=== PATIENT | male | born 1940 | race Caucasian/White ===

== ENCOUNTER 2017-07-15 22:35 | Emergency (ER) | payer MEDICARE, OTHER ==
--- NOTE | 2017-07-15 22:46 | EDM.PDOC ---
ED HPI GENERAL MEDICAL PROBLEM - General Chief Complaint: Genitourinary Problem Stated Complaint: hematuria Time Seen by Provider: 07/15/17 22:36 Source of Information: Reports: Patient, Family () History Limitations: Reports: No Limitations - History of Present Illness INITIAL COMMENTS - FREE TEXT/NARRATIVE: Patient presents with complaint of hematuria. He says he was getting ready for bed this evening and when he urinated it was very bloody in appearance. No clots were seen. He denies any abdominal pain or dysuria. He has never had blood in urine before. Seven years ago he had prostate cancer that was treated with Lupron which was discontinued after sufficient time period of normal follow up with urologist. He has stage 3 renal disease and A Fib per his . He has had AAA surgery and cardiac stents. - Related Data Allergies Allergy/AdvReac Type Severity Reaction Status Date / Time celecoxib [From Celebrex] Allergy Hives Verified 01/07/15 21:31 ezetimibe [From Zetia] Allergy Other Verified 07/15/17 23:03 nitroglycerin Allergy Bradycardia Verified 01/07/15 21:31 Home Meds: Home Meds Acetaminophen [Tylenol Arthritis Pain] 650 mg PO Q4HR 01/08/15 [History] Allopurinol [Zyloprim] 100 mg PO DAILY 01/08/15 [History] Calcium Carbonate/Vitamin D3 [Calcium 600 + Vit D Tablet] 1 each PO DAILY [History] Cyanocobalamin (Vitamin B-12) [Vitamin B-12] 1,000 mcg PO DAILY 01/08/15 [ History] Folic Acid 1 mg PO DAILY 01/08/15 [History] Furosemide 20 mg PO DAILY 01/08/15 [History] Losartan [Cozaar] 25 mg PO DAILY 01/08/15 [History] Ranolazine [Ranexa] 1,000 mg PO BID 01/08/15 [History] Simvastatin [Zocor] 20 mg PO BEDTIME 01/08/15 [History] Warfarin Sodium [Warfarin Sodium] 5 mg PO ASDIRECTED 01/08/15 [History] Warfarin Sodium [Warfarin Sodium] 7.5 mg PO ASDIRECTED 01/08/15 [History] metFORMIN [Glucophage XR] 500 mg PO DAILY 01/08/15 [History] Carvedilol [Carvedilol] 3.125 mg PO BID 07/15/17 [History] Cholecalciferol (Vitamin D3) [Vitamin D3] 2,000 mg PO DAILY 07/15/17 [History] Past Medical History - Past Surgical History Other Cardiovascular Surgeries/Procedures: ablation in 2012, triple bypass in ", AAA repair in 2009 Other GI Surgeries/Procedures: 2012 Social & Family History - Tobacco Use Smoking Status *Q: Former Smoker Years of Tobacco use: 30 Second Hand Smoke Exposure: No - Recreational Drug Use Recreational Drug Use: No ED ROS GENERAL - Review of Systems Review Of Systems: See Below Constitutional: Denies: Fever, Chills, Malaise, Weakness HEENT: Reports: No Symptoms Respiratory: Denies: Shortness of Breath, Cough Cardiovascular: Denies: Chest Pain, Lightheadedness, Syncope Endocrine: Reports: No Symptoms GI/Abdominal: Denies: Abdominal Pain, Anorexia, Black Stool, Bloody Stool, Constipation, Diarrhea, Decreased Appetite, Hematemesis, Hematochezia, Nausea, Vomiting : Reports: Hematuria. Denies: Discharge, Dysuria, Flank Pain, Frequency, Incontinence, Urgency, Urinary Retention Musculoskeletal: Reports: No Symptoms Skin: Denies: Cyanosis, Jaundice, Mottled, Pallor, Diaphoresis Neurological: Denies: Confusion, Dizziness, Headache, Seizure, Syncope, Trouble Speaking, Difficulty Walking Psychiatric: Denies: Agitation, Anxiety, Confusion Hematologic/Lymphatic: Reports: Easy Bleeding (on warfarin for A Fib with INR yesterday of 2.6). Denies: Anemia ED EXAM, RENAL/ - Physical Exam Exam: See Below Exam Limited By: No Limitations General Appearance: Alert, WD/WN, No Apparent Distress Eye Exam: Bilateral Eye: EOMI, Normal Inspection, PERRL Ears: Normal External Exam, Hearing Grossly Normal Nose: Normal Inspection, No Blood Throat/Mouth: Normal Inspection, Normal Lips, Normal Voice, No Airway Compromise Head: Atraumatic, Normocephalic Neck: Full Range of Motion Respiratory/Chest: No Respiratory Distress, Lungs Clear, Normal Breath Sounds, No Accessory Muscle Use Cardiovascular: Regular Rate, Rhythm, No Murmur GI/Abdominal: Normal Bowel Sounds, Soft, Non-Tender, No Organomegaly, No Distention, No Abnormal Bruit, No Mass, Pelvis Stable Back Exam: No: CVA Tenderness (L), CVA Tenderness (R) Extremities: Normal Range of Motion Neurological: Alert, Oriented, Normal Cognition, No Motor/Sensory Deficits Psychiatric: Normal Affect, Normal Mood Skin Exam: Warm, Dry, Intact, Normal Color, No Rash Course - Vital Signs Last Recorded V/S: Last Vital Signs Temp 97.0 F 07/15/17 22:37 Pulse 59 L 07/15/17 22:37 Resp 18 07/15/17 22:37 BP 198/92 H 07/15/17 22:37 Pulse Ox 98 07/15/17 22:37 - Orders/Labs/Meds Orders: Active Orders 24 hr Category Date Time Status PSA-EIA [REF] Stat Lab 07/15/17 22:45 Ordered Labs: Laboratory Tests 07/15/17 07/15/17 07/15/17 Range/Units 22:54 23:00 23:00 WBC 6.8 (5.0-10.0) 10^3/uL RBC 3.38 L (4.50-6.00) 10^6/uL Hgb 10.8 L (13.0-17.0) g/dL Hct 33.2 L (40.0-52.0) % MCV 98.1 H (82.0-92.0) fL MCH 31.8 H (27.0-31.0) pg MCHC 32.4 (32.0-36.0) g/dL RDW 16.4 H (11.5-14.5) % Plt Count 168 (150-300) 10^3/uL MPV 9.2 (7.4-10.4) fL Add Manual Diff Yes Neutrophils % (Manual) 56 (50-70) % Lymphocytes % (Manual) 36 (20-40) % Monocytes % (Manual) 2 (2-8) % Eosinophils % (Manual) 6 H (1-3) % PT 22.9 H (8.9-11.4) SEC INR 2.3 H (0.9-1.1) Sodium (136-145) mmol/L Potassium (3.3-5.3) mmol/L Chloride (98-115) mmol/L Carbon Dioxide (21.0-32.0) mmol/L BUN (6-25) mg/dL Creatinine (0.51-1.17) mg/dL Est Cr Clr Drug Dosing mL/min Estimated GFR (MDRD) mL/min Glucose (70-110) mg/dL Calcium (8.7-10.3) mg/dL Specimen Type Urincc Urine Color Heavenly H (YELLOW) Urine Appearance Turbid H (CLEAR) Urine pH 5.5 (5.0-9.0) Ur Specific [place] 1.020 (1.005-1.030) Urine Protein 100 H (NEGATIVE) mg/dL Urine Glucose (UA) Negative (NEGATIVE) mg/dL Urine Ketones Negative (NEGATIVE) mg/dL Urine Occult Blood Large H (NEGATIVE) Urine Nitrite Negative (NEGATIVE) Urine Bilirubin Small H (NEGATIVE) Urine Urobilinogen 0.2 (0.2-1.0) E.U./dL Ur Leukocyte Esterase Negative (NEGATIVE) Urine RBC Packed /HPF Urine WBC 0-5 /HPF Ur Epithelial Cells Few /LPF Urine Bacteria Few (NONE TO FEW) /HPF 07/15/17 Range/Units 23:00 WBC (5.0-10.0) 10^3/uL RBC (4.50-6.00) 10^6/uL Hgb (13.0-17.0) g/dL Hct (40.0-52.0) % MCV (82.0-92.0) fL MCH (27.0-31.0) pg MCHC (32.0-36.0) g/dL RDW (11.5-14.5) % Plt Count (150-300) 10^3/uL MPV (7.4-10.4) fL Add Manual Diff Neutrophils % (Manual) (50-70) % Lymphocytes % (Manual) (20-40) % Monocytes % (Manual) (2-8) % Eosinophils % (Manual) (1-3) % PT (8.9-11.4) SEC INR (0.9-1.1) Sodium 141 (136-145) mmol/L Potassium 4.9 (3.3-5.3) mmol/L Chloride 102 (98-115) mmol/L Carbon Dioxide 27.5 (21.0-32.0) mmol/L BUN 33 H (6-25) mg/dL Creatinine 1.61 H (0.51-1.17) mg/dL Est Cr Clr Drug Dosing 39.62 mL/min Estimated GFR (MDRD) 42 mL/min Glucose 123 H (70-110) mg/dL Calcium 9.2 (8.7-10.3) mg/dL Specimen Type Urine Color (YELLOW) Urine Appearance (CLEAR) Urine pH (5.0-9.0) Ur Specific [place] (1.005-1.030) Urine Protein (NEGATIVE) mg/dL Urine Glucose (UA) (NEGATIVE) mg/dL Urine Ketones (NEGATIVE) mg/dL Urine Occult Blood (NEGATIVE) Urine Nitrite (NEGATIVE) Urine Bilirubin (NEGATIVE) Urine Urobilinogen (0.2-1.0) E.U./dL Ur Leukocyte Esterase (NEGATIVE) Urine RBC /HPF Urine WBC /HPF Ur Epithelial Cells /LPF Urine Bacteria (NONE TO FEW) /HPF - Re-Assessments/Exams Free Text/Narrative Re-Assessment/Exam: 07/16/17 00:01 Hg 10.8 compared with 10.1 1-2 weeks ago from clinic record that pt's accessed. INR is 2.3 and UA shows large amount of RBCs. However the color of the urine is much more dilute than earlier this evening per patient and his . Discussed findings and recommendations with patient including the need to get this rechecked to ascertain the source of bleeding if it continues. Patient discharged in stable condition. Departure - Departure Time of Disposition: 23:57 Disposition: Home, Self-Care 01 Condition: Good Clinical Impression: Gross hematuria - Discharge Information Forms: ED Department Discharge Additional Instructions: 1. Monitor the urine to see if it continues to clear up. 2. Follow up with your PCP on Tuesday for recheck of urine. 3. Go to ER if you have continuing major bleeding in urine or if you become weak or pale as that may require a blood transfusion. - My Orders Last 24 Hours: My Active Orders 07/15/17 22:45 PSA-EIA [REF] Stat - Assessment/Plan Last 24 Hours: My Active Orders 07/15/17 22:45 PSA-EIA [REF] Stat
[2017-07-16 03:17] VITALS: BP 150/69
== END 2017-07-16 00:10 | disposition home or self-care (01) ==
LOC: KA.ED 22:35
DX: R31.0 Gross hematuria (principal); Z88.8 Allergy status to other drugs, medicaments and biological substances; Z79.899 Other long term (current) drug therapy; Z79.01 Long term (current) use of anticoagulants; Z79.84 Long term (current) use of oral hypoglycemic drugs; Z87.891 Personal history of nicotine dependence
CPT/HCPCS: 36415; 80048; 81001; 84153; 85025; 85610; 99283

== ENCOUNTER 2017-12-19 07:43 | Inpatient (IN) | payer MEDICARE, OTHER ==
[2017-12-19] MEDS ORDERED: Calamine/Zinc Oxide Lotion 118 ML Bottle TOP PRN (16:40)
[2017-12-19] MEDS ORDERED: Albuterol/Ipratropium 3.0-0.5 MG/3 ML Neb Soln INH PRN (16:45)
[2017-12-19] MEDS: Carvedilol 6.25 MG Tab PO SCH (17:15)
[2017-12-19] MEDS: Acetaminophen 650 MG Tab.ER PO SCH ×2 (17:15→22:52)
[2017-12-19] MEDS ORDERED: Ondansetron 4 MG Tab.DIS PO ONE (18:22)
[2017-12-19] MEDS: Melatonin 3 MG Tab PO SCH (20:47)
[2017-12-19] MEDS: Simvastatin 20 MG Tab PO SCH (20:47)
[2017-12-19] MEDS ORDERED: RANOLAZINE 1000 MG PO ONE (20:48)
[2017-12-19] MEDS: RANOLAZINE 1000 MG PO SCH (20:48)
[2017-12-19] MEDS ORDERED: Enoxaparin 30 MG/0.3 ML Syringe SUBCUT SCH (21:00)
[2017-12-19] MEDS ORDERED: Triamcinolone Acetonide 0.1% Crm 15 GM Tube TOP PRN (21:00)
[2017-12-20] MEDS: Acetaminophen 650 MG Tab.ER PO SCH ×4 (06:01→22:47)
[2017-12-20] MEDS ORDERED: Ondansetron 4 MG Tab.DIS PO PRN (08:06)
[2017-12-20] MEDS: Cholecalciferol (Vitamin D3) 1,000 Unit Tab PO SCH (08:17)
[2017-12-20] MEDS: Calcium Citrate/Vitamin D3 315 MG-250 Unit Tab PO SCH (08:18)
[2017-12-20] MEDS: Cyanocobalamin (Vitamin B12) 500 MCG Tab PO SCH (08:18)
[2017-12-20] MEDS: metFORMIN 500 MG Tab PO SCH (08:18)
[2017-12-20] MEDS: Furosemide 20 MG Tab PO SCH (08:19)
[2017-12-20] MEDS: Allopurinol 100 MG Tab PO SCH (08:19)
[2017-12-20] MEDS: Polyethylene Glycol 3350 Powder 17 GM Packet PO SCH (08:20)
[2017-12-20] MEDS: traMADol 50 MG Tab PO PRN (08:21)
[2017-12-20] MEDS: Carvedilol 6.25 MG Tab PO SCH ×2 (08:22→17:37)
[2017-12-20] MEDS: RANOLAZINE 1000 MG PO SCH ×2 (08:24→20:07)
--- NOTE | 2017-12-20 09:29 | PCM.HP ---
H&P History of Present Illness - General Date of Service: 12/20/17 Admit Problem/Dx: Admission Diagnosis/Problem Admission Diagnosis/Problem Arthroplasty of knee Source of Information: Patient - History of Present Illness Initial Comments - Free Text/Narative: This 77-year-old gentleman was admitted into SNF for rehabilitation underwent successful left total knee replacement DOS 12/15/[address] Paz orthopedic surgeon. Left Knee Pain Score (Numeric/FACES): 5 - Related Data Allergies/Adverse Reactions: Allergies Allergy/AdvReac Type Severity Reaction Status Date / Time celecoxib [From Celebrex] Allergy Hives Verified 12/19/17 14:24 degarelix Allergy Rash Verified 12/19/17 14:24 ezetimibe [From Zetia] Allergy Other Verified 12/19/17 14:24 nitroglycerin Allergy Bradycardia Verified 12/19/17 14:24 Home Medications: Home Meds Acetaminophen [Tylenol Arthritis Pain] 650 mg PO Q6HR 01/08/15 [History] Allopurinol [Zyloprim] 100 mg PO DAILY 01/08/15 [History] Calcium Carbonate/Vitamin D3 [Calcium 600 + Vit D Tablet] 1 each PO DAILY [History] Cyanocobalamin (Vitamin B-12) [Vitamin B-12] 1,000 mcg PO DAILY 01/08/15 [ History] Furosemide 20 mg PO Q48H 01/08/15 [History] Ranolazine [Ranexa] 1,000 mg PO BID 01/08/15 [History] Simvastatin [Zocor] 20 mg PO BEDTIME 01/08/15 [History] Warfarin Sodium 5 mg PO SUTUWETHFRSA@1800 01/08/15 [History] Warfarin Sodium 7.5 mg PO MO@1800 01/08/15 [History] Carvedilol 3.125 mg PO BIDMEALS 07/15/17 [History] Cholecalciferol (Vitamin D3) [Vitamin D3] 2,000 mg PO DAILY 07/15/17 [History] Albuterol/Ipratropium [DuoNeb 3.0-0.5 MG/3 ML] 3 ml INH Q6H PRN 08/19/17 [ History] Triamcinolone Acetonide [Triamcinolone Acetonide 0.1% Crm] 1 applic TOP TID 08/07 [History] Goserelin [Zoladex] 10.8 mg SQ Q84D 10/27/17 [History] Calamine/Zinc Oxide [Calamine Lotion] 1 applic TOP TID PRN 12/19/17 [History] Enoxaparin [Lovenox] 30 mg SQ BID 12/19/17 [History] Folic Acid 0.8 mg PO DAILY 12/19/17 [History] Polyethylene Glycol 3350 [Miralax] 17 gm PO DAILY 12/19/17 [History] Sennosides/Docusate Sodium [Senna-Docusate Sodium] 8.6 - 50 mg PO BID 12/19/17 [ History] metFORMIN HCl [Metformin HCl] 500 mg PO WITHBREAKFAST 12/19/17 [History] traMADol [Ultram] 50 mg PO Q6H PRN 12/19/17 [History] Past Medical History HEENT History: Reports: Hard of Hearing, Impaired Vision, Other (See Below) Other HEENT History: pat. is supposed to have cataract surgery in the right eye Cardiovascular History: Reports: Afib, CAD, High Cholesterol, Hypertension, [place], Stents Respiratory History: Reports: COPD, Sleep Apnea Gastrointestinal History: Reports: Chronic Constipation Genitourinary History: Reports: BPH, Diabetic Nephropathy, Prostate Disorder, Renal Calculus Musculoskeletal History: Reports: Arthritis, Fracture, Other (See Below) Other Musculoskeletal History: 50 years ago pat. had fx. in the right foot Neurological History: Reports: Neuropathy, Diabetic Endocrine/Metabolic History: Reports: Diabetes, Type II Hematologic History: Reports: Anemia, Blood Transfusion(s) Oncologic (Cancer) History: Reports: Prostate - Infectious Disease History Infectious Disease History: Reports: None - Past Surgical History HEENT Surgical History: Reports: Tonsillectomy Cardiovascular Surgical History: Reports: AAA Repair, Cardiac Ablation, Coronary Artery Bypass Respiratory Surgical History: Reports: None GI Surgical History: Reports: Colonoscopy Other GI Surgeries/Procedures: 2013 Male Surgical History: Reports: Prostatectomy, Renal Calculus Endocrine Surgical History: Reports: None Neurological Surgical History: Reports: None Musculoskeletal Surgical History: Reports: Knee Replacement Social & Family History - Family History Cardiac: Reports: [place], Other (See Below) Other Cardiac Family History: brother had heart problems Respiratory: Reports: Other (See Below) Other Respiratory Family Hisory: pulmonary fibrosis - sister GI: Reports: None : Reports: None OBGYN: Reports: None Musculoskeletal: Reports: None Neurological: Reports: None Psychiatric: Reports: None Endocrine/Metabolic: Reports: None Hematologic: Reports: None Immunologic: Reports: None Oncologic: Reports: Lung, Prostate, Other (See Below) Other Oncologic Family History: sister - lung cancer. father - prostate cancer - Tobacco Use Smoking Status *Q: Former Smoker Years of Tobacco use: 25 Packs/Tins Daily: 1 Used Tobacco, but Quit: Yes Month/Year Tobacco Last Used: 1995 Second Hand Smoke Exposure: No - Caffeine Use Caffeine Use: Reports: Coffee, Tea - Recreational Drug Use Recreational Drug Use: No H&P Review of Systems - Review of Systems: Review Of Systems: See Below General: Reports: No Symptoms HEENT: Reports: No Symptoms Pulmonary: Reports: No Symptoms Cardiovascular: Reports: No Symptoms Gastrointestinal: Reports: No Symptoms Genitourinary: Reports: No Symptoms Musculoskeletal: Reports: Joint Pain, Joint Swelling, Other (mild left knee pain ) Skin: Reports: Bruising Psychiatric: Reports: No Symptoms Neurological: Reports: No Symptoms Hematologic/Lymphatic: Reports: No Symptoms Immunologic: Reports: No Symptoms Exam - Exam Exam: See Below - Vital Signs Vital Signs: Last Vital Signs Temp 97.5 F 12/20/17 07:00 Pulse 61 12/20/17 08:22 Resp 16 12/20/17 07:00 BP 159/69 H 12/20/17 08:22 Pulse Ox 95 12/20/17 07:00 Weight: 269 lb 3.2 oz - Exam Quality Assessment: No: Supplemental Oxygen General: Alert, Oriented, Cooperative. No: Mild Distress HEENT: PERRLA, Hearing Intact, Mucosa Moist & [place], Nares Patent, Normal Nasal Septum, Posterior Pharynx Clear, Conjunctiva Clear, EOMI, EACs Clear, TMs Clear Neck: Supple, Trachea Midline, 2 Lungs: Clear to Auscultation, Normal Respiratory Effort Cardiovascular: Regular Rate, Regular Rhythm GI/Abdominal Exam: Normal Bowel Sounds, Soft, Non-Tender, No Organomegaly, No Distention, No Abnormal Bruit, No Mass, Pelvis Stable (Male) Exam: Deferred Rectal (Males) Exam: Deferred Back Exam: No: CVA Tenderness (L), CVA Tenderness (R) Extremities: No Pedal Edema Peripheral Pulses: 2+: Radial (L), Radial (R) Skin: Warm, Dry, Intact, Incision Neurological: Cranial Nerves Intact Neuro Extensive - Mental Status: Alert, Oriented x3, Normal Mood/Affect, Normal Cognition Neuro Extensive - Motor, Sensory, Reflexes: CN II-XII Intact Psychiatric: Alert, Normal Affect, Normal Mood - Patient Data Lab Results Last 24 hrs: Laboratory Results - last 24 hr 12/20/17 12/20/17 Range/Units 06:00 07:25 PT TNP INR 2.0 H (0.9-1.1) POC Glucose 206 H (74-106) mg/dl Problem List Initiated/Reviewed/Updated: Yes Orders Last 24hrs: Active Orders 24 hr Category Date Time Status Patient Status [ADT] Routine ADT 12/19/17 14:23 Ordered Blood Glucose Check, Bedside [RC] 0700 Care 12/19/17 15:38 Active Cooling Warming Measures [RC] ASDIRECTED Care 12/19/17 15:59 Active Intake and Output [RC] 1400,2200,0600 Care 12/19/17 14:23 Active Up With Assistance [RC] ASDIRECTED Care 12/19/17 14:23 Active Vital Signs [RC] 0700,1500 Care 12/19/17 14:23 Active Consult to Pharmacy [CONS] Routine Cons 12/19/17 17:37 Active Consult to [employer] Supervisor [CONS] Routine Cons 12/19/17 14:23 Active PT Evaluation and Treatment [CONS] Routine Cons 12/19/17 14:23 Active [place] [employer] Diet [DIET] Diet 12/19/17 Dinner Active CBC WITH AUTO DIFF [HEME] Routine Lab 12/26/17 06:00 Ordered CULTURE WOUND [RM] Routine Lab 12/19/17 21:10 Ordered Acetaminophen [Tylenol Arthritis Pain] Med 12/19/17 17:00 Active 650 mg PO Q6HR Albuterol/Ipratropium [DuoNeb 3.0-0.5 MG/3 ML] Med 12/19/17 16:45 Active 3 ml INH Q6H PRN Allopurinol [Zyloprim] Med 12/20/17 09:00 Active 100 mg PO DAILY Calamine/Zinc Oxide [Calamine Lotion] Med 12/19/17 16:40 Active 0 ml TOP TID PRN Calcium Citrate/Vitamin D3 [Calcium Citrate + D] Med 12/20/17 09:00 Active 2 tab PO DAILY Carvedilol [Coreg] Med 12/19/17 18:00 Active 3.125 mg PO BIDMEALS Cholecalciferol (Vitamin D3) [Vitamin D3] Med 12/20/17 09:00 Active 2,000 units PO DAILY Cyanocobalamin (Vitamin B12) [Vitamin B12] Med 12/20/17 09:00 Active 500 mcg PO DAILY Furosemide [Lasix] Med 12/20/17 08:00 Active 20 mg PO Q48H Melatonin Med 12/19/17 21:00 Active 3 mg PO BEDTIME Ondansetron [Zofran ODT] Med 12/20/17 08:06 Active 4 mg PO Q4H PRN Polyethylene Glycol 3350 [MiraLAX] Med 12/20/17 09:00 Active 17 gm PO DAILY Ranolazine [Ranexa] Med 12/19/17 21:00 Active 1,000 mg PO BID Simvastatin [Zocor] Med 12/19/17 21:00 Active 20 mg PO BEDTIME Triamcinolone Acetonide [Triamcinolone Acetonide 0.1% Med 12/19/17 21:00 Active Crm] 0 gm TOP TID PRN Warfarin [Coumadin] Med 12/20/17 11:00 Active 5 mg PO DAILY@1100 metFORMIN [Glucophage] Med 12/20/17 08:00 Active 500 mg PO WITHBREAKFAST traMADol [Ultram] Med 12/19/17 16:40 Active 50 mg PO Q6H PRN Ice Therapy [OM.PC] Routine Oth 12/19/17 15:59 Ordered Resuscitation Status Routine Resus Stat 12/19/17 14:23 Ordered Medication Orders Acetaminophen (Tylenol Arthritis Pain) 650 mg PO Q6HR [facility] Last Admin: 12/20/17 06:01 Dose: 650 mg Admin: 12/19/17 22:52 Dose: Not Given Admin: 12/19/17 17:15 Dose: 650 mg Albuterol/Ipratropium (Duoneb 3.0-0.5 Mg/3 Ml) 3 ml INH Q6H PRN PRN Reason: shortness of breath Allopurinol (Zyloprim) 100 mg PO DAILY [facility] Last Admin: 12/20/17 08:19 Dose: 100 mg Calamine/Zinc Oxide (Calamine Lotion) 0 ml TOP TID PRN PRN Reason: Itching Calcium Citrate (Calcium Citrate + D) 2 tab PO DAILY [facility] Last Admin: 12/20/17 08:18 Dose: 2 tab Carvedilol (Coreg) 3.125 mg PO BIDMEALS [facility] Last Admin: 12/20/17 08:22 Dose: 3.125 mg Admin: 12/19/17 17:15 Dose: 3.125 mg Cholecalciferol (Vitamin D3) 2,000 units PO DAILY [facility] Last Admin: 12/20/17 08:17 Dose: 2,000 units Cyanocobalamin (Vitamin B12) 500 mcg PO DAILY [facility] Last Admin: 12/20/17 08:18 Dose: 500 mcg Furosemide (Lasix) 20 mg PO Q48H [facility] Last Admin: 12/20/17 08:19 Dose: 20 mg Melatonin (Melatonin) 3 mg PO BEDTIME [facility] Last Admin: 12/19/17 20:47 Dose: 3 mg Metformin HCl (Glucophage) 500 mg PO WITHBREAKFAST [facility] Last Admin: 12/20/17 08:18 Dose: 500 mg Ranolazine [Ranexa] (1,000 Mg Tab) 1,000 mg PO BID [facility] Last Admin: 12/20/17 08:24 Dose: 1,000 mg Admin: 12/19/17 20:48 Dose: 1,000 mg Ondansetron HCl (Zofran Odt) 4 mg PO Q4H PRN PRN Reason: Nausea/Vomiting Last Admin: 12/20/17 08:33 Dose: 4 mg Polyethylene Glycol (Miralax) 17 gm PO DAILY [facility] Last Admin: 12/20/17 08:20 Dose: Not Given Simvastatin (Zocor) 20 mg PO BEDTIME [facility] Last Admin: 12/19/17 20:47 Dose: 20 mg Tramadol HCl (Ultram) 50 mg PO Q6H PRN PRN Reason: Pain Last Admin: 12/20/17 08:21 Dose: 50 mg Triamcinolone Acetonide (Triamcinolone Acetonide 0.1% Crm) 0 gm TOP TID PRN PRN Reason: rash Warfarin Sodium (Coumadin) 5 mg PO DAILY@1100 [facility] Assessment/Plan Comment:: HISTORY OF PRESENT ILLNESS This 77-year-old gentleman was admitted into SNF for rehabilitation underwent successful left total knee replacement DOS 12/15/[address] Paz orthopedic surgeon. Primary assessment Total knee replacement, left, DOS 12/15/17, PT/OT Secondary problems Atrial fibrillation, chronic, INR 2.0 [id number] score 5: Coumadin restarted postoperatively, no longer needing LMWH T2D, A1c 6.7, recent creatinine 1.3, for now will continue metformin, pharmacy will make note of monitoring creatinine HTN, stable, Continue coreg BID. Hypertension, stable. CKD stage 3, stable. History of [place] I CAD, stable. Stent Ischemic cardiomyopathy LAURA, Obesity, morbid, HFpEF, Chronic, combined CHF, stable. Continue lasix, Delirium prophylaxis, ear plugs when necessary, [place].
[2017-12-20] MEDS ORDERED: Warfarin 5 MG Tab PO SCH (11:00)
[2017-12-20] MEDS: Melatonin 3 MG Tab PO SCH (20:07)
[2017-12-20] MEDS: Simvastatin 20 MG Tab PO SCH (20:07)
[2017-12-21] MEDS: Acetaminophen 650 MG Tab.ER PO SCH ×4 (04:23→22:51)
[2017-12-21] MEDS: traMADol 50 MG Tab PO PRN ×2 (04:48→15:32)
[2017-12-21] MEDS: Cholecalciferol (Vitamin D3) 1,000 Unit Tab PO SCH (08:25)
[2017-12-21] MEDS: Polyethylene Glycol 3350 Powder 17 GM Packet PO SCH (08:26)
[2017-12-21] MEDS: Calcium Citrate/Vitamin D3 315 MG-250 Unit Tab PO SCH (08:26)
[2017-12-21] MEDS: RANOLAZINE 1000 MG PO SCH ×2 (08:26→21:09)
[2017-12-21] MEDS: metFORMIN 500 MG Tab PO SCH (08:26)
[2017-12-21] MEDS: Allopurinol 100 MG Tab PO SCH (08:27)
[2017-12-21] MEDS: Cyanocobalamin (Vitamin B12) 500 MCG Tab PO SCH (08:27)
[2017-12-21] MEDS: Carvedilol 6.25 MG Tab PO SCH ×2 (08:29→18:12)
[2017-12-21] MEDS: traMADol 50 MG Tab PO SCH ×2 (11:20→22:51)
--- NOTE | 2017-12-21 11:50 | PN ---
12/21/2017 PATIENT NAME: ESTEFANY WILSON SHORT NOTE This is a 77-year-old male patient who is currently in the swing bed unit for rehabilitation due to a left total knee arthroplasty. This was completed on 12/15/[address] Paz. Nursing staff report today that the patient's pain medications include tramadol 50 mg on a q.i.d. PRN basis. It is reported that the patient is not making his pain needs known, therefore they are questioning if his pain is controlled. As a result, we will change his tramadol 50 mg to a scheduled dosing b.i.d. and also a p.r.n. dosing b.i.d. They will notify the provider with any other concerns in relation to Pain Management. The patient also will be placed on a bed alarm per nursing staff for safety. /[id number]/MODL MTDD
[2017-12-21] MEDS: Warfarin 5 MG Tab PO SCH (18:12)
[2017-12-21] MEDS: Simvastatin 20 MG Tab PO SCH (21:09)
[2017-12-21] MEDS: Melatonin 3 MG Tab PO SCH (21:09)
[2017-12-22] MEDS: Acetaminophen 650 MG Tab.ER PO SCH ×4 (05:38→22:28)
[2017-12-22] MEDS: traMADol 50 MG Tab PO PRN ×2 (06:02→14:05)
[2017-12-22] MEDS: RANOLAZINE 1000 MG PO SCH ×2 (08:11→21:04)
[2017-12-22] MEDS: Calcium Citrate/Vitamin D3 315 MG-250 Unit Tab PO SCH (08:12)
[2017-12-22] MEDS: Polyethylene Glycol 3350 Powder 17 GM Packet PO SCH (08:13)
[2017-12-22] MEDS: Cyanocobalamin (Vitamin B12) 500 MCG Tab PO SCH (08:13)
[2017-12-22] MEDS: Furosemide 20 MG Tab PO SCH (08:14)
[2017-12-22] MEDS: Allopurinol 100 MG Tab PO SCH (08:14)
[2017-12-22] MEDS: metFORMIN 500 MG Tab PO SCH (08:14)
[2017-12-22] MEDS: Cholecalciferol (Vitamin D3) 1,000 Unit Tab PO SCH (08:15)
[2017-12-22] MEDS: Carvedilol 6.25 MG Tab PO SCH ×2 (08:15→19:36)
[2017-12-22] MEDS ORDERED: Polyethylene Glycol 3350 Powder 17 GM Packet PO PRN (10:45)
[2017-12-22] MEDS: traMADol 50 MG Tab PO SCH ×2 (11:03→22:31)
[2017-12-22] MEDS: Warfarin 5 MG Tab PO SCH (19:38)
[2017-12-22] MEDS: Melatonin 3 MG Tab PO SCH (21:05)
[2017-12-22] MEDS: Simvastatin 20 MG Tab PO SCH (21:05)
[2017-12-23] MEDS: Acetaminophen 650 MG Tab.ER PO SCH ×2 (04:09→12:35)
[2017-12-23 08:53] VITALS: BP 175/78
[2017-12-23] MEDS: metFORMIN 500 MG Tab PO SCH (08:54)
[2017-12-23] MEDS: Carvedilol 6.25 MG Tab PO SCH (08:54)
[2017-12-23] MEDS: Calcium Citrate/Vitamin D3 315 MG-250 Unit Tab PO SCH (08:55)
[2017-12-23] MEDS: RANOLAZINE 1000 MG PO SCH (08:56)
[2017-12-23] MEDS: Cholecalciferol (Vitamin D3) 1,000 Unit Tab PO SCH (08:56)
[2017-12-23] MEDS: Cyanocobalamin (Vitamin B12) 500 MCG Tab PO SCH (08:56)
[2017-12-23] MEDS: Allopurinol 100 MG Tab PO SCH (08:57)
[2017-12-23] MEDS: traMADol 50 MG Tab PO SCH (10:40)
--- NOTE | 2017-12-23 10:58 | PCM.DCSUM1 ---
Discharge Summary - Hospital Course Brief History: 77-year-old gentleman was admitted into a swing bed for rehabilitation after the patient had successful left total knee replacement DOS 12/15/[address] Paz orthopedic surgeon--[facility] Diagnosis: Stroke: No - Discharge Data Discharge Date: 12/23/17 Discharge Disposition: Home, Self-Care 01 Condition: Good - Patient Summary/Data Complications: No complications during hospital stay other do some slight breakthrough in pain--improved control after scheduled tramadol Consults: Consultations 12/19/17 14:23 Consult to Trimming Caser [CONS] Routine PT Evaluation and Treatment [CONS] Routine 12/19/17 17:37 Consult to Pharmacy [CONS] Routine - Patient Instructions Diet: Usual Diet as Tolerated Activity: Apply Ice, As Tolerated, Cough & Deep Breathe Driving: Do Not Drive Showering/Bathing: May Shower - Discharge Plan Prescriptions/Med Rec: traMADol [Ultram] 50 mg PO Q6H PRN #30 tablet PRN Reason: Pain Home Medications: Home Meds Acetaminophen [Tylenol Arthritis Pain] 650 mg PO Q6HR 01/08/15 [History] Allopurinol [Zyloprim] 100 mg PO DAILY 01/08/15 [History] Calcium Carbonate/Vitamin D3 [Calcium 600 + Vit D Tablet] 1 each PO DAILY [History] Cyanocobalamin (Vitamin B-12) [Vitamin B-12] 1,000 mcg PO DAILY 01/08/15 [ History] Furosemide 20 mg PO Q48H 01/08/15 [History] Ranolazine [Ranexa] 1,000 mg PO BID 01/08/15 [History] Simvastatin [Zocor] 20 mg PO BEDTIME 01/08/15 [History] Warfarin Sodium 5 mg PO SUTUWETHFRSA@1800 01/08/15 [History] Warfarin Sodium 7.5 mg PO MO@1800 01/08/15 [History] Carvedilol 3.125 mg PO BIDMEALS 07/15/17 [History] Cholecalciferol (Vitamin D3) [Vitamin D3] 2,000 mg PO DAILY 07/15/17 [History] Albuterol/Ipratropium [DuoNeb 3.0-0.5 MG/3 ML] 3 ml INH Q6H PRN 08/19/17 [ History] Triamcinolone Acetonide [Triamcinolone Acetonide 0.1% Crm] 1 applic TOP TID 08/07 [History] Goserelin [Zoladex] 10.8 mg SQ Q84D 10/27/17 [History] Calamine/Zinc Oxide [Calamine Lotion] 1 applic TOP TID PRN 12/19/17 [History] Folic Acid 0.8 mg PO DAILY 12/19/17 [History] Polyethylene Glycol 3350 [Miralax] 17 gm PO DAILY 12/19/17 [History] Sennosides/Docusate Sodium [Senna-Docusate Sodium] 8.6 - 50 mg PO BID 12/19/17 [ History] metFORMIN HCl [Metformin HCl] 500 mg PO WITHBREAKFAST 12/19/17 [History] traMADol [Ultram] 50 mg PO Q6H PRN 12/19/17 [History] traMADol [Ultram] 50 mg PO Q6H PRN #30 tablet 12/23/17 [Rx] Referrals: Carlitos Casiano APPRENTICE STYLIST [Nurse Practitioner] - (Anytime next week) - Discharge Summary/Plan Comment DC Time >30 min.: No Discharge Summary/Plan Comment: Final diagnosis Total knee replacement, left. Secondary diagnosis Atrial fibrillation, chronic, T2D, HTN, Hypertension, CKD stage 3, CAD, stable. Ischemic cardiomyopathy LAURA, Obesity, morbid, HFpEF, Chronic, combined CHF, Disposition, patient will be discharged from hospital and will receive outpatient physical therapy at [facility], he has an appointment with myself next week - General Info Functional Status: Reports: Pain Controlled - Review of Systems General: Reports: No Symptoms HEENT: Reports: No Symptoms Pulmonary: Reports: No Symptoms Cardiovascular: Reports: No Symptoms Gastrointestinal: Reports: No Symptoms Genitourinary: Reports: No Symptoms Musculoskeletal: Reports: Joint Swelling. Denies: Joint Pain Skin: Reports: Other (Some bruising left knee) Neurological: Reports: No Symptoms - Patient Data Vitals - Most Recent: Last Vital Signs Temp 96.9 F 12/23/17 07:00 Pulse 62 12/23/17 08:54 Resp 20 12/23/17 07:00 BP 175/78 H 12/23/17 08:54 Pulse Ox 94 L 12/23/17 07:00 Weight - Most Recent: 269 lb 3.2 oz I&O - Last 24 hours: Intake & Output 07/05/18 07/06/18 07/06/18 22:59 06:59 14:59 Intake Total 520 100 Balance 520 100 Lab Results - Last 24 hrs: Laboratory Results - last 24 hr 12/22/17 12/23/17 12/23/17 Range/Units 07:12 06:34 09:00 PT TNP INR 2.1 H (0.9-1.1) POC Glucose 184 H 168 H (74-106) mg/dl Med Orders - Current: Current Medications Acetaminophen (Tylenol Arthritis Pain) 650 mg PO Q6HR [facility] Last Admin: 12/23/17 04:09 Dose: 650 mg Albuterol/Ipratropium (Duoneb 3.0-0.5 Mg/3 Ml) 3 ml INH Q6H PRN PRN Reason: shortness of breath Last Admin: 12/21/17 04:35 Dose: 3 ml Allopurinol (Zyloprim) 100 mg PO DAILY [facility] Last Admin: 12/23/17 08:57 Dose: 100 mg Calamine/Zinc Oxide (Calamine Lotion) 0 ml TOP TID PRN PRN Reason: Itching Calcium Citrate (Calcium Citrate + D) 2 tab PO DAILY [facility] Last Admin: 12/23/17 08:55 Dose: 2 tab Carvedilol (Coreg) 3.125 mg PO BIDMEALS [facility] Last Admin: 12/23/17 08:54 Dose: 3.125 mg Cholecalciferol (Vitamin D3) 2,000 units PO DAILY [facility] Last Admin: 12/23/17 08:56 Dose: 2,000 units Cyanocobalamin (Vitamin B12) 500 mcg PO DAILY [facility] Last Admin: 12/23/17 08:56 Dose: 500 mcg Furosemide (Lasix) 20 mg PO Q48H [facility] Last Admin: 12/22/17 08:14 Dose: 20 mg Melatonin (Melatonin) 3 mg PO BEDTIME [facility] Last Admin: 12/22/17 21:05 Dose: 3 mg Metformin HCl (Glucophage) 500 mg PO WITHBREAKFAST [facility] Last Admin: 12/23/17 08:54 Dose: 500 mg Ondansetron HCl (Zofran Odt) 4 mg PO Q4H PRN PRN Reason: Nausea/Vomiting Last Admin: 12/20/17 08:33 Dose: 4 mg Polyethylene Glycol (Miralax) 17 gm PO DAILY PRN PRN Reason: constipation Ranolazine (Ranexa) 1,000 mg PO BID [facility] Last Admin: 12/23/17 08:56 Dose: 1,000 mg Simvastatin (Zocor) 20 mg PO BEDTIME [facility] Last Admin: 12/22/17 21:05 Dose: 20 mg Tramadol HCl (Ultram) 50 mg PO Q6H PRN PRN Reason: Pain Last Admin: 12/22/17 14:05 Dose: 50 mg Tramadol HCl (Ultram) 50 mg PO Q12H [facility] Last Admin: 12/23/17 10:40 Dose: 50 mg Triamcinolone Acetonide (Triamcinolone Acetonide 0.1% Crm) 0 gm TOP TID PRN PRN Reason: rash Warfarin Sodium (Coumadin) 5 mg PO SuTuWeThFrSa@1800 [facility] Last Admin: 12/22/17 19:38 Dose: 5 mg Warfarin Sodium (Coumadin) 7.5 mg PO Mo@1800 [facility] Discontinued Medications Enoxaparin Sodium (Lovenox) 30 mg SUBCUT BID [facility] Last Admin: 12/19/17 20:47 Dose: 30 mg Ranolazine [Ranexa] (1,000 Mg Tab) 1,000 mg PO BID [facility] Last Admin: 12/20/17 08:24 Dose: 1,000 mg Ondansetron HCl (Zofran Odt) 4 mg PO ONETIME ONE Stop: 12/19/17 18:23 Last Admin: 12/19/17 19:00 Dose: 4 mg Polyethylene Glycol (Miralax) 17 gm PO DAILY [facility] Last Admin: 12/22/17 08:13 Dose: Not Given Ranolazine (Ranexa) 1,000 mg PO .STK-MED ONE Stop: 12/19/17 20:49 Warfarin Sodium (Coumadin) 5 mg PO DAILY@1100 [facility] Last Admin: 12/20/17 11:36 Dose: 5 mg - Exam Quality Assessment: Denies: Supplemental Oxygen General: Reports: Alert, Oriented Neck: Reports: Supple Lungs: Reports: Clear to Auscultation, Normal Respiratory Effort Cardiovascular: Reports: Irregular Rhythm Extremities: No Pedal Edema, Other (Left knee incision clean dry and intact, generalized edema, range of motion flexion left knee approximately 100)
[2017-12-26] MEDS ORDERED: Warfarin 5 MG Tab PO SCH (18:00)
== END 2017-12-23 13:15 | disposition home or self-care (01) | DRG 560 ==
LOC: KA.MS 13:23
PROVIDERS: ADMIT Orthopaedic Surgery; ATTEND Family Medicine
DX: Z47.1 Aftercare following joint replacement surgery (principal); I13.0 Hypertensive heart and chronic kidney disease with heart failure and stage 1 through stage 4 chronic kidney disease, or unspecified chronic kidney disease; I50.42 Chronic combined systolic (congestive) and diastolic (congestive) heart failure; E11.40 Type 2 diabetes mellitus with diabetic neuropathy, unspecified; E11.21 Type 2 diabetes mellitus with diabetic nephropathy; E11.22 Type 2 diabetes mellitus with diabetic chronic kidney disease; N18.3 Chronic kidney disease, stage 3 (moderate); I48.2 Chronic atrial fibrillation; G89.18 Other acute postprocedural pain; I25.10 Atherosclerotic heart disease of native coronary artery without angina pectoris; I25.5 Ischemic cardiomyopathy; G47.33 Obstructive sleep apnea (adult) (pediatric); E66.01 Morbid (severe) obesity due to excess calories; Z79.01 Long term (current) use of anticoagulants; Z95.1 Presence of aortocoronary bypass graft; Z79.899 Other long term (current) drug therapy; Z87.891 Personal history of nicotine dependence
CPT/HCPCS: 36416; 82962; 85610; 87070; 87205; 94640; 97110-GP; 97161-GP; A9270-GY; J1650

== ENCOUNTER 2018-09-19 06:08 | Day surgery (SDC) | payer MEDICARE, OTHER ==
[2018-09-19] MEDS ORDERED: Gatifloxacin 0.5% Ophth Soln 2.5 ML Bot EYERT SCH (06:15)
[2018-09-19] MEDS ORDERED: Sodium Chloride 0.9% 10 ML Syringe FLUSH PRN (06:15)
[2018-09-19] MEDS ORDERED: Sodium Chloride 0.9% 1,000 ML IV SCH (06:15)
[2018-09-19] MEDS: Cyclopentolate 1% Opth Soln 2 ML Bottle EYERT SCH ×3 (06:23→06:49)
[2018-09-19] MEDS: Phenylephrine 10% Ophth Soln 5 ML Bot EYERT SCH ×3 (06:35→06:55)
[2018-09-19] MEDS ORDERED: Balanced Salt Solution Ophth Irrig 15 ML Bottle EYERT ONE (08:34)
[2018-09-19] MEDS ORDERED: Water For Irrigation,Sterile 1,500 ML Container IRR ONE (08:34)
[2018-09-19] MEDS ORDERED: Balanced Salt Solution Plus Ophth Irrig 500 ML Bottle IOCULAR ONE (08:35)
[2018-09-19] MEDS ORDERED: Carbachol 0.01% Intraocular 1.5 ML Vial EYERT ONE (08:35)
[2018-09-19] MEDS ORDERED: Dexamethasone/Neomycin/Polymyxin B Ophth Oint 3.5 GM Tube EYERT ONE (08:35)
[2018-09-19] MEDS ORDERED: EPINEPHrine 1 MG/ML SDV ONE (08:35)
[2018-09-19] MEDS ORDERED: Lidocaine 1% 10 ML MDV INJECT ONE (08:36)
[2018-09-19] MEDS ORDERED: Hyaluronate Sodium 1% 0.85 ML Syringe IOCULAR ONE (08:36)
[2018-09-19] MEDS ORDERED: Lidocaine 2% with EPINEPHrine 1:100,000 20 ML MDV INJECT ONE (08:36)
[2018-09-19] MEDS ORDERED: Tetracaine HCl/PF 0.5% 4 ML Bottle EYEBOTH ONE (08:37)
[2018-09-19 09:11] VITALS: BP 151/53
--- NOTE | 2018-09-20 10:52 | OR ---
DATE OF SURGERY: 09/19/2018 SURGEON: Danny Garcia MD PREOPERATIVE DIAGNOSIS: Cataract, right eye. POSTOPERATIVE DIAGNOSIS: Cataract, right eye. OPERATION PERFORMED: Phacoemulsification with posterior chamber lens insertion, right eye. 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 The right eye has a vision of 20/60. The right lens has a 3+ nuclear sclerosis and a 3+ cortical change and a 2+ posterior subcapsular change. This eye has a combined cataract and a cataract of aging. FINDINGS: The patient was taken to the operating room where appropriate anesthesia, sedation and monitoring were provided. A retrobulbar block was given on the right side. The eye was massaged and was found to be appropriately soft. The eye and eyelids were then prepped and draped in the usual sterile manner. A lid speculum was placed. A micro sharp blade was used to enter the anterior chamber inside the limbus superior-temporally. Xylocaine was irrigated into the eye at this site. Healon was irrigated into the eye through this site. Then using a 2.85 mm corneal blade an entry was made into the anterior chamber just inside the limbus temporally. Healon was again irrigated into the eye. Then using a cystitome, the anterior capsulorrhexis was created. The lens nucleus was hydrodissected using a 27 gauge cannula and balanced salt solution. The phacoemulsification unit was introduced through the temporal site and the Laith spatula through the superior temporal site. In so doing, the lens nucleus was phacoemulsified. The cortical fragments of the lens were removed using the irrigation aspiration unit. The posterior capsule was polished. Healon was irrigated into the eye. The posterior chamber lens was inserted and rotated into position inside the capsular bag. The Healon was irrigated out of the eye. Miostat was irrigated into the eye and the pupil rounded nicely. A single interrupted 10-0 nylon suture was placed through the temporal corneal incision site. Balanced salt solution was irrigated into the eye. The wound was tested and found to be tight. Maxitrol ointment was placed into the patient's right eye. The eyelids were closed and an eye patch and lloyd shield were placed. The patient left the operating room in good condition. /[id number]/MODL
== END 2018-09-19 09:15 | disposition home or self-care (01) ==
LOC: KA.SDS 06:08
PROVIDERS: ATTEND Ophthalmology
DX: E11.36 Type 2 diabetes mellitus with diabetic cataract (principal); H25.811 Combined forms of age-related cataract, right eye; I13.0 Hypertensive heart and chronic kidney disease with heart failure and stage 1 through stage 4 chronic kidney disease, or unspecified chronic kidney disease; I50.42 Chronic combined systolic (congestive) and diastolic (congestive) heart failure; N18.3 Chronic kidney disease, stage 3 (moderate); E11.22 Type 2 diabetes mellitus with diabetic chronic kidney disease; I25.10 Atherosclerotic heart disease of native coronary artery without angina pectoris; I48.1 Persistent atrial fibrillation; E66.9 Obesity, unspecified; Z68.39 Body mass index [BMI] 39.0-39.9, adult; J44.9 Chronic obstructive pulmonary disease, unspecified; Z87.891 Personal history of nicotine dependence; Z79.84 Long term (current) use of oral hypoglycemic drugs; Z79.899 Other long term (current) drug therapy
CPT/HCPCS: 00142; 36416; 82962; 85610; A9270-GY; C1780; J0171; J2001; J7030

== ENCOUNTER 2019-02-07 23:12 | Observation (INO) | payer MEDICARE, OTHER ==
[2019-02-07] MEDS ORDERED: Ondansetron 4 MG/2 ML SDV IVPUSH ONE ×2 (23:13→23:53)
[2019-02-07] MEDS ORDERED: Sodium Chloride 0.9% 1,000 ML IV ONE (23:15)
--- NOTE | 2019-02-07 23:19 | EDM.PDOC ---
ED HPI GENERAL MEDICAL PROBLEM - General Chief Complaint: Syncope Stated Complaint: NEAR SYNCOPE/VOMITING Time Seen by Provider: 02/07/19 23:15 Source of Information: Reports: Patient, EMS, Family History Limitations: Reports: No Limitations - History of Present Illness INITIAL COMMENTS - FREE TEXT/NARRATIVE: 78 yo WM presents to ER with nausea/vomiting x 1 hour. Pt reports he woke up to use the bathroom and as he stood up he became nauseated and had near syncope and began to vomit. Pt denies any chest pain, shortness of breath, headache or neck pain. Pt denies dizziness or lightheadedness. Pt denies abdominal pain or dysuria. Pt denies any recent illnesses. Pt had blood work in lab yesterday and was found to have an elevated Cr- 2.25. Pt was given zofran 4mg IV and he states he is feeling better and nausea has improved. Onset: Sudden Onset Date: 02/07/19 Onset Time: 23:27 Location: Reports: Generalized Severity: Moderate Improves with: Reports: None Worsens with: Reports: None Associated Symptoms: Reports: Loss of Appetite, Nausea/Vomiting, Syncope, Weakness. Denies: Chest Pain, Cough, cough w sputum, Diaphoresis, Fever/Chills , Headaches, Rash, Seizure, Shortness of Breath - Related Data Allergies Allergy/AdvReac Type Severity Reaction Status Date / Time celecoxib [From Celebrex] Allergy Hives Verified 02/07/19 23:28 degarelix Allergy Rash Verified 02/07/19 23:28 ezetimibe [From Zetia] Allergy Stomach Verified 02/07/19 23:28 Ache nitroglycerin Allergy Bradycardia Verified 02/07/19 23:28 Home Meds: Home Meds Allopurinol [Zyloprim] 100 mg PO DAILY 01/08/15 [History] Calcium Carbonate/Vitamin D3 [Calcium 600 + Vit D Tablet] 1 each PO DAILY [History] Cyanocobalamin (Vitamin B-12) [Vitamin B-12] 1,000 mcg PO DAILY 01/08/15 [ History] Furosemide 40 mg PO DAILY 01/08/15 [History] Carvedilol 3.125 mg PO BIDMEALS 07/15/17 [History] Albuterol/Ipratropium [DuoNeb 3.0-0.5 MG/3 ML] 3 ml INH Q6H PRN 08/19/17 [ History] Folic Acid 0.8 mg PO DAILY 12/19/17 [History] Ascorbic Acid [Vitamin C] 500 mg PO Q48H 09/18/18 [History] Melatonin 5 mg PO BEDTIME 09/18/18 [History] Sennosides [Senokot] 8.6 mg PO BEDTIME PRN 09/18/18 [History] Triamcinolone Acetonide [Triamcinolone Acetonide 0.1% Crm] 1 applic TOP BID PRN 09/18/18 [History] Acetaminophen [Tylenol Arthritis] 650 mg PO Q6H PRN 02/06/19 [History] Apixaban [Eliquis] 2.5 mg PO BID 02/06/19 [History] Aspirin 81 mg PO DAILY 02/06/19 [History] Insulin Detemir [Levemir] 10 units SUBCUT BEDTIME 02/06/19 [History] Iron Polysaccharide Complex [Iferex 150] 1 tab PO ASDIRECTED 02/06/19 [History] Cholecalciferol (Vitamin D3) [Vitamin D3] 1 tab PO DAILY 02/07/19 [History] Ranolazine [Ranexa] 1 tab PO BID 02/07/19 [History] Sacubitril/Valsartan [Entresto 49 mg-51 mg Tablet] 1 tab PO BID 02/07/19 [ History] Past Medical History HEENT History: Reports: Hard of Hearing, Impaired Vision, Other (See Below) Other HEENT History: pat. is supposed to have cataract surgery in the right eye Cardiovascular History: Reports: Afib, CAD, High Cholesterol, Hypertension, NH, Stents Respiratory History: Reports: COPD, Sleep Apnea Gastrointestinal History: Reports: Chronic Constipation Genitourinary History: Reports: BPH, Diabetic Nephropathy, Prostate Disorder, Renal Calculus Musculoskeletal History: Reports: Arthritis, Fracture, Other (See Below) Other Musculoskeletal History: 50 years ago pat. had fx. in the right foot Neurological History: Reports: Neuropathy, Diabetic Endocrine/Metabolic History: Reports: Diabetes, Type II Hematologic History: Reports: Anemia, Blood Transfusion(s) Oncologic (Cancer) History: Reports: Prostate - Infectious Disease History Infectious Disease History: Reports: None - Past Surgical History HEENT Surgical History: Reports: Tonsillectomy Cardiovascular Surgical History: Reports: AAA Repair, Cardiac Ablation, Coronary Artery Bypass Respiratory Surgical History: Reports: None GI Surgical History: Reports: Colonoscopy Other GI Surgeries/Procedures: 2013 Male Surgical History: Reports: Prostatectomy, Renal Calculus Endocrine Surgical History: Reports: None Neurological Surgical History: Reports: None Musculoskeletal Surgical History: Reports: Knee Replacement Social & Family History - Family History Cardiac: Reports: NH, Other (See Below) Other Cardiac Family History: brother had heart problems Respiratory: Reports: Other (See Below) Other Respiratory Family Hisory: pulmonary fibrosis - sister GI: Reports: None : Reports: None OBGYN: Reports: None Musculoskeletal: Reports: None Neurological: Reports: None Psychiatric: Reports: None Endocrine/Metabolic: Reports: None Hematologic: Reports: None Immunologic: Reports: None Oncologic: Reports: Lung, Prostate, Other (See Below) Other Oncologic Family History: sister - lung cancer. father - prostate cancer - Caffeine Use Caffeine Use: Reports: Coffee, Tea ED ROS GENERAL - Review of Systems Review Of Systems: See Below Constitutional: Reports: No Symptoms HEENT: Reports: No Symptoms Respiratory: Reports: No Symptoms Cardiovascular: Reports: No Symptoms Endocrine: Reports: No Symptoms GI/Abdominal: Reports: Nausea, Vomiting. Denies: Abdominal Pain, Black Stool, Bloody Stool, Constipation, Diarrhea, Hematemesis, Hematochezia, Melena : Reports: No Symptoms Musculoskeletal: Reports: No Symptoms Skin: Reports: No Symptoms Neurological: Reports: No Symptoms Psychiatric: Reports: No Symptoms Hematologic/Lymphatic: Reports: No Symptoms Immunologic: Reports: No Symptoms ED EXAM, GI/ABD - Physical Exam Exam: See Below Exam Limited By: No Limitations General Appearance: Alert, WD/WN, Mild Distress Eyes: Bilateral: EOMI Throat/Mouth: Normal Inspection, Normal Lips, Normal Teeth, Normal Gums, Normal Oropharynx, Normal Voice, No Airway Compromise Head: Atraumatic, Normocephalic Neck: Normal Inspection, Supple, Non-Tender, Full Range of Motion Respiratory/Chest: No Respiratory Distress, Lungs Clear, Normal Breath Sounds, No Accessory Muscle Use, Chest Non-Tender Cardiovascular: Normal Peripheral Pulses, Regular Rate, Rhythm, No Edema, No Gallop, No JVD, No Murmur, No Rub GI/Abdominal Exam: Normal Bowel Sounds, Soft, Non-Tender, No Organomegaly, No Distention, No Abnormal Bruit, No Mass, Pelvis Stable Back Exam: Normal Inspection, Full Range of Motion, NT Extremities: Normal Inspection, Normal Range of Motion, Non-Tender, Normal Capillary Refill, No Pedal Edema Neurological: Alert, Oriented, CN II-XII Intact, Normal Cognition, Normal Gait, Normal Reflexes, No Motor/Sensory Deficits Psychiatric: Normal Affect, Normal Mood Skin Exam: Warm, Dry, Intact, Normal Color, No Rash Lymphatic: No Adenopathy EKG INTERPRETATION EKG Date: 02/07/19 Time: 23:17 Rhythm: NSR Rate (Beats/Min): 70 [place]: Normal P-Wave: Present QRS: Other (low voltage) ST-T: Normal QT: Normal Comparison: No Change (01/07/2015) Course - Vital Signs Last Recorded V/S: Last Vital Signs Temp 35.4 C 02/07/19 23:15 Pulse 63 02/08/19 00:11 Resp 18 02/07/19 23:44 BP 166/60 H 02/08/19 00:11 Pulse Ox 93 L 02/08/19 00:11 - Orders/Labs/Meds Orders: Active Orders 24 hr Category Date Time Status Blood Glucose Check, Bedside [RC] ONETIME Care 02/07/19 23:30 Active EKG Documentation Completion [RC] ASDIRECTED Care 02/07/19 23:14 Active Chest 1V Frontal [CR] Stat Exams 02/07/19 23:14 Ordered Head wo Cont [CT] Stat Exams 02/07/19 23:37 Ordered URINALYSIS W/MICROSCOPIC [UA W/MICROSCOPIC] [URIN] Stat Lab 02/07/19 23:43 Ordered EKG 12 Lead [EK] Routine Ther 02/07/19 23:14 Ordered Labs: Laboratory Tests 02/07/19 02/07/19 Range/Units 23:10 23:10 WBC 8.18 (5.00-10.00) 10^3/uL RBC 2.90 L (4.50-6.00) 10^6/uL Hgb 10.0 L (13.0-17.0) g/dL Hct 29.5 L (40.0-52.0) % MCV 101.7 H D (82.0-92.0) fL MCH 34.5 H (27.0-31.0) pg MCHC 33.9 (32.0-36.0) g/dL RDW 13.0 (11.5-14.5) % Plt Count 162 (150-400) 10^3/uL MPV 11.1 H (7.4-10.4) fL Immature Gran % (Auto) 0.2 (0.0-5.0) % Neut % (Auto) 56.3 (50.0-70.0) % Lymph % (Auto) 32.9 (20.0-40.0) % Hill % (Auto) 8.3 H (2.0-8.0) % Eos % (Auto) 2.1 (1.0-3.0) % Baso % (Auto) 0.2 (0.0-1.0) % Immature Gran # (Auto) 0.02 (0.00-0.50) 10^3/uL Neut # (Auto) 4.60 (2.50-7.00) 10^3/uL Lymph # (Auto) 2.69 (1.00-4.00) 10^3/uL Hill # (Auto) 0.68 (0.10-0.80) 10^3/uL Eos # (Auto) 0.17 (0.10-0.30) 10^3/uL Baso # (Auto) 0.02 (0.00-0.10) 10^3/uL Sodium 135 L (136-145) mmol/L Potassium 4.8 (3.3-5.3) mmol/L Chloride 100 (98-115) mmol/L Carbon Dioxide 25.1 (21.0-32.0) mmol/L Anion Gap 14.7 (5-15) mmol/L BUN 42 H (6-25) mg/dL Creatinine 1.94 H (0.51-1.17) mg/dL Est Cr Clr Drug Dosing 30.37 mL/min Estimated GFR (MDRD) 33 mL/min Glucose 164 H (75 - 99) mg/dL Calcium 9.3 (8.7-10.3) mg/dL Total Bilirubin 0.6 (0.2-1.0) mg/dL AST 26 (15-37) U/L ALT 21 (12-78) U/L Alkaline Phosphatase 50 (46-116) IU/L Creatine Kinase 68 (26-276) U/L CK-MB (CK-2) 0.60 (0.00-4.30) ng/mL Troponin I < 0.04 (0.00-0.070) ng/mL Total Protein 6.8 (6.4-8.2) g/dL Albumin 3.43 (3.00-4.80) g/dL Lipase 190 (73-393) U/L Meds: Medications Discontinued Medications Generic Name Dose Route Start Last Admin Trade Name Freq PRN Reason Stop Dose Admin Sodium Chloride 1,000 mls @ 999 mls/hr 02/07/19 23:15 02/07/19 23:24 Normal Saline IV 02/08/19 00:15 999 mls/hr .BOLUS ONE Administration Ondansetron HCl 4 mg 02/07/19 23:13 02/07/19 23:24 Zofran IVPUSH 02/07/19 23:14 4 mg ONETIME ONE Administration Ondansetron HCl 4 mg 02/07/19 23:53 02/08/19 00:05 Zofran IVPUSH 02/07/19 23:54 4 mg ONETIME ONE Administration - Radiology Interpretation Free Text/Narrative:: CT Head- Atrophy, NAD CXR- NAD Departure - Departure Time of Disposition: 00:26 Disposition: Refer to Observation Condition: Fair Clinical Impression: Near syncope Vomiting Qualifiers: Vomiting Intractability: intractable Nausea presence: with nausea - Discharge Information Forms: ED Department Discharge - My Orders Last 24 Hours: My Active Orders 02/07/19 23:14 EKG Documentation Completion [RC] ASDIRECTED Chest 1V Frontal [CR] Stat EKG 12 Lead [EK] Routine 02/07/19 23:30 Blood Glucose Check, Bedside [RC] ONETIME 02/07/19 23:37 Head wo Cont [CT] Stat 02/07/19 23:43 URINALYSIS W/MICROSCOPIC [UA W/MICROSCOPIC] [URIN] Stat - Assessment/Plan Last 24 Hours: My Active Orders 02/07/19 23:14 EKG Documentation Completion [RC] ASDIRECTED Chest 1V Frontal [CR] Stat EKG 12 Lead [EK] Routine 02/07/19 23:30 Blood Glucose Check, Bedside [RC] ONETIME 02/07/19 23:37 Head wo Cont [CT] Stat 02/07/19 23:43 URINALYSIS W/MICROSCOPIC [UA W/MICROSCOPIC] [URIN] Stat Assessment:: 1. near syncope 2. intractable vomiting Plan: 1. admit to medicine- Lucila RAYA 2. repeat trop I Q6 3. NS@125cc/hr 4. zofran 4mg IV Q6 PRN 5. supportive care
[2019-02-07 23:53] LABS: ANION GAP 14.7 mmol/L (5-15); CHLORIDE,CL 100 mmol/L (98-115); SODIUM,NA 135 mmol/L (136-145)
[2019-02-08] MEDS ORDERED: Sodium Chloride 0.9% 10 ML Syringe FLUSH PRN (01:24)
[2019-02-08] MEDS ORDERED: Ondansetron 4 MG/2 ML SDV IVPUSH PRN ×2 (01:35→01:47)
[2019-02-08] MEDS ORDERED: Acetaminophen 650 MG Tab.ER PO PRN (01:36)
[2019-02-08] MEDS ORDERED: Albuterol/Ipratropium 3.0-0.5 MG/3 ML Neb Soln INH PRN (01:36)
[2019-02-08] MEDS ORDERED: EPINEPHrine 1:10,000 1 MG/10 ML Syringe IVPUSH PRN (01:58)
[2019-02-08] MEDS ORDERED: Lidocaine 2% 100 MG/5 ML Syringe IVPUSH PRN (01:58)
[2019-02-08] MEDS ORDERED: Nitroglycerin 0.4 MG Tab.SL SL PRN (01:58)
[2019-02-08] MEDS ORDERED: Atropine 0.1 MG/ML 10 ML Syringe IVPUSH PRN (01:58)
[2019-02-08] MEDS ORDERED: Carvedilol 6.25 MG Tab PO SCH (08:00)
--- NOTE | 2019-02-08 08:01 | CT ---
[id number] CT/CT Head WO IV EXAM: NONCONTRAST HEAD CT INDICATION: Near-syncope. COMPARISON: None. DISCUSSION: Mild to moderate generalized atrophy. Mild to moderate chronic small vessel ischemic changes. Chronic periventricular and basal ganglia lacunar infarcts. A few scattered small subarachnoid calcifications could be seen in the context of prior cysticercosis. No mass effect or midline shift. No acute hemorrhage or extra-axial fluid collection. No acute territorial infarct is identified. A limited look at the orbits and paranasal sinuses is unremarkable. IMPRESSION: 1. No acute findings. Shlomo Carpenter MD 02/08/19 0800 Thank you for allowing us to participate in the care of your patient.
--- NOTE | 2019-02-08 08:22 | CR ---
[id number] RAD/RAD Chest PA or AP 1V EXAM: SINGLE VIEW CHEST. INDICATION: VOMITING COMPARISON: CORRELATION IS MADE WITH THE EXAM OF JANUARY 07, 2015. FINDINGS: Bibasilar volume loss is seen. The cardiomediastinal contour is enlarged but stable. The single view provided is mislabeled right left. IMPRESSION: NO PNEUMONIA OR EDEMA. Nino Segovia MD 02/08/19 [id number] Thank you for allowing us to participate in the care of your patient.
[2019-02-08] MEDS ORDERED: Allopurinol 100 MG Tab PO SCH (09:00)
[2019-02-08] MEDS ORDERED: RANOLAZINE 1000 MG PO SCH (09:00)
[2019-02-08] MEDS ORDERED: Iron Polysaccharides Complex 150 MG Cap PO SCH (09:00)
[2019-02-08] MEDS ORDERED: Apixaban 5 MG Tab PO SCH (09:00)
[2019-02-08] MEDS ORDERED: Ascorbic Acid 500 MG Tab PO SCH (09:00)
[2019-02-08] MEDS ORDERED: Furosemide 40 MG Tab PO SCH (09:00)
[2019-02-08] MEDS ORDERED: Aspirin 81 MG Tab.Chew PO SCH (09:00)
[2019-02-08] MEDS ORDERED: RANEXA 1000 MG PO SCH (10:10)
[2019-02-08 11:20] VITALS: BP 127/58
--- NOTE | 2019-02-08 11:24 | PCM.HP.2 ---
H&P History of Present Illness - General Date of Service: 02/08/19 Admit Problem/Dx: Admission Diagnosis/Problem Admission Diagnosis/Problem Near syncope Source of Information: Patient, Family, RN - Related Data Allergies/Adverse Reactions: Allergies Allergy/AdvReac Type Severity Reaction Status Date / Time celecoxib [From Celebrex] Allergy Hives Verified 02/07/19 23:28 degarelix Allergy Rash Verified 02/07/19 23:28 ezetimibe [From Zetia] Allergy Stomach Verified 02/07/19 23:28 Ache nitroglycerin Allergy Bradycardia Verified 02/07/19 23:28 Home Medications: Home Meds Allopurinol [Zyloprim] 100 mg PO DAILY 01/08/15 [History] Calcium Carbonate/Vitamin D3 [Calcium 600 + Vit D Tablet] 1 each PO DAILY [History] Cyanocobalamin (Vitamin B-12) [Vitamin B-12] 1,000 mcg PO DAILY 01/08/15 [ History] Furosemide 40 mg PO DAILY 01/08/15 [History] Carvedilol 3.125 mg PO BIDMEALS 07/15/17 [History] Albuterol/Ipratropium [DuoNeb 3.0-0.5 MG/3 ML] 3 ml INH Q6H PRN 08/19/17 [ History] Folic Acid 0.8 mg PO DAILY 12/19/17 [History] Ascorbic Acid [Vitamin C] 500 mg PO Q48H 09/18/18 [History] Melatonin 5 mg PO BEDTIME 09/18/18 [History] Sennosides [Senokot] 8.6 mg PO BEDTIME PRN 09/18/18 [History] Triamcinolone Acetonide [Triamcinolone Acetonide 0.1% Crm] 1 applic TOP BID PRN 09/18/18 [History] Acetaminophen [Tylenol Arthritis] 650 mg PO Q6H PRN 02/06/19 [History] Apixaban [Eliquis] 2.5 mg PO BID 02/06/19 [History] Aspirin 81 mg PO DAILY 02/06/19 [History] Insulin Detemir [Levemir] 10 units SUBCUT BEDTIME 02/06/19 [History] Iron Polysaccharide Complex [Iferex 150] 1 tab PO Q48H 02/06/19 [History] Cholecalciferol (Vitamin D3) [Vitamin D3] 1 tab PO DAILY 02/07/19 [History] Ranolazine [Ranexa] 1 tab PO BID 02/07/19 [History] Sacubitril/Valsartan [Entresto 49 mg-51 mg Tablet] 1 tab PO BID 02/07/19 [ History] Omeprazole 20 mg PO DAILY #90 tab. 02/08/19 [Rx] Past Medical History HEENT History: Reports: Hard of Hearing, Impaired Vision, Other (See Below) Other HEENT History: pat. is supposed to have cataract surgery in the right eye Cardiovascular History: Reports: Afib, CAD, High Cholesterol, Hypertension, [place], Stents Respiratory History: Reports: COPD, Sleep Apnea Gastrointestinal History: Reports: Chronic Constipation Genitourinary History: Reports: BPH, Diabetic Nephropathy, Prostate Disorder, Renal Calculus Musculoskeletal History: Reports: Arthritis, Fracture, Other (See Below) Other Musculoskeletal History: 50 years ago pat. had fx. in the right foot Neurological History: Reports: Neuropathy, Diabetic Psychiatric History: Reports: None Endocrine/Metabolic History: Reports: Diabetes, Type II Hematologic History: Reports: Anemia, Blood Transfusion(s) Immunologic History: Reports: None Oncologic (Cancer) History: Reports: Prostate Dermatologic History: Reports: None - Infectious Disease History Infectious Disease History: Reports: None - Past Surgical History HEENT Surgical History: Reports: Cataract Surgery, Tonsillectomy Cardiovascular Surgical History: Reports: AAA Repair, Cardiac Ablation, Coronary Artery Bypass Respiratory Surgical History: Reports: None GI Surgical History: Reports: Colonoscopy, Hernia, Abdominal Other GI Surgeries/Procedures: 2012 Male Surgical History: Reports: Prostate Biopsy, Prostatectomy, Renal Calculus Endocrine Surgical History: Reports: None Neurological Surgical History: Reports: None Musculoskeletal Surgical History: Reports: Knee Replacement Social & Family History - Family History Family Medical History: Noncontributory Cardiac: Reports: [place], Other (See Below) Other Cardiac Family History: brother had heart problems Respiratory: Reports: Other (See Below) Other Respiratory Family Hisory: pulmonary fibrosis - sister GI: Reports: None : Reports: None OBGYN: Reports: None Musculoskeletal: Reports: None Neurological: Reports: None Psychiatric: Reports: None Endocrine/Metabolic: Reports: None Hematologic: Reports: None Immunologic: Reports: None Oncologic: Reports: Lung, Prostate, Other (See Below) Other Oncologic Family History: sister - lung cancer. father - prostate cancer - Tobacco Use Smoking Status *Q: Former Smoker Used Tobacco, but Quit: No Month/Year Tobacco Last Used: 1995 Tobacco Use Comment: quit in 1995 Second Hand Smoke Exposure: No - Caffeine Use Caffeine Use: Reports: Coffee - Recreational Drug Use Recreational Drug Use: No H&P Review of Systems - Review of Systems: Review Of Systems: See Below General: Reports: No Symptoms HEENT: Reports: No Symptoms Pulmonary: Reports: No Symptoms Cardiovascular: Reports: Edema. Denies: Blood Pressure Problem Gastrointestinal: Denies: Abdominal Pain, Anorexia, Decreased Appetite Genitourinary: Reports: No Symptoms Musculoskeletal: Reports: No Symptoms Skin: Denies: Dryness Psychiatric: Denies: Confusion Neurological: Reports: Pre-Existing Deficit Exam - Exam Exam: See Below - Vital Signs Vital Signs: Last Vital Signs Temp 97.0 F 02/08/19 11:00 Pulse 61 02/08/19 11:00 Resp 18 02/08/19 11:00 BP 127/58 L 02/08/19 11:00 Pulse Ox 96 02/08/19 11:00 Orthostatic Blood Pressure [ 154/54 Standing] Orthostatic Blood Pressure [ 150/65 Sitting] Orthostatic Blood Pressure [ 147/63 Supine] Weight: 258 lb 8 oz - Exam Quality Assessment: DVT Prophylaxis General: Alert, Oriented, 4 HEENT: Mucosa Moist & [place] Neck: Supple, Trachea Midline, 2 Lungs: Clear to Auscultation, Normal Respiratory Effort Cardiovascular: Irregular Rhythm GI/Abdominal Exam: Soft, No Distention Rectal (Males) Exam: Deferred Back Exam: No: CVA Tenderness (L), CVA Tenderness (R) Extremities: Pedal Edema Skin: Warm, Dry, Intact Neurological: Sensation Intact, Focal Deficit. No: Normal Speech Neuro Extensive - Mental Status: Alert, Oriented x3 Neuro Extensive - Motor, Sensory, Reflexes: No: Receptive Aphasia, Expressive Aphasia, Pronator Drift (L) Psychiatric: Alert - Patient Data Lab Results Last 24 hrs: Laboratory Results - last 24 hr 02/07/19 02/07/19 02/07/19 Range/Units 23:10 23:10 23:26 WBC 8.18 (5.00-10.00) 10^3/uL RBC 2.90 L (4.50-6.00) 10^6/uL Hgb 10.0 L (13.0-17.0) g/dL Hct 29.5 L (40.0-52.0) % MCV 101.7 H D (82.0-92.0) fL MCH 34.5 H (27.0-31.0) pg MCHC 33.9 (32.0-36.0) g/dL RDW 13.0 (11.5-14.5) % Plt Count 162 (150-400) 10^3/uL MPV 11.1 H (7.4-10.4) fL Immature Gran % (Auto) 0.2 (0.0-5.0) % Neut % (Auto) 56.3 (50.0-70.0) % Lymph % (Auto) 32.9 (20.0-40.0) % [place] % (Auto) 8.3 H (2.0-8.0) % Eos % (Auto) 2.1 (1.0-3.0) % Baso % (Auto) 0.2 (0.0-1.0) % Immature Gran # (Auto) 0.02 (0.00-0.50) 10^3/uL Neut # (Auto) 4.60 (2.50-7.00) 10^3/uL Lymph # (Auto) 2.69 (1.00-4.00) 10^3/uL [place] # (Auto) 0.68 (0.10-0.80) 10^3/uL Eos # (Auto) 0.17 (0.10-0.30) 10^3/uL Baso # (Auto) 0.02 (0.00-0.10) 10^3/uL Sodium 135 L (136-145) mmol/L Potassium 4.8 (3.3-5.3) mmol/L Chloride 100 (98-115) mmol/L Carbon Dioxide 25.1 (21.0-32.0) mmol/L Anion Gap 14.7 (5-15) mmol/L BUN 42 H (6-25) mg/dL Creatinine 1.94 H (0.51-1.17) mg/dL Est Cr Clr Drug Dosing 30.37 mL/min Estimated GFR (MDRD) 33 mL/min Glucose 164 H (75 - 99) mg/dL POC Glucose 163 H (74-106) mg/dl Calcium 9.3 (8.7-10.3) mg/dL Total Bilirubin 0.6 (0.2-1.0) mg/dL AST 26 (15-37) U/L ALT 21 (12-78) U/L Alkaline Phosphatase 50 (46-116) IU/L Creatine Kinase 68 (26-276) U/L CK-MB (CK-2) 0.60 (0.00-4.30) ng/mL Troponin I < 0.04 (0.00-0.070) ng/mL Total Protein 6.8 (6.4-8.2) g/dL Albumin 3.43 (3.00-4.80) g/dL Lipase 190 (73-393) U/L Specimen Type Urine Color (YELLOW) Urine Appearance (CLEAR) Urine pH (5.0-9.0) Ur Specific [place] (1.005-1.030) Urine Protein (NEGATIVE) mg/dL Urine Glucose (UA) (NEGATIVE) mg/dL Urine Ketones (NEGATIVE) mg/dL Urine Occult Blood (NEGATIVE) Urine Nitrite (NEGATIVE) Urine Bilirubin (NEGATIVE) Urine Urobilinogen (0.2-1.0) E.U./dL Ur Leukocyte Esterase (NEGATIVE) Urine RBC (0-5) /HPF Urine WBC (0-5) /HPF Ur Epithelial Cells /LPF Urine Bacteria (NONE TO FEW) /HPF 02/08/19 02/08/19 Range/Units 00:37 05:00 WBC (5.00-10.00) 10^3/uL RBC (4.50-6.00) 10^6/uL Hgb (13.0-17.0) g/dL Hct (40.0-52.0) % MCV (82.0-92.0) fL MCH (27.0-31.0) pg MCHC (32.0-36.0) g/dL RDW (11.5-14.5) % Plt Count (150-400) 10^3/uL MPV (7.4-10.4) fL Immature Gran % (Auto) (0.0-5.0) % Neut % (Auto) (50.0-70.0) % Lymph % (Auto) (20.0-40.0) % [place] % (Auto) (2.0-8.0) % Eos % (Auto) (1.0-3.0) % Baso % (Auto) (0.0-1.0) % Immature Gran # (Auto) (0.00-0.50) 10^3/uL Neut # (Auto) (2.50-7.00) 10^3/uL Lymph # (Auto) (1.00-4.00) 10^3/uL [place] # (Auto) (0.10-0.80) 10^3/uL Eos # (Auto) (0.10-0.30) 10^3/uL Baso # (Auto) (0.00-0.10) 10^3/uL Sodium (136-145) mmol/L Potassium (3.3-5.3) mmol/L Chloride (98-115) mmol/L Carbon Dioxide (21.0-32.0) mmol/L Anion Gap (5-15) mmol/L BUN (6-25) mg/dL Creatinine (0.51-1.17) mg/dL Est Cr Clr Drug Dosing mL/min Estimated GFR (MDRD) mL/min Glucose (75 - 99) mg/dL POC Glucose (74-106) mg/dl Calcium (8.7-10.3) mg/dL Total Bilirubin (0.2-1.0) mg/dL AST (15-37) U/L ALT (12-78) U/L Alkaline Phosphatase (46-116) IU/L Creatine Kinase (26-276) U/L CK-MB (CK-2) (0.00-4.30) ng/mL Troponin I < 0.04 (0.00-0.070) ng/mL Total Protein (6.4-8.2) g/dL Albumin (3.00-4.80) g/dL Lipase (73-393) U/L Specimen Type Urinvoid Urine Color Yellow (YELLOW) Urine Appearance Clear (CLEAR) Urine pH 6.5 (5.0-9.0) Ur Specific [place] 1.015 (1.005-1.030) Urine Protein Negative (NEGATIVE) mg/dL Urine Glucose (UA) Negative (NEGATIVE) mg/dL Urine Ketones Negative (NEGATIVE) mg/dL Urine Occult Blood Negative (NEGATIVE) Urine Nitrite Negative (NEGATIVE) Urine Bilirubin Negative (NEGATIVE) Urine Urobilinogen 0.2 (0.2-1.0) E.U./dL Ur Leukocyte Esterase Negative (NEGATIVE) Urine RBC 0-5 (0-5) /HPF Urine WBC 0-5 (0-5) /HPF Ur Epithelial Cells Rare /LPF Urine Bacteria Not seen (NONE TO FEW) /HPF Result Diagrams: 02/07/19 23:10 02/07/19 23:10 Problem List Initiated/Reviewed/Updated: Yes Orders Last 24hrs: Active Orders 24 hr Category Date Time Status Admission Status [Patient Status] [ADT] Routine ADT 02/08/19 00:24 Active Patient Status [ADT] Routine ADT 02/08/19 01:24 Active Blood Glucose Check, Bedside [RC] BIDMEALS Care 02/08/19 01:29 Active Height and Weight [RC] 0700 Care 02/08/19 01:24 Active Intake and Output [RC] 1400,2200,0600 Care 02/08/19 01:25 Active Orthostatic Vital Signs [RC] ASDIRECTED Care 02/08/19 03:00 Active Oxygen Therapy [RC] PRN Care 02/08/19 01:24 Active Ready for Discharge [RC] PER UNIT ROUTINE Care 02/08/19 11:13 Ordered Telemetry Monitoring [Cardiac Monitoring] [RC] 0300, Care 02/08/19 01:32 Active 0700,1100,1500,1900,2300 Up ad Kesha [RC] ASDIRECTED Care 02/08/19 01:24 Active VTE/DVT Education [RC] PER UNIT ROUTINE Care 02/08/19 01:24 Active Vital Signs [RC] 0300,0700,1100,1500,1900,2300 Care 02/08/19 01:24 Active [place] Diet [DIET] Diet 02/08/19 Breakfast Active Heart Healthy Diet [DIET] Diet 02/08/19 Breakfast Active TROPONIN I [CHEM] Routine Lab 02/08/19 11:05 Received Acetaminophen [Tylenol Arthritis Pain] Med 02/08/19 01:36 Active 650 mg PO Q6H PRN Albuterol/Ipratropium [DuoNeb 3.0-0.5 MG/3 ML] Med 02/08/19 01:36 Active 3 ml INH Q6H PRN Allopurinol [Zyloprim] Med 02/08/19 09:00 Active 100 mg PO DAILY Apixaban [Eliquis] Med 02/08/19 09:00 Active 2.5 mg PO BID Ascorbic Acid [Vitamin C] Med 02/08/19 09:00 Active 500 mg PO Q48H Aspirin Med 02/08/19 09:00 Active 81 mg PO DAILY Atropine [Atropine 0.1 MG/ML] Med 02/08/19 01:58 Active See Dose Instructions IVPUSH ASDIRECTED PRN Carvedilol [Coreg] Med 02/08/19 08:00 Active 3.125 mg PO BIDMEALS EPINEPHrine [EPINEPHrine 1:10,000] Med 02/08/19 01:58 Active 1 mg IVPUSH ASDIRECTED PRN Furosemide [Lasix] Med 02/08/19 09:00 Active 40 mg PO DAILY Insulin Detemir [Levemir] Med 02/08/19 21:00 Active 10 unit SUBCUT BEDTIME Iron Polysaccharides Complex [Ferrex 150] Med 02/08/19 09:00 Active 150 mg PO Q48H Lidocaine 2% [Xylocaine 2%] Med 02/08/19 01:58 Active See Dose Instructions IVPUSH ASDIRECTED PRN Melatonin Med 02/08/19 21:00 Active 6 mg PO BEDTIME Ondansetron [Zofran] Med 02/08/19 01:47 Active 4 mg IVPUSH Q6H PRN Patient's Own Medication [Ptom] Med 02/08/19 09:00 Active 1 each PO BID Patient's Own Medication [Ptom] Med 02/08/19 10:10 Active 1 each PO BID Sodium Chloride 0.9% [Saline Flush] Med 02/08/19 01:24 Active 10 ml FLUSH Q8HR PRN Saline Lock Insert [OM.PC] Routine Oth 02/08/19 01:24 Ordered Resuscitation Status Routine Resus Stat 02/08/19 01:24 Ordered EKG 12 Lead [EK] Routine Ther 02/07/19 23:14 Ordered Medication Orders Acetaminophen (Tylenol Arthritis Pain) 650 mg PO Q6H PRN PRN Reason: Pain Albuterol/Ipratropium (Duoneb 3.0-0.5 Mg/3 Ml) 3 ml INH Q6H PRN PRN Reason: Shortness of Breath Allopurinol (Zyloprim) 100 mg PO DAILY [facility] Last Admin: 08/22/19 08:56 Dose: 100 mg Apixaban (Eliquis) 2.5 mg PO BID [facility] Last Admin: 02/08/19 08:56 Dose: 2.5 mg Ascorbic Acid (Vitamin C) 500 mg PO Q48H [facility] Last Admin: 02/08/19 09:03 Dose: 500 mg Aspirin (Aspirin) 81 mg PO DAILY [facility] Last Admin: 02/08/19 08:55 Dose: 81 mg Atropine Sulfate (Atropine 0.1 Mg/Ml) 0 mg IVPUSH ASDIRECTED PRN PRN Reason: Heart. Carvedilol (Coreg) 3.125 mg PO BIDMEALS [facility] Last Admin: 02/08/19 08:47 Dose: Epinephrine HCl (Epinephrine 1:10,000) 1 mg IVPUSH ASDIRECTED PRN PRN Reason: Heart. Furosemide (Lasix) 40 mg PO DAILY [facility] Last Admin: 02/08/19 08:56 Dose: 40 mg Insulin Detemir (Levemir) 10 unit SUBCUT BEDTIME [facility] Lidocaine HCl (Xylocaine 2%) 0 mg IVPUSH ASDIRECTED PRN PRN Reason: Heart. Melatonin (Melatonin) 6 mg PO BEDTIME [facility] Ondansetron HCl (Zofran) 4 mg IVPUSH Q6H PRN PRN Reason: Nausea/Vomiting Last Admin: 02/08/19 08:55 Dose: 4 mg Entresto 49 Mg-51 Mg (Tablet) 1 each PO BID [facility] Last Admin: 02/08/19 10:34 Dose: 1 each Ranexa Er 1,000 Mg (Tab.Er) 1 each PO BID [facility] Last Admin: 02/08/19 10:35 Dose: 1 each Polysaccharide Iron Complex (Ferrex 150) 150 mg PO Q48H [facility] Last Admin: 02/08/19 09:03 Dose: 150 mg Sodium Chloride (Saline Flush) 10 ml FLUSH Q8HR PRN PRN Reason: keep vein open Assessment/Plan Comment:: please use this H&P as a combined discharge summary History of present illness this 78 yo seen to the ED due to 1 hour episode of nausea and vomiting. Patient reported to the provider that he woke up to use the bathroom and as he stood up he became nauseated and had near syncope and began to vomit. He had no chest pain no SOB, headache or neck pain. In the ED he denies any dizziness or lightheadedness or abdominal pain. Pt denies any recent illnesses. Pt had blood work in lab the day prior and was noted to have an elevated creatinine level of 2.25. In the ED he was given zofran 4mg IV she stated he felt much better and his nausea had improved. He was admitted due to gentle IV fluids and to monitor his creatinine level. Hospital course Was well without event. He ruled out for myocardial infarction. He was dental IV fluids along with oral fluids and did well his creatinine level was decreasing upon discharge next morning. He felt ready to be discharge. He was educated regarding increasing water intake. I added PPI since the patient is on DAPT/age. I educated patient regarding daily weights at home. He will be discharged on 50% of his Lasix for the next 48 hours. Final diagnosis Dehydration Acute kidney injury, prerenal Home instructions increase water intake Decrease Lasix by 50% x 48 hours. Add PPI since on DAPT and age Daily wts at home; Report 3 pound weight gain in a day or 5 pounds/week. Close f/u next week [facility]--labs - Mortality Measure Prognosis:: Good
[2019-02-08] MEDS ORDERED: Insulin Detemir 100 Units/ML 3 ML Pen SUBCUT SCH (21:00)
[2019-02-08] MEDS ORDERED: Melatonin 3 MG Tab PO SCH (21:00)
== END 2019-02-08 12:15 | disposition home or self-care (01) ==
LOC: KA.ED 23:12 → KA.MS 02-08 00:25
PROVIDERS: ADMIT Physician Assistant Medical; ATTEND Nurse Practitioner Family
DX: R55 Syncope and collapse (principal); I25.10 Atherosclerotic heart disease of native coronary artery without angina pectoris; E78.00 Pure hypercholesterolemia, unspecified; I10 Essential (primary) hypertension; J44.9 Chronic obstructive pulmonary disease, unspecified; E11.21 Type 2 diabetes mellitus with diabetic nephropathy; M19.90 Unspecified osteoarthritis, unspecified site; Z88.8 Allergy status to other drugs, medicaments and biological substances; Z79.899 Other long term (current) drug therapy; Z79.01 Long term (current) use of anticoagulants; Z79.82 Long term (current) use of aspirin; Z79.4 Long term (current) use of insulin; Z87.891 Personal history of nicotine dependence
CPT/HCPCS: 36415; 70450; 71045; 80053; 81001; 82550; 82553; 82962; 83690; 84484; 85025; 93005; 96361; 96374; 96376; 99285-25; A9270-GY; G0378; J2405; J7030

== ENCOUNTER 2019-04-09 12:08 | Inpatient (IN) | payer MEDICARE, OTHER ==
[2019-04-10] MEDS ORDERED: Albuterol/Ipratropium 3.0-0.5 MG/3 ML Neb Soln INH PRN (20:16)
[2019-04-10] MEDS ORDERED: Bisacodyl 5 MG Tab PO PRN (20:16)
[2019-04-10] MEDS ORDERED: Magnesium Hydroxide 400 MG/5 ML Susp 30 ML Cup PO PRN (20:16)
[2019-04-10] MEDS ORDERED: oxyCODONE 5 MG Tab PO PRN (20:16)
[2019-04-10] MEDS ORDERED: Polyethylene Glycol 3350 Powder 17 GM Packet PO PRN (20:16)
[2019-04-10] MEDS ORDERED: Acetaminophen 325 MG Tab PO SCH (20:30)
[2019-04-10] MEDS: Carvedilol 6.25 MG Tab PO SCH (21:34)
[2019-04-10] MEDS: Apixaban 5 MG Tab PO SCH (21:35)
[2019-04-10] MEDS: Melatonin 3 MG Tab PO SCH (21:37)
[2019-04-10] MEDS: Triamcinolone Acetonide 0.1% Crm 15 GM Tube TOP SCH (21:38)
[2019-04-10] MEDS: Insulin Detemir 100 Units/ML 3 ML Pen SUBCUT SCH (21:41)
[2019-04-10] MEDS: VALSARTAN PO SCH (22:02)
[2019-04-10] MEDS: SACUBITRIL PO SCH (22:02)
[2019-04-11] MEDS: Acetaminophen 325 MG Tab PO SCH ×4 (02:47→19:44)
[2019-04-11] MEDS: Omeprazole 20 MG Cap.CR PO SCH (07:53)
[2019-04-11] MEDS: Carvedilol 6.25 MG Tab PO SCH ×2 (07:54→18:32)
[2019-04-11] MEDS ORDERED: RANOLAZINE 500 MG PO SCH (09:00)
[2019-04-11] MEDS: Aspirin 81 MG Tab.Chew PO SCH (09:24)
[2019-04-11] MEDS: Calcium Citrate/Vitamin D3 315 MG-250 Unit Tab PO SCH (09:25)
[2019-04-11] MEDS: Apixaban 5 MG Tab PO SCH ×2 (09:25→20:49)
[2019-04-11] MEDS: Non-Formulary Medication 1 Each (Folic Acid [Folic Acid] 0.8 MG) PO SCH (09:27)
[2019-04-11] MEDS: atorvaSTATin 40 MG Tab PO SCH (09:27)
[2019-04-11] MEDS: Naloxegol Oxalate 25 MG Tab PO SCH (09:28)
[2019-04-11] MEDS: SACUBITRIL PO SCH ×2 (09:29→20:49)
[2019-04-11] MEDS: VALSARTAN PO SCH ×2 (09:29→20:49)
[2019-04-11] MEDS: Cyanocobalamin (Vitamin B12) 500 MCG Tab PO SCH (09:30)
[2019-04-11] MEDS: Cholecalciferol (Vitamin D3) 25 MCG Tab PO SCH (09:31)
[2019-04-11] MEDS: Allopurinol 100 MG Tab PO SCH (09:31)
[2019-04-11] MEDS: Triamcinolone Acetonide 0.1% Crm 15 GM Tube TOP SCH ×2 (09:50→23:08)
--- NOTE | 2019-04-11 10:18 | PCM.HP.2 ---
H&P History of Present Illness - General Date of Service: 04/11/19 Admit Problem/Dx: Admission Diagnosis/Problem Admission Diagnosis/Problem Arthroplasty of knee Source of Information: Patient, Old Records, RN History Limitations: Reports: No Limitations Right Leg Pain Score (Numeric/FACES): 5 - Related Data Allergies/Adverse Reactions: Allergies Allergy/AdvReac Type Severity Reaction Status Date / Time celecoxib [From Celebrex] Allergy Hives Verified 04/10/19 20:33 degarelix Allergy Rash Verified 04/10/19 20:33 ezetimibe [From Zetia] Allergy Stomach Verified 04/10/19 20:33 Ache nitroglycerin Allergy Bradycardia Verified 04/10/19 20:33 Home Medications: Home Meds Allopurinol [Zyloprim] 100 mg PO DAILY 01/08/15 [History] Calcium Carbonate/Vitamin D3 [Calcium 600 + Vit D Tablet] 1 each PO DAILY [History] Cyanocobalamin (Vitamin B-12) [Vitamin B-12] 1,000 mcg PO DAILY 01/08/15 [ History] Carvedilol 3.125 mg PO BIDMEALS 07/15/17 [History] Albuterol/Ipratropium [DuoNeb 3.0-0.5 MG/3 ML] 3 ml INH Q6H PRN 08/19/17 [ History] Folic Acid 0.8 mg PO DAILY 12/19/17 [History] Melatonin 5 mg PO BEDTIME 09/18/18 [History] Sennosides [Senokot] 8.6 mg PO BEDTIME PRN 09/18/18 [History] Triamcinolone Acetonide [Triamcinolone Acetonide 0.1% Crm] 1 applic TOP BID 07/08 [History] Apixaban [Eliquis] 2.5 mg PO BID 02/06/19 [History] Aspirin 81 mg PO DAILY 02/06/19 [History] Insulin Detemir [Levemir] 10 units SUBCUT BEDTIME 02/06/19 [History] Cholecalciferol (Vitamin D3) [Vitamin D3] 1 tab PO DAILY 02/07/19 [History] Ranolazine [Ranexa] 1,000 mg PO BID 02/07/19 [History] Sacubitril/Valsartan [Entresto 49 mg-51 mg Tablet] 1 tab PO BID 02/07/19 [ History] Omeprazole 20 mg PO DAILY #90 tab. 02/08/19 [Rx] Acetaminophen 650 mg PO Q6H 04/10/19 [History] Bisacodyl [Dulcolax] 5 mg PO BID PRN 04/10/19 [History] Magnesium Hydroxide [Milk of Magnesia] 30 ml PO DAILY PRN 04/10/19 [History] Polyethylene Glycol 3350 [Miralax] 17 gm PO DAILY PRN 04/10/19 [History] atorvaSTATin Calcium [Lipitor] 80 mg PO DAILY 04/10/19 [History] oxyCODONE 5 mg PO Q4H PRN 04/10/19 [History] Past Medical History HEENT History: Reports: Hard of Hearing, Impaired Vision, Other (See Below) Other HEENT History: pat. is supposed to have cataract surgery in the right eye Cardiovascular History: Reports: Afib, CAD, High Cholesterol, Hypertension, PR, Stents Respiratory History: Reports: COPD, Sleep Apnea Gastrointestinal History: Reports: Chronic Constipation Genitourinary History: Reports: BPH, Diabetic Nephropathy, Prostate Disorder, Renal Calculus Musculoskeletal History: Reports: Arthritis, Fracture, Other (See Below) Other Musculoskeletal History: 50 years ago pat. had fx. in the right foot Neurological History: Reports: Neuropathy, Diabetic Psychiatric History: Reports: None Endocrine/Metabolic History: Reports: Diabetes, Type II Hematologic History: Reports: Anemia, Blood Transfusion(s) Immunologic History: Reports: None Oncologic (Cancer) History: Reports: Prostate Dermatologic History: Reports: None - Infectious Disease History Infectious Disease History: Reports: Chicken Pox, Measles, Mumps - Past Surgical History HEENT Surgical History: Reports: Cataract Surgery, Tonsillectomy Other HEENT Surgeries/Procedures: Cataract Sx to Rt eye in 2019 Cardiovascular Surgical History: Reports: AAA Repair, Cardiac Ablation, Coronary Artery Bypass Respiratory Surgical History: Reports: None GI Surgical History: Reports: Colonoscopy, Hernia, Abdominal Other GI Surgeries/Procedures: 2013 Male Surgical History: Reports: Prostate Biopsy, Prostatectomy, Renal Calculus Endocrine Surgical History: Reports: None Neurological Surgical History: Reports: None Musculoskeletal Surgical History: Reports: Knee Replacement Other Musculoskeletal Surgeries/Procedures:: Bilateral knee replacement Social & Family History - Family History Family Medical History: Noncontributory Cardiac: Reports: PR, Other (See Below) Other Cardiac Family History: brother had heart problems Respiratory: Reports: Other (See Below) Other Respiratory Family Hisory: pulmonary fibrosis - sister GI: Reports: None : Reports: None OBGYN: Reports: None Musculoskeletal: Reports: None Neurological: Reports: None Psychiatric: Reports: None Endocrine/Metabolic: Reports: None Hematologic: Reports: None Immunologic: Reports: None Oncologic: Reports: Lung, Prostate, Other (See Below) Other Oncologic Family History: sister - lung cancer. father - prostate cancer - Tobacco Use Smoking Status *Q: Former Smoker Years of Tobacco use: 40 Packs/Tins Daily: 1 Used Tobacco, but Quit: Yes Month/Year Tobacco Last Used: September 1995 Second Hand Smoke Exposure: No - Caffeine Use Caffeine Use: Reports: Coffee - Recreational Drug Use Recreational Drug Use: No H&P Review of Systems - Review of Systems: Review Of Systems: See Below General: Denies: Fever, Chills, Malaise, Weakness, Night Sweats HEENT: Reports: No Symptoms Pulmonary: Reports: Cough, Sputum (yellow sputum POA) Cardiovascular: Reports: Edema (arms edema). Denies: Chest Pain Gastrointestinal: Reports: Other. Denies: Abdominal Pain, Constipation, Diarrhea, Distension Genitourinary: Denies: Dysuria, Frequency (morning), Burning, Pain, Urgency, Incontinence, Retention, Flank Pain Musculoskeletal: Reports: Other (right knee pain 2/10) Skin: Reports: Wound (right knee wound) Psychiatric: Denies: Confusion, Depression, Mood Lability, Anxiety, Agitation, Hallucinations Neurological: Reports: Difficulty Walking, Gait Disturbance. Denies: Confusion , Numbness Hematologic/Lymphatic: Reports: Anemia Immunologic: Reports: No Symptoms Exam - Exam Exam: See Below - Vital Signs Vital Signs: Last Vital Signs Temp 97.4 F 04/11/19 06:12 Pulse 70 04/11/19 07:54 Resp 18 04/11/19 06:12 BP 157/77 H 04/11/19 07:54 Pulse Ox 97 04/11/19 06:12 Weight: 276 lb - Exam Quality Assessment: DVT Prophylaxis. No: Supplemental Oxygen General: Alert, Oriented, Cooperative. No: Mild Distress HEENT: Mucosa Moist & [place] Neck: Supple, Trachea Midline, 2 Lungs: Clear to Auscultation, Normal Respiratory Effort Cardiovascular: Normal S1, Irregular Rhythm GI/Abdominal Exam: Normal Bowel Sounds, Soft Rectal (Males) Exam: Deferred Back Exam: No: CVA Tenderness (L), CVA Tenderness (R) Extremities: No Pedal Edema. No: Pedal Edema, Pallor Peripheral Pulses: 1+: Radial (R) Skin: Intact, Wound, Incision Neurological: Cranial Nerves Intact Neuro Extensive - Mental Status: Alert, Oriented x3, Normal Mood/Affect Neuro Extensive - Motor, Sensory, Reflexes: CN II-XII Intact Psychiatric: Alert, Normal Affect, Normal Mood. No: Depressed - Patient Data Lab Results Last 24 hrs: Laboratory Results - last 24 hr 04/10/19 04/11/19 Range/Units 21:30 08:00 POC Glucose 163 H 198 H (74-106) mg/dl Result Diagrams: 04/18/19 14:50 04/17/19 15:55 Problem List Initiated/Reviewed/Updated: Yes Orders Last 24hrs: Active Orders 24 hr Category Date Time Status Patient Status [ADT] Routine ADT 04/10/19 15:16 Active Intake and Output [RC] Q8HR Care 04/10/19 15:16 Active POC Glucose [Blood Glucose Check, Bedside] [RC] 0730, Care 04/10/19 23:47 Active 1730 Up With Assistance [RC] DAILY Care 04/10/19 15:16 Active Up to Chair [RC] DAILY Care 04/10/19 15:16 Active VTE/DVT Education [RC] Tu@0900 Care 04/10/19 15:16 Active PT Evaluation and Treatment [CONS] Routine Cons 04/10/19 15:16 Active Citizen Of [place] Diabetic [employer] Diet [DIET] Diet 04/10/19 Dinner Active Acetaminophen [Tylenol] Med 04/11/19 02:00 Active 650 mg PO Q6H Albuterol/Ipratropium [DuoNeb 3.0-0.5 MG/3 ML] Med 04/10/19 20:16 Active 3 ml INH Q6H PRN Allopurinol [Zyloprim] Med 04/11/19 09:00 Active 100 mg PO DAILY Apixaban [Eliquis] Med 04/10/19 21:00 Active 2.5 mg PO BID Aspirin Med 04/11/19 09:00 Active 81 mg PO DAILY Bisacodyl [Dulcolax] Med 04/10/19 20:16 Active 5 mg PO BID PRN Calcium Citrate/Vitamin D3 [Calcium Citrate + D] Med 04/11/19 09:00 Active 1 tab PO DAILY Carvedilol [Coreg] Med 04/10/19 21:00 Active 3.125 mg PO BIDMEALS Cholecalciferol (Vitamin D3) [Vitamin D3] Med 04/11/19 09:00 Active 50 mcg PO DAILY Cyanocobalamin (Vitamin B12) [Vitamin B12] Med 04/11/19 09:00 Active 1,000 mcg PO DAILY Docusate Sodium/Sennosides [Senna Plus] Med 04/10/19 21:00 Active 1 tab PO BEDTIME PRN Folic Acid [Folic Acid] Med 04/11/19 09:00 Active 0.8 mg PO DAILY Insulin Detemir [Levemir] Med 04/10/19 21:00 Active 10 unit SUBCUT BEDTIME Magnesium Hydroxide [Milk of Magnesia] Med 04/10/19 20:16 Active 30 ml PO DAILY PRN Melatonin Med 04/10/19 21:00 Active 4.5 mg PO BEDTIME Naloxegol Oxalate [Movantik] Med 04/11/19 09:00 Active 25 mg PO DAILY Omeprazole Med 04/11/19 07:30 Active 20 mg PO ACBREAKFAST Polyethylene Glycol 3350 [MiraLAX] Med 04/10/19 20:16 Active 17 gm PO DAILY PRN Ranolazine [Ranexa] Med 04/11/19 09:00 Active 1,000 mg PO BID Sacubitril/Valsartan [Entresto 49 mg-51 mg Tablet] Med 04/10/19 21:00 Active 1 tab PO BID Triamcinolone Acetonide [Triamcinolone Acetonide 0.1% Med 04/10/19 21:00 Active Crm] 0 gm TOP BID atorvaSTATin [Lipitor] Med 04/11/19 09:00 Active 80 mg PO DAILY oxyCODONE Med 04/10/19 20:16 Active 5 mg PO Q4H PRN Resuscitation Status Routine Resus Stat 04/10/19 15:16 Ordered Medication Orders Acetaminophen (Tylenol) 650 mg PO Q6H KEVAN Last Admin: 04/11/19 07:54 Dose: 650 mg Admin: 04/11/19 02:47 Dose: 650 mg Albuterol/Ipratropium (Duoneb 3.0-0.5 Mg/3 Ml) 3 ml INH Q6H PRN PRN Reason: Shortness of Breath Allopurinol (Zyloprim) 100 mg PO DAILY [facility] Last Admin: 04/11/19 09:31 Dose: 100 mg Apixaban (Eliquis) 2.5 mg PO BID [facility] Last Admin: 04/11/19 09:25 Dose: 2.5 mg Admin: 04/10/19 21:35 Dose: 2.5 mg Aspirin (Aspirin) 81 mg PO DAILY [facility] Last Admin: 04/11/19 09:24 Dose: 81 mg Atorvastatin Calcium (Lipitor) 80 mg PO DAILY [facility] Last Admin: 04/11/19 09:27 Dose: 80 mg Bisacodyl (Dulcolax) 5 mg PO BID PRN PRN Reason: Constipation Calcium Citrate (Calcium Citrate + D) 1 tab PO DAILY [facility] Last Admin: 04/11/19 09:25 Dose: 1 tab Carvedilol (Coreg) 3.125 mg PO BIDMEALS [facility] Last Admin: 04/11/19 07:54 Dose: 3.125 mg Admin: 04/10/19 21:34 Dose: 3.125 mg Cholecalciferol (Vitamin D3) 50 mcg PO DAILY [facility] Last Admin: 04/11/19 09:31 Dose: 50 mcg Cyanocobalamin (Vitamin B12) 1,000 mcg PO DAILY [facility] Last Admin: 04/11/19 09:30 Dose: 1,000 mcg Insulin Detemir (Levemir) 10 unit SUBCUT BEDTIME [facility] Last Admin: 04/10/19 21:41 Dose: 10 unit Magnesium Hydroxide (Milk Of Magnesia) 30 ml PO DAILY PRN PRN Reason: Constipation Melatonin (Melatonin) 4.5 mg PO BEDTIME [facility] Last Admin: 04/10/19 21:37 Dose: 4.5 mg Naloxegol (Movantik) 25 mg PO DAILY [facility] Last Admin: 04/11/19 09:28 Dose: 25 mg Non-Formulary Medication (Folic Acid [Folic Acid]) 0.8 mg PO DAILY [facility] Last Admin: 04/11/19 09:27 Dose: 0.8 mg Sacubitril/Valsartan (Entresto 49 Mg-51 Mg Tablet)Own Med* * 1 tab PO BID [facility] Last Admin: 04/11/19 09:29 Dose: 1 tab Admin: 04/10/19 22:02 Dose: 1 tab Omeprazole (Omeprazole) 20 mg PO ACBREAKFAST [facility] Last Admin: 04/11/19 07:53 Dose: 20 mg Oxycodone HCl (Oxycodone) 5 mg PO Q4H PRN PRN Reason: Pain Polyethylene Glycol (Miralax) 17 gm PO DAILY PRN PRN Reason: Constipation Ranolazine (Ranexa) 1,000 mg PO BID [facility] Senna/Docusate Sodium (Senna Plus) 1 tab PO BEDTIME PRN PRN Reason: CONSTIPATION Triamcinolone Acetonide (Triamcinolone Acetonide 0.1% Crm) 0 gm TOP BID [facility] Last Admin: 04/10/19 21:38 Dose: Not Given Assessment/Plan Comment:: History of present illness 78 y/o gentleman was transferred from [facility] to SNF/swing bed status s/p Left total knee arthroplasty DOS 04/[address] Paz[address] [facility] course Postoperative acute blood loss anemia hemoglobin dropped from 10.7-8.0, no blood transition required. Postoperatively had difficulty urinating, required Holman placement. Holman removed 04/09. No issues with urination after Holman removal. Repeat hemoglobin 7.8, given extensive cardiac history he was transfused 1 unit of blood prior to discharge to TCU. Primary SNF problems --Left total knee arthroplasty DOS 04/[address] Paz. PT c/s for rehab. Chronic stable problems --Afib, chronic, [id number] VASc 8, CVR, Apixaban, Coreg 3.125mg BID --HFrEF, combined systolic/diastolic, ARB/NI Entresto, Coreg 3.125 BNP 386, admission creat 2.0, K+ 4.3--follow closely, daily wts. 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 --CBC, BMP in am - Mortality Measure Prognosis:: Good
[2019-04-11] MEDS: RANOLAZINE 1000 MG PO SCH ×2 (10:59→20:49)
[2019-04-11] MEDS: Melatonin 3 MG Tab PO SCH (20:50)
[2019-04-11] MEDS: Insulin Detemir 100 Units/ML 3 ML Pen SUBCUT SCH (20:50)
[2019-04-11] MEDS ORDERED: RANOLAZINE 1000 MG PO SCH (21:00)
[2019-04-12] MEDS: Acetaminophen 325 MG Tab PO SCH ×4 (02:37→20:35)
[2019-04-12] MEDS: Omeprazole 20 MG Cap.CR PO SCH (07:07)
[2019-04-12] MEDS: atorvaSTATin 40 MG Tab PO SCH (08:20)
[2019-04-12] MEDS: Naloxegol Oxalate 25 MG Tab PO SCH (08:21)
[2019-04-12] MEDS: Cholecalciferol (Vitamin D3) 25 MCG Tab PO SCH (08:21)
[2019-04-12] MEDS: Cyanocobalamin (Vitamin B12) 500 MCG Tab PO SCH (08:21)
[2019-04-12] MEDS: Aspirin 81 MG Tab.Chew PO SCH (08:22)
[2019-04-12] MEDS: Calcium Citrate/Vitamin D3 315 MG-250 Unit Tab PO SCH (08:27)
[2019-04-12] MEDS: Apixaban 5 MG Tab PO SCH ×2 (08:27→20:35)
[2019-04-12] MEDS: Allopurinol 100 MG Tab PO SCH (08:27)
[2019-04-12] MEDS: Non-Formulary Medication 1 Each (Folic Acid [Folic Acid] 0.8 MG) PO SCH (08:28)
[2019-04-12] MEDS: RANOLAZINE 1000 MG PO SCH ×2 (08:28→20:37)
[2019-04-12] MEDS: SACUBITRIL PO SCH (08:29)
[2019-04-12] MEDS: VALSARTAN PO SCH (08:29)
[2019-04-12] MEDS: Carvedilol 6.25 MG Tab PO SCH ×2 (08:41→17:32)
[2019-04-12] MEDS: Triamcinolone Acetonide 0.1% Crm 15 GM Tube TOP SCH ×2 (08:44→20:39)
[2019-04-12] MEDS: traMADol 50 MG Tab PO PRN ×3 (10:36→23:54)
[2019-04-12] MEDS: Melatonin 3 MG Tab PO SCH (20:36)
[2019-04-12] MEDS: ENTRESTO PO SCH (20:38)
[2019-04-12] MEDS: Insulin Detemir 100 Units/ML 3 ML Pen SUBCUT SCH (20:40)
[2019-04-13] MEDS: Acetaminophen 325 MG Tab PO SCH ×4 (02:31→20:06)
[2019-04-13] MEDS: traMADol 50 MG Tab PO PRN ×2 (06:32→13:06)
[2019-04-13] MEDS: Omeprazole 20 MG Cap.CR PO SCH (06:32)
[2019-04-13] MEDS: atorvaSTATin 40 MG Tab PO SCH (08:39)
[2019-04-13] MEDS: Apixaban 5 MG Tab PO SCH ×2 (08:39→20:07)
[2019-04-13] MEDS: Aspirin 81 MG Tab.Chew PO SCH (08:39)
[2019-04-13] MEDS: Cholecalciferol (Vitamin D3) 25 MCG Tab PO SCH (08:39)
[2019-04-13] MEDS: Calcium Citrate/Vitamin D3 315 MG-250 Unit Tab PO SCH (08:39)
[2019-04-13] MEDS: Allopurinol 100 MG Tab PO SCH (08:39)
[2019-04-13] MEDS: Naloxegol Oxalate 25 MG Tab PO SCH (08:39)
[2019-04-13] MEDS: Cyanocobalamin (Vitamin B12) 500 MCG Tab PO SCH (08:39)
[2019-04-13] MEDS: RANOLAZINE 1000 MG PO SCH ×2 (08:42→20:09)
[2019-04-13] MEDS: FOLIC ACID 0.8 MG PO SCH (08:42)
[2019-04-13] MEDS: ENTRESTO PO SCH ×2 (08:43→20:09)
[2019-04-13] MEDS: Carvedilol 6.25 MG Tab PO SCH ×2 (08:45→18:00)
[2019-04-13] MEDS: Triamcinolone Acetonide 0.1% Crm 15 GM Tube TOP SCH ×2 (08:45→20:13)
[2019-04-13] MEDS ORDERED: guaiFENesin/Dextromethorphan 100-10 MG/5 ML Soln 5 ML Cup PO PRN (18:36)
[2019-04-13] MEDS: Melatonin 3 MG Tab PO SCH (20:08)
[2019-04-13] MEDS: Insulin Detemir 100 Units/ML 3 ML Pen SUBCUT SCH (20:11)
[2019-04-14] MEDS: Acetaminophen 325 MG Tab PO SCH ×4 (01:04→20:34)
[2019-04-14] MEDS: traMADol 50 MG Tab PO PRN ×3 (03:30→16:50)
[2019-04-14] MEDS: Omeprazole 20 MG Cap.CR PO SCH (06:31)
[2019-04-14] MEDS: Cholecalciferol (Vitamin D3) 25 MCG Tab PO SCH (08:27)
[2019-04-14] MEDS: Cyanocobalamin (Vitamin B12) 500 MCG Tab PO SCH (08:28)
[2019-04-14] MEDS: Allopurinol 100 MG Tab PO SCH (08:28)
[2019-04-14] MEDS: atorvaSTATin 40 MG Tab PO SCH (08:28)
[2019-04-14] MEDS: Aspirin 81 MG Tab.Chew PO SCH (08:28)
[2019-04-14] MEDS: Apixaban 5 MG Tab PO SCH ×2 (08:29→20:34)
[2019-04-14] MEDS: Naloxegol Oxalate 25 MG Tab PO SCH (08:29)
[2019-04-14] MEDS: Calcium Citrate/Vitamin D3 315 MG-250 Unit Tab PO SCH (08:29)
[2019-04-14] MEDS: Carvedilol 6.25 MG Tab PO SCH ×2 (08:29→17:58)
[2019-04-14] MEDS: FOLIC ACID 0.8 MG PO SCH (08:31)
[2019-04-14] MEDS: ENTRESTO PO SCH ×2 (08:32→20:35)
[2019-04-14] MEDS: RANOLAZINE 1000 MG PO SCH ×2 (08:32→20:35)
[2019-04-14] MEDS: Triamcinolone Acetonide 0.1% Crm 15 GM Tube TOP SCH ×2 (08:32→20:36)
[2019-04-14] MEDS: Melatonin 3 MG Tab PO SCH (20:34)
[2019-04-14] MEDS: Insulin Detemir 100 Units/ML 3 ML Pen SUBCUT SCH (20:38)
[2019-04-15] MEDS: traMADol 50 MG Tab PO PRN ×3 (00:54→15:45)
[2019-04-15] MEDS: Acetaminophen 325 MG Tab PO SCH ×4 (02:58→20:32)
[2019-04-15] MEDS: Carvedilol 6.25 MG Tab PO SCH ×2 (07:42→17:47)
[2019-04-15] MEDS: Omeprazole 20 MG Cap.CR PO SCH (07:42)
[2019-04-15] MEDS: Aspirin 81 MG Tab.Chew PO SCH (09:35)
[2019-04-15] MEDS: atorvaSTATin 40 MG Tab PO SCH (09:35)
[2019-04-15] MEDS: Allopurinol 100 MG Tab PO SCH (09:35)
[2019-04-15] MEDS: Cholecalciferol (Vitamin D3) 25 MCG Tab PO SCH (09:36)
[2019-04-15] MEDS: Cyanocobalamin (Vitamin B12) 500 MCG Tab PO SCH (09:36)
[2019-04-15] MEDS: Naloxegol Oxalate 25 MG Tab PO SCH (09:36)
[2019-04-15] MEDS: Calcium Citrate/Vitamin D3 315 MG-250 Unit Tab PO SCH (09:36)
[2019-04-15] MEDS: Apixaban 5 MG Tab PO SCH ×2 (09:36→20:31)
[2019-04-15] MEDS: RANOLAZINE 1000 MG PO SCH ×2 (09:38→20:33)
[2019-04-15] MEDS: FOLIC ACID 0.8 MG PO SCH (09:38)
[2019-04-15] MEDS: ENTRESTO PO SCH ×2 (09:38→20:32)
[2019-04-15] MEDS: Triamcinolone Acetonide 0.1% Crm 15 GM Tube TOP SCH ×2 (10:40→20:37)
[2019-04-15] MEDS: Sodium Chloride 0.65% Nasal Spray 45 ML Bottle NAS PRN (14:38)
[2019-04-15] MEDS: Melatonin 3 MG Tab PO SCH (20:32)
[2019-04-15] MEDS: Insulin Detemir 100 Units/ML 3 ML Pen SUBCUT SCH (20:34)
[2019-04-16] MEDS: Acetaminophen 325 MG Tab PO SCH ×4 (01:11→19:58)
[2019-04-16] MEDS: traMADol 50 MG Tab PO PRN ×2 (01:51→10:29)
[2019-04-16] MEDS: Omeprazole 20 MG Cap.CR PO SCH (06:38)
[2019-04-16] MEDS: Allopurinol 100 MG Tab PO SCH (08:18)
[2019-04-16] MEDS: Aspirin 81 MG Tab.Chew PO SCH (08:18)
[2019-04-16] MEDS: Cholecalciferol (Vitamin D3) 25 MCG Tab PO SCH (08:19)
[2019-04-16] MEDS: Cyanocobalamin (Vitamin B12) 500 MCG Tab PO SCH (08:19)
[2019-04-16] MEDS: Apixaban 5 MG Tab PO SCH ×2 (08:21→20:01)
[2019-04-16] MEDS: Naloxegol Oxalate 25 MG Tab PO SCH (08:21)
[2019-04-16] MEDS: Calcium Citrate/Vitamin D3 315 MG-250 Unit Tab PO SCH (08:22)
[2019-04-16] MEDS: Carvedilol 6.25 MG Tab PO SCH ×2 (08:22→17:41)
[2019-04-16] MEDS: atorvaSTATin 40 MG Tab PO SCH (08:22)
[2019-04-16] MEDS: ENTRESTO PO SCH ×2 (08:25→20:03)
[2019-04-16] MEDS: RANOLAZINE 1000 MG PO SCH ×2 (08:25→20:03)
[2019-04-16] MEDS: FOLIC ACID 0.8 MG PO SCH (08:25)
[2019-04-16] MEDS: Triamcinolone Acetonide 0.1% Crm 15 GM Tube TOP SCH ×2 (08:36→20:30)
[2019-04-16] MEDS ORDERED: Ondansetron 4 MG Tab.DIS PO PRN (09:13)
[2019-04-16] MEDS: Melatonin 3 MG Tab PO SCH (20:02)
[2019-04-16] MEDS: Insulin Detemir 100 Units/ML 3 ML Pen SUBCUT SCH (20:04)
[2019-04-17] MEDS: Acetaminophen 325 MG Tab PO SCH ×4 (01:34→20:36)
[2019-04-17] MEDS: Omeprazole 20 MG Cap.CR PO SCH (07:55)
[2019-04-17] MEDS: traMADol 50 MG Tab PO PRN ×2 (07:57→13:41)
[2019-04-17] MEDS: Carvedilol 6.25 MG Tab PO SCH ×2 (07:57→18:07)
[2019-04-17] MEDS: Naloxegol Oxalate 25 MG Tab PO SCH (08:30)
[2019-04-17] MEDS: atorvaSTATin 40 MG Tab PO SCH (08:30)
[2019-04-17] MEDS: Allopurinol 100 MG Tab PO SCH (08:30)
[2019-04-17] MEDS: Aspirin 81 MG Tab.Chew PO SCH (08:30)
[2019-04-17] MEDS: Cyanocobalamin (Vitamin B12) 500 MCG Tab PO SCH (08:30)
[2019-04-17] MEDS: Apixaban 5 MG Tab PO SCH ×2 (08:30→20:37)
[2019-04-17] MEDS: Calcium Citrate/Vitamin D3 315 MG-250 Unit Tab PO SCH (08:30)
[2019-04-17] MEDS: RANOLAZINE 1000 MG PO SCH ×2 (08:31→20:38)
[2019-04-17] MEDS: ENTRESTO PO SCH ×2 (08:31→20:37)
[2019-04-17] MEDS: FOLIC ACID 0.8 MG PO SCH (08:31)
[2019-04-17] MEDS: Cholecalciferol (Vitamin D3) 25 MCG Tab PO SCH (08:31)
[2019-04-17] MEDS: Triamcinolone Acetonide 0.1% Crm 15 GM Tube TOP SCH ×2 (08:34→20:38)
[2019-04-17 16:20] LABS: ANION GAP 16.6 mmol/L (5-15)
[2019-04-17] MEDS: Insulin Detemir 100 Units/ML 3 ML Pen SUBCUT SCH (20:35)
[2019-04-17] MEDS: Melatonin 3 MG Tab PO SCH (20:37)
[2019-04-18] MEDS: Acetaminophen 325 MG Tab PO SCH ×4 (02:55→19:23)
[2019-04-18] MEDS: Omeprazole 20 MG Cap.CR PO SCH (07:41)
[2019-04-18] MEDS: Carvedilol 6.25 MG Tab PO SCH ×2 (07:42→17:58)
[2019-04-18] MEDS: Apixaban 5 MG Tab PO SCH ×2 (08:29→20:20)
[2019-04-18] MEDS: Cyanocobalamin (Vitamin B12) 500 MCG Tab PO SCH (08:29)
[2019-04-18] MEDS: Naloxegol Oxalate 25 MG Tab PO SCH (08:29)
[2019-04-18] MEDS: Cholecalciferol (Vitamin D3) 25 MCG Tab PO SCH (08:30)
[2019-04-18] MEDS: Calcium Citrate/Vitamin D3 315 MG-250 Unit Tab PO SCH (08:30)
[2019-04-18] MEDS: atorvaSTATin 40 MG Tab PO SCH (08:30)
[2019-04-18] MEDS: Aspirin 81 MG Tab.Chew PO SCH (08:30)
[2019-04-18] MEDS: Allopurinol 100 MG Tab PO SCH (08:30)
[2019-04-18] MEDS: Triamcinolone Acetonide 0.1% Crm 15 GM Tube TOP SCH ×2 (08:32→20:22)
[2019-04-18] MEDS: ENTRESTO PO SCH ×2 (08:39→20:20)
[2019-04-18] MEDS: FOLIC ACID 0.8 MG PO SCH (08:40)
[2019-04-18] MEDS: RANOLAZINE 1000 MG PO SCH ×2 (08:40→20:20)
[2019-04-18] MEDS: Sodium Chloride 0.65% Nasal Spray 45 ML Bottle NAS PRN (09:53)
[2019-04-18] MEDS ORDERED: Furosemide 40 MG Tab PO SCH (11:15)
[2019-04-18] MEDS: traMADol 50 MG Tab PO PRN (11:32)
[2019-04-18] MEDS: Melatonin 3 MG Tab PO SCH (20:20)
[2019-04-18] MEDS: Insulin Detemir 100 Units/ML 3 ML Pen SUBCUT SCH (20:21)
[2019-04-19] MEDS: Acetaminophen 325 MG Tab PO SCH ×2 (02:12→08:21)
[2019-04-19 06:50] VITALS: PULSE 69
[2019-04-19] MEDS: Omeprazole 20 MG Cap.CR PO SCH (07:19)
[2019-04-19] MEDS: traMADol 50 MG Tab PO PRN (07:19)
[2019-04-19] MEDS ORDERED: Furosemide 40 MG Tab PO SCH (08:00)
[2019-04-19] MEDS: Naloxegol Oxalate 25 MG Tab PO SCH (08:20)
[2019-04-19] MEDS: atorvaSTATin 40 MG Tab PO SCH (08:20)
[2019-04-19] MEDS: Cholecalciferol (Vitamin D3) 25 MCG Tab PO SCH (08:20)
[2019-04-19] MEDS: Calcium Citrate/Vitamin D3 315 MG-250 Unit Tab PO SCH (08:20)
[2019-04-19] MEDS: Cyanocobalamin (Vitamin B12) 500 MCG Tab PO SCH (08:20)
[2019-04-19] MEDS: Aspirin 81 MG Tab.Chew PO SCH (08:20)
[2019-04-19] MEDS: Apixaban 5 MG Tab PO SCH (08:21)
[2019-04-19] MEDS: Allopurinol 100 MG Tab PO SCH (08:21)
[2019-04-19] MEDS: Carvedilol 6.25 MG Tab PO SCH (08:23)
[2019-04-19] MEDS: ENTRESTO PO SCH (08:24)
[2019-04-19] MEDS: RANOLAZINE 1000 MG PO SCH (08:24)
[2019-04-19] MEDS: FOLIC ACID 0.8 MG PO SCH (08:24)
[2019-04-19 08:25] VITALS: BP 136/56
[2019-04-19] MEDS: Triamcinolone Acetonide 0.1% Crm 15 GM Tube TOP SCH (08:26)
[2019-04-19] MEDS: Sodium Chloride 0.65% Nasal Spray 45 ML Bottle NAS PRN (08:28)
--- NOTE | 2019-04-26 10:36 | PCM.DCSUM1 ---
Discharge Summary - Hospital Course Diagnosis: Stroke: No - Discharge Data Discharge Date: 04/19/19 Discharge Disposition: Home, Self-Care 01 Condition: Good - Referral to Home Health Primary Care Physician: Sherrill Mckeon MD - Patient Summary/Data Consults: Consultations 04/10/19 15:16 PT Evaluation and Treatment [CONS] Routine - Patient Instructions Diet: Usual Diet as Tolerated, Diabetic Diet Activity: As Tolerated, Cough & Deep Breathe Driving: Do Not Drive Showering/Bathing: May Shower Wound/Incision Care: Change Dressing Daily Notify Provider of: Fever, Increased Pain, Swelling and Redness, Drainage, Nausea and/or Vomiting - Discharge Plan *PRESCRIPTION DRUG MONITORING PROGRAM REVIEWED*: Yes *COPY OF PRESCRIPTION DRUG MONITORING REPORT IN PATIENT MARISSA: Yes Prescriptions/Med Rec: traMADol [Ultram] 50 mg PO Q6H PRN #30 tablet PRN Reason: Pain Home Medications: Home Meds Allopurinol [Zyloprim] 100 mg PO DAILY 01/08/15 [History] Calcium Carbonate/Vitamin D3 [Calcium 600 + Vit D Tablet] 1 each PO DAILY [History] Cyanocobalamin (Vitamin B-12) [Vitamin B-12] 1,000 mcg PO DAILY 01/08/15 [ History] Carvedilol 3.125 mg PO BIDMEALS 07/15/17 [History] Albuterol/Ipratropium [DuoNeb 3.0-0.5 MG/3 ML] 3 ml INH Q6H PRN 08/19/17 [ History] Folic Acid 0.8 mg PO DAILY 12/19/17 [History] Melatonin 5 mg PO BEDTIME 09/18/18 [History] Sennosides [Senokot] 8.6 mg PO BEDTIME PRN 09/18/18 [History] Triamcinolone Acetonide [Triamcinolone Acetonide 0.1% Crm] 1 applic TOP BID 07/08 [History] Apixaban [Eliquis] 2.5 mg PO BID 02/06/19 [History] Aspirin 81 mg PO DAILY 02/06/19 [History] Insulin Detemir [Levemir] 10 units SUBCUT BEDTIME 02/06/19 [History] Cholecalciferol (Vitamin D3) [Vitamin D3] 1 tab PO DAILY 02/07/19 [History] Ranolazine [Ranexa] 1,000 mg PO BID 02/07/19 [History] Sacubitril/Valsartan [Entresto 49 mg-51 mg Tablet] 1 tab PO BID 02/07/19 [ History] Omeprazole 20 mg PO DAILY #90 tab.rap. 02/08/19 [Rx] Acetaminophen 650 mg PO Q6H 04/10/19 [History] Bisacodyl [Dulcolax] 5 mg PO BID PRN 04/10/19 [History] Magnesium Hydroxide [Milk of Magnesia] 30 ml PO DAILY PRN 04/10/19 [History] Polyethylene Glycol 3350 [Miralax] 17 gm PO DAILY PRN 04/10/19 [History] atorvaSTATin Calcium [Lipitor] 80 mg PO DAILY 04/10/19 [History] traMADol [Ultram] 50 mg PO Q6H PRN #30 tablet 04/19/19 [Rx] Referrals: Crista Ruiz, PROFESSIONAL DEVELOPMENT DIRECTOR [Nurse Practitioner] - (Will see Crista Ruiz from previously made appointment) - Discharge Summary/Plan Comment DC Time >30 min.: Yes Discharge Summary/Plan Comment: Final diagnosis --Left total knee arthroplasty DOS 04/[address] Paz. Chronic stable problems --Afib, chronic, [id number] VASc 8, CVR, Apixaban, Coreg 3.125mg BID --HFrEF, combined systolic/diastolic, ARB/NI Entresto, Coreg 3.125 BNP 386, admission creat 2.0, K+ 4.3, Lasix was restarted a few days after admission. --Hx CABG/[place] 1995, --Coronary artery disease, ASA, Ranolazine --HLD, high dose statin --HTN, stable --T2DM, A1c 8%, Levemir 10 units daily at bedtime, --CKD stage 3, baseline creatinine 1.5-2.2, Avoid nephrotoxins --Vitamin B12 deficiency, mild, supplement --LAURA on CPAP, --Obesity BMI 42%, --Hx prostate CA with bone metastasis, status post Lupron, previously on Zoladex , --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, Zoladex onhold since the CVA, AAA, status post repair, --Bilateral carotid artery stenosis, aneurysm of left internal iliac artery, --GERD PPI SNF/course Patient did very well, he received physical therapy and was meeting goals, his Lasix was started a few days after admission, creatinine remained good, he was placed on a bowel regimen--Movatik. He required little pain medication, oxycodone was discontinued tramadol was added. Given recent AUR, he was monitored for urination, bladder scan/straight cath as needed--no complications. He ran no fever, vital signs were stable. And the abdomen was monitored 8.6 stable, he had no wound dehiscence. He was able to ambulate 150' x2 without rest. He completed his stair negotiation ascending/descending with [id number]. [place] changes/adjustments upon discharge --Tramadol ordered, discontinue oxycodone --Continue all other medications Follow-up physical therapy --Follow up with Crista Ruiz NP outpatient --Suggest 2-3x/week for therapy to address knee as well as strengthening of R UE /LE. - General Info Functional Status: Reports: Pain Controlled - Review of Systems General: Reports: No Symptoms HEENT: Reports: No Symptoms Pulmonary: Reports: No Symptoms Cardiovascular: Reports: No Symptoms Gastrointestinal: Reports: No Symptoms Genitourinary: Reports: No Symptoms Musculoskeletal: Reports: Joint Swelling (Mild left knee pain and swelling since surgery) Skin: Denies: Rash Neurological: Reports: No Symptoms Psychiatric: Reports: No Symptoms - Patient Data Vitals - Most Recent: Last Vital Signs Temp 97.3 F 04/19/19 06:49 Pulse 69 04/19/19 08:23 Resp 16 04/19/19 06:49 BP 136/56 L 04/19/19 08:23 Pulse Ox 96 04/19/19 06:49 Weight - Most Recent: 276 lb Med Orders - Current: Current Medications Discontinued Medications Acetaminophen (Tylenol) 650 mg PO Q6H [facility]EVAN Last Admin: 04/10/19 21:32 Dose: 650 mg Acetaminophen (Tylenol) 650 mg PO Q6H [facility] Last Admin: 04/19/19 08:21 Dose: 650 mg Albuterol/Ipratropium (Duoneb 3.0-0.5 Mg/3 Ml) 3 ml INH Q6H PRN PRN Reason: Shortness of Breath Last Admin: 04/11/19 10:22 Dose: 3 ml Allopurinol (Zyloprim) 100 mg PO DAILY [facility] Last Admin: 04/19/19 08:21 Dose: 100 mg Apixaban (Eliquis) 2.5 mg PO BID [facility] Last Admin: 04/19/19 08:21 Dose: 2.5 mg Aspirin (Aspirin) 81 mg PO DAILY [facility] Last Admin: 04/19/19 08:20 Dose: 81 mg Atorvastatin Calcium (Lipitor) 80 mg PO DAILY [facility] Last Admin: 04/19/19 08:20 Dose: 80 mg Bisacodyl (Dulcolax) 5 mg PO BID PRN PRN Reason: Constipation Calcium Citrate (Calcium Citrate + D) 1 tab PO DAILY [facility] Last Admin: 04/19/19 08:20 Dose: 1 tab Carvedilol (Coreg) 3.125 mg PO BIDMEALS [facility] Last Admin: 04/19/19 08:23 Dose: 3.125 mg Cholecalciferol (Vitamin D3) 50 mcg PO DAILY [facility] Last Admin: 04/19/19 08:20 Dose: 50 mcg Cyanocobalamin (Vitamin B12) 1,000 mcg PO DAILY [facility] Last Admin: 04/19/19 08:20 Dose: 1,000 mcg Furosemide (Lasix) 40 mg PO BID [facility] Last Admin: 04/18/19 12:30 Dose: 40 mg Furosemide (Lasix) 40 mg PO 0800,1600 [facility] Last Admin: 04/19/19 08:21 Dose: 40 mg Guaifenesin/Phenylephrine HCl (Robitussin Dm) 10 ml PO Q4H PRN PRN Reason: Cough Insulin Detemir (Levemir) 10 unit SUBCUT BEDTIME [facility] Last Admin: 04/18/19 20:21 Dose: 10 unit Magnesium Hydroxide (Milk Of Magnesia) 30 ml PO DAILY PRN PRN Reason: Constipation Melatonin (Melatonin) 4.5 mg PO BEDTIME [facility] Last Admin: 04/18/19 20:20 Dose: 4.5 mg Naloxegol (Movantik) 25 mg PO DAILY [facility] Last Admin: 04/19/19 08:20 Dose: 25 mg Non-Formulary Medication (Folic Acid [Folic Acid]) 0.8 mg PO DAILY [facility] Last Admin: 04/12/19 08:28 Dose: 0.8 mg Sacubitril/Valsartan (Entresto 49 Mg-51 Mg Tablet)Own Med* * 1 tab PO BID [facility] Last Admin: 04/12/19 08:29 Dose: 1 tab Omeprazole (Omeprazole) 20 mg PO ACBREAKFAST [facility] Last Admin: 04/19/19 07:19 Dose: 20 mg Ondansetron HCl (Zofran Odt) 4 mg PO Q6H PRN PRN Reason: Nausea/Vomiting Last Admin: 04/18/19 05:06 Dose: 4 mg Oxycodone HCl (Oxycodone) 5 mg PO Q4H PRN PRN Reason: Pain Ptom Ranolazine (1000mg Tablet) 1,000 each PO BID [facility] Ptom Ranolazine (1000mg Tablet) 1,000 each PO BID [facility] Last Admin: 04/12/19 08:28 Dose: 1,000 each Ranolazine (Ranexa) (Er 1000mg Tab - Ptom) 1 each PO BID [facility] Last Admin: 04/19/19 08:24 Dose: 1 each Entresto (Sacubitril /Valsartan) 49mg- 51mg Tab - Ptom 1 each PO BID [facility] Last Admin: 04/19/19 08:24 Dose: 1 each Folic Acid 0.8mg Tab (- Ptom) 1 each PO DAILY [facility] Last Admin: 04/19/19 08:24 Dose: 1 each Polyethylene Glycol (Miralax) 17 gm PO DAILY PRN PRN Reason: Constipation Last Admin: 04/14/19 08:27 Dose: 17 gm Ranolazine (Ranexa) 1,000 mg PO BID [facility] Last Admin: 04/10/19 21:46 Dose: 1,000 mg Ranolazine (Ranexa) 1,000 mg PO BID [facility] Last Admin: 04/11/19 10:45 Dose: Not Given Senna/Docusate Sodium (Senna Plus) 1 tab PO BEDTIME PRN PRN Reason: CONSTIPATION Last Admin: 04/19/19 10:14 Dose: 1 tab Sodium Chloride ([place] Nasal [place]) 0 ml [place] Q2H PRN PRN Reason: Nasal Dryness Last Admin: 04/19/19 08:28 Dose: 1 spray Tramadol HCl (Ultram) 50 mg PO Q6H PRN PRN Reason: Pain Last Admin: 04/19/19 07:19 Dose: 50 mg Triamcinolone Acetonide (Triamcinolone Acetonide 0.1% Crm) 0 gm TOP BID [facility] Last Admin: 04/19/19 08:26 Dose: Not Given - Exam Quality Assessment: Reports: DVT Prophylaxis. Denies: Supplemental Oxygen General: Reports: Alert, Oriented Neck: Reports: Supple Lungs: Reports: Clear to Auscultation, Normal Respiratory Effort Cardiovascular: Reports: Regular Rate, Regular Rhythm Rectal (Males) Exam: Deferred Back Exam: Denies: CVA Tenderness (L), CVA Tenderness (R) Extremities: Pedal Edema (Mild pitting edema left lower extremity) Skin: Reports: Warm, Dry, Intact Wound/Incisions: Reports: Healing Well, Dressing Dry and Intact. Denies: No Drainage, Erythema Psy/Mental Status: Reports: Alert, Normal Affect, Normal Mood
== END 2019-04-19 12:30 | disposition home or self-care (01) | DRG 560 ==
LOC: KA.MS 04-10 16:59
PROVIDERS: ADMIT Nurse Practitioner Family; ATTEND Nurse Practitioner Family
DX: Z47.89 Encounter for other orthopedic aftercare (principal); I48.20 Chronic atrial fibrillation, unspecified; I13.0 Hypertensive heart and chronic kidney disease with heart failure and stage 1 through stage 4 chronic kidney disease, or unspecified chronic kidney disease; I50.42 Chronic combined systolic (congestive) and diastolic (congestive) heart failure; N18.3 Chronic kidney disease, stage 3 (moderate); I25.10 Atherosclerotic heart disease of native coronary artery without angina pectoris; E78.5 Hyperlipidemia, unspecified; E11.22 Type 2 diabetes mellitus with diabetic chronic kidney disease; E53.8 Deficiency of other specified B group vitamins; G47.33 Obstructive sleep apnea (adult) (pediatric); E66.9 Obesity, unspecified; K21.9 Gastro-esophageal reflux disease without esophagitis; Z96.653 Presence of artificial knee joint, bilateral; Z87.891 Personal history of nicotine dependence; Z85.46 Personal history of malignant neoplasm of prostate; Z68.41 Body mass index [BMI] 40.0-44.9, adult; I25.2 Old myocardial infarction; Z95.1 Presence of aortocoronary bypass graft; Z86.73 Personal history of transient ischemic attack (TIA), and cerebral infarction without residual deficits
CPT/HCPCS: 36415; 80048; 82962; 85025; 94640; 97110-GP; 97162-GP; A9270-GY; J1815-GY; J7620-GY

== ENCOUNTER 2019-05-27 05:08 | Emergency (ER) | payer MEDICARE, OTHER ==
[2019-05-27 06:26] LABS: ANION GAP 14.9 mmol/L (5-15)
[2019-05-27 07:07] VITALS: BP 176/66; PULSE 65
--- NOTE | 2019-05-27 07:09 | EDM.PDOC ---
ED HPI GENERAL MEDICAL PROBLEM - General Chief Complaint: General Stated Complaint: SOB, headache Time Seen by Provider: 05/27/19 05:30 Source of Information: Reports: Patient, Family (daughter) History Limitations: Reports: No Limitations - History of Present Illness INITIAL COMMENTS - FREE TEXT/NARRATIVE: 79-year-old male presents to the emergency room with the episode this evening of increased shortness of breath. He denies any chest pain. No palpitations. No upper respiratory infection or recent fever or chills. No cough or sputum production. Patient does have a history of congestive heart failure. Status post CABG years ago. Prior IA years ago. He is a recent recipient of a right total knee arthroplasty. He denies significant weight gain or pronounced fluid in his legs today. He is followed by Crista Ruiz nurse practitioner at the [facility]. He is having a further workup for anemia. Onset: Today Duration: Minutes:, Improving Location: Reports: Generalized Severity: Moderate Improves with: Reports: Rest Worsens with: Reports: None Associated Symptoms: Reports: Headaches, Shortness of Breath. 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: Acetaminophen - Related Data Allergies Allergy/AdvReac Type Severity Reaction Status Date / Time celecoxib [From Celebrex] Allergy Hives Verified 05/27/19 05:31 degarelix Allergy Rash Verified 05/27/19 05:31 ezetimibe [From Zetia] Allergy Stomach Verified 05/27/19 05:31 Ache nitroglycerin Allergy Bradycardia Verified 05/27/19 05:31 Home Meds: Home Meds Allopurinol [Zyloprim] 100 mg PO DAILY 01/08/15 [History] Calcium Carbonate/Vitamin D3 [Calcium 600 + Vit D Tablet] 1 each PO DAILY [History] Cyanocobalamin (Vitamin B-12) [Vitamin B-12] 1,000 mcg PO DAILY 01/08/15 [ History] Albuterol/Ipratropium [DuoNeb 3.0-0.5 MG/3 ML] 3 ml INH Q6H PRN 08/19/17 [ History] Folic Acid 0.8 mg PO DAILY 12/19/17 [History] Melatonin 5 mg PO BEDTIME 09/18/18 [History] Sennosides [Senokot] 8.6 mg PO BEDTIME PRN 09/18/18 [History] Triamcinolone Acetonide [Triamcinolone Acetonide 0.1% Crm] 1 applic TOP BID PRN 09/18/18 [History] Apixaban [Eliquis] 2.5 mg PO BID 02/06/19 [History] Aspirin 81 mg PO DAILY 02/06/19 [History] Cholecalciferol (Vitamin D3) [Vitamin D3] 1 tab PO DAILY 02/07/19 [History] Ranolazine [Ranexa] 1,000 mg PO BID 02/07/19 [History] Sacubitril/Valsartan [Entresto 49 mg-51 mg Tablet] 1 tab PO BID 02/07/19 [ History] Omeprazole 20 mg PO DAILY #90 tab.rap.dr 02/08/19 [Rx] Acetaminophen 650 mg PO Q6H 04/10/19 [History] Bisacodyl [Dulcolax] 5 mg PO BID PRN 04/10/19 [History] Magnesium Hydroxide [Milk of Magnesia] 30 ml PO DAILY PRN 04/10/19 [History] atorvaSTATin Calcium [Lipitor] 80 mg PO DAILY 04/10/19 [History] Furosemide 40 mg PO DAILY 05/27/19 [History] Past Medical History HEENT History: Reports: Hard of Hearing, Impaired Vision Other HEENT History: pat. is supposed to have cataract surgery in the right eye Cardiovascular History: Reports: Afib, CAD, High Cholesterol, Hypertension, [place], Stents Respiratory History: Reports: COPD, Sleep Apnea Gastrointestinal History: Reports: Chronic Constipation Genitourinary History: Reports: BPH, Diabetic Nephropathy, Prostate Disorder, Renal Calculus Musculoskeletal History: Reports: Arthritis, Fracture, Other (See Below) Other Musculoskeletal History: 50 years ago pat. had fx. in the right foot Neurological History: Reports: Neuropathy, Diabetic Psychiatric History: Reports: None Endocrine/Metabolic History: Reports: Diabetes, Type II Hematologic History: Reports: Anemia, Blood Transfusion(s) Immunologic History: Reports: None Oncologic (Cancer) History: Reports: Prostate Dermatologic History: Reports: Other (See Below) Other Dermatologic History: Blister to right foot - Infectious Disease History Infectious Disease History: Reports: Chicken Pox, Measles, Mumps - Past Surgical History HEENT Surgical History: Reports: Cataract Surgery, Tonsillectomy Cardiovascular Surgical History: Reports: AAA Repair, Cardiac Ablation, Coronary Artery Bypass Respiratory Surgical History: Reports: None GI Surgical History: Reports: Colonoscopy, Hernia, Abdominal Other GI Surgeries/Procedures: 2013 Male Surgical History: Reports: Prostate Biopsy, Prostatectomy Endocrine Surgical History: Reports: None Neurological Surgical History: Reports: None Musculoskeletal Surgical History: Reports: Knee Replacement Other Musculoskeletal Surgeries/Procedures:: Bilateral knee replacement Dermatological Surgical History: Reports: None Social & Family History - Family History Family Medical History: Noncontributory Cardiac: Reports: IA, Other (See Below) Other Cardiac Family History: brother had heart problems Respiratory: Reports: Other (See Below) Other Respiratory Family Hisory: pulmonary fibrosis - sister GI: Reports: None : Reports: None OBGYN: Reports: None Musculoskeletal: Reports: None Neurological: Reports: None Psychiatric: Reports: None Endocrine/Metabolic: Reports: None Hematologic: Reports: None Immunologic: Reports: None Oncologic: Reports: Lung, Prostate, Other (See Below) Other Oncologic Family History: sister - lung cancer. father - prostate cancer - Tobacco Use Smoking Status *Q: Former Smoker Used Tobacco, but Quit: Yes Month/Year Tobacco Last Used: 1995 - Caffeine Use Caffeine Use: Reports: Coffee - Recreational Drug Use Recreational Drug Use: No ED ROS GENERAL - Review of Systems Review Of Systems: See Below Constitutional: Denies: Fever, Chills, Diaphoresis, Weight Gain HEENT: Denies: Vertigo Respiratory: Reports: Shortness of Breath. Denies: Wheezing, Cough, Sputum Cardiovascular: Reports: Blood Pressure Problem, Dyspnea on Exertion, Orthopnea. Denies: Chest Pain, Edema, Lightheadedness Endocrine: Reports: High Glucose GI/Abdominal: Denies: Abdominal Pain : Reports: No Symptoms Musculoskeletal: Reports: Joint Pain (Right knee, recent total knee arthroplasty ), Joint Swelling (Right knee status post right total knee arthroplasty) Skin: Denies: Cyanosis, Diaphoresis Neurological: Reports: Headache. Denies: Confusion, Dizziness, Trouble Speaking Psychiatric: Reports: No Symptoms Hematologic/Lymphatic: Reports: Anemia Immunologic: Reports: No Symptoms ED EXAM, GENERAL - Physical Exam Exam: See Below Exam Limited By: No Limitations General Appearance: Alert, WD/WN, No Apparent Distress, Obese Eye Exam: Bilateral Eye: EOMI Ears: Hearing Grossly Normal Throat/Mouth: Normal Inspection, Normal Oropharynx, Normal Voice, No Airway Compromise Head: Atraumatic, Normocephalic Neck: Normal Inspection, Supple Respiratory/Chest: No Respiratory Distress, Lungs Clear, Normal Breath Sounds, No Accessory Muscle Use, Chest Non-Tender Cardiovascular: Regular Rate, Rhythm, No Murmur GI/Abdominal: Soft, Non-Tender Back Exam: Normal Inspection Extremities: Normal Inspection, Pedal Edema (A trace of lower extremity edema nonpitting) Neurological: Alert, Oriented, No Motor/Sensory Deficits Psychiatric: Normal Affect, Normal Mood Skin Exam: Warm, Dry, Intact, Normal Color, No Rash Lymphatic: No Adenopathy EKG INTERPRETATION EKG Date: 05/27/19 Time: 06:15 Rhythm: Other (Sinus rhythm with sinus arrhythmia with short CA occasional pretty BCs) Rate (Beats/Min): 61 QRS: Normal ST-T: Normal QT: Normal Comparison: NA - No Prior EKG EKG Interpretation Comments: Sinus rhythm with sinus arrhythmia with short CA occasional PVCs nonspecific intraventricular block Lateral infarct age undetermined Possible inferior infarct age undetermined Course - Vital Signs Last Recorded V/S: Last Vital Signs Temp Pulse 53 L 05/27/19 06:30 Resp 20 05/27/19 06:30 BP 165/51 H 05/27/19 06:30 Pulse Ox 96 05/27/19 06:30 - Orders/Labs/Meds Orders: Active Orders 24 hr Category Date Time Status CXR [Chest 2V] [CR] Stat Exams 05/27/19 05:30 Ordered Labs: Laboratory Tests 05/27/19 05/27/19 05/27/19 Range/Units 05:45 05:45 05:45 WBC 5.63 (5.00-10.00) 10^3/uL RBC 2.69 L (4.50-6.00) 10^6/uL Hgb 8.8 L (13.0-17.0) g/dL Hct 27.8 L (40.0-52.0) % MCV 103.3 H (82.0-92.0) fL MCH 32.7 H (27.0-31.0) pg MCHC 31.7 L (32.0-36.0) g/dL RDW 13.9 (11.5-14.5) % Plt Count 144 L D (150-400) 10^3/uL MPV 10.9 H (7.4-10.4) fL Immature Gran % (Auto) 0.5 (0.0-5.0) % Neut % (Auto) 72.9 H (50.0-70.0) % Lymph % (Auto) 15.5 L (20.0-40.0) % Tucker % (Auto) 9.1 H (2.0-8.0) % Eos % (Auto) 1.6 (1.0-3.0) % Baso % (Auto) 0.4 (0.0-1.0) % Immature Gran # (Auto) 0.03 (0.00-0.50) 10^3/uL Neut # (Auto) 4.11 (2.50-7.00) 10^3/uL Lymph # (Auto) 0.87 L (1.00-4.00) 10^3/uL Tucker # (Auto) 0.51 (0.10-0.80) 10^3/uL Eos # (Auto) 0.09 L (0.10-0.30) 10^3/uL Baso # (Auto) 0.02 (0.00-0.10) 10^3/uL Sodium 140 (136-145) mmol/L Potassium 3.9 (3.3-5.3) mmol/L Chloride 105 (98-115) mmol/L Carbon Dioxide 24.0 (21.0-32.0) mmol/L Anion Gap 14.9 (5-15) mmol/L BUN 25 (6-25) mg/dL Creatinine 1.36 H (0.51-1.17) mg/dL Est Cr Clr Drug Dosing 41.21 mL/min Estimated GFR (MDRD) 50 mL/min Glucose 183 H (75 - 99) mg/dL Calcium 8.9 (8.7-10.3) mg/dL Troponin I < 0.04 (0.00-0.070) ng/mL B-Natriuretic Peptide 821 H (0-100) pg/mL - Radiology Interpretation Free Text/Narrative:: Chest x-ray 2 views Findings: Cardiomegaly. Mild central pulmonary venous congestion. Patchy segmental atelectasis with mild prominence of the interstitial markings. Similar elevated right hemidiaphragm. Sternal suture wires. Impression: Cardiomegaly by basilar segmental atelectasis. Mild prominences in the interstitial markings suggestive possible pulmonary edema from low-grade congestive heart failure. - Re-Assessments/Exams Free Text/Narrative Re-Assessment/Exam: 05/27/19 07:19 Patient's feels that his shortness of breath has dramatically improved. He is O2 saturations are in the high 90s. His blood pressure is down to 160/70. Pulse is 61. Departure - Departure Time of Disposition: 07:20 Disposition: Home, Self-Care 01 Condition: Fair Clinical Impression: CHF exacerbation Qualifiers: Heart failure type: unspecified Qualified Code(s): I50.9 - Heart failure, unspecified - Discharge Information Instructions: Natriuretic Peptides Test, Heart Failure, [id number] Referrals: PCP,Unknown [Primary Care Provider] - Forms: ED Department Discharge - My Orders Last 24 Hours: My Active Orders 05/27/19 05:30 CXR [Chest 2V] [CR] Stat - Assessment/Plan Last 24 Hours: My Active Orders 05/27/19 05:30 CXR [Chest 2V] [CR] Stat Assessment:: Mild congestive heart failure exacerbation Plan: 1. Furosemide 60 mg today 2. Follow-up with your primary care tomorrow for recheck. 3. Return to the emergency room if shortness of breath worsens. 4. Continue with your regular medications.
--- NOTE | 2019-05-27 08:41 | CR ---
[id number] RAD/RAD Chest PA And Lateral EXAM: RAD Chest PA And Lateral CLINICAL DATA: SHORTNESS OF BREATH COMPARISON: CORRELATION IS MADE WITH THE EXAM OF FEBRUARY 07, 2019 FINDINGS: There is minimal right-sided pleural reaction There is borderline increased pulmonary vascularity The cardiomediastinal contour is stable IMPRESSION: BORDERLINE INCREASED PULMONARY VASCULARITY Nino Segovia MD 05/27/19 0841 Thank you for allowing us to participate in the care of your patient.
== END 2019-05-27 07:11 | disposition home or self-care (01) ==
LOC: KA.ED 05:08
DX: I11.0 Hypertensive heart disease with heart failure (principal); I50.9 Heart failure, unspecified; E11.21 Type 2 diabetes mellitus with diabetic nephropathy; E11.40 Type 2 diabetes mellitus with diabetic neuropathy, unspecified; I48.91 Unspecified atrial fibrillation; J44.9 Chronic obstructive pulmonary disease, unspecified; Z79.899 Other long term (current) drug therapy; Z79.82 Long term (current) use of aspirin; Z88.8 Allergy status to other drugs, medicaments and biological substances; Z88.1 Allergy status to other antibiotic agents
CPT/HCPCS: 71046; 80048; 83880; 84484; 85025; 99284; 99285-25

== ENCOUNTER 2019-05-28 22:40 | Inpatient (IN) | payer MEDICARE, OTHER ==
--- NOTE | 2019-05-28 23:28 | EDM.PDOC ---
ED HPI GENERAL MEDICAL PROBLEM - General Chief Complaint: Respiratory Problem Stated Complaint: shortness of breath Time Seen by Provider: 05/28/19 23:16 Source of Information: Reports: Patient History Limitations: Reports: No Limitations - History of Present Illness INITIAL COMMENTS - FREE TEXT/NARRATIVE: Patient is an 79-year-old gentleman who presents to the emergency department this evening with a complaint of shortness of breath. Patient states he tried to lie down to go to sleep and became very short of breath. Patient typically wears CPAP at night, however, unable to feel better with device on. Patient was seen here in the ER yesterday morning for the same. Patient was found to have congestive heart failure with a BNP greater than 800 and mild congestion on x-ray. Patient was seen earlier today at the [facility] and his daily Lasix dosage was increased. Patient did comply with change of regimen. Patient underwent CABG 20 years ago and a right knee arthroscopy 2 months ago. Patient denies chest pain, fever, nausea, vomiting, diarrhea, abdominal pain, headache, or recent change to chronic minimal lower extremity edema. Onset: Gradual Duration: Day(s): Location: Reports: Chest Severity: Moderate Improves with: Reports: Other (Sitting up) Worsens with: Reports: Other (Lying flat) Associated Symptoms: Reports: Cough, Shortness of Breath. Denies: Chest Pain, Diaphoresis, Fever/Chills, Nausea/Vomiting - Related Data Allergies Allergy/AdvReac Type Severity Reaction Status Date / Time celecoxib [From Celebrex] Allergy Hives Verified 05/28/19 23:04 degarelix Allergy Rash Verified 05/28/19 23:04 ezetimibe [From Zetia] Allergy Stomach Verified 05/28/19 23:04 Ache nitroglycerin Allergy Bradycardia Verified 05/28/19 23:04 Home Meds: Home Meds Allopurinol [Zyloprim] 100 mg PO DAILY 01/08/15 [History] Calcium Carbonate/Vitamin D3 [Calcium 600 + Vit D Tablet] 1 each PO DAILY [History] Cyanocobalamin (Vitamin B-12) [Vitamin B-12] 1,000 mcg PO DAILY 01/08/15 [ History] Albuterol/Ipratropium [DuoNeb 3.0-0.5 MG/3 ML] 3 ml INH Q6H PRN 08/19/17 [ History] Folic Acid 0.8 mg PO DAILY 12/19/17 [History] Melatonin 5 mg PO BEDTIME 09/18/18 [History] Sennosides [Senokot] 8.6 mg PO BEDTIME PRN 09/18/18 [History] Triamcinolone Acetonide [Triamcinolone Acetonide 0.1% Crm] 1 applic TOP BID PRN 09/18/18 [History] Apixaban [Eliquis] 2.5 mg PO BID 02/06/19 [History] Aspirin 81 mg PO DAILY 02/06/19 [History] Cholecalciferol (Vitamin D3) [Vitamin D3] 1 tab PO DAILY 02/07/19 [History] Ranolazine [Ranexa] 1,000 mg PO BID 02/07/19 [History] Sacubitril/Valsartan [Entresto 49 mg-51 mg Tablet] 1 tab PO BID 02/07/19 [ History] Omeprazole 20 mg PO DAILY #90 tab.rap.dr 02/08/19 [Rx] Acetaminophen 650 mg PO Q6H 04/10/19 [History] Bisacodyl [Dulcolax] 5 mg PO BID PRN 04/10/19 [History] Magnesium Hydroxide [Milk of Magnesia] 30 ml PO DAILY PRN 04/10/19 [History] atorvaSTATin Calcium [Lipitor] 80 mg PO DAILY 04/10/19 [History] Furosemide 40 mg PO DAILY 05/27/19 [History] Past Medical History HEENT History: Reports: Hard of Hearing, Impaired Vision Other HEENT History: pat. is supposed to have cataract surgery in the right eye Cardiovascular History: Reports: Afib, CAD, High Cholesterol, Hypertension, [place], Stents Respiratory History: Reports: COPD, Sleep Apnea Gastrointestinal History: Reports: Chronic Constipation Genitourinary History: Reports: BPH, Diabetic Nephropathy, Prostate Disorder, Renal Calculus Musculoskeletal History: Reports: Arthritis, Fracture, Other (See Below) Other Musculoskeletal History: 50 years ago pat. had fx. in the right foot Neurological History: Reports: Neuropathy, Diabetic Psychiatric History: Reports: None Endocrine/Metabolic History: Reports: Diabetes, Type II Hematologic History: Reports: Anemia, Blood Transfusion(s) Immunologic History: Reports: None Oncologic (Cancer) History: Reports: Prostate Dermatologic History: Reports: Other (See Below) Other Dermatologic History: Blister to right foot - Infectious Disease History Infectious Disease History: Reports: Chicken Pox, Measles, Mumps - Past Surgical History HEENT Surgical History: Reports: Cataract Surgery, Tonsillectomy Cardiovascular Surgical History: Reports: AAA Repair, Cardiac Ablation, Coronary Artery Bypass Respiratory Surgical History: Reports: None GI Surgical History: Reports: Colonoscopy, Hernia, Abdominal Other GI Surgeries/Procedures: 2013 Male Surgical History: Reports: Prostate Biopsy, Prostatectomy Endocrine Surgical History: Reports: None Neurological Surgical History: Reports: None Musculoskeletal Surgical History: Reports: Knee Replacement Other Musculoskeletal Surgeries/Procedures:: Bilateral knee replacement Dermatological Surgical History: Reports: None Social & Family History - Family History Family Medical History: Noncontributory Cardiac: Reports: MT, Other (See Below) Other Cardiac Family History: brother had heart problems Respiratory: Reports: Other (See Below) Other Respiratory Family Hisory: pulmonary fibrosis - sister GI: Reports: None : Reports: None OBGYN: Reports: None Musculoskeletal: Reports: None Neurological: Reports: None Psychiatric: Reports: None Endocrine/Metabolic: Reports: None Hematologic: Reports: None Immunologic: Reports: None Oncologic: Reports: Lung, Prostate, Other (See Below) Other Oncologic Family History: sister - lung cancer. father - prostate cancer - Caffeine Use Caffeine Use: Reports: Coffee ED ROS GENERAL - Review of Systems Review Of Systems: Comprehensive ROS is negative, except as noted in HPI. Constitutional: Reports: No Symptoms HEENT: Reports: No Symptoms Respiratory: Reports: Shortness of Breath Cardiovascular: Reports: Dyspnea on Exertion. Denies: Chest Pain Endocrine: Reports: No Symptoms GI/Abdominal: Reports: No Symptoms : Reports: No Symptoms Musculoskeletal: Reports: No Symptoms Skin: Reports: No Symptoms Neurological: Reports: No Symptoms Psychiatric: Reports: No Symptoms Hematologic/Lymphatic: Reports: No Symptoms Immunologic: Reports: No Symptoms ED EXAM, GENERAL - Physical Exam Exam: See Below Exam Limited By: No Limitations General Appearance: Alert, WD/WN, No Apparent Distress Eye Exam: Bilateral Eye: Normal Inspection Nose: Normal Inspection, Normal Mucosa, No Blood Throat/Mouth: Normal Inspection, Normal Oropharynx, No Airway Compromise Head: Atraumatic, Normocephalic Neck: Normal Inspection, Supple, Non-Tender Respiratory/Chest: No Respiratory Distress, Rales (Bibasilar, right greater than left) Cardiovascular: Regular Rate, Rhythm, No Murmur GI/Abdominal: Normal Bowel Sounds, Soft, Non-Tender, No Abnormal Bruit Back Exam: Normal Inspection. No: CVA Tenderness (L), CVA Tenderness (R) Extremities: Pedal Edema (1+ mild bilateral) Neurological: Alert, Oriented, Normal Cognition Psychiatric: Normal Affect, Normal Mood Skin Exam: Warm, Dry, Intact, Normal Color, No Rash Lymphatic: No Adenopathy EKG INTERPRETATION EKG Date: 05/28/19 Time: 23:20 Rhythm: NSR [place]: Normal P-Wave: Present QRS: Normal ST-T: Other Comparison: No Change Course - Vital Signs Last Recorded V/S: Last Vital Signs Temp 98.1 F 05/28/19 23:10 Pulse 70 05/28/19 23:10 Resp 28 H 05/28/19 23:10 BP 155/48 H 05/28/19 23:10 Pulse Ox 95 05/28/19 23:10 - Orders/Labs/Meds Orders: Active Orders 24 hr Category Date Time Status Patient Status [ADT] Routine ADT 05/29/19 00:17 Ordered EKG Documentation Completion [RC] ASDIRECTED Care 05/28/19 23:06 Active Oxygen Therapy [RC] PRN Care 05/29/19 00:17 Ordered Peripheral IV Care [RC] . DIRECTED Care 05/29/19 00:16 Ordered VTE/DVT Education [RC] PER UNIT ROUTINE Care 05/29/19 00:17 Ordered Vital Signs [RC] Q4H Care 05/29/19 00:17 Ordered CXR [Chest 2V] [CR] Stat Exams 05/28/19 23:06 Ordered Sodium Chloride 0.9% [Saline Flush] Med 05/29/19 00:16 Ordered 10 ml FLUSH Q8HR PRN Peripheral IV Insertion Adult [OM.PC] Routine Oth 05/29/19 00:16 Ordered Resuscitation Status Routine Resus Stat 05/29/19 00:17 Ordered EKG 12 Lead [EK] Routine Ther 05/28/19 23:05 Ordered Medication Orders Sodium Chloride (Saline Flush) 10 ml FLUSH Q8HR PRN PRN Reason: keep vein open Labs: Laboratory Tests 05/28/19 05/28/19 Range/Units 23:35 23:35 WBC 6.78 (5.00-10.00) 10^3/uL RBC 2.67 L (4.50-6.00) 10^6/uL Hgb 8.9 L (13.0-17.0) g/dL Hct 27.8 L (40.0-52.0) % MCV 104.1 H (82.0-92.0) fL MCH 33.3 H (27.0-31.0) pg MCHC 32.0 (32.0-36.0) g/dL RDW 14.1 (11.5-14.5) % Plt Count 160 (150-400) 10^3/uL MPV 10.4 (7.4-10.4) fL Immature Gran % (Auto) 0.1 (0.0-5.0) % Neut % (Auto) 73.0 H (50.0-70.0) % Lymph % (Auto) 16.7 L (20.0-40.0) % Bennett % (Auto) 8.3 H (2.0-8.0) % Eos % (Auto) 1.6 (1.0-3.0) % Baso % (Auto) 0.3 (0.0-1.0) % Immature Gran # (Auto) 0.01 (0.00-0.50) 10^3/uL Neut # (Auto) 4.95 (2.50-7.00) 10^3/uL Lymph # (Auto) 1.13 (1.00-4.00) 10^3/uL Bennett # (Auto) 0.56 (0.10-0.80) 10^3/uL Eos # (Auto) 0.11 (0.10-0.30) 10^3/uL Baso # (Auto) 0.02 (0.00-0.10) 10^3/uL Sodium 144 (136-145) mmol/L Potassium 4.1 (3.3-5.3) mmol/L Chloride 106 (98-115) mmol/L Carbon Dioxide 25.3 (21.0-32.0) mmol/L Anion Gap 16.8 H (5-15) mmol/L BUN 25 (6-25) mg/dL Creatinine 1.49 H (0.51-1.17) mg/dL Est Cr Clr Drug Dosing 37.62 mL/min Estimated GFR (MDRD) 45 mL/min Glucose 185 H (75 - 99) mg/dL Calcium 9.1 (8.7-10.3) mg/dL Total Bilirubin 0.9 (0.2-1.0) mg/dL AST 13 L (15-37) U/L ALT 15 (12-78) U/L Alkaline Phosphatase 63 (46-116) IU/L Troponin I 0.05 (0.00-0.070) ng/mL B-Natriuretic Peptide 1080 H (0-100) pg/mL Total Protein 6.6 (6.4-8.2) g/dL Albumin 3.45 (3.00-4.80) g/dL Meds: Medications Generic Name Dose Route Start Last Admin Trade Name Freq PRN Reason Stop Dose Admin Sodium Chloride 10 ml 05/29/19 00:16 Saline Flush FLUSH Q8HR PRN keep vein open Discontinued Medications Generic Name Dose Route Start Last Admin Trade Name Freq PRN Reason Stop Dose Admin Furosemide 40 mg 05/29/19 00:17 Lasix IVPUSH 05/29/19 00:18 NOW ONE - Radiology Interpretation Free Text/Narrative:: Chest x-ray shows cardiomegaly with perihilar congestion - Re-Assessments/Exams Free Text/Narrative Re-Assessment/Exam: 05/29/19 00:20 Patient afebrile, vital signs stable, oxygen saturation 95% on room air. Discussed case with Dr. Pearson. Will admit to his service for observation. Departure - Departure Time of Disposition: 00:21 Disposition: Refer to Observation Condition: Fair Clinical Impression: Congestive heart failure Qualifiers: Heart failure type: unspecified Heart failure chronicity: chronic Qualified Code(s): I50.9 - Heart failure, unspecified - Discharge Information Forms: ED Department Discharge - My Orders Last 24 Hours: My Active Orders 05/28/19 23:05 EKG 12 Lead [EK] Routine 05/28/19 23:06 EKG Documentation Completion [RC] ASDIRECTED CXR [Chest 2V] [CR] Stat 05/29/19 00:16 Peripheral IV Care [RC] . DIRECTED Sodium Chloride 0.9% [Saline Flush] 10 ml FLUSH Q8HR PRN Peripheral IV Insertion Adult [OM.PC] Routine 05/29/19 00:17 Patient Status [ADT] Routine Oxygen Therapy [RC] PRN VTE/DVT Education [RC] PER UNIT ROUTINE Vital Signs [RC] Q4H Resuscitation Status Routine - Assessment/Plan Last 24 Hours: My Active Orders 05/28/19 23:05 EKG 12 Lead [EK] Routine 05/28/19 23:06 EKG Documentation Completion [RC] ASDIRECTED CXR [Chest 2V] [CR] Stat 05/29/19 00:16 Peripheral IV Care [RC] . DIRECTED Sodium Chloride 0.9% [Saline Flush] 10 ml FLUSH Q8HR PRN Peripheral IV Insertion Adult [OM.PC] Routine 05/29/19 00:17 Patient Status [ADT] Routine Oxygen Therapy [RC] PRN VTE/DVT Education [RC] PER UNIT ROUTINE Vital Signs [RC] Q4H Resuscitation Status Routine Assessment:: CHF Plan: Admit observation
[2019-05-29 00:12] LABS: ANION GAP 16.8 mmol/L (5-15)
[2019-05-29] MEDS ORDERED: Sodium Chloride 0.9% 10 ML Syringe FLUSH PRN (00:16)
[2019-05-29] MEDS ORDERED: Furosemide 40 MG/4 ML VIAL IVPUSH ONE (00:17)
[2019-05-29] MEDS ORDERED: Melatonin 3 MG Tab PO PRN (02:41)
--- NOTE | 2019-05-29 08:09 | CR ---
[id number] RAD/RAD Chest PA And Lateral EXAM: FRONTAL AND LATERAL CHEST INDICATION: Shortness of breath and congestive heart failure. COMPARISON: May 27, 2019. DISCUSSION: Stable cardiomegaly. Mild to moderate pulmonary edema has slightly increased. Prior sternotomy. Stable mild/moderate elevation of the right hemidiaphragm. IMPRESSION: 1. Mild to moderate congestive heart failure, increased. Shlomo Carpenter MD 05/29/19 0808 Thank you for allowing us to participate in the care of your patient.
[2019-05-29] MEDS ORDERED: Albuterol/Ipratropium 3.0-0.5 MG/3 ML Neb Soln INH PRN (11:03)
[2019-05-29] MEDS ORDERED: Bisacodyl 5 MG Tab PO PRN (11:03)
--- NOTE | 2019-05-29 11:13 | PCM.HP.2 ---
H&P History of Present Illness - General Date of Service: 05/29/19 Admit Problem/Dx: Admission Diagnosis/Problem Admission Diagnosis/Problem Congestive heart failure Source of Information: Patient, Old Records, RN History Limitations: Reports: No Limitations - History of Present Illness Initial Comments - Free Text/Narative: 79-year-old gentleman with a history of heart failure was evaluated and admitted through the ED late last night due to shortness of breath. Had been seen same day at [facility] when he followed up from [id number] visits same-day the day secondary to shortness of breath. She does have acute on chronic combined systolic/diastolic blood pressure and is currently on sacubitril-valsartan/103, Coreg 3.125. BNP had been rising a week now greater than 1000. Increased in his Lasix. - Related Data Allergies/Adverse Reactions: Allergies Allergy/AdvReac Type Severity Reaction Status Date / Time celecoxib [From Celebrex] Allergy Hives Verified 05/29/19 01:08 degarelix Allergy Rash Verified 05/29/19 01:08 ezetimibe [From Zetia] Allergy Stomach Verified 05/29/19 01:08 Ache nitroglycerin Allergy Bradycardia Verified 05/29/19 01:08 Home Medications: Home Meds Allopurinol [Zyloprim] 100 mg PO DAILY 01/08/15 [History] Calcium Carbonate/Vitamin D3 [Calcium 600 + Vit D Tablet] 1 each PO DAILY [History] Cyanocobalamin (Vitamin B-12) [Vitamin B-12] 1,000 mcg PO DAILY 01/08/15 [ History] Albuterol/Ipratropium [DuoNeb 3.0-0.5 MG/3 ML] 3 ml INH Q6H PRN 08/19/17 [ History] Folic Acid 0.8 mg PO DAILY 12/19/17 [History] Melatonin 5 mg PO BEDTIME 09/18/18 [History] Sennosides [Senokot] 8.6 mg PO BEDTIME PRN 09/18/18 [History] Triamcinolone Acetonide [Triamcinolone Acetonide 0.1% Crm] 1 applic TOP BID PRN 09/18/18 [History] Apixaban [Eliquis] 2.5 mg PO BID 02/06/19 [History] Aspirin 81 mg PO DAILY 02/06/19 [History] Cholecalciferol (Vitamin D3) [Vitamin D3] 1 tab PO DAILY 02/07/19 [History] Ranolazine [Ranexa] 1,000 mg PO BID 02/07/19 [History] Omeprazole 20 mg PO DAILY #90 tab. 02/08/19 [Rx] Acetaminophen 650 mg PO Q6H 04/10/19 [History] Bisacodyl [Dulcolax] 5 mg PO BID PRN 04/10/19 [History] Magnesium Hydroxide [Milk of Magnesia] 30 ml PO DAILY PRN 04/10/19 [History] atorvaSTATin Calcium [Lipitor] 80 mg PO DAILY 04/10/19 [History] Furosemide 60 mg PO DAILY 05/29/19 [History] Sacubitril/Valsartan [Entresto 97 mg-103 mg Tablet] 1 each PO DAILY 05/29/19 [ History] Past Medical History HEENT History: Reports: Hard of Hearing, Impaired Vision Other HEENT History: pat. is supposed to have cataract surgery in the right eye Cardiovascular History: Reports: Afib, CAD, High Cholesterol, Hypertension, [place], Stents Respiratory History: Reports: COPD, Sleep Apnea Gastrointestinal History: Reports: Chronic Constipation Genitourinary History: Reports: BPH, Diabetic Nephropathy, Prostate Disorder, Renal Calculus Musculoskeletal History: Reports: Arthritis, Fracture, Other (See Below) Other Musculoskeletal History: 50 years ago pat. had fx. in the right foot Neurological History: Reports: Neuropathy, Diabetic Psychiatric History: Reports: None Endocrine/Metabolic History: Reports: Diabetes, Type II Hematologic History: Reports: Anemia, Blood Transfusion(s) Immunologic History: Reports: None Oncologic (Cancer) History: Reports: Prostate Dermatologic History: Reports: Other (See Below) Other Dermatologic History: Blister to right foot - Infectious Disease History Infectious Disease History: Reports: Chicken Pox, Measles, Mumps - Past Surgical History HEENT Surgical History: Reports: Cataract Surgery, Tonsillectomy Cardiovascular Surgical History: Reports: AAA Repair, Cardiac Ablation, Coronary Artery Bypass Respiratory Surgical History: Reports: None GI Surgical History: Reports: Colonoscopy, Hernia, Abdominal Other GI Surgeries/Procedures: 2013 Male Surgical History: Reports: Prostate Biopsy, Prostatectomy Endocrine Surgical History: Reports: None Neurological Surgical History: Reports: None Musculoskeletal Surgical History: Reports: Knee Replacement Other Musculoskeletal Surgeries/Procedures:: Bilateral knee replacement Dermatological Surgical History: Reports: None Social & Family History - Family History Family Medical History: Noncontributory Cardiac: Reports: [place], Other (See Below) Other Cardiac Family History: brother had heart problems Respiratory: Reports: Other (See Below) Other Respiratory Family Hisory: pulmonary fibrosis - sister GI: Reports: None : Reports: None OBGYN: Reports: None Musculoskeletal: Reports: None Neurological: Reports: None Psychiatric: Reports: None Endocrine/Metabolic: Reports: None Hematologic: Reports: None Immunologic: Reports: None Oncologic: Reports: Lung, Prostate, Other (See Below) Other Oncologic Family History: sister - lung cancer. father - prostate cancer - Tobacco Use Smoking Status *Q: Former Smoker Years of Tobacco use: 20 Packs/Tins Daily: 1 Used Tobacco, but Quit: Yes Month/Year Tobacco Last Used: 09/1995 - Caffeine Use Caffeine Use: Reports: Coffee - Recreational Drug Use Recreational Drug Use: No H&P Review of Systems - Review of Systems: Review Of Systems: See Below General: Denies: Fever, Weight Loss HEENT: Reports: No Symptoms Pulmonary: Reports: Shortness of Breath. Denies: Cough, Sputum Cardiovascular: Reports: Dyspnea on Exertion. Denies: Chest Pain Gastrointestinal: Denies: Abdominal Pain Genitourinary: Reports: No Symptoms Musculoskeletal: Reports: Other (Right knee pain, recent right knee arthroplasty ) Skin: Reports: Pallor. Denies: Dryness Psychiatric: Denies: Confusion, Anxiety Neurological: Denies: Confusion, Dizziness Hematologic/Lymphatic: Reports: Anemia, Other (Pending bone marrow biopsy) Exam - Exam Exam: See Below - Vital Signs Vital Signs: Last Vital Signs Temp 98.4 F 05/29/19 10:22 Pulse 63 05/29/19 10:22 Resp 24 H 05/29/19 10:22 BP 145/64 H 05/29/19 10:22 Pulse Ox 100 05/29/19 10:22 Weight: 257 lb 5 oz - Exam Quality Assessment: Supplemental Oxygen. No: DVT Prophylaxis (Holding factor Xa inhibitor due to pending bone marrow biopsy) General: Alert, Oriented Neck: JVD Lungs: Crackles. No: Normal Respiratory Effort Cardiovascular: Regular Rate, Irregular Rhythm GI/Abdominal Exam: Normal Bowel Sounds, Soft (Male) Exam: Deferred Rectal (Males) Exam: Deferred Back Exam: No: CVA Tenderness (L), CVA Tenderness (R) Extremities: Pedal Edema (Pedal edema 2+ RLE 1+ LLE) Peripheral Pulses: 2+: Radial (R), Femoral (L) Skin: Warm Neurological: Normal Speech Neuro Extensive - Mental Status: Alert, Oriented x3 Neuro Extensive - Motor, Sensory, Reflexes: CN II-XII Intact Psychiatric: Alert - Patient Data Lab Results Last 24 hrs: Laboratory Results - last 24 hr 05/28/19 05/28/19 Range/Units 23:35 23:35 WBC 6.78 (5.00-10.00) 10^3/uL RBC 2.67 L (4.50-6.00) 10^6/uL Hgb 8.9 L (13.0-17.0) g/dL Hct 27.8 L (40.0-52.0) % MCV 104.1 H (82.0-92.0) fL MCH 33.3 H (27.0-31.0) pg MCHC 32.0 (32.0-36.0) g/dL RDW 14.1 (11.5-14.5) % Plt Count 160 (150-400) 10^3/uL MPV 10.4 (7.4-10.4) fL Immature Gran % (Auto) 0.1 (0.0-5.0) % Neut % (Auto) 73.0 H (50.0-70.0) % Lymph % (Auto) 16.7 L (20.0-40.0) % Vermilion % (Auto) 8.3 H (2.0-8.0) % Eos % (Auto) 1.6 (1.0-3.0) % Baso % (Auto) 0.3 (0.0-1.0) % Immature Gran # (Auto) 0.01 (0.00-0.50) 10^3/uL Neut # (Auto) 4.95 (2.50-7.00) 10^3/uL Lymph # (Auto) 1.13 (1.00-4.00) 10^3/uL Vermilion # (Auto) 0.56 (0.10-0.80) 10^3/uL Eos # (Auto) 0.11 (0.10-0.30) 10^3/uL Baso # (Auto) 0.02 (0.00-0.10) 10^3/uL Sodium 144 (136-145) mmol/L Potassium 4.1 (3.3-5.3) mmol/L Chloride 106 (98-115) mmol/L Carbon Dioxide 25.3 (21.0-32.0) mmol/L Anion Gap 16.8 H (5-15) mmol/L BUN 25 (6-25) mg/dL Creatinine 1.49 H (0.51-1.17) mg/dL Est Cr Clr Drug Dosing 37.62 mL/min Estimated GFR (MDRD) 45 mL/min Glucose 185 H (75 - 99) mg/dL Calcium 9.1 (8.7-10.3) mg/dL Total Bilirubin 0.9 (0.2-1.0) mg/dL AST 13 L (15-37) U/L ALT 15 (12-78) U/L Alkaline Phosphatase 63 (46-116) IU/L Troponin I 0.05 (0.00-0.070) ng/mL B-Natriuretic Peptide 1080 H (0-100) pg/mL Total Protein 6.6 (6.4-8.2) g/dL Albumin 3.45 (3.00-4.80) g/dL Result Diagrams: 05/28/19 23:35 05/28/19 23:35 Sepsis Event Note - Evaluation Sepsis Screening Result: No Definite Risk - Focused Exam Vital Signs: Vital Signs Temp Pulse Resp BP Pulse Ox Pulse Ox Pulse Ox 05/29/19 10:22 98.4 F 63 24 H 145/64 H 100 05/29/19 06:14 98.3 F 60 24 H 151/75 H 96 05/29/19 02:41 97.6 F 63 24 H 158/74 H 98 05/29/19 01:14 99 05/29/19 00:46 98.6 F 61 28 H 180/79 H 95 05/29/19 00:17 95 05/28/19 23:45 60 24 H 147/58 H 95 05/28/19 23:25 69 24 H 147/75 H 95 05/28/19 23:10 98.1 F 70 28 H 155/48 H 95 05/28/19 22:50 98.1 F 71 28 H 141/37 H 93 L Date Exam was Performed: 05/30/19 Time Exam was Performed: 11:07 Problem List Initiated/Reviewed/Updated: Yes Orders Last 24hrs: Active Orders 24 hr Category Date Time Status Patient Status [ADT] Routine ADT 05/29/19 00:17 Active EKG Documentation Completion [RC] ASDIRECTED Care 05/28/19 23:06 Active Oxygen Therapy [RC] .PRN Care 05/29/19 00:17 Active Peripheral IV Care [RC] . DIRECTED Care 05/29/19 00:16 Active VTE/DVT Education [RC] PER UNIT ROUTINE Care 05/29/19 00:17 Active Vital Signs [RC] 0300,0700,1100,1500,1900,2100 Care 05/29/19 00:17 Active ADA Diabetic [[place] [employer] Diet] [DIET Diet 05/29/19 Breakfast Active ] Melatonin Med 05/29/19 02:41 Active 3 mg PO BEDTIME PRN Sodium Chloride 0.9% [Saline Flush] Med 05/29/19 00:16 Active 10 ml FLUSH Q8HR PRN Peripheral IV Insertion Adult [OM.PC] Routine Oth 05/29/19 00:16 Ordered Resuscitation Status Routine Resus Stat 05/29/19 00:17 Ordered Medication Orders Melatonin (Melatonin) 3 mg PO BEDTIME PRN PRN Reason: Insomnia Last Admin: 05/29/19 03:02 Dose: 3 mg Sodium Chloride (Saline Flush) 10 ml FLUSH Q8HR PRN PRN Reason: keep vein open Last Admin: 05/29/19 00:58 Dose: 10 ml Assessment/Plan Comment:: History of Present illness 79-year-old gentleman with a history of heart failure was evaluated and admitted through the ED late last night due to shortness of breath. Had been seen same day at [facility] when he followed up from [id number] visits same-day the day secondary to shortness of breath. She does have acute on chronic combined systolic/diastolic blood pressure and is currently on sacubitril-valsartan/103, Coreg 3.125. BNP had been rising a week now greater than 1000. Increased in his Lasix. 05/27/19: [facility] ER d/t SOB. Hgb 8.8 (pending marrow BX) WBC 5.6 BNP 821 Troponin <0.04 Creatinine 1.36 Lasix was increased to 60 mg Pertinent ED findings CXR: cardiomegaly with perihilar congestion BNP >1000 (rising) RR 24 ____ Data overnight, 800ml output, feels better with some improvement in his fluid overload status. BNP 1080, wt down 257 Primary SNF problems --HFrEF, acute on chronic combined systolic/diastolic, cont with sacubitril- valsartan/103, Coreg 3.125 BNP >1000, Chronic stable problems --Afib, chronic, [id number] VASc 8, CVR, Apixaban, Coreg 3.125mg BID (holding factor Xa) --Hx CABG/[place] 1995, --Coronary artery disease, ASA, Ranolazine --HLD, high dose statin --HTN, stable --T2DM, Recent A1c low, off insulin --CKD stage 3, baseline creatinine 1.5-2.2, Avoid nephrotoxins --Vitamin B12 deficiency, mild, supplement --LAURA on CPAP, --Obesity BMI 39%%, --S/P Left total knee arthroplasty DOS 04/[address] Paz. 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 - Mortality Measure Prognosis:: Good
[2019-05-29] MEDS ORDERED: ATORVASTATIN 80 MG PO SCH (11:15)
[2019-05-29] MEDS ORDERED: OMEPRAZOLE 20 MG PO SCH ×2 (11:15→13:26)
[2019-05-29] MEDS ORDERED: CYANOCOBALAMIN 1000 MCG PO SCH ×2 (11:15→12:30)
[2019-05-29] MEDS ORDERED: RANOLAZINE 1000 MG PO SCH (11:15)
[2019-05-29] MEDS: Furosemide 40 MG/4 ML VIAL IVPUSH SCH ×2 (11:59→20:19)
[2019-05-29] MEDS: Acetaminophen 325 MG Tab PO SCH ×3 (12:01→22:27)
[2019-05-29] MEDS ORDERED: Allopurinol 100 MG Tab PO SCH (13:27)
[2019-05-29] MEDS: Cyanocobalamin (Vitamin B12) 500 MCG Tab PO SCH (14:14)
[2019-05-29] MEDS: ENTRESTO PO SCH (14:14)
[2019-05-29] MEDS: RANOLAZINE 1000 MG PO SCH ×2 (14:14→20:20)
[2019-05-29] MEDS: FOLIC ACID 0.8 MG PO SCH (14:15)
[2019-05-29] MEDS ORDERED: atorvaSTATin 40 MG Tab PO SCH (14:30)
[2019-05-29] MEDS: atorvaSTATin 40 MG Tab PO SCH (14:31)
[2019-05-29] MEDS: Omeprazole 20 MG Cap.CR PO SCH (14:31)
[2019-05-29] MEDS: Allopurinol 100 MG Tab PO SCH (14:32)
[2019-05-29] MEDS ORDERED: MELATONIN 5 MG PO SCH (21:00)
[2019-05-30] MEDS: Acetaminophen 325 MG Tab PO SCH ×2 (05:17→12:33)
[2019-05-30] MEDS: Omeprazole 20 MG Cap.CR PO SCH (07:44)
[2019-05-30] MEDS: Furosemide 40 MG/4 ML VIAL IVPUSH SCH (08:36)
[2019-05-30] MEDS: RANOLAZINE 1000 MG PO SCH (08:37)
[2019-05-30] MEDS: ENTRESTO PO SCH (08:37)
[2019-05-30] MEDS: atorvaSTATin 40 MG Tab PO SCH (08:37)
[2019-05-30] MEDS: Allopurinol 100 MG Tab PO SCH (08:37)
[2019-05-30] MEDS: Cyanocobalamin (Vitamin B12) 500 MCG Tab PO SCH (08:37)
[2019-05-30] MEDS: FOLIC ACID 0.8 MG PO SCH (08:38)
[2019-05-30 10:59] VITALS: BP 129/70; PULSE 55
--- NOTE | 2019-05-30 11:03 | PCM.DCSUM1 ---
Discharge Summary - Hospital Course Diagnosis: Stroke: No - Discharge Data Discharge Date: 05/30/19 Discharge Disposition: Home, Self-Care 01 Condition: Good - Referral to Home Health Primary Care Physician: Sherrill Mckeon MD - Patient Instructions Diet: Heart Healthy Diet Activity: As Tolerated Driving: May Drive Today Showering/Bathing: May Shower Other/Special Instructions: --Continue with Lasix 60 mg daily. --Hold your blood thinners Aspirin and Eliquis. --Weight yourself every day report weight gain more than 3 pounds 1 day 5 pounds 1 week. --Low salt Diet (less than 1, 800mg per day) - Discharge Plan *PRESCRIPTION DRUG MONITORING PROGRAM REVIEWED*: Not Applicable *COPY OF PRESCRIPTION DRUG MONITORING REPORT IN PATIENT MARISSA: Not Applicable Home Medications: Home Meds Allopurinol [Zyloprim] 100 mg PO DAILY 01/08/15 [History] Calcium Carbonate/Vitamin D3 [Calcium 600 + Vit D Tablet] 1 each PO DAILY [History] Cyanocobalamin (Vitamin B-12) [Vitamin B-12] 1,000 mcg PO DAILY 01/08/15 [ History] Albuterol/Ipratropium [DuoNeb 3.0-0.5 MG/3 ML] 3 ml INH Q6H PRN 08/19/17 [ History] Folic Acid 0.8 mg PO DAILY 12/19/17 [History] Melatonin 5 mg PO BEDTIME 09/18/18 [History] Sennosides [Senokot] 8.6 mg PO BEDTIME PRN 09/18/18 [History] Triamcinolone Acetonide [Triamcinolone Acetonide 0.1% Crm] 1 applic TOP BID PRN 09/18/18 [History] Apixaban [Eliquis] 2.5 mg PO BID 02/06/19 [History] Aspirin 81 mg PO DAILY 02/06/19 [History] Cholecalciferol (Vitamin D3) [Vitamin D3] 1 tab PO DAILY 02/07/19 [History] Ranolazine [Ranexa] 1,000 mg PO BID 02/07/19 [History] Omeprazole 20 mg PO DAILY #90 tab.rap. 02/08/19 [Rx] Acetaminophen 650 mg PO Q6H 04/10/19 [History] Bisacodyl [Dulcolax] 5 mg PO BID PRN 04/10/19 [History] Magnesium Hydroxide [Milk of Magnesia] 30 ml PO DAILY PRN 04/10/19 [History] atorvaSTATin Calcium [Lipitor] 80 mg PO DAILY 04/10/19 [History] Furosemide 60 mg PO DAILY 05/29/19 [History] Sacubitril/Valsartan [Entresto 97 mg-103 mg Tablet] 1 each PO DAILY 05/29/19 [ History] Forms: ED Department Discharge Referrals: Crista Ruiz INTAKE ASSESSOR [Nurse Practitioner] - (OR any rovider of his choice early next week) - Discharge Summary/Plan Comment DC Time >30 min.: Yes Discharge Summary/Plan Comment: Final diagnosis Heart failure with reduced ejection fraction, combined systolic/diastolic stage III Chronic stable problems --Afib, chronic, [id number] VASc 8, CVR, Apixaban, Coreg 3.125mg BID (holding factor Xa pending bone marrow biopsy) --Hx CABG/[place] 1995, --Coronary artery disease, ASA, Ranolazine, holding aspirin due to bone marrow biopsy --HLD, high dose statin --HTN, stable --T2DM, Recent A1c low, off insulin --CKD stage 3, baseline creatinine 1.5-2.2, Avoid nephrotoxins --Vitamin B12 deficiency, mild, supplement --LAURA on CPAP, --Obesity BMI 39%%, --S/P Left total knee arthroplasty DOS 04/[address] Paz. Completyed Rehab --CA with bone metastasis, status post Lupron, previously on Zoladex, --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, Zoladex onhold since the CVA, AAA, status post repair, --Bilateral carotid artery stenosis, aneurysm of left internal iliac artery, --GERD PPI Pertinent ED findings CXR: cardiomegaly with perihilar congestion BNP >1000 (rising) RR 24 Hospital course Patient had an uneventful hospital course, he was given increasing Lasix and did diurese -850 cc. He lost 3 pounds not quite ideal his dry weight. Did require oxygen at 2 L early on however the morning of discharge at room air he was 95 to 97% and ambulation he dropped to 92 to 95%. He did have an elevated BNP on discharge greater than 1000. He had crackles significant middle to lower lobes on admission however these were improved as he only had bibasilar minimal crackles on discharge. Blood pressure was normal on discharge. Creatinine level 1.49, potassium level 4.1 however he is on ARB therapy Dispostion, Patient will be discharged from patient status to home self-care. He is scheduled for a bone marrow biopsy tomorrow [place] [facility]. Medication changes and adjustments upon discharge --Continue with Lasix 60 mg daily --Hold your blood thinners Aspirin and Eliquis Education and discharge instructions --Weight yourself every day report weight gain more than 3 pounds 1 day 5 pounds 1 week --Low salt Diet (less than 1,800mg per day) - General Info Date of Service: 05/30/19 Functional Status: Reports: Pain Controlled, Tolerating Diet, Ambulating, New Symptoms (Overall feels better, desires to be discharged, less shortness of breath less edema and weight is down slightly) - Review of Systems General: Denies: Weakness, Fatigue, Malaise Pulmonary: Reports: Shortness of Breath (Back to his baseline of dyspnea upon mild ambulation.). Denies: Wheezing Cardiovascular: Reports: Dyspnea on Exertion Gastrointestinal: Denies: Abdominal Pain Neurological: Reports: No Symptoms Psychiatric: Denies: Confusion - Patient Data Vitals - Most Recent: Last Vital Signs Temp 97.2 F 05/30/19 06:54 Pulse 56 L 05/30/19 06:54 Resp 20 05/30/19 06:54 BP 122/66 05/30/19 06:54 Pulse Ox 96 05/30/19 06:54 Weight - Most Recent: 255 lb 5 oz I&O - Last 24 hours: Intake & Output 05/29/19 05/30/19 05/30/19 22:59 06:59 14:59 Intake Total 200 100 Output Total 200 450 Balance 0 -350 Med Orders - Current: Current Medications Acetaminophen (Tylenol) 650 mg PO Q6H KEVAN Last Admin: 05/30/19 05:17 Dose: 650 mg Albuterol/Ipratropium (Duoneb 3.0-0.5 Mg/3 Ml) 3 ml INH Q6H PRN PRN Reason: Shortness of Breath Allopurinol (Zyloprim) 100 mg PO DAILY [facility] Last Admin: 05/30/19 08:37 Dose: 100 mg Atorvastatin Calcium (Lipitor) 80 mg PO DAILY [facility] Last Admin: 05/30/19 08:37 Dose: 80 mg Bisacodyl (Dulcolax) 5 mg PO BID PRN PRN Reason: Constipation Cyanocobalamin (Vitamin B12) 1,000 mcg PO DAILY [facility] Last Admin: 05/30/19 08:37 Dose: 1,000 mcg Furosemide (Lasix) 40 mg IVPUSH BID [facility] Last Admin: 05/30/19 08:36 Dose: 40 mg Entresto (Sacubitril /Valsartan) 97 Mg- 103 Mg Tab - Ptom 1 each PO DAILY [facility] Last Admin: 05/30/19 08:37 Dose: 1 each Omeprazole (Omeprazole) 20 mg PO ACBREAKFAST [facility] Last Admin: 05/30/19 07:44 Dose: 20 mg Folic Acid 0.8 Mg (Tab - Ptom) 1 each PO DAILY [facility] Last Admin: 05/30/19 08:38 Dose: 1 each Melatonin 5mg Tab - (Ptom) 1 each PO BEDTIME [facility] Last Admin: 05/29/19 20:20 Dose: 1 each Ranolazine Er [ Ranexa Er] 1,000 Mg Tab - Ptom 1 each PO BID [facility] Last Admin: 05/30/19 08:37 Dose: 1 each Senna/Docusate Sodium (Senna Plus) 1 tab PO BEDTIME PRN PRN Reason: Constipation Sodium Chloride (Saline Flush) 10 ml FLUSH Q8HR PRN PRN Reason: keep vein open Last Admin: 05/29/19 00:58 Dose: 10 ml Discontinued Medications Allopurinol (Zyloprim) 100 mg PO DAILY [facility] Last Admin: 05/29/19 14:28 Dose: Not Given Atorvastatin Calcium (Lipitor) 80 mg PO DAILY [facility] Furosemide (Lasix) 40 mg IVPUSH NOW ONE Stop: 05/29/19 00:18 Last Admin: 05/29/19 00:58 Dose: 40 mg Melatonin (Melatonin) 3 mg PO BEDTIME PRN PRN Reason: Insomnia Last Admin: 05/29/19 03:02 Dose: 3 mg Atorvastatin 80mg (Tab - Ptom) 1 each PO DAILY [facility] Last Admin: 05/29/19 14:28 Dose: Not Given Cyanocobalamin [ Vitamin B-12] 1,000 Mcg Tab - Ptom 1,000 mcg PO DAILY [facility] Last Admin: 05/29/19 14:28 Dose: Not Given Ranolazine Er [ Ranexa Er] 1,000 Mg Tab - Ptom 1,000 mg PO BID [facility] Last Admin: 05/29/19 14:27 Dose: Not Given Omeprazole (Omeprazole) 20 mg PO DAILY [facility] Last Admin: 05/29/19 14:27 Dose: Not Given Cyanocobalamin [ Vitamin B-12] 1,000 Mcg Tab - Ptom 1 each PO DAILY [facility] Last Admin: 05/29/19 14: Dose: Not Given - Exam Quality Assessment: Denies: Supplemental Oxygen (SaO2 97% room air at rest, 92 to 95% ambulation ) General: Reports: Alert, Oriented Neck: Reports: Supple, No JVD Lungs: Reports: Crackles (~Bibasilar improved) Cardiovascular: Reports: Irregular Rhythm. Denies: Regular Rate, Tachycardia GI/Abdominal Exam: Normal Bowel Sounds Extremities: Pedal Edema (Improved pedal edema 1+ lower extremities ) Psy/Mental Status: Reports: Alert
== END 2019-05-30 12:45 | disposition home or self-care (01) | DRG 291 ==
LOC: KA.ED 22:40 → KA.MS 05-29 00:17 → OBSVTOIN 05-29 00:17 → KA.MS 05-29 00:28 → UNDOADMOB 05-29 00:28
PROVIDERS: ADMIT Family Medicine; ATTEND Family Medicine
DX: I11.0 Hypertensive heart disease with heart failure (principal); I50.9 Heart failure, unspecified; H54.7 Unspecified visual loss; H91.90 Unspecified hearing loss, unspecified ear; I13.0 Hypertensive heart and chronic kidney disease with heart failure and stage 1 through stage 4 chronic kidney disease, or unspecified chronic kidney disease; I50.43 Acute on chronic combined systolic (congestive) and diastolic (congestive) heart failure; C79.51 Secondary malignant neoplasm of bone; I48.91 Unspecified atrial fibrillation; G47.30 Sleep apnea, unspecified; I25.10 Atherosclerotic heart disease of native coronary artery without angina pectoris; E11.21 Type 2 diabetes mellitus with diabetic nephropathy; M19.90 Unspecified osteoarthritis, unspecified site; E11.40 Type 2 diabetes mellitus with diabetic neuropathy, unspecified; R06.02 Shortness of breath; Z90.79 Acquired absence of other genital organ(s); E78.00 Pure hypercholesterolemia, unspecified; J44.9 Chronic obstructive pulmonary disease, unspecified; Z88.8 Allergy status to other drugs, medicaments and biological substances; K59.09 Other constipation; E11.42 Type 2 diabetes mellitus with diabetic polyneuropathy; N40.0 Benign prostatic hyperplasia without lower urinary tract symptoms; Z85.46 Personal history of malignant neoplasm of prostate; D64.9 Anemia, unspecified; Z96.653 Presence of artificial knee joint, bilateral; N18.3 Chronic kidney disease, stage 3 (moderate); E11.22 Type 2 diabetes mellitus with diabetic chronic kidney disease; G47.33 Obstructive sleep apnea (adult) (pediatric); K21.9 Gastro-esophageal reflux disease without esophagitis; E66.9 Obesity, unspecified; I65.23 Occlusion and stenosis of bilateral carotid arteries; E78.5 Hyperlipidemia, unspecified; E53.8 Deficiency of other specified B group vitamins; I25.2 Old myocardial infarction; Z95.5 Presence of coronary angioplasty implant and graft; Z87.442 Personal history of urinary calculi; Z79.899 Other long term (current) drug therapy; Z98.49 Cataract extraction status, unspecified eye; Z87.891 Personal history of nicotine dependence; Z95.1 Presence of aortocoronary bypass graft; Z79.82 Long term (current) use of aspirin; Z86.73 Personal history of transient ischemic attack (TIA), and cerebral infarction without residual deficits; Z68.39 Body mass index [BMI] 39.0-39.9, adult
CPT/HCPCS: 71046; 80053; 83880; 84484; 85025; 93005; 99284; 99285-25; A9270-GY; J1940

== ENCOUNTER 2019-05-31 17:16 | Emergency (ER) | payer MEDICARE, OTHER ==
[2019-05-31 17:24] VITALS: BP 160/78; PULSE 63
[2019-05-31] MEDS ORDERED: Furosemide 40 MG/4 ML VIAL IVPUSH ONE (17:41)
[2019-05-31] MEDS: Sodium Chloride 0.9% 10 ML Syringe FLUSH PRN ×2 (17:49→18:02)
--- NOTE | 2019-05-31 17:49 | EDM.PDOC ---
ED HPI GENERAL MEDICAL PROBLEM - General Chief Complaint: Respiratory Problem Stated Complaint: SHORT OF BREATH Time Seen by Provider: 05/31/19 17:41 Source of Information: Reports: Patient History Limitations: Reports: No Limitations - History of Present Illness INITIAL COMMENTS - FREE TEXT/NARRATIVE: Patient is an 79-year-old gentleman who presents to the emergency department this evening with a complaint of shortness of breath. Patient was seen here for the same 72 hours ago. He was admitted for a 23 hour short stay. Patient was given Lasix had good output and symptoms improved and patient was discharged. Earlier today patient underwent a bone biopsy via needle aspiration. Procedure said to be uneventful. However, this afternoon, patient became short of breath. became concerned and contacted Dr. Pearson. Dr. Pearson requested patient to present to emergency department for evaluation. Upon presentation, patient states he does feel better after being in the cold air for short period of time in transport. Vital signs are stable, and oxygen saturation is 96% on room air. Patient denies chest pain, fever, nausea, vomiting, diarrhea, abdominal pain, headache, or lower extremity edema. Patient currently takes 60 mg Lasix daily. This has been increased from 40 mg daily recently. Onset: Today Duration: Hour(s): Quality: Reports: Same as Previous Episode Improves with: Reports: None Worsens with: Reports: None Associated Symptoms: Reports: Shortness of Breath. Denies: Chest Pain, Diaphoresis, Fever/Chills, Nausea/Vomiting - Related Data Allergies Allergy/AdvReac Type Severity Reaction Status Date / Time celecoxib [From Celebrex] Allergy Hives Verified 05/31/19 17:23 degarelix Allergy Rash Verified 05/31/19 17:23 ezetimibe [From Zetia] Allergy Stomach Verified 05/31/19 17:23 Ache nitroglycerin Allergy Bradycardia Verified 05/31/19 17:23 Home Meds: Home Meds Allopurinol [Zyloprim] 100 mg PO DAILY 01/08/15 [History] Calcium Carbonate/Vitamin D3 [Calcium 600 + Vit D Tablet] 1 each PO DAILY [History] Cyanocobalamin (Vitamin B-12) [Vitamin B-12] 1,000 mcg PO DAILY 01/08/15 [ History] Albuterol/Ipratropium [DuoNeb 3.0-0.5 MG/3 ML] 3 ml INH Q6H PRN 08/19/17 [ History] Folic Acid 0.8 mg PO DAILY 12/19/17 [History] Melatonin 5 mg PO BEDTIME 09/18/18 [History] Sennosides [Senokot] 8.6 mg PO BEDTIME PRN 09/18/18 [History] Triamcinolone Acetonide [Triamcinolone Acetonide 0.1% Crm] 1 applic TOP BID PRN 09/18/18 [History] Apixaban [Eliquis] 2.5 mg PO BID 02/06/19 [History] Aspirin 81 mg PO DAILY 02/06/19 [History] Cholecalciferol (Vitamin D3) [Vitamin D3] 1 tab PO DAILY 02/07/19 [History] Ranolazine [Ranexa] 1,000 mg PO BID 02/07/19 [History] Omeprazole 20 mg PO DAILY #90 tab.rap.dr 02/08/19 [Rx] Acetaminophen 650 mg PO Q6H 04/10/19 [History] Bisacodyl [Dulcolax] 5 mg PO BID PRN 04/10/19 [History] Magnesium Hydroxide [Milk of Magnesia] 30 ml PO DAILY PRN 04/10/19 [History] atorvaSTATin Calcium [Lipitor] 80 mg PO DAILY 04/10/19 [History] Furosemide 60 mg PO DAILY 05/29/19 [History] Sacubitril/Valsartan [Entresto 97 mg-103 mg Tablet] 1 each PO DAILY 05/29/19 [ History] Isosorbide Dinitrate 10 mg PO DAILY 05/31/19 [History] Past Medical History HEENT History: Reports: Hard of Hearing, Impaired Vision Other HEENT History: pat. is supposed to have cataract surgery in the right eye Cardiovascular History: Reports: Afib, CAD, High Cholesterol, Hypertension, OK, Stents Respiratory History: Reports: COPD, Sleep Apnea Gastrointestinal History: Reports: Chronic Constipation Genitourinary History: Reports: BPH, Diabetic Nephropathy, Prostate Disorder, Renal Calculus Musculoskeletal History: Reports: Arthritis, Fracture, Other (See Below) Other Musculoskeletal History: 50 years ago pat. had fx. in the right foot Neurological History: Reports: Neuropathy, Diabetic Psychiatric History: Reports: None Endocrine/Metabolic History: Reports: Diabetes, Type II Hematologic History: Reports: Anemia, Blood Transfusion(s) Immunologic History: Reports: None Oncologic (Cancer) History: Reports: Prostate Dermatologic History: Reports: Other (See Below) Other Dermatologic History: Blister to right foot - Infectious Disease History Infectious Disease History: Reports: Chicken Pox, Measles, Mumps - Past Surgical History Head Surgeries/Procedures: Reports: None HEENT Surgical History: Reports: Cataract Surgery, Tonsillectomy Cardiovascular Surgical History: Reports: AAA Repair, Cardiac Ablation, Coronary Artery Bypass Respiratory Surgical History: Reports: None GI Surgical History: Reports: Colonoscopy, Hernia, Abdominal Other GI Surgeries/Procedures: 2013 Male Surgical History: Reports: Prostate Biopsy, Prostatectomy Endocrine Surgical History: Reports: None Neurological Surgical History: Reports: None Musculoskeletal Surgical History: Reports: Knee Replacement Other Musculoskeletal Surgeries/Procedures:: Bilateral knee replacement Oncologic Surgical History: Reports: Bone Marrow Aspiration Dermatological Surgical History: Reports: None Social & Family History - Family History Family Medical History: Noncontributory Cardiac: Reports: OK, Other (See Below) Other Cardiac Family History: brother had heart problems Respiratory: Reports: Other (See Below) Other Respiratory Family Hisory: pulmonary fibrosis - sister GI: Reports: None : Reports: None OBGYN: Reports: None Musculoskeletal: Reports: None Neurological: Reports: None Psychiatric: Reports: None Endocrine/Metabolic: Reports: None Hematologic: Reports: None Immunologic: Reports: None Oncologic: Reports: Lung, Prostate, Other (See Below) Other Oncologic Family History: sister - lung cancer. father - prostate cancer - Caffeine Use Caffeine Use: Reports: Coffee ED ROS GENERAL - Review of Systems Review Of Systems: Comprehensive ROS is negative, except as noted in HPI. Constitutional: Reports: No Symptoms HEENT: Reports: No Symptoms Respiratory: Reports: Shortness of Breath Cardiovascular: Reports: No Symptoms Endocrine: Reports: No Symptoms GI/Abdominal: Reports: No Symptoms : Reports: No Symptoms Musculoskeletal: Reports: No Symptoms Skin: Reports: No Symptoms Neurological: Reports: No Symptoms Psychiatric: Reports: No Symptoms Hematologic/Lymphatic: Reports: No Symptoms Immunologic: Reports: No Symptoms ED EXAM, GENERAL - Physical Exam Exam: See Below Exam Limited By: No Limitations General Appearance: Alert, WD/WN, No Apparent Distress Nose: Normal Inspection, Normal Mucosa, No Blood Throat/Mouth: Normal Inspection, Normal Oropharynx, No Airway Compromise Head: Atraumatic, Normocephalic Neck: Normal Inspection Respiratory/Chest: No Respiratory Distress, Rales (Bibasilar) Cardiovascular: Normal Peripheral Pulses, Regular Rate, Rhythm, No Murmur GI/Abdominal: Normal Bowel Sounds, Soft, Non-Tender Back Exam: Normal Inspection. No: CVA Tenderness (L), CVA Tenderness (R) Extremities: Normal Inspection, No Pedal Edema Neurological: Alert, Oriented, Normal Cognition Psychiatric: Normal Affect, Normal Mood Skin Exam: Warm, Dry, Intact, Normal Color, No Rash Course - Vital Signs Last Recorded V/S: Last Vital Signs Temp 97.6 F 05/31/19 17:17 Pulse 63 05/31/19 17:17 Resp 20 05/31/19 17:17 BP 160/78 H 05/31/19 17:17 Pulse Ox 96 05/31/19 17:17 - Orders/Labs/Meds Orders: Active Orders 24 hr Category Date Time Status Peripheral IV Care [RC] . DIRECTED Care 05/31/19 17:41 Ordered Chest 2V [CR] Stat Exams 05/31/19 17:41 Ordered Sodium Chloride 0.9% [Saline Flush] Med 05/31/19 17:41 Ordered 10 ml FLUSH Q8HR PRN Peripheral IV Insertion Adult [OM.PC] Routine Oth 05/31/19 17:41 Ordered Medication Orders Sodium Chloride (Saline Flush) 10 ml FLUSH Q8HR PRN PRN Reason: keep vein open Last Admin: 05/31/19 18:02 Dose: 10 ml Admin: 05/31/19 17:49 Dose: 10 ml Labs: Laboratory Tests 05/31/19 Range/Units 17:45 B-Natriuretic Peptide 507 H (0-100) pg/mL Meds: Medications Generic Name Dose Route Start Last Admin Trade Name Freq PRN Reason Stop Dose Admin Sodium Chloride 10 ml 05/31/19 17:41 05/31/19 18:02 Saline Flush FLUSH 10 ml Q8HR PRN Administration keep vein open Discontinued Medications Generic Name Dose Route Start Last Admin Trade Name Freq PRN Reason Stop Dose Admin Furosemide 40 mg 05/31/19 17:41 05/31/19 17:57 Lasix IVPUSH 05/31/19 17:42 40 mg NOW ONE Administration - Radiology Interpretation Free Text/Narrative:: Chest x-ray shows mild congestion. However, improvement from 3 days ago. - Re-Assessments/Exams Free Text/Narrative Re-Assessment/Exam: 05/31/19 18:09 Patient afebrile, vital signs stable, sats 96% on room air. BNP now 500. 3 days ago was 1000. Patient given 40 mg Lasix IV. States he feels much better and is requesting to go home. Patient does have family with him for the night. Discussed with patient and family member to elevate the head of the bed to improve breathing and thus sleep. Departure - Departure Time of Disposition: 18:11 Disposition: Home, Self-Care 01 Condition: Good Clinical Impression: Shortness of breath Congestive heart failure Qualifiers: Heart failure type: unspecified Heart failure chronicity: chronic Qualified Code(s): I50.9 - Heart failure, unspecified - Discharge Information Instructions: Shortness of Breath, Adult, [id number], Heart Failure, Easy-to- Read Referrals: Carlitos Casiano, WELDING MACHINE ASSEMBLER [Primary Care Provider] - Forms: ED Department Discharge Additional Instructions: Follow-up at [facility] as scheduled. Return to emergency department sooner if symptoms continue or worsen. Take medication as directed Sepsis Event Note - Evaluation Sepsis Screening Result: No Definite Risk - Focused Exam Vital Signs: Vital Signs Temp Pulse Resp BP Pulse Ox 05/31/19 17:17 97.6 F 63 20 160/78 H 96 Date Exam was Performed: 05/31/19 Time Exam was Performed: 18:12 - My Orders Last 24 Hours: My Active Orders 05/31/19 17:41 Peripheral IV Care [RC] . DIRECTED Chest 2V [CR] Stat Sodium Chloride 0.9% [Saline Flush] 10 ml FLUSH Q8HR PRN Peripheral IV Insertion Adult [OM.PC] Routine - Assessment/Plan Last 24 Hours: My Active Orders 05/31/19 17:41 Peripheral IV Care [RC] . DIRECTED Chest 2V [CR] Stat Sodium Chloride 0.9% [Saline Flush] 10 ml FLUSH Q8HR PRN Peripheral IV Insertion Adult [OM.PC] Routine Assessment:: Shortness of breath Plan: Follow-up at [facility]
--- NOTE | 2019-05-31 18:15 | CR ---
[id number] RAD/RAD Chest PA And Lateral EXAM: FRONTAL AND LATERAL CHEST INDICATION: Shortness of breath. COMPARISON: May 28, 2019. DISCUSSION: Stable elevation of the right hemidiaphragm. There is mild cardiomegaly with borderline central vascular congestion that has decreased relative to the prior study. Prior sternotomy. IMPRESSION: 1. There is cardiomegaly with borderline central vascular congestion which has decreased relative to May 28, 2019. Shlomo Carpenter MD 05/31/19 1841 Thank you for allowing us to participate in the care of your patient.
== END 2019-05-31 18:20 | disposition home or self-care (01) ==
LOC: KA.ED 17:16
DX: I11.0 Hypertensive heart disease with heart failure (principal); I50.9 Heart failure, unspecified; I48.91 Unspecified atrial fibrillation; I25.10 Atherosclerotic heart disease of native coronary artery without angina pectoris; E78.00 Pure hypercholesterolemia, unspecified; I25.2 Old myocardial infarction; J44.9 Chronic obstructive pulmonary disease, unspecified; E11.21 Type 2 diabetes mellitus with diabetic nephropathy; Z88.6 Allergy status to analgesic agent; Z88.8 Allergy status to other drugs, medicaments and biological substances; Z79.01 Long term (current) use of anticoagulants; Z95.5 Presence of coronary angioplasty implant and graft; Z79.82 Long term (current) use of aspirin; Z79.899 Other long term (current) drug therapy
CPT/HCPCS: 36415; 71046; 83880; 96374; 99285; J1940

== ENCOUNTER 2019-06-27 11:56 | Inpatient (IN) | payer MEDICARE, OTHER ==
[2019-06-27] MEDS ORDERED: Sodium Chloride 0.9% 10 ML Syringe FLUSH PRN (12:21)
[2019-06-27] MEDS ORDERED: Acetaminophen 325 MG Tab PO PRN (12:46)
[2019-06-27] MEDS ORDERED: Bisacodyl 5 MG Tab PO PRN (12:46)
[2019-06-27] MEDS ORDERED: Albuterol/Ipratropium 3.0-0.5 MG/3 ML Neb Soln INH PRN (12:46)
[2019-06-27] MEDS: Furosemide 40 MG/4 ML VIAL IVPUSH SCH (12:57)
[2019-06-27] MEDS: RANOLAZINE 1000 MG PO SCH (21:33)
[2019-06-27] MEDS: Apixaban 5 MG Tab PO SCH (21:36)
[2019-06-28 07:50] LABS: ANION GAP 19.5 mmol/L (5-15)
[2019-06-28] MEDS: Apixaban 5 MG Tab PO SCH ×2 (08:43→20:15)
[2019-06-28] MEDS: atorvaSTATin 40 MG Tab PO SCH (08:43)
[2019-06-28] MEDS: Cholecalciferol (Vitamin D3) 25 MCG Tab PO SCH (08:44)
[2019-06-28] MEDS: Cyanocobalamin (Vitamin B12) 500 MCG Tab PO SCH (08:45)
[2019-06-28] MEDS: Furosemide 40 MG/4 ML VIAL IVPUSH SCH (08:45)
[2019-06-28] MEDS: Aspirin 81 MG Tab.Chew PO SCH (08:45)
[2019-06-28] MEDS: Allopurinol 100 MG Tab PO SCH (08:45)
[2019-06-28] MEDS: Omeprazole 20 MG Cap.CR PO SCH (08:45)
[2019-06-28] MEDS: Calcium Citrate/Vitamin D3 315 MG-250 Unit Tab PO SCH (08:45)
[2019-06-28] MEDS: FOLIC ACID 800 MG PO SCH (08:46)
[2019-06-28] MEDS: RANOLAZINE 1000 MG PO SCH ×2 (08:47→20:18)
--- NOTE | 2019-06-28 11:36 | PCM.PN ---
- General Info Date of Service: 06/28/19 Functional Status: Reports: Pain Controlled, Tolerating Diet, Urinating, New Symptoms (Overall feels better). Denies: Ambulating - Review of Systems General: Denies: Fever, Night Sweats Pulmonary: Reports: Shortness of Breath. Denies: Cough, Sputum Cardiovascular: Reports: Dyspnea on Exertion. Denies: Chest Pain, PND, Edema Gastrointestinal: Reports: No Symptoms Genitourinary: Reports: No Symptoms Musculoskeletal: Reports: No Symptoms Neurological: Denies: Confusion Psychiatric: Denies: Agitation - Patient Data Vitals - Most Recent: Last Vital Signs Temp 97.2 F 06/28/19 06:28 Pulse 59 L 06/28/19 06:28 Resp 20 06/28/19 06:28 BP 136/68 06/28/19 06:28 Pulse Ox 98 06/28/19 08:00 Weight - Most Recent: 260 lb 4 oz I&O - Last 24 Hours: Intake & Output 06/27/19 06/28/19 06/28/19 22:59 06:59 14:59 Intake Total 350 50 Output Total 1100 200 Balance -750 -150 Lab Results Last 24 Hours: Laboratory Results - last 24 hr 06/27/19 06/28/19 06/28/19 Range/Units 12:46 07:15 07:15 WBC 4.21 L (5.00-10.00) 10^3/uL RBC 2.72 L (4.50-6.00) 10^6/uL Hgb 8.8 L (13.0-17.0) g/dL Hct 28.5 L (40.0-52.0) % MCV 104.8 H (82.0-92.0) fL MCH 32.4 H (27.0-31.0) pg MCHC 30.9 L (32.0-36.0) g/dL RDW 14.5 (11.5-14.5) % Plt Count 141 L (150-400) 10^3/uL MPV 10.5 H (7.4-10.4) fL Immature Gran % (Auto) 0.5 (0.0-5.0) % Neut % (Auto) 66.2 (50.0-70.0) % Lymph % (Auto) 20.0 (20.0-40.0) % Campbell % (Auto) 10.2 H (2.0-8.0) % Eos % (Auto) 2.6 (1.0-3.0) % Baso % (Auto) 0.5 (0.0-1.0) % Immature Gran # (Auto) 0.02 (0.00-0.50) 10^3/uL Neut # (Auto) 2.79 (2.50-7.00) 10^3/uL Lymph # (Auto) 0.84 L (1.00-4.00) 10^3/uL Campbell # (Auto) 0.43 (0.10-0.80) 10^3/uL Eos # (Auto) 0.11 (0.10-0.30) 10^3/uL Baso # (Auto) 0.02 (0.00-0.10) 10^3/uL Sodium 149 H (136-145) mmol/L Potassium 5.0 (3.3-5.3) mmol/L Chloride 105 (98-115) mmol/L Carbon Dioxide 29.5 (21.0-32.0) mmol/L Anion Gap 19.5 H (5-15) mmol/L BUN 29 H (6-25) mg/dL Creatinine 1.50 H (0.51-1.17) mg/dL Est Cr Clr Drug Dosing 37.99 mL/min Estimated GFR (MDRD) 45 mL/min Glucose 158 H (75 - 99) mg/dL Calcium 9.0 (8.7-10.3) mg/dL Troponin I 0.07 (0.00-0.070) ng/mL Med Orders - Current: Current Medications Acetaminophen (Tylenol) 650 mg PO Q6H PRN PRN Reason: Pain Albuterol/Ipratropium (Duoneb 3.0-0.5 Mg/3 Ml) 3 ml INH Q6H PRN PRN Reason: Shortness of Breath Allopurinol (Zyloprim) 100 mg PO DAILY [facility] Last Admin: 06/28/19 08:45 Dose: 100 mg Apixaban (Eliquis) 2.5 mg PO BID [facility] Last Admin: 06/28/19 08:43 Dose: 2.5 mg Aspirin (Aspirin) 81 mg PO DAILY [facility] Last Admin: 06/28/19 08:45 Dose: 81 mg Atorvastatin Calcium (Lipitor) 80 mg PO DAILY [facility] Last Admin: 06/28/19 08:43 Dose: 80 mg Bisacodyl (Dulcolax) 5 mg PO BID PRN PRN Reason: Constipation Calcium Citrate (Calcium Citrate + D) 2 tab PO DAILY [facility] Last Admin: 06/28/19 08:45 Dose: 2 tab Cholecalciferol (Vitamin D3) 50 mcg PO DAILY [facility] Last Admin: 06/28/19 08:44 Dose: 50 mcg Cyanocobalamin (Vitamin B12) 1,000 mcg PO DAILY [facility] Last Admin: 06/28/19 08:45 Dose: 1,000 mcg Furosemide (Lasix) 40 mg IVPUSH DAILY [facility] Last Admin: 06/28/19 08:45 Dose: 40 mg Omeprazole (Omeprazole) 20 mg PO DAILY [facility] Last Admin: 06/28/19 08:45 Dose: 20 mg Folic Acid 800mg 1 each PO DAILY [facility] Last Admin: 06/28/19 08:46 Dose: 1 each Isosorbide Mononitrate 10 Mg Tab 0.5 each PO BEDTIME [facility] Last Admin: 06/27/19 21:35 Dose: 0.5 each Isosorbide Mononitrate 10 Mg Tab 1 each PO DAILY [facility] Last Admin: 06/28/19 08:46 Dose: 1 each Melatonin 5mg 1 each PO BEDTIME [facility] Last Admin: 06/27/19 21:35 Dose: 1 each Ranolazine Er [ (Ranexa] 1,000 Mg) 1 each PO BID [facility] Last Admin: 06/28/19 08:47 Dose: 1 each Entresto 97 Mg-103 (Mg Tablet) 1 each PO BID [facility] Last Admin: 06/28/19 08:45 Dose: 1 each Senna/Docusate Sodium (Senna Plus) 1 tab PO BEDTIME PRN PRN Reason: Constipation Sodium Chloride (Saline Flush) 10 ml FLUSH Q8HR PRN PRN Reason: keep vein open Last Admin: 06/28/19 08:50 Dose: 10 ml - Exam Quality Assessment: Supplemental Oxygen, DVT Prophylaxis General: Alert, Oriented, Cooperative, No Acute Distress Neck: No JVD Lungs: No: Decreased Breath Sounds, Crackles, Wheezing Cardiovascular: Irregular Rhythm GI/Abdominal Exam: Soft, Other (Large body habitus) (Male) Exam: Deferred Back Exam: No: CVA Tenderness (L), CVA Tenderness (R) Extremities: No Pedal Edema Skin: Dry Neurological: No New Focal Deficit Psy/Mental Status: Alert, Normal Affect, Normal Mood Sepsis Event Note - Evaluation Sepsis Screening Result: No Definite Risk - Focused Exam Vital Signs: Vital Signs Temp Pulse Resp BP Pulse Ox Pulse Ox 06/28/19 08:00 98 06/28/19 06:28 97.2 F 59 L 20 136/68 98 06/28/19 03:00 97.7 F 82 24 H 145/74 H 94 L Date Exam was Performed: 06/29/19 Time Exam was Performed: 11:32 - Problem List Review Problem List Initiated/Reviewed/Updated: No - Plan Plan:: History summary 79-year-old gentleman with significant chronic medical conditions was admitted yesterday to [facility] in inpatient status by Crista Ruiz PAINT SPECIALIST mainly due to CHF exacerbation and IV diuresis. He had came in with a main complaint of shortness of breath, unsteady gait/balance with some weight gain and fluid buildup development, with sx suggessitive of PND due to increase SOB upon lying down therefore sleeping in a recliner with associated abdominal bloating, dizziness, edema,charsh nonproductive cough. Denotes no added salt to diet however weight was up 3 lbs since 06/22/19. According to the patient his "dry weight" is 260-262 at home. Pertinent clinical/exam findings prior to admission --Weight gain 3 pounds ~ week --BNP 857 (up from 585 ~ 1 month ago) --Creatinine, 1.55, down --CxR Hazy opacification RLL, basilar atelectasis and/or pneumonia. --No fever [facility] Hospital problems --HFrEF, On entresto 97-103 mg BID, --Rule out pneumonia, inflammatory markers pending, doubtful --Hypernatremia, acute, hyperosmolar, suspect 2/2 overnight diuresis, Hold lasix for now. gentle increase oral water today --Obesity, comorbid, confounding with his restrictive lung disease, PFT denote high diffusion capacity however appears restrictive due to chest wall limitation. --LAURA on CPAP, --Obesity BMI 39% Chronic/stable problems --Myelodysplastic syndrome MDS. Continue weekly Procrit hemoglobin 8.8 (ICD D46) --Afib, chronic, [id number] VASc 8, CVR, Apixaban, DC'd Coreg??? --CAD, stable, ranexa 1000 mg BID, isosorbide, No ischemic picture or active chest pain --Ischemic embolic stroke history, small left periventricular/parietal lacunar CVA 10/2018, Zoladex onhold since the CVA, AAA, status post repair, ASA 81 mg daily. --Bilateral carotid artery stenosis, aneurysm of left internal iliac artery, --Restrictive lung disease, stable.On DuoNebs QID PRN, recently requiring oxygen 2 lpm. Reviewed PFTs, he does have high diffusion capacity however - appears restrictive due to chest wall limitation. --CKD stage 3, GFR 30-59 ml/min stable. Creatinine down to 1.55 --Hx CABG/HI 1995, --HLD, high dose statin --HTN, stable --T2DM, Recent A1c 6%low, off insulin --Gout, Allopurinol --GERD PPI Disposition/overall plan --Continue inpatient status for ongoing diuresis and electrolyte monitoring, --Assess 24-hr urine sodium to assess home sodium dietary compliance --Monitor inflammatory markers, hold off on abx for now given labs, clinical picture, --Hold lasix for now. gentle increase oral water today --Daily weights/Accurate I & O CODE STATUS, DNR, (no compressions or intubation). agreeable to IV fluids, IV antibiotics, and IV cardiac medications PRN
[2019-06-29] MEDS: atorvaSTATin 40 MG Tab PO SCH (08:23)
[2019-06-29] MEDS: Calcium Citrate/Vitamin D3 315 MG-250 Unit Tab PO SCH (08:23)
[2019-06-29] MEDS: Apixaban 5 MG Tab PO SCH (08:23)
[2019-06-29] MEDS: Allopurinol 100 MG Tab PO SCH (08:23)
[2019-06-29] MEDS: Omeprazole 20 MG Cap.CR PO SCH (08:24)
[2019-06-29] MEDS: Aspirin 81 MG Tab.Chew PO SCH (08:24)
[2019-06-29] MEDS: FOLIC ACID 800 MG PO SCH (08:25)
[2019-06-29] MEDS: Cyanocobalamin (Vitamin B12) 500 MCG Tab PO SCH (08:25)
[2019-06-29] MEDS: RANOLAZINE 1000 MG PO SCH (08:25)
[2019-06-29] MEDS: Cholecalciferol (Vitamin D3) 25 MCG Tab PO SCH (08:25)
[2019-06-29 09:38] LABS: ANION GAP 19.3 mmol/L (5-15)
[2019-06-29] MEDS ORDERED: Epoetin Alfa 40,000 Units/1 ML SDV SUBCUT ONE (10:13)
[2019-06-29 10:34] VITALS: BP 149/73; PULSE 50
--- NOTE | 2019-06-29 11:49 | PCM.DCSUM1 ---
Discharge Summary - Hospital Course Diagnosis: Stroke: No - Discharge Data Discharge Date: 06/29/19 Discharge Disposition: Home, Self-Care 01 Condition: Good - Referral to Home Health Primary Care Physician: Crista Ruiz NP - Patient Instructions Diet: Heart Healthy Diet, Low Sodium, Diabetic Diet Driving: May Drive Today Showering/Bathing: May Shower Notify Provider of: Swelling and Redness, Nausea and/or Vomiting Other/Special Instructions: --Report any shortness of breath. --Weight yourself daily same scale same timeframe, report weight gain above your dry baseline - Discharge Plan *PRESCRIPTION DRUG MONITORING PROGRAM REVIEWED*: Not Applicable *COPY OF PRESCRIPTION DRUG MONITORING REPORT IN PATIENT MARISSA: Not Applicable Home Medications: Home Meds Calcium Carbonate/Vitamin D3 [Calcium 600 + Vit D Tablet] 1 each PO DAILY [History] Cyanocobalamin (Vitamin B-12) [Vitamin B-12] 1,000 mcg PO DAILY 01/08/15 [ History] allopurinoL [Zyloprim] 100 mg PO DAILY 01/08/15 [History] Albuterol/Ipratropium [DuoNeb 3.0-0.5 MG/3 ML] 3 ml INH Q6H PRN 08/19/17 [ History] Folic Acid 0.8 mg PO DAILY 12/19/17 [History] Melatonin 5 mg PO BEDTIME 09/18/18 [History] Sennosides [Senokot] 8.6 mg PO BEDTIME PRN 09/18/18 [History] Triamcinolone Acetonide [Triamcinolone Acetonide 0.1% Crm] 1 applic TOP BID PRN 09/18/18 [History] Apixaban [Eliquis] 2.5 mg PO BID 02/06/19 [History] Aspirin 81 mg PO DAILY 02/06/19 [History] Cholecalciferol (Vitamin D3) [Vitamin D3] 1 tab PO DAILY 02/07/19 [History] Ranolazine [Ranexa] 1,000 mg PO BID 02/07/19 [History] Omeprazole 20 mg PO DAILY #90 tab. 02/08/19 [Rx] Acetaminophen 650 mg PO Q6H PRN 04/10/19 [History] Magnesium Hydroxide [Milk of Magnesia] 30 ml PO DAILY PRN 04/10/19 [History] atorvaSTATin Calcium [Lipitor] 80 mg PO DAILY 04/10/19 [History] bisacodyL [Dulcolax] 5 mg PO BID PRN 04/10/19 [History] Furosemide 60 mg PO DAILY 05/29/19 [History] Sacubitril/Valsartan [Entresto 97 mg-103 mg Tablet] 1 each PO BID 05/29/19 [ History] Isosorbide Mononitrate 5 mg PO BEDTIME 06/28/19 [History] Isosorbide Mononitrate 10 mg PO DAILY 06/28/19 [History] - Discharge Summary/Plan Comment DC Time >30 min.: Yes Discharge Summary/Plan Comment: Final diagnosis HFrEF, exacerbation, mild Hypernatremia, hyperosmolar, suspect 2/2 overnight diuresis, trending favorably with holding diuretic and free water Obesity, comorbid, confounding with his restrictive lung disease, PFT denote high diffusion capacity however appears restrictive due to chest wall limitation. Obesity BMI 39%, History summary 79-year-old gentleman with significant chronic medical conditions was admitted yesterday to [facility] in inpatient status by Crista Ruiz [employer] mainly due to CHF exacerbation and IV diuresis. He had came in with a main complaint of shortness of breath, unsteady gait/balance with some weight gain and fluid buildup development, with sx suggessitive of PND due to increase SOB upon lying down therefore sleeping in a recliner with associated abdominal bloating, dizziness, edema,charsh nonproductive cough. Denotes no added salt to diet however weight was up 3 lbs since 06/22/19. According to the patient his "dry weight" is 260-262 at home. Pertinent clinical/exam findings prior to admission --Weight gain 3 pounds ~ week --BNP 857 (up from 585 ~ 1 month ago) --Creatinine, 1.55, down --CxR Hazy opacification RLL, basilar atelectasis and/or pneumonia. --No fever Hospital course Patient's hospital course went quite well without your adverse reactions however slightly over diuresed as evidence of a hyperosmolar state hypernatremia and improved favorably with free water intake and holding diuretics. He never became hemodynamically unstable. No cough, dry weight at home to 260-262. Although patient states verbally consistent with low-sodium diet, a 24-hour urine sodium was pending upon discharge to assess for home sodium dietary compliance--especially in light of Entresto and ongoing diuretic therapy Medication changes/adjustments upon discharge None, patient can continue on all other home meds Disposition/overall plan --Patient will be discharged in good status for home, --Recommendations at follow-up include assess for results of his 24-hour urine sodium status and make determinations on home dietary compliance and sodium intake recommendations. - General Info Functional Status: Reports: Pain Controlled, Tolerating Diet, Ambulating, Urinating. Denies: New Symptoms - Review of Systems General: Denies: Fever, Weakness, Fatigue Pulmonary: Reports: No Symptoms Cardiovascular: Reports: No Symptoms Gastrointestinal: Reports: No Symptoms Genitourinary: Denies: Incontinence Musculoskeletal: Reports: No Symptoms Skin: Reports: Dryness. Denies: Rash Neurological: Denies: Confusion Psychiatric: Reports: No Symptoms - Patient Data Vitals - Most Recent: Last Vital Signs Temp 96.6 F 06/29/19 10:33 Pulse 50 L 06/29/19 10:33 Resp 20 06/29/19 10:33 BP 149/73 H 06/29/19 10:33 Pulse Ox 99 06/29/19 10:33 Weight - Most Recent: 260 lb 4 oz I&O - Last 24 hours: Intake & Output 06/28/19 06/29/19 06/29/19 22:59 06:59 14:59 Intake Total 450 0 Output Total 450 400 Balance 0 -400 Lab Results - Last 24 hrs: Laboratory Results - last 24 hr 06/29/19 Range/Units 09:15 Sodium 146 H (136-145) mmol/L Potassium 4.4 (3.3-5.3) mmol/L Chloride 103 (98-115) mmol/L Carbon Dioxide 28.1 (21.0-32.0) mmol/L Anion Gap 19.3 H (5-15) mmol/L BUN 32 H (6-25) mg/dL Creatinine 1.50 H (0.51-1.17) mg/dL Est Cr Clr Drug Dosing 37.99 mL/min Estimated GFR (MDRD) 45 mL/min Glucose 206 H (75 - 99) mg/dL Calcium 8.7 (8.7-10.3) mg/dL Med Orders - Current: Current Medications Acetaminophen (Tylenol) 650 mg PO Q6H PRN PRN Reason: Pain Albuterol/Ipratropium (Duoneb 3.0-0.5 Mg/3 Ml) 3 ml INH Q6H PRN PRN Reason: Shortness of Breath Allopurinol (Zyloprim) 100 mg PO DAILY [facility] Last Admin: 06/29/19 08:23 Dose: 100 mg Apixaban (Eliquis) 2.5 mg PO BID [facility] Last Admin: 06/29/19 08:23 Dose: 2.5 mg Aspirin (Aspirin) 81 mg PO DAILY [facility] Last Admin: 06/29/19 08:24 Dose: 81 mg Atorvastatin Calcium (Lipitor) 80 mg PO DAILY [facility] Last Admin: 06/29/19 08:23 Dose: 80 mg Bisacodyl (Dulcolax) 5 mg PO BID PRN PRN Reason: Constipation Calcium Citrate (Calcium Citrate + D) 2 tab PO DAILY [facility] Last Admin: 06/29/19 08:23 Dose: 2 tab Cholecalciferol (Vitamin D3) 50 mcg PO DAILY [facility] Last Admin: 06/29/19 08:25 Dose: 50 mcg Cyanocobalamin (Vitamin B12) 1,000 mcg PO DAILY [facility] Last Admin: 06/29/19 08:25 Dose: 1,000 mcg Furosemide (Lasix) 40 mg IVPUSH DAILY [facility] Last Admin: 06/28/19 08:45 Dose: 40 mg Omeprazole (Omeprazole) 20 mg PO DAILY [facility] Last Admin: 06/29/19 08:24 Dose: 20 mg Folic Acid 800mg 1 each PO DAILY [facility] Last Admin: 06/29/19 08:25 Dose: 1 each Isosorbide Mononitrate 10 Mg Tab 0.5 each PO BEDTIME [facility] Last Admin: 06/28/19 20:17 Dose: 0.5 each Isosorbide Mononitrate 10 Mg Tab 1 each PO DAILY [facility] Last Admin: 06/29/19 08:26 Dose: 1 each Melatonin 5mg 1 each PO BEDTIME [facility] Last Admin: 06/28/19 20:18 Dose: 1 each Ranolazine Er [ (Ranexa] 1,000 Mg) 1 each PO BID [facility] Last Admin: 06/29/19 08:25 Dose: 1 each Entresto 97 Mg-103 (Mg Tablet) 1 each PO BID [facility] Last Admin: 06/29/19 08:26 Dose: 1 each Senna/Docusate Sodium (Senna Plus) 1 tab PO BEDTIME PRN PRN Reason: Constipation Sodium Chloride (Saline Flush) 10 ml FLUSH Q8HR PRN PRN Reason: keep vein open Last Admin: 06/28/19 08:50 Dose: 10 ml Discontinued Medications Epoetin Ge (Procrit) 40,000 units SUBCUT ONETIME ONE Stop: 06/29/19 10:14 Last Admin: 06/29/19 10:22 Dose: 40,000 units - Exam Quality Assessment: Denies: Supplemental Oxygen General: Reports: Alert, Oriented, Cooperative Neck: Reports: Supple Lungs: Reports: Clear to Auscultation, Normal Respiratory Effort Cardiovascular: Reports: Regular Rate, Regular Rhythm (Male) Exam: Deferred Back Exam: Denies: CVA Tenderness (L), CVA Tenderness (R) Extremities: No: Pedal Edema Skin: Reports: Warm, Dry Neurological: Reports: No New Focal Deficit Psy/Mental Status: Reports: Alert, Normal Affect, Normal Mood
== END 2019-06-29 13:32 | disposition home or self-care (01) | DRG 291 ==
LOC: KA.MS 11:56
PROVIDERS: ADMIT Nurse Practitioner Family; ATTEND Nurse Practitioner Family
DX: I13.0 Hypertensive heart and chronic kidney disease with heart failure and stage 1 through stage 4 chronic kidney disease, or unspecified chronic kidney disease (principal); I50.23 Acute on chronic systolic (congestive) heart failure; E87.0 Hyperosmolality and hypernatremia; I48.20 Chronic atrial fibrillation, unspecified; Z66 Do not resuscitate; E66.9 Obesity, unspecified; D46.9 Myelodysplastic syndrome, unspecified; I25.10 Atherosclerotic heart disease of native coronary artery without angina pectoris; N18.3 Chronic kidney disease, stage 3 (moderate); E11.22 Type 2 diabetes mellitus with diabetic chronic kidney disease; E78.5 Hyperlipidemia, unspecified; M10.9 Gout, unspecified; K21.9 Gastro-esophageal reflux disease without esophagitis; Z68.39 Body mass index [BMI] 39.0-39.9, adult; Z86.73 Personal history of transient ischemic attack (TIA), and cerebral infarction without residual deficits; Z95.1 Presence of aortocoronary bypass graft; I25.2 Old myocardial infarction; Z79.82 Long term (current) use of aspirin; Z79.899 Other long term (current) drug therapy
CPT/HCPCS: 36415; 80048; 84300; 84484; 85025; A9270-GY; J0885; J1940

== ENCOUNTER 2020-04-09 16:55 | Inpatient (IN) | payer MEDICARE, OTHER ==
--- NOTE | 2020-04-09 17:11 | EDM.PDOC ---
ED HPI GENERAL MEDICAL PROBLEM - General Chief Complaint: Respiratory Problem Stated Complaint: SHORT OF BREATH Time Seen by Provider: 04/09/20 17:10 Source of Information: Reports: Patient History Limitations: Reports: No Limitations - History of Present Illness INITIAL COMMENTS - FREE TEXT/NARRATIVE: John, 79-year-old male, presents emergency department today after experiencing significant weakness to his lower extremities this afternoon. John speaks of intermittent fevers not feeling well yesterday but today noted significant worsening with elevation of the fever as well as weakness to the lower extremities and some associated aches and pains. Last week had a noted exposure to a person that tested positive for COVID-19 the next day. Has been isolated for the most part since then. He speaks of some mild fluid increase. Onset: Today Duration: Day(s): Location: Reports: Chest, Lower Extremity, Left, Lower Extremity, Right, Generalized Quality: Reports: Ache Severity: Moderate Improves with: Reports: None Worsens with: Reports: Movement Context: Reports: Sick Contact - Related Data Allergies Allergy/AdvReac Type Severity Reaction Status Date / Time celecoxib [From Celebrex] Allergy Hives Verified 12/28/19 18:04 degarelix Allergy Rash Verified 12/28/19 18:04 ezetimibe [From Zetia] Allergy Stomach Verified 12/28/19 18:04 Ache nitroglycerin Allergy Bradycardia Verified 12/28/19 18:04 Home Meds: Home Meds Calcium Carbonate/Vitamin D3 [Calcium 600 + Vit D Tablet] 1 each PO DAILY 01/08/15 [History] Cyanocobalamin (Vitamin B-12) [Vitamin B-12] 1,000 mcg PO DAILY 01/08/15 [History] allopurinoL [Zyloprim] 100 mg PO DAILY 01/08/15 [History] Folic Acid 800 mcg PO DAILY 12/19/17 [History] Melatonin 5 mg PO BEDTIME 09/18/18 [History] Sennosides [Senokot] 8.6 mg PO BEDTIME PRN 09/18/18 [History] Triamcinolone Acetonide [Triamcinolone Acetonide 0.1% Crm] 1 applic TOP BID PRN 09/18/18 [History] Apixaban [Eliquis] 2.5 mg PO BID 02/06/19 [History] Aspirin 81 mg PO DAILY 02/06/19 [History] Ranolazine [Ranexa] 1,000 mg PO BID 02/07/19 [History] Omeprazole 20 mg PO DAILY #90 tab.rap 02/08/19 [Rx] Acetaminophen 650 mg PO Q6H PRN 04/10/19 [History] Magnesium Hydroxide [Milk of Magnesia] 30 ml PO DAILY PRN 04/10/19 [History] atorvaSTATin Calcium [Lipitor] 80 mg PO DAILY 04/10/19 [History] bisacodyL [Dulcolax] 5 mg PO BID PRN 04/10/19 [History] Furosemide 40 mg PO DAILY 05/29/19 [History] Sacubitril/Valsartan [Entresto 97 mg-103 mg Tablet] 1 each PO BID 05/29/19 [History] Isosorbide Mononitrate 5 mg PO BEDTIME 06/28/19 [History] Isosorbide Mononitrate 10 mg PO DAILY 06/28/19 [History] Fluocinonide [Lidex 0.05% Oint] 1 applic TOP ASDIRECTED PRN 04/09/20 [History] Fluticasone Propionate [Flonase] 1 spray NASBOTH DAILY 04/09/20 [History] Sodium Bicarbonate 650 mg PO TID 04/09/20 [History] metOLazone [Zaroxolyn] 2.5 mg PO ASDIRECTED 04/09/20 [History] polyethylene glycoL 3350 [MiraLAX] 1 pkt PO DAILY PRN 04/09/20 [History] Past Medical History HEENT History: Reports: Hard of Hearing, Impaired Vision Other HEENT History: pat. is supposed to have cataract surgery in the right eye Cardiovascular History: Reports: Afib, CAD, High Cholesterol, Hypertension, AR, Stents Respiratory History: Reports: Sleep Apnea Gastrointestinal History: Reports: Chronic Constipation Genitourinary History: Reports: BPH, Diabetic Nephropathy, Prostate Disorder, Renal Calculus Musculoskeletal History: Reports: Arthritis, Fracture, Other (See Below) Other Musculoskeletal History: 50 years ago pat. had fx. in the right foot Neurological History: Reports: Neuropathy, Diabetic Psychiatric History: Reports: None Endocrine/Metabolic History: Reports: Diabetes, Type II Hematologic History: Reports: Anemia, Blood Transfusion(s) Immunologic History: Reports: None Oncologic (Cancer) History: Reports: Prostate Dermatologic History: Reports: Other (See Below) Other Dermatologic History: Blister to right foot - Infectious Disease History Infectious Disease History: Reports: Chicken Pox, Measles, Mumps - Past Surgical History Head Surgeries/Procedures: Reports: None HEENT Surgical History: Reports: Cataract Surgery, Tonsillectomy Cardiovascular Surgical History: Reports: AAA Repair, Cardiac Ablation, Coronary Artery Bypass Respiratory Surgical History: Reports: None GI Surgical History: Reports: Colonoscopy, Hernia, Abdominal Other GI Surgeries/Procedures: 2013 Male Surgical History: Reports: Prostate Biopsy, Prostatectomy Endocrine Surgical History: Reports: None Neurological Surgical History: Reports: None Musculoskeletal Surgical History: Reports: Knee Replacement Other Musculoskeletal Surgeries/Procedures:: Bilateral knee replacement Oncologic Surgical History: Reports: Bone Marrow Aspiration Dermatological Surgical History: Reports: None Social & Family History - Family History Family Medical History: Noncontributory Cardiac: Reports: AR, Other (See Below) Other Cardiac Family History: brother had heart problems Respiratory: Reports: Other (See Below) Other Respiratory Family Hisory: pulmonary fibrosis - sister GI: Reports: None : Reports: None OBGYN: Reports: None Musculoskeletal: Reports: None Neurological: Reports: None Psychiatric: Reports: None Endocrine/Metabolic: Reports: None Hematologic: Reports: None Immunologic: Reports: None Oncologic: Reports: Lung, Prostate, Other (See Below) Other Oncologic Family History: sister - lung cancer. father - prostate cancer - Caffeine Use Caffeine Use: Reports: Coffee ED ROS GENERAL - Review of Systems Review Of Systems: See Below Constitutional: Reports: Fever, Chills, Weakness HEENT: Reports: Hearing Loss Respiratory: Reports: Shortness of Breath Cardiovascular: Reports: Dyspnea on Exertion, Edema. Denies: Chest Pain, Palpitations, PND Endocrine: Reports: Fatigue GI/Abdominal: Reports: No Symptoms : Reports: No Symptoms Musculoskeletal: Reports: Other (General aches and pains.) Skin: Reports: No Symptoms Neurological: Reports: No Symptoms Psychiatric: Reports: No Symptoms Hematologic/Lymphatic: Reports: No Symptoms Immunologic: Reports: No Symptoms ED EXAM, GENERAL - Physical Exam Exam: See Below Free Text/Narrative:: Alert, oriented, in no acute distress with no cyanosis nor pallor noted. HEENT is negative to discharge or deformity. Bilateral hearing aids in place. Neck is soft supple with no lymphadenopathy. Thorax is noted for rapid respiratory cycle from 28 up to 33 but nonlabored. He is able to speak in sentences with no shortness of breath. There is coarse rhonchi/fine crackle at the bases with air exchange throughout. Cardiac is S1-S2 I do not appreciate murmur. There are scars to the abdomen as well as to the thorax from previous surgeries. Abdomen is soft bowel sounds are present there is no tenderness to palpation. Lower extremities have +2 edema with skin warm and dry. Temperatures varied from 99.6 up to 101.2 during his examination process. rectal was deferred. #1 Interpretation EKG Date: 04/09/20 Time: 17:20 Rhythm: NSR QRS: Other Comparison: NA - No Prior EKG Course - Vital Signs Last Recorded V/S: Last Vital Signs Temp 38.2 C H 04/09/20 18:30 Pulse 64 04/09/20 18:30 Resp 29 H 04/09/20 18:30 BP 158/71 H 04/09/20 18:30 Pulse Ox 98 04/09/20 18:30 - Orders/Labs/Meds Orders: Active Orders 24 hr Category Date Time Status Patient Status [ADT] Routine ADT 04/09/20 18:44 Ordered Insert Holman Catheter [Insert Urinary Catheter] [OM.PC] Care 04/09/20 18:30 Ordered Q24H Nurse Communication: Isolation [RC] ASDIRECTED Care 04/09/20 18:41 Ordered Peripheral IV Care [RC] . DIRECTED Care 04/09/20 17:20 Active Telemetry Monitoring [Cardiac Monitoring] [RC] . Care 04/09/20 18:40 Ordered DIRECTED Urinary Catheter Assessment [RC] ASDIRECTED Care 04/09/20 18:22 Ordered Sodium Chloride 0.9% [Saline Flush] Med 04/09/20 17:20 Active 10 ml FLUSH Q8HR PRN Isolation [COMM] Routine Oth 04/09/20 18:41 Ordered Peripheral IV Insertion Adult [OM.PC] Routine Oth 04/09/20 17:20 Ordered Code Status [Resuscitation Status] Stat Resus Stat 04/09/20 17:26 Ordered EKG 12 Lead [EK] Urgent Ther 04/09/20 17:18 Stop Req Medication Orders Sodium Chloride (Saline Flush) 10 ml FLUSH Q8HR PRN PRN Reason: keep vein open Last Admin: 04/09/20 18:31 Dose: 10 ml Documented by: ARTIS Labs: Laboratory Tests 04/09/20 04/09/20 04/09/20 Range/Units 17:10 17:10 17:10 WBC 4.30 L (5.00-10.00) 10^3/uL RBC 3.27 L (4.50-6.00) 10^6/uL Hgb 10.8 L D (13.0-17.0) g/dL Hct 34.0 L (40.0-52.0) % MCV 104.0 H (82.0-92.0) fL MCH 33.0 H (27.0-31.0) pg MCHC 31.8 L (32.0-36.0) g/dL RDW 14.5 (11.5-14.5) % Plt Count 104 L (150-400) 10^3/uL MPV 11.7 H (7.4-10.4) fL Immature Gran % (Auto) 0.0 (0.0-5.0) % Neut % (Auto) 69.1 (50.0-70.0) % Lymph % (Auto) 18.6 L (20.0-40.0) % George % (Auto) 12.1 H (2.0-8.0) % Eos % (Auto) 0.0 L (1.0-3.0) % Baso % (Auto) 0.2 (0.0-1.0) % Neut # (Auto) 2.97 (2.50-7.00) 10^3/uL Lymph # (Auto) 0.80 L (1.00-4.00) 10^3/uL George # (Auto) 0.52 (0.10-0.80) 10^3/uL Eos # (Auto) 0.00 L (0.10-0.30) 10^3/uL Baso # (Auto) 0.01 (0.00-0.10) 10^3/uL Immature Gran # (Auto) 0.00 (0.00-0.50) 10^3/uL Sodium 140 (136-145) mmol/L Potassium 4.9 (3.3-5.3) mmol/L Chloride 101 (98-115) mmol/L Carbon Dioxide 22.1 (21.0-32.0) mmol/L Anion Gap 21.8 H (5-15) mmol/L BUN 47 H (6-25) mg/dL Creatinine 1.87 H (0.51-1.17) mg/dL Est Cr Clr Drug Dosing 34.00 mL/min Estimated GFR (MDRD) 35 mL/min Glucose 133 H (75 - 99) mg/dL Lactic Acid 1.4 (0.4-2.0) mmol/L Calcium 8.7 (8.7-10.3) mg/dL Total Bilirubin 0.7 (0.2-1.0) mg/dL AST 19 (15-37) U/L ALT 15 (12-78) U/L Alkaline Phosphatase 71 (46-116) IU/L Creatine Kinase 30 (26-276) U/L CK-MB (CK-2) 0.90 (0.00-4.30) ng/mL Troponin I 0.09 H* (0.00-0.070) ng/mL B-Natriuretic Peptide 2490 H (0-100) pg/mL Total Protein 6.8 (6.4-8.2) g/dL Albumin 3.55 (3.00-4.80) g/dL SARS CoV-2 RNA Rapid ROSENDO (NEGATIVE) 04/09/20 Range/Units 17:15 WBC (5.00-10.00) 10^3/uL RBC (4.50-6.00) 10^6/uL Hgb (13.0-17.0) g/dL Hct (40.0-52.0) % MCV (82.0-92.0) fL MCH (27.0-31.0) pg MCHC (32.0-36.0) g/dL RDW (11.5-14.5) % Plt Count (150-400) 10^3/uL MPV (7.4-10.4) fL Immature Gran % (Auto) (0.0-5.0) % Neut % (Auto) (50.0-70.0) % Lymph % (Auto) (20.0-40.0) % George % (Auto) (2.0-8.0) % Eos % (Auto) (1.0-3.0) % Baso % (Auto) (0.0-1.0) % Neut # (Auto) (2.50-7.00) 10^3/uL Lymph # (Auto) (1.00-4.00) 10^3/uL George # (Auto) (0.10-0.80) 10^3/uL Eos # (Auto) (0.10-0.30) 10^3/uL Baso # (Auto) (0.00-0.10) 10^3/uL Immature Gran # (Auto) (0.00-0.50) 10^3/uL Sodium (136-145) mmol/L Potassium (3.3-5.3) mmol/L Chloride (98-115) mmol/L Carbon Dioxide (21.0-32.0) mmol/L Anion Gap (5-15) mmol/L BUN (6-25) mg/dL Creatinine (0.51-1.17) mg/dL Est Cr Clr Drug Dosing mL/min Estimated GFR (MDRD) mL/min Glucose (75 - 99) mg/dL Lactic Acid (0.4-2.0) mmol/L Calcium (8.7-10.3) mg/dL Total Bilirubin (0.2-1.0) mg/dL AST (15-37) U/L ALT (12-78) U/L Alkaline Phosphatase (46-116) IU/L Creatine Kinase (26-276) U/L CK-MB (CK-2) (0.00-4.30) ng/mL Troponin I (0.00-0.070) ng/mL B-Natriuretic Peptide (0-100) pg/mL Total Protein (6.4-8.2) g/dL Albumin (3.00-4.80) g/dL SARS CoV-2 RNA Rapid ROSENDO Positive H (NEGATIVE) Meds: Medications Generic Name Dose Route Start Last Admin Trade Name Freq PRN Reason Stop Dose Admin Sodium Chloride 10 ml 04/09/20 17:20 04/09/20 18:31 Saline Flush FLUSH 10 ml Q8HR PRN Administration keep vein open Discontinued Medications Generic Name Dose Route Start Last Admin Trade Name Freq PRN Reason Stop Dose Admin Furosemide 40 mg 04/09/20 18:20 04/09/20 18:31 Lasix IVPUSH 04/09/20 18:21 40 mg NOW ONE Administration Departure - Departure Time of Disposition: 18:58 Disposition: Admitted As Inpatient 64 Condition: Fair Clinical Impression: Renal failure, chronic, CHF exacerbation, Shortness of breath, Weakness generalized, Lab test positive for detection of COVID-19 virus, Elevated troponin I level, Elevated brain natriuretic peptide (BNP) level, History of malignant neoplasm of prostate - Discharge Information *PRESCRIPTION DRUG MONITORING PROGRAM REVIEWED*: Not Applicable *COPY OF PRESCRIPTION DRUG MONITORING REPORT IN PATIENT MARISSA: Not Applicable Referrals: Crista Ruiz, [employer] [Primary Care Provider] - Forms: ED Department Discharge Additional Instructions: Will be admitted and diuresed for his CHF with repeat laboratory analysis. Speaking with his Ainsley as well as Indra, declining transfer options to [place] for evaluation or treatment requesting to be hospitalized here and treated for the CHF component and troponin measurement marker within limits of his renal capacity. Sepsis Event Note (ED) - Focused Exam Vital Signs: Vital Signs Temp Pulse Resp BP Pulse Ox 04/09/20 18:30 38.2 C H 64 29 H 158/71 H 98 04/09/20 17:36 38.1 C 75 32 H 173/81 H 99 04/09/20 17:17 37.1 C 75 30 H 139/94 H 99 ED Communication - ED Communication Date/Time Date: 04/09/20 Time Called: 18:25 - Discussed Case With (1) Discussed Case With (1): Admitting Provider Person/s Notified (1): Crista Ruiz - Problem List & Annotations (1) Weakness generalized SNOMED Code(s): 65278615 Code(s): R53.1 - WEAKNESS Status: Acute Priority: High Current Visit: Yes (2) Lab test positive for detection of COVID-19 virus SNOMED Code(s): 0469574939068817 Code(s): U07.1 - COVID-19 Status: Acute Priority: High Current Visit: Yes (3) Elevated troponin I level SNOMED Code(s): 863299546 Code(s): R77.8 - OTHER SPECIFIED ABNORMALITIES OF PLASMA PROTEINS Status: Acute Priority: High Current Visit: Yes (4) Elevated brain natriuretic peptide (BNP) level SNOMED Code(s): 597125954, 893943817 Code(s): R79.89 - OTHER SPECIFIED ABNORMAL FINDINGS OF BLOOD CHEMISTRY Status: Acute Priority: High Current Visit: Yes (5) Chronic renal failure, stage 3 (moderate) SNOMED Code(s): 34263522, 115567667 Code(s): N18.30 - CHRONIC KIDNEY DISEASE, STAGE 3 UNSPECIFIED Status: Chronic Priority: High Current Visit: Yes Qualifiers: Chronic kidney disease stage 3 subtype: stage 3b (GFR 30-44) Qualified Code(s): N18.32 - Chronic kidney disease, stage 3b (6) History of malignant neoplasm of prostate SNOMED Code(s): 077813663 Code(s): Z85.46 - PERSONAL HISTORY OF MALIGNANT NEOPLASM OF PROSTATE Status: Acute Priority: Medium Current Visit: Yes (7) CHF exacerbation SNOMED Code(s): 252225047, 03970468632780 Code(s): I50.9 - HEART FAILURE, UNSPECIFIED Status: Acute Current Visit: No Qualifiers: Heart failure type: unspecified Qualified Code(s): I50.9 - Heart failure, unspecified - Problem List Review Problem List Initiated/Reviewed/Updated: Yes - My Orders Last 24 Hours: My Active Orders 04/09/20 17:18 EKG 12 Lead [EK] Urgent 04/09/20 17:20 Peripheral IV Care [RC] . DIRECTED Sodium Chloride 0.9% [Saline Flush] 10 ml FLUSH Q8HR PRN Peripheral IV Insertion Adult [OM.PC] Routine 04/09/20 17:26 Code Status [Resuscitation Status] Stat 04/09/20 18:22 Urinary Catheter Assessment [RC] ASDIRECTED 04/09/20 18:30 Insert Holman Catheter [Insert Urinary Catheter] [OM.PC] Q24H 04/09/20 18:40 Telemetry Monitoring [Cardiac Monitoring] [RC] . DIRECTED 04/09/20 18:41 Nurse Communication: Isolation [RC] ASDIRECTED Isolation [COMM] Routine 04/09/20 18:44 Patient Status [ADT] Routine - Assessment/Plan Last 24 Hours: My Active Orders 04/09/20 17:18 EKG 12 Lead [EK] Urgent 04/09/20 17:20 Peripheral IV Care [RC] . DIRECTED Sodium Chloride 0.9% [Saline Flush] 10 ml FLUSH Q8HR PRN Peripheral IV Insertion Adult [OM.PC] Routine 04/09/20 17:26 Code Status [Resuscitation Status] Stat 04/09/20 18:22 Urinary Catheter Assessment [RC] ASDIRECTED 04/09/20 18:30 Insert Holman Catheter [Insert Urinary Catheter] [OM.PC] Q24H 04/09/20 18:40 Telemetry Monitoring [Cardiac Monitoring] [RC] . DIRECTED 04/09/20 18:41 Nurse Communication: Isolation [RC] ASDIRECTED Isolation [COMM] Routine 04/09/20 18:44 Patient Status [ADT] Routine Plan: Will be admitted and diuresed for his CHF with repeat laboratory analysis. Speaking with his Ainsley as well as Indra, declining transfer options to [place] for evaluation or treatment requesting to be hospitalized here and treated for the CHF component and troponin measurement marker within limits of his renal capacity.
[2020-04-09 17:55] LABS: ANION GAP 21.8 mmol/L (5-15)
--- NOTE | 2020-04-09 17:59 | CR ---
[id number] RAD/RAD Chest Portable EXAM: PORTABLE CHEST RADIOGRAPH. INDICATION: SHORTNESS OF BREATH COMPARISON: CORRELATION IS MADE WITH MAY 31, 2019 FINDINGS: Bilateral interstitial changes are seen The cardiac silhouette is enlarged but stable Median sternotomy images are present IMPRESSION: MODERATE CHF Nino Segovia MD 04/09/20 0132 Thank you for allowing us to participate in the care of your patient.
[2020-04-09] MEDS ORDERED: Furosemide 40 MG/4 ML VIAL IVPUSH ONE (18:20)
[2020-04-09] MEDS: Sodium Chloride 0.9% 10 ML Syringe FLUSH PRN (18:31)
[2020-04-09] MEDS ORDERED: Bisacodyl 5 MG Tab PO PRN (19:18)
[2020-04-09] MEDS ORDERED: Polyethylene Glycol 3350 Powder 17 GM Packet PO PRN (19:18)
[2020-04-09] MEDS ORDERED: Magnesium Hydroxide 400 MG/5 ML Susp 30 ML Cup PO PRN (19:18)
[2020-04-09] MEDS: guaiFENesin/Dextromethorphan 100-10 MG/5 ML Soln 5 ML Cup PO PRN (20:47)
[2020-04-09] MEDS: Apixaban 5 MG Tab PO SCH (20:47)
[2020-04-09] MEDS: ISOSORBIDE MONONITRATE 10 MG PO SCH (21:28)
[2020-04-09] MEDS: RANOLAZINE 1000 MG PO SCH (21:29)
[2020-04-09] MEDS: VALSARTAN PO SCH (21:30)
[2020-04-09] MEDS: SACUBITRIL PO SCH (21:30)
[2020-04-09] MEDS: Cholecalciferol (Vitamin D3) 25 MCG Tab PO SCH (21:59)
[2020-04-09] MEDS: Dexamethasone 4 MG Tab PO SCH (22:00)
[2020-04-09] MEDS: Ascorbic Acid 500 MG Tab PO SCH (22:00)
[2020-04-09] MEDS: Acetaminophen 325 MG Tab PO PRN (23:34)
[2020-04-10 00:12] LABS: PTT,PARTIAL THROMBOPLSTIN TIME 33.8 SEC (22.8-31.4)
[2020-04-10] MEDS: Omeprazole 20 MG Cap.CR PO SCH (07:40)
[2020-04-10] MEDS: Apixaban 5 MG Tab PO SCH ×2 (08:09→20:46)
[2020-04-10] MEDS: Aspirin 81 MG Tab.Chew PO SCH (08:09)
[2020-04-10] MEDS: Calcium Citrate/Vitamin D3 315 MG-250 Unit Tab PO SCH (08:09)
[2020-04-10] MEDS: Allopurinol 100 MG Tab PO SCH (08:10)
[2020-04-10] MEDS: Ascorbic Acid 500 MG Tab PO SCH ×2 (08:10→20:45)
[2020-04-10] MEDS: Cyanocobalamin (Vitamin B12) 500 MCG Tab PO SCH (08:10)
[2020-04-10] MEDS: atorvaSTATin 40 MG Tab PO SCH (08:10)
[2020-04-10] MEDS: Cholecalciferol (Vitamin D3) 25 MCG Tab PO SCH (08:10)
[2020-04-10] MEDS: RANOLAZINE 1000 MG PO SCH ×2 (08:12→20:41)
[2020-04-10] MEDS: ISOSORBIDE MONONITRATE 10 MG PO SCH ×2 (08:12→20:42)
[2020-04-10] MEDS: SACUBITRIL PO SCH ×2 (08:13→20:43)
[2020-04-10] MEDS: VALSARTAN PO SCH ×2 (08:13→20:43)
[2020-04-10] MEDS: Fluticasone Propionate Nasal Spray 16 GM Bottle NASBOTH SCH (08:13)
[2020-04-10] MEDS: Dexamethasone 4 MG Tab PO SCH (08:18)
[2020-04-10 08:27] LABS: ANION GAP 21.8 mmol/L (5-15)
--- NOTE | 2020-04-10 11:04 | PCM.HP.2 ---
H&P History of Present Illness - General Date of Service: 04/10/20 Admit Problem/Dx: Admission Diagnosis/Problem Admission Diagnosis/Problem CHF, Congestive heart failure Source of Information: Patient, Family, RN History Limitations: Reports: No Limitations - Related Data Allergies/Adverse Reactions: Allergies Allergy/AdvReac Type Severity Reaction Status Date / Time celecoxib [From Celebrex] Allergy Hives Verified 12/28/19 18:04 degarelix Allergy Rash Verified 12/28/19 18:04 ezetimibe [From Zetia] Allergy Stomach Verified 12/28/19 18:04 Ache nitroglycerin Allergy Bradycardia Verified 12/28/19 18:04 Home Medications: Home Meds Calcium Carbonate/Vitamin D3 [Calcium 600 + Vit D Tablet] 1 each PO DAILY 01/08/15 [History] Cyanocobalamin (Vitamin B-12) [Vitamin B-12] 1,000 mcg PO DAILY 01/08/15 [History] allopurinoL [Zyloprim] 100 mg PO DAILY 01/08/15 [History] Folic Acid 800 mcg PO DAILY 12/19/17 [History] Melatonin 5 mg PO BEDTIME 09/18/18 [History] Sennosides [Senokot] 8.6 mg PO BEDTIME PRN 09/18/18 [History] Triamcinolone Acetonide [Triamcinolone Acetonide 0.1% Crm] 1 applic TOP BID PRN 09/18/18 [History] Apixaban [Eliquis] 2.5 mg PO BID 02/06/19 [History] Aspirin 81 mg PO DAILY 02/06/19 [History] Ranolazine [Ranexa] 1,000 mg PO BID 02/07/19 [History] Omeprazole 20 mg PO DAILY #90 tabLidiarap 02/08/19 [Rx] Acetaminophen 650 mg PO Q6H PRN 04/10/19 [History] Magnesium Hydroxide [Milk of Magnesia] 30 ml PO DAILY PRN 04/10/19 [History] atorvaSTATin Calcium [Lipitor] 80 mg PO DAILY 04/10/19 [History] bisacodyL [Dulcolax] 5 mg PO BID PRN 04/10/19 [History] Furosemide 40 mg PO DAILY 05/29/19 [History] Sacubitril/Valsartan [Entresto 97 mg-103 mg Tablet] 1 each PO BID 05/29/19 [History] Isosorbide Mononitrate 5 mg PO BEDTIME 06/28/19 [History] Isosorbide Mononitrate 10 mg PO DAILY 06/28/19 [History] Fluocinonide [Lidex 0.05% Oint] 1 applic TOP ASDIRECTED PRN 04/09/20 [History] Fluticasone Propionate [Flonase] 1 spray NASBOTH DAILY 04/09/20 [History] Sodium Bicarbonate 650 mg PO TID 04/09/20 [History] metOLazone [Zaroxolyn] 2.5 mg PO ASDIRECTED 04/09/20 [History] polyethylene glycoL 3350 [MiraLAX] 1 pkt PO DAILY PRN 04/09/20 [History] dexAMETHasone [Dexamethasone] 6 mg PO DAILY 5 Days #5 tab 04/14/20 [Rx] Past Medical History HEENT History: Reports: Hard of Hearing, Impaired Vision Other HEENT History: pat. is supposed to have cataract surgery in the right eye Cardiovascular History: Reports: Afib, CAD, High Cholesterol, Hypertension, AR, Stents Respiratory History: Reports: Sleep Apnea Gastrointestinal History: Reports: Chronic Constipation Genitourinary History: Reports: BPH, Diabetic Nephropathy, Prostate Disorder, Re nal Calculus Musculoskeletal History: Reports: Arthritis, Fracture, Other (See Below) Other Musculoskeletal History: 50 years ago pat. had fx. in the right foot Neurological History: Reports: Neuropathy, Diabetic Psychiatric History: Reports: None Endocrine/Metabolic History: Reports: Diabetes, Type II Hematologic History: Reports: Anemia, Blood Transfusion(s) Immunologic History: Reports: None Oncologic (Cancer) History: Reports: Prostate Dermatologic History: Reports: Other (See Below) Other Dermatologic History: Blister to right foot - Infectious Disease History Infectious Disease History: Reports: Chicken Pox, Measles, Mumps - Past Surgical History Head Surgeries/Procedures: Reports: None HEENT Surgical History: Reports: Cataract Surgery, Tonsillectomy Cardiovascular Surgical History: Reports: AAA Repair, Cardiac Ablation, Coronary Artery Bypass Respiratory Surgical History: Reports: None GI Surgical History: Reports: Colonoscopy, Hernia, Abdominal Other GI Surgeries/Procedures: 2013 Male Surgical History: Reports: Prostate Biopsy, Prostatectomy Endocrine Surgical History: Reports: None Neurological Surgical History: Reports: None Musculoskeletal Surgical History: Reports: Knee Replacement Other Musculoskeletal Surgeries/Procedures:: Bilateral knee replacement Oncologic Surgical History: Reports: Bone Marrow Aspiration Dermatological Surgical History: Reports: None Social & Family History - Family History Family Medical History: Noncontributory Cardiac: Reports: AR, Other (See Below) Other Cardiac Family History: brother had heart problems Respiratory: Reports: Other (See Below) Other Respiratory Family Hisory: pulmonary fibrosis - sister GI: Reports: None : Reports: None OBGYN: Reports: None Musculoskeletal: Reports: None Neurological: Reports: None Psychiatric: Reports: None Endocrine/Metabolic: Reports: None Hematologic: Reports: None Immunologic: Reports: None Oncologic: Reports: Lung, Prostate, Other (See Below) Other Oncologic Family History: sister - lung cancer. father - prostate cancer - Tobacco Use Tobacco Use Status *Q: Never Tobacco User Second Hand Smoke Exposure: No - Caffeine Use Caffeine Use: Reports: Coffee - Recreational Drug Use Recreational Drug Use: No H&P Review of Systems - Review of Systems: Review Of Systems: See Below General: Reports: Weakness, Fatigue, Diaphoresis. Denies: Fever HEENT: Reports: No Symptoms Pulmonary: Reports: Shortness of Breath, Cough Cardiovascular: Reports: Dyspnea on Exertion. Denies: Chest Pain, Blood Pressure Problem Gastrointestinal: Reports: No Symptoms Genitourinary: Reports: No Symptoms Musculoskeletal: Reports: No Symptoms Skin: Reports: No Symptoms Psychiatric: Reports: No Symptoms Neurological: Reports: No Symptoms Hematologic/Lymphatic: Reports: Easy Bruising Exam - Exam Exam: See Below - Vital Signs Vital Signs: Last Vital Signs Temp 97.6 F 04/10/20 06:26 Pulse 71 04/10/20 06:26 Resp 23 H 04/10/20 06:26 BP 166/71 H 04/10/20 06:26 Pulse Ox 94 L 04/10/20 06:26 Weight: 248 lb 1.6 oz - Exam Quality Assessment: Supplemental Oxygen General: Alert, Oriented, Mild Distress Neck: Supple Lungs: Clear to Auscultation, Normal Respiratory Effort Cardiovascular: Regular Rate, Regular Rhythm GI/Abdominal Exam: Soft (Male) Exam: Deferred Rectal (Males) Exam: Deferred Extremities: No: Pedal Edema, Slow Capillary Refill Peripheral Pulses: 2+: Radial (L), Radial (R) Skin: Warm, Dry, Intact Neurological: Strength Equal Bilateral, Normal Speech, Normal Tone Neuro Extensive - Mental Status: Alert, Normal Mood/Affect Neuro Extensive - Motor, Sensory, Reflexes: CN II-XII Intact Psychiatric: Alert, Anxious - Patient Data Lab Results Last 24 hrs: Laboratory Results - last 24 hr 04/09/20 04/09/20 04/09/20 Range/Units 17:10 17:10 17:10 WBC 4.30 L (5.00-10.00) 10^3/uL RBC 3.27 L (4.50-6.00) 10^6/uL Hgb 10.8 L D (13.0-17.0) g/dL Hct 34.0 L (40.0-52.0) % MCV 104.0 H (82.0-92.0) fL MCH 33.0 H (27.0-31.0) pg MCHC 31.8 L (32.0-36.0) g/dL RDW 14.5 (11.5-14.5) % Plt Count 104 L (150-400) 10^3/uL MPV 11.7 H (7.4-10.4) fL Immature Gran % (Auto) 0.0 (0.0-5.0) % Neut % (Auto) 69.1 (50.0-70.0) % Lymph % (Auto) 18.6 L (20.0-40.0) % Petroleum % (Auto) 12.1 H (2.0-8.0) % Eos % (Auto) 0.0 L (1.0-3.0) % Baso % (Auto) 0.2 (0.0-1.0) % Neut # (Auto) 2.97 (2.50-7.00) 10^3/uL Lymph # (Auto) 0.80 L (1.00-4.00) 10^3/uL Petroleum # (Auto) 0.52 (0.10-0.80) 10^3/uL Eos # (Auto) 0.00 L (0.10-0.30) 10^3/uL Baso # (Auto) 0.01 (0.00-0.10) 10^3/uL Immature Gran # (Auto) 0.00 (0.00-0.50) 10^3/uL PT (9.2-11.2) SEC INR (0.9-1.1) APTT (22.8-31.4) SEC D-Dimer, Quantitative (<400) ng/mL Sodium 140 (136-145) mmol/L Potassium 4.9 (3.3-5.3) mmol/L Chloride 101 (98-115) mmol/L Carbon Dioxide 22.1 (21.0-32.0) mmol/L Anion Gap 21.8 H (5-15) mmol/L BUN 47 H (6-25) mg/dL Creatinine 1.87 H (0.51-1.17) mg/dL Est Cr Clr Drug Dosing 34.00 mL/min Estimated GFR (MDRD) 35 mL/min Glucose 133 H (75 - 99) mg/dL Lactic Acid 1.4 (0.4-2.0) mmol/L Calcium 8.7 (8.7-10.3) mg/dL Magnesium (1.8-2.4) mg/dL Total Bilirubin 0.7 (0.2-1.0) mg/dL AST 19 (15-37) U/L ALT 15 (12-78) U/L Alkaline Phosphatase 71 (46-116) IU/L Creatine Kinase 30 (26-276) U/L CK-MB (CK-2) 0.90 (0.00-4.30) ng/mL Troponin I 0.09 H* (0.00-0.070) ng/mL C-Reactive Protein (0.0-0.9) mg/dL B-Natriuretic Peptide 2490 H (0-100) pg/mL Total Protein 6.8 (6.4-8.2) g/dL Albumin 3.55 (3.00-4.80) g/dL SARS CoV-2 RNA Rapid ROSENDO (NEGATIVE) 04/09/20 04/09/20 04/09/20 Range/Units 17:10 17:10 17:10 WBC (5.00-10.00) 10^3/uL RBC (4.50-6.00) 10^6/uL Hgb (13.0-17.0) g/dL Hct (40.0-52.0) % MCV (82.0-92.0) fL MCH (27.0-31.0) pg MCHC (32.0-36.0) g/dL RDW (11.5-14.5) % Plt Count (150-400) 10^3/uL MPV (7.4-10.4) fL Immature Gran % (Auto) (0.0-5.0) % Neut % (Auto) (50.0-70.0) % Lymph % (Auto) (20.0-40.0) % Petroleum % (Auto) (2.0-8.0) % Eos % (Auto) (1.0-3.0) % Baso % (Auto) (0.0-1.0) % Neut # (Auto) (2.50-7.00) 10^3/uL Lymph # (Auto) (1.00-4.00) 10^3/uL Petroleum # (Auto) (0.10-0.80) 10^3/uL Eos # (Auto) (0.10-0.30) 10^3/uL Baso # (Auto) (0.00-0.10) 10^3/uL Immature Gran # (Auto) (0.00-0.50) 10^3/uL PT (9.2-11.2) SEC INR (0.9-1.1) APTT (22.8-31.4) SEC D-Dimer, Quantitative 2270 H (<400) ng/mL Sodium (136-145) mmol/L Potassium (3.3-5.3) mmol/L Chloride (98-115) mmol/L Carbon Dioxide (21.0-32.0) mmol/L Anion Gap (5-15) mmol/L BUN (6-25) mg/dL Creatinine (0.51-1.17) mg/dL Est Cr Clr Drug Dosing mL/min Estimated GFR (MDRD) mL/min Glucose (75 - 99) mg/dL Lactic Acid (0.4-2.0) mmol/L Calcium (8.7-10.3) mg/dL Magnesium 1.5 L (1.8-2.4) mg/dL Total Bilirubin (0.2-1.0) mg/dL AST (15-37) U/L ALT (12-78) U/L Alkaline Phosphatase (46-116) IU/L Creatine Kinase (26-276) U/L CK-MB (CK-2) (0.00-4.30) ng/mL Troponin I (0.00-0.070) ng/mL C-Reactive Protein 0.9 (0.0-0.9) mg/dL B-Natriuretic Peptide (0-100) pg/mL Total Protein (6.4-8.2) g/dL Albumin (3.00-4.80) g/dL SARS CoV-2 RNA Rapid ROSENDO (NEGATIVE) 04/09/20 04/09/20 04/09/20 Range/Units 17:15 23:15 23:25 WBC (5.00-10.00) 10^3/uL RBC (4.50-6.00) 10^6/uL Hgb (13.0-17.0) g/dL Hct (40.0-52.0) % MCV (82.0-92.0) fL MCH (27.0-31.0) pg MCHC (32.0-36.0) g/dL RDW (11.5-14.5) % Plt Count (150-400) 10^3/uL MPV (7.4-10.4) fL Immature Gran % (Auto) (0.0-5.0) % Neut % (Auto) (50.0-70.0) % Lymph % (Auto) (20.0-40.0) % Petroleum % (Auto) (2.0-8.0) % Eos % (Auto) (1.0-3.0) % Baso % (Auto) (0.0-1.0) % Neut # (Auto) (2.50-7.00) 10^3/uL Lymph # (Auto) (1.00-4.00) 10^3/uL Petroleum # (Auto) (0.10-0.80) 10^3/uL Eos # (Auto) (0.10-0.30) 10^3/uL Baso # (Auto) (0.00-0.10) 10^3/uL Immature Gran # (Auto) (0.00-0.50) 10^3/uL PT 11.4 H (9.2-11.2) SEC INR 1.1 (0.9-1.1) APTT 33.8 H (22.8-31.4) SEC D-Dimer, Quantitative (<400) ng/mL Sodium (136-145) mmol/L Potassium (3.3-5.3) mmol/L Chloride (98-115) mmol/L Carbon Dioxide (21.0-32.0) mmol/L Anion Gap (5-15) mmol/L BUN (6-25) mg/dL Creatinine (0.51-1.17) mg/dL Est Cr Clr Drug Dosing mL/min Estimated GFR (MDRD) mL/min Glucose (75 - 99) mg/dL Lactic Acid (0.4-2.0) mmol/L Calcium (8.7-10.3) mg/dL Magnesium (1.8-2.4) mg/dL Total Bilirubin (0.2-1.0) mg/dL AST (15-37) U/L ALT (12-78) U/L Alkaline Phosphatase (46-116) IU/L Creatine Kinase (26-276) U/L CK-MB (CK-2) (0.00-4.30) ng/mL Troponin I 0.14 H* (0.00-0.070) ng/mL C-Reactive Protein (0.0-0.9) mg/dL B-Natriuretic Peptide (0-100) pg/mL Total Protein (6.4-8.2) g/dL Albumin (3.00-4.80) g/dL SARS CoV-2 RNA Rapid ROSENDO Positive H (NEGATIVE) 04/10/20 04/10/20 04/10/20 Range/Units 06:45 06:45 06:45 WBC 2.97 L (5.00-10.00) 10^3/uL RBC 3.05 L (4.50-6.00) 10^6/uL Hgb 10.2 L (13.0-17.0) g/dL Hct 31.4 L (40.0-52.0) % MCV 103.0 H (82.0-92.0) fL MCH 33.4 H (27.0-31.0) pg MCHC 32.5 (32.0-36.0) g/dL RDW 14.4 (11.5-14.5) % Plt Count 96 L (150-400) 10^3/uL MPV 11.3 H (7.4-10.4) fL Immature Gran % (Auto) 0.0 (0.0-5.0) % Neut % (Auto) 74.8 H (50.0-70.0) % Lymph % (Auto) 20.5 (20.0-40.0) % Petroleum % (Auto) 4.7 (2.0-8.0) % Eos % (Auto) 0.0 L (1.0-3.0) % Baso % (Auto) 0.0 (0.0-1.0) % Neut # (Auto) 2.22 L (2.50-7.00) 10^3/uL Lymph # (Auto) 0.61 L (1.00-4.00) 10^3/uL Petroleum # (Auto) 0.14 (0.10-0.80) 10^3/uL Eos # (Auto) 0.00 L (0.10-0.30) 10^3/uL Baso # (Auto) 0.00 (0.00-0.10) 10^3/uL Immature Gran # (Auto) 0.00 (0.00-0.50) 10^3/uL PT (9.2-11.2) SEC INR (0.9-1.1) APTT (22.8-31.4) SEC D-Dimer, Quantitative (<400) ng/mL Sodium 139 (136-145) mmol/L Potassium 4.7 (3.3-5.3) mmol/L Chloride 102 (98-115) mmol/L Carbon Dioxide 19.9 L (21.0-32.0) mmol/L Anion Gap 21.8 H (5-15) mmol/L BUN 47 H (6-25) mg/dL Creatinine 1.81 H (0.51-1.17) mg/dL Est Cr Clr Drug Dosing 35.13 mL/min Estimated GFR (MDRD) 36 mL/min Glucose 190 H (75 - 99) mg/dL Lactic Acid (0.4-2.0) mmol/L Calcium 8.6 L (8.7-10.3) mg/dL Magnesium (1.8-2.4) mg/dL Total Bilirubin 0.9 (0.2-1.0) mg/dL AST 19 (15-37) U/L ALT 15 (12-78) U/L Alkaline Phosphatase 65 (46-116) IU/L Creatine Kinase (26-276) U/L CK-MB (CK-2) (0.00-4.30) ng/mL Troponin I 0.10 H* (0.00-0.070) ng/mL C-Reactive Protein (0.0-0.9) mg/dL B-Natriuretic Peptide (0-100) pg/mL Total Protein 6.4 (6.4-8.2) g/dL Albumin 3.23 (3.00-4.80) g/dL SARS CoV-2 RNA Rapid ROSENDO (NEGATIVE) Result Diagrams: 04/14/20 07:25 04/14/20 07:25 Sepsis Event Note - Evaluation Sepsis Screening Result: Severe Sepsis Risk - Focused Exam Vital Signs: Vital Signs Temp Temp Pulse Resp BP Pulse Ox 04/10/20 06:26 97.6 F 71 23 H 166/71 H 94 L 04/10/20 02:46 97.5 F 70 24 H 167/80 H 94 L 04/10/20 00:52 98.6 F 04/10/20 00:04 100.6 F 04/09/20 23:34 101.4 F H 04/09/20 23:26 101.4 F H 76 20 184/91 H 94 L Problem List Initiated/Reviewed/Updated: Yes Orders Last 24hrs: Active Orders 24 hr Category Date Time Status Patient Status [ADT] Routine ADT 04/09/20 18:44 Active Communication Order [RC] , Care 04/09/20 21:30 Active Height and Weight [RC] 07 Care 04/09/20 19:10 Active Intake and Output [RC] 14,, Care 04/09/20 19:11 Active Oxygen Therapy [RC] .PRN Care 04/09/20 19:10 Active Peripheral IV Care [RC] . DIRECTED Care 04/09/20 17:20 Active Telemetry Monitoring [Cardiac Monitoring] [RC] ,,11 Care 04/09/20 18:40 Active ,15,19,23 Up With Assistance [RC] ASDIRECTED Care 04/09/20 19:10 Active Urinary Catheter Assessment [RC] , Care 04/09/20 18:22 Active VTE/DVT Education [RC] DAILY Care 04/09/20 19:10 Active Vital Signs [RC] 03,07,11,15,19,23 Care 04/09/20 19:10 Active [place] [employer] Diet [DIET] Diet 04/09/20 Dinner Active Heart Healthy Diet [DIET] Diet 04/09/20 Dinner Active CULTURE BLOOD [BC] Stat Lab 04/09/20 23:25 Received CULTURE BLOOD [BC] Stat Lab 04/09/20 23:35 Received FERRITIN [REF] Routine Lab 04/09/20 19:16 Received LD [REF] DAILY Lab 04/10/20 06:45 Received PROCALCITONIN [REF] Routine Lab 04/09/20 19:16 Received Acetaminophen [TylenoL] Med 04/09/20 19:18 Active 650 mg PO Q6H PRN Apixaban [Eliquis] Med 04/09/20 21:00 Active 2.5 mg PO BID Ascorbic Acid [Vitamin C] Med 04/09/20 21:30 Active 1,000 mg PO BID Aspirin Med 04/10/20 09:00 Active 81 mg PO DAILY Calcium Citrate/Vitamin D3 [Calcium Citrate + D] Med 04/10/20 09:00 Active 1 tab PO DAILY Cholecalciferol (Vitamin D3) [Vitamin D3] Med 04/09/20 21:30 Active 25 mcg PO DAILY Cyanocobalamin (Vitamin B12) [Vitamin B12] Med 04/10/20 09:00 Active 1,000 mcg PO DAILY Dextromethorphan/guaiFENesin [Robitussin DM] Med 04/09/20 20:19 Active 10 ml PO Q4H PRN Docusate Sodium/Sennosides [Senna Plus] Med 04/09/20 20:08 Active 1 tab PO BEDTIME PRN Fluticasone Propionate [Flonase] Med 04/10/20 09:00 Active 0 gm NASBOTH DAILY Folic Acid [Folic Acid] Med 04/10/20 09:00 Pending 800 mcg PO DAILY Isosorbide Mononitrate [Isosorbide Mononitrate] Med 04/10/20 09:00 Active 10 mg PO DAILY Isosorbide Mononitrate [Isosorbide Mononitrate] Med 04/09/20 21:00 Active 5 mg PO BEDTIME Magnesium Hydroxide [Milk of Magnesia] Med 04/09/20 19:18 Active 30 ml PO DAILY PRN Melatonin [Melatonin] Med 04/09/20 21:00 Pending 5 mg PO BEDTIME Omeprazole Med 04/10/20 07:30 Active 20 mg PO ACBREAKFAST Ranolazine [Ranexa] Med 04/09/20 21:00 Active 1,000 mg PO BID Sacubitril/Valsartan [Entresto 97 mg-103 mg Tablet] Med 04/09/20 21:00 Active 1 each PO BID Sodium Bicarbonate Med 04/09/20 21:00 Active 650 mg PO TID Sodium Chloride 0.9% [Saline Flush] Med 04/09/20 17:20 Active 10 ml FLUSH Q8HR PRN allopurinoL [Zyloprim] Med 04/10/20 09:00 Active 100 mg PO DAILY atorvaSTATin [Lipitor] Med 04/10/20 09:00 Active 80 mg PO DAILY bisacodyL [Dulcolax] Med 04/09/20 19:18 Active 5 mg PO BID PRN dexAMETHasone Med 04/09/20 21:30 Active 6 mg PO DAILY metOLazone [Zaroxolyn] Med 04/11/20 09:00 Active 2.5 mg PO MoWeFr@0900 polyethylene glycoL 3350 [MiraLAX] Med 04/09/20 19:18 Active 17 gm PO DAILY PRN Blood Culture x2 Reflex Set [OM.PC] Stat Oth 04/09/20 19:27 Ordered Isolation [COMM] Routine Oth 04/09/20 18:41 Ordered Peripheral IV Insertion Adult [OM.PC] Routine Oth 04/09/20 17:20 Ordered Code Status [Resuscitation Status] Stat Resus Stat 04/09/20 17:26 Ordered EKG 12 Lead [EK] Urgent Ther 04/09/20 17:18 Stop Req Medication Orders Acetaminophen (Tylenol) 650 mg PO Q6H PRN PRN Reason: Pain Last Admin: 04/09/20 23:34 Dose: 650 mg Documented by: ISABEL Allopurinol (Zyloprim) 100 mg PO DAILY [facility] Last Admin: 04/10/20 08:10 Dose: 100 mg Documented by: DESTIN Apixaban (Eliquis) 2.5 mg PO BID [facility] Last Admin: 04/10/20 08:09 Dose: 2.5 mg Documented by: Admin: 04/09/20 20:47 Dose: 2.5 mg Documented by: ETHAN Ascorbic Acid (Vitamin C) 1,000 mg PO BID [facility] Last Admin: 04/10/20 08:10 Dose: 1,000 mg Documented by: Admin: 04/09/20 22:00 Dose: 1,000 mg Documented by: ETHAN Aspirin (Aspirin) 81 mg PO DAILY [facility] Last Admin: 04/10/20 08:09 Dose: 81 mg Documented by: DESTIN Atorvastatin Calcium (Lipitor) 80 mg PO DAILY [facility] Last Admin: 04/10/20 08:10 Dose: 80 mg Documented by: DESTIN Bisacodyl (Dulcolax) 5 mg PO BID PRN PRN Reason: Constipation Calcium Citrate (Calcium Citrate + D) 1 tab PO DAILY [facility] Last Admin: 04/10/20 08:09 Dose: 1 tab Documented by: DESTIN Cholecalciferol (Vitamin D3) 25 mcg PO DAILY [facility] Last Admin: 04/10/20 08:10 Dose: 25 mcg Documented by: Admin: 04/09/20 21:59 Dose: 25 mcg Documented by: ETHAN Cyanocobalamin (Vitamin B12) 1,000 mcg PO DAILY [facility] Last Admin: 04/10/20 08:10 Dose: 1,000 mcg Documented by: DESTIN Dexamethasone (Dexamethasone) 6 mg PO DAILY [facility] Stop: 04/19/20 21:31 Last Admin: 04/10/20 08:18 Dose: 6 mg Documented by: Admin: 04/09/20 22:00 Dose: 6 mg Documented by: ETHAN Fluticasone Propionate (Flonase) 0 gm NASBOTH DAILY [facility] Last Admin: 04/10/20 08:13 Dose: 1 spray Documented by: DESTIN Guaifenesin/Phenylephrine HCl (Robitussin Dm) 10 ml PO Q4H PRN PRN Reason: Cough Last Admin: 04/09/20 20:47 Dose: 10 ml Documented by: ETHAN Magnesium Hydroxide (Milk Of Magnesia) 30 ml PO DAILY PRN PRN Reason: Constipation Metolazone (Zaroxolyn) 2.5 mg PO MoWeFr@0900 [facility] Folic Acid [Folic (Acid] 800mcg) 800 mcg PO DAILY [facility] Isosorbide Mononitrate [ Isosorbide Mononitrate] 10mg Own Med 5 mg PO BEDTIME [facility] Last Admin: 04/09/20 21:28 Dose: 5 mg Documented by: ETHAN Isosorbide Mononitrate [ Isosorbide Mononitrate] 10mg Own Med 10 mg PO DAILY [facility] Last Admin: 04/10/20 08:12 Dose: 10 mg Documented by: DESTIN Melatonin [Melatonin (] 5mg) 5 mg PO BEDTIME [facility] Ranolazine [Ranexa] 1,000mg Own Med * * 1,000 mg PO BID [facility] Last Admin: 04/10/20 08:12 Dose: 1,000 mg Documented by: Admin: 04/09/20 21:29 Dose: 1,000 mg Documented by: ETHAN Sacubitril/Valsartan [Entresto] 97mg- 103mg Own Med 1 each PO BID [facility] Last Admin: 04/10/20 08:13 Dose: 1 each Documented by: Admin: 04/09/20 21:30 Dose: 1 each Documented by: ETHAN Omeprazole (Omeprazole) 20 mg PO ACBREAKFAST [facility] Last Admin: 04/10/20 07:40 Dose: 20 mg Documented by: DESTIN Polyethylene Glycol (Miralax) 17 gm PO DAILY PRN PRN Reason: Constipation Senna/Docusate Sodium (Senna Plus) 1 tab PO BEDTIME PRN PRN Reason: Constipation Sodium Bicarbonate (Sodium Bicarbonate) 650 mg PO TID [facility] Last Admin: 04/10/20 08:10 Dose: 650 mg Documented by: Admin: 04/09/20 20:47 Dose: 650 mg Documented by: ETHAN Sodium Chloride (Saline Flush) 10 ml FLUSH Q8HR PRN PRN Reason: keep vein open Last Admin: 04/09/20 18:31 Dose: 10 ml Documented by: ARTIS Assessment/Plan Comment:: History of present illness 79-year-old male, admitted through the ED due to generalized weakness in his lower extremities, intermittent fevers all not feeling well with generalized body aches. Patient had called the [facility] late afternoon yesterday and was diverted to the ED due to likely need for further work-up and possible admission. Patient states he was exposed to Covid. Has significant comorbidities including obesity coronary artery disease atrial fibrillation with diabetes and renal disease Pertinent ED findings/work-up Covid19 Pos D-dimer 2270, troponin 0.09 BNP 2500 Read and 1.87, Cultures Primary hospital problems --Covid19 without a quantifying pneumonia --HFrEF, acute on chronic combined systolic/diastolic, cont with sacubitril- valsartan/103, Coreg 3.125 BNP Chronic stable problems --Afib, chronic, VUC3CH5 VASc 8, CVR, Apixaban, Coreg 3.125mg BID --Hx CABG/AR 1995, --Coronary artery disease, ASA, Ranexa --HLD, high dose statin --HTN, stable --T2DM, A1c November 6.3%, off insulin --CKD stage 3, recent creatinine 1.8, below o/p baseline Avoid nephrotoxins --Vitamin B12 deficiency, mild, supplement --LAURA on CPAP, --Obesity BMI 39%, --CA with bone metastasis, status post Lupron, previously on Zoladex, --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, Zoladex onhold since the CVA, AAA, status post repair, --Bilateral carotid artery stenosis, aneurysm of left internal iliac artery, --GERD PPI Disposition/overall plan --Long discussion with patient and spouse regarding Transfer to "Covid Unit is [facility], patient does not desire to be transferred, he was given written instructions and facts doing some investigational such as remdesivir and although the patient does not wish to be intubated he does wish to remain here locally at [facility] and agreed to all medications --will start Remdesivir --assess LDH --Continue dexamethasone --repeat lactate today --Daily labs, CMP, PT/INR, PTT, CBC --RT to assess patient for prone positioning Patient has been given fax sheet and was informed on alternatives to receiving Remdesivir and patient and spouse was informed that Remdesivir is an unapproved drug however is authorized to use under the FDA for current Covid19. Documentation of Initiation of Remdesivir treatment consent signed and on file - Mortality Measure Prognosis:: Poor
[2020-04-10] MEDS ORDERED: Furosemide 40 MG/4 ML VIAL IVPUSH ONE (11:51)
[2020-04-10] MEDS: Sodium Chloride 0.9% 100 ML IV SCH (12:32)
[2020-04-10] MEDS: guaiFENesin/Dextromethorphan 100-10 MG/5 ML Soln 5 ML Cup PO PRN ×2 (15:02→20:43)
[2020-04-11] MEDS: Acetaminophen 325 MG Tab PO PRN ×2 (01:29→20:18)
[2020-04-11] MEDS: Omeprazole 20 MG Cap.CR PO SCH (08:06)
[2020-04-11] MEDS: Calcium Citrate/Vitamin D3 315 MG-250 Unit Tab PO SCH (08:07)
[2020-04-11] MEDS: Aspirin 81 MG Tab.Chew PO SCH (08:07)
[2020-04-11] MEDS: Fluticasone Propionate Nasal Spray 16 GM Bottle NASBOTH SCH (08:08)
[2020-04-11] MEDS: Dexamethasone 4 MG Tab PO SCH (08:08)
[2020-04-11] MEDS: Apixaban 5 MG Tab PO SCH ×2 (08:08→20:09)
[2020-04-11] MEDS: atorvaSTATin 40 MG Tab PO SCH (08:09)
[2020-04-11] MEDS: ISOSORBIDE MONONITRATE 10 MG PO SCH ×2 (08:09→20:18)
[2020-04-11] MEDS: VALSARTAN PO SCH ×2 (08:10→20:16)
[2020-04-11] MEDS: RANOLAZINE 1000 MG PO SCH ×2 (08:10→20:14)
[2020-04-11] MEDS: SACUBITRIL PO SCH ×2 (08:10→20:16)
[2020-04-11] MEDS: Metolazone 2.5 MG Tab PO SCH (08:11)
[2020-04-11] MEDS: Cyanocobalamin (Vitamin B12) 500 MCG Tab PO SCH (08:11)
[2020-04-11] MEDS: Cholecalciferol (Vitamin D3) 25 MCG Tab PO SCH (08:11)
[2020-04-11] MEDS: Ascorbic Acid 500 MG Tab PO SCH ×2 (08:11→20:08)
[2020-04-11] MEDS: Allopurinol 100 MG Tab PO SCH (08:12)
[2020-04-11 08:22] LABS: ANION GAP 17.1 mmol/L (5-15)
--- NOTE | 2020-04-11 11:07 | PCM.PN ---
- General Info Date of Service: 04/11/20 Functional Status: Reports: Tolerating Diet, Urinating (montiel catheter indwelling ). Denies: Ambulating - Review of Systems General: Reports: Fatigue, Malaise. Denies: Fever, Weakness HEENT: Reports: No Symptoms Pulmonary: Reports: Shortness of Breath, Sputum (yellow sputum) Cardiovascular: Denies: Chest Pain, Palpitations, PND, Edema, Lightheadedness Gastrointestinal: Reports: No Symptoms Genitourinary: Reports: Dysuria Musculoskeletal: Reports: No Symptoms Skin: Reports: Pallor, Dryness Neurological: Denies: Confusion, Difficulty Walking, Weakness Psychiatric: Denies: Confusion - Patient Data Vitals - Most Recent: Last Vital Signs Temp 97.4 F 04/11/20 10:28 Pulse 61 04/11/20 10:28 Resp 18 04/11/20 10:28 BP 151/102 H 04/11/20 10:28 Pulse Ox 96 04/11/20 10:28 Weight - Most Recent: 249 lb I&O - Last 24 Hours: Intake & Output 04/10/20 04/11/20 04/11/20 22:59 06:59 14:59 Intake Total 700 300 Output Total 600 400 Balance 100 -100 Lab Results Last 24 Hours: Laboratory Results - last 24 hr 04/10/20 04/10/20 04/10/20 Range/Units 06:45 06:45 06:45 WBC (5.00-10.00) 10^3/uL RBC (4.50-6.00) 10^6/uL Hgb (13.0-17.0) g/dL Hct (40.0-52.0) % MCV (82.0-92.0) fL MCH (27.0-31.0) pg MCHC (32.0-36.0) g/dL RDW (11.5-14.5) % Plt Count (150-400) 10^3/uL MPV (7.4-10.4) fL Immature Gran % (Auto) (0.0-5.0) % Neut % (Auto) (50.0-70.0) % Lymph % (Auto) (20.0-40.0) % Grady % (Auto) (2.0-8.0) % Eos % (Auto) (1.0-3.0) % Baso % (Auto) (0.0-1.0) % Neut # (Auto) (2.50-7.00) 10^3/uL Lymph # (Auto) (1.00-4.00) 10^3/uL Grady # (Auto) (0.10-0.80) 10^3/uL Eos # (Auto) (0.10-0.30) 10^3/uL Baso # (Auto) (0.00-0.10) 10^3/uL Immature Gran # (Auto) (0.00-0.50) 10^3/uL PT (9.2-11.2) SEC INR (0.9-1.1) Sodium (136-145) mmol/L Potassium (3.3-5.3) mmol/L Chloride (98-115) mmol/L Carbon Dioxide (21.0-32.0) mmol/L Anion Gap (5-15) mmol/L BUN (6-25) mg/dL Creatinine (0.51-1.17) mg/dL Est Cr Clr Drug Dosing mL/min Estimated GFR (MDRD) mL/min Glucose (75 - 99) mg/dL Calcium (8.7-10.3) mg/dL Ferritin 1006 H (24-336) ng/mL Total Bilirubin (0.2-1.0) mg/dL AST (15-37) U/L ALT (12-78) U/L Alkaline Phosphatase (46-116) IU/L Lactate Dehydrogenase 139 (84-212) U/L Total Protein (6.4-8.2) g/dL Albumin (3.00-4.80) g/dL Procalcitonin 0.20 H (<0.10) ng/mL 04/11/20 04/11/20 04/11/20 Range/Units 07:45 07:45 07:45 WBC 5.74 (5.00-10.00) 10^3/uL RBC 3.33 L (4.50-6.00) 10^6/uL Hgb 11.3 L (13.0-17.0) g/dL Hct 34.0 L (40.0-52.0) % MCV 102.1 H (82.0-92.0) fL MCH 33.9 H (27.0-31.0) pg MCHC 33.2 (32.0-36.0) g/dL RDW 14.2 (11.5-14.5) % Plt Count 108 L (150-400) 10^3/uL MPV 11.4 H (7.4-10.4) fL Immature Gran % (Auto) 0.2 (0.0-5.0) % Neut % (Auto) 75.2 H (50.0-70.0) % Lymph % (Auto) 14.8 L (20.0-40.0) % Grady % (Auto) 9.8 H (2.0-8.0) % Eos % (Auto) 0.0 L (1.0-3.0) % Baso % (Auto) 0.0 (0.0-1.0) % Neut # (Auto) 4.32 (2.50-7.00) 10^3/uL Lymph # (Auto) 0.85 L (1.00-4.00) 10^3/uL Grady # (Auto) 0.56 (0.10-0.80) 10^3/uL Eos # (Auto) 0.00 L (0.10-0.30) 10^3/uL Baso # (Auto) 0.00 (0.00-0.10) 10^3/uL Immature Gran # (Auto) 0.01 (0.00-0.50) 10^3/uL PT 10.8 (9.2-11.2) SEC INR 1.1 (0.9-1.1) Sodium 136 (136-145) mmol/L Potassium 4.8 (3.3-5.3) mmol/L Chloride 101 (98-115) mmol/L Carbon Dioxide 22.7 (21.0-32.0) mmol/L Anion Gap 17.1 H (5-15) mmol/L BUN 55 H* (6-25) mg/dL Creatinine 1.72 H (0.51-1.17) mg/dL Est Cr Clr Drug Dosing 36.97 mL/min Estimated GFR (MDRD) 38 mL/min Glucose 154 H (75 - 99) mg/dL Calcium 8.6 L (8.7-10.3) mg/dL Ferritin (24-336) ng/mL Total Bilirubin 0.7 (0.2-1.0) mg/dL AST 21 (15-37) U/L ALT 13 (12-78) U/L Alkaline Phosphatase 66 (46-116) IU/L Lactate Dehydrogenase (84-212) U/L Total Protein 6.8 (6.4-8.2) g/dL Albumin 3.35 (3.00-4.80) g/dL Procalcitonin (<0.10) ng/mL Renard Results Last 24 Hours: Microbiology 04/09/20 23:35 Aerobic Blood Culture - Preliminary Blood - Venous NO GROWTH AFTER 1 DAY Anaerobic Blood Culture - Preliminary NO GROWTH AFTER 1 DAY 04/09/20 23:25 Aerobic Blood Culture - Preliminary Blood - Venous - Lab Draw NO GROWTH AFTER 1 DAY Anaerobic Blood Culture - Preliminary NO GROWTH AFTER 1 DAY Med Orders - Current: Current Medications Acetaminophen (Tylenol) 650 mg PO Q6H PRN PRN Reason: Pain Last Admin: 04/11/20 01:29 Dose: 650 mg Documented by: Allopurinol (Zyloprim) 100 mg PO DAILY [facility] Last Admin: 04/11/20 08:12 Dose: 100 mg Documented by: Apixaban (Eliquis) 2.5 mg PO BID [facility] Last Admin: 04/11/20 08:08 Dose: 2.5 mg Documented by: Ascorbic Acid (Vitamin C) 1,000 mg PO BID [facility] Last Admin: 04/11/20 08:11 Dose: 1,000 mg Documented by: Aspirin (Aspirin) 81 mg PO DAILY [facility] Last Admin: 04/11/20 08:07 Dose: 81 mg Documented by: Atorvastatin Calcium (Lipitor) 80 mg PO DAILY [facility] Last Admin: 04/11/20 08:09 Dose: 80 mg Documented by: Bisacodyl (Dulcolax) 5 mg PO BID PRN PRN Reason: Constipation Calcium Citrate (Calcium Citrate + D) 1 tab PO DAILY [facility] Last Admin: 04/11/20 08:07 Dose: 1 tab Documented by: Cholecalciferol (Vitamin D3) 25 mcg PO DAILY [facility] Last Admin: 04/11/20 08:11 Dose: 25 mcg Documented by: Cyanocobalamin (Vitamin B12) 1,000 mcg PO DAILY [facility] Last Admin: 04/11/20 08:11 Dose: 1,000 mcg Documented by: Dexamethasone (Dexamethasone) 6 mg PO DAILY [facility] Stop: 04/19/20 21:31 Last Admin: 04/11/20 08:08 Dose: 6 mg Documented by: Fluticasone Propionate (Flonase) 0 gm NASBOTH DAILY [facility] Last Admin: 04/11/20 08:08 Dose: 1 spray Documented by: Guaifenesin/Phenylephrine HCl (Robitussin Dm) 10 ml PO Q4H PRN PRN Reason: Cough Last Admin: 04/10/20 20:43 Dose: 10 ml Documented by: Remdesivir 100 mg/ Sodium (Chloride) 250 mls @ 250 mls/hr IV Q24H [facility] Stop: 04/14/20 23:59 Sodium Chloride (Normal Saline) 100 mls @ 125 mls/hr IV ASDIRECTED [facility] Last Admin: 04/10/20 12:32 Dose: 125 mls/hr Documented by: Magnesium Hydroxide (Milk Of Magnesia) 30 ml PO DAILY PRN PRN Reason: Constipation Metolazone (Zaroxolyn) 2.5 mg PO MoWeFr@0900 [facility] Last Admin: 04/11/20 08:11 Dose: 2.5 mg Documented by: Folic Acid [Folic (Acid] 800mcg) 800 mcg PO DAILY [facility] Isosorbide Mononitrate [ Isosorbide Mononitrate] 10mg Own Med 5 mg PO BEDTIME [facility] Last Admin: 04/10/20 20:42 Dose: 5 mg Documented by: Isosorbide Mononitrate [ Isosorbide Mononitrate] 10mg Own Med 10 mg PO DAILY [facility] Last Admin: 04/11/20 08:09 Dose: 10 mg Documented by: Melatonin [Melatonin (] 5mg) 5 mg PO BEDTIME [facility] Ranolazine [Ranexa] 1,000mg Own Med * * 1,000 mg PO BID [facility] Last Admin: 04/11/20 08:10 Dose: 1,000 mg Documented by: Sacubitril/Valsartan [Entresto] 97mg- 103mg Own Med 1 each PO BID [facility] Last Admin: 04/11/20 08:10 Dose: 1 each Documented by: Omeprazole (Omeprazole) 20 mg PO ACBREAKFAST [facility] Last Admin: 04/11/20 08:06 Dose: 20 mg Documented by: Polyethylene Glycol (Miralax) 17 gm PO DAILY PRN PRN Reason: Constipation Senna/Docusate Sodium (Senna Plus) 1 tab PO BEDTIME PRN PRN Reason: Constipation Sodium Bicarbonate (Sodium Bicarbonate) 650 mg PO TID [facility] Last Admin: 04/11/20 08:10 Dose: 650 mg Documented by: Sodium Chloride (Saline Flush) 10 ml FLUSH Q8HR PRN PRN Reason: keep vein open Last Admin: 04/09/20 18:31 Dose: 10 ml Documented by: Discontinued Medications Furosemide (Lasix) 40 mg IVPUSH NOW ONE Stop: 04/09/20 18:21 Last Admin: 04/09/20 18:31 Dose: 40 mg Documented by: Furosemide (Lasix) 40 mg IVPUSH NOW ONE Stop: 04/10/20 11:52 Last Admin: 04/10/20 12:28 Dose: 40 mg Documented by: Remdesivir 200 mg/ Sodium (Chloride) 290 mls @ 290 mls/hr IV ONETIME ONE Stop: 04/10/20 11:37 Last Admin: 04/10/20 12:38 Dose: 290 mls/hr Documented by: - Exam Quality Assessment: Supplemental Oxygen, DVT Prophylaxis (cross covered. ). No: Skin Breakdown General: Alert, Oriented, No Acute Distress Neck: No JVD Lungs: No: Crackles, Rales Cardiovascular: Regular Rate, Regular Rhythm, Other (paced rhythm) GI/Abdominal Exam: Normal Bowel Sounds, No Distention, Other (large abdominal habitus). No: Distended Back Exam: No: CVA Tenderness (L), CVA Tenderness (R) Extremities: No: Pedal Edema Skin: Dry Psy/Mental Status: Alert, Normal Affect, Normal Mood. No: Anxious Sepsis Event Note - Evaluation Sepsis Screening Result: Severe Sepsis Risk - Focused Exam Vital Signs: Vital Signs Temp Pulse Resp BP Pulse Ox Pulse Ox 04/11/20 10:28 97.4 F 61 18 151/102 H 96 04/11/20 06:15 96 04/11/20 06:11 97.7 F 55 L 24 H 157/67 H 96 04/11/20 03:00 97.8 F 63 24 H 159/68 H 94 L - Problem List Review Problem List Initiated/Reviewed/Updated: Yes - My Orders Last 24 Hours: My Active Orders 04/10/20 11:48 Consult to Physical Therapy [PT Evaluation and Treatment] [CONS] Routine 04/10/20 12:15 Sodium Chloride 0.9% [Normal Saline] 100 ml IV ASDIRECTED 04/11/20 10:13 Communication Order [RC] ROUTINE 04/11/20 11:45 Remdesivir (Eua) [Remdesivir (EUA)] 100 mg Sodium Chloride 0.9% [Normal Saline] 250 ml IV Q24H 04/12/20 06:00 CBC WITH AUTO DIFF [HEME] DAILY COMPREHENSIVE METABOLIC PN,CMP [CHEM] DAILY INR,PT,PROTHROMBIN TIME [COAG] DAILY 04/13/20 06:00 CBC WITH AUTO DIFF [HEME] DAILY COMPREHENSIVE METABOLIC PN,CMP [CHEM] DAILY INR,PT,PROTHROMBIN TIME [COAG] DAILY 04/14/20 06:00 CBC WITH AUTO DIFF [HEME] DAILY COMPREHENSIVE METABOLIC PN,CMP [CHEM] DAILY INR,PT,PROTHROMBIN TIME [COAG] DAILY 04/15/20 06:00 CBC WITH AUTO DIFF [HEME] DAILY COMPREHENSIVE METABOLIC PN,CMP [CHEM] DAILY INR,PT,PROTHROMBIN TIME [COAG] DAILY - Plan Plan:: History of present illness 79-year-old male, admitted through the ED due to generalized weakness in his lower extremities, intermittent fevers all not feeling well with generalized body aches. Patient had called the [facility] late afternoon yesterday and was diverted to the ED due to likely need for further work-up and possible admission. Patient states he was exposed to Covid. Has significant comorbidities including obesity coronary artery disease atrial fibrillation with diabetes and renal disease Pertinent ED findings/work-up Covid19 Pos D-dimer 2270, troponin 0.09 BNP 2500 Read and 1.87, Blood Cultures Hospital course 04/11/2020; to date patient is doing fairly well despite significant comorbidities with concomitant Covid-19. He tolerated his first loading dose round of Remdesivir without side effects or adverse reactions thus far. He remains at ongoing oxygen requirements at 2 L/min (slightly above his home requirements), CPAP is in use, noted elevated ferritin >1000, dexamethasone without a deterioration in his clinical course. Procalcitonin 0.2. LDH normal. Does have yellow sputum however doubtful if bacterial infectious etiology given good lung sounds and no increase in oxygenation, fever, neg BC, but will monitor the need/benefit closely and Portable CXR today. BUN elevated with decreasing creatinine, and is drying out with no signs of fluid overload despite 1#wt gain and I>Output. HOLD lasix, cont with Metolazone. 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, --Coronary artery disease, ASA, Ranexa --HLD, high dose statin prior to Covid --HTN, stable --T2DM, A1c November 6.3%, off insulin --CKD stage 3, recent creatinine 1.8, below o/p baseline Avoid nephrotoxins --Vitamin B12 deficiency, mild, supplement --LAURA on CPAP, --Obesity BMI 39%, --CA with bone metastasis, status post Lupron, previously on Zoladex, --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 --Encourage PO fluids --Daily labs, CMP, PT/INR, PTT, CBC --CRP today --Ferritin, BNP in am --RT to assess patient for prone positioning Discussion with patient and spouse regarding Transfer to Covid Unit is [facility], however patient does not desire to be transferred and desires to be treated locally here at [facility]. He desires to be maximally medically treated without intubation, He is DO NOT RESUSCITATE. Prior to administration of Remdesivir he was given written instructions and facts regarding its investigational use including all possible side effects. Patient has been given fax sheet and was informed on alternatives to receiv ing Remdesivir and patient and spouse was informed that Remdesivir is an unapproved drug however is authorized to use under the FDA for current Covid19. Documentation of Initiation of Remdesivir treatment consent signed and on file
[2020-04-11] MEDS: Sodium Chloride 0.9% 100 ML IV SCH (11:35)
--- NOTE | 2020-04-11 12:16 | CR ---
[id number] RAD/RAD Chest PA or AP 1V EXAM: FRONTAL CHEST INDICATION: ASSESS FOR PNEUMONIA IN COVID POSITIVE PATIENT. COMPARISON: April 09, 2020. DISCUSSION: The heart is enlarged with mild to moderate central vascular congestion, mild pulmonary edema and small bilateral pleural effusions compatible with congestive heart failure. Associated volume loss in both lung bases. The pulmonary edema and pleural effusions could obscure infiltrates. Sternotomy. IMPRESSION: 1. Mild to moderate congestive heart failure is stable to mildly improved. There are no clearly defined infiltrates, but the basilar volume loss and pulmonary edema could obscure findings. Shlomo Carpenter MD 04/11/20 [id number] Thank you for allowing us to participate in the care of your patient.
[2020-04-11] MEDS: Melatonin 3 MG Tab PO SCH (20:08)
[2020-04-12] MEDS: Omeprazole 20 MG Cap.CR PO SCH (08:11)
[2020-04-12] MEDS: Aspirin 81 MG Tab.Chew PO SCH (08:11)
[2020-04-12] MEDS: Calcium Citrate/Vitamin D3 315 MG-250 Unit Tab PO SCH (08:12)
[2020-04-12] MEDS: Dexamethasone 4 MG Tab PO SCH (08:13)
[2020-04-12] MEDS: Apixaban 5 MG Tab PO SCH ×2 (08:13→20:21)
[2020-04-12] MEDS: atorvaSTATin 40 MG Tab PO SCH (08:14)
[2020-04-12] MEDS: Fluticasone Propionate Nasal Spray 16 GM Bottle NASBOTH SCH (08:14)
[2020-04-12] MEDS: Folic Acid 1 MG Tab PO SCH (08:14)
[2020-04-12] MEDS: ISOSORBIDE MONONITRATE 10 MG PO SCH ×2 (08:14→20:24)
[2020-04-12] MEDS: SACUBITRIL PO SCH ×2 (08:15→20:24)
[2020-04-12] MEDS: RANOLAZINE 1000 MG PO SCH ×2 (08:15→20:24)
[2020-04-12] MEDS: Cyanocobalamin (Vitamin B12) 500 MCG Tab PO SCH (08:15)
[2020-04-12] MEDS: VALSARTAN PO SCH ×2 (08:15→20:24)
[2020-04-12] MEDS: Ascorbic Acid 500 MG Tab PO SCH ×2 (08:16→20:23)
[2020-04-12] MEDS: Cholecalciferol (Vitamin D3) 25 MCG Tab PO SCH (08:16)
[2020-04-12] MEDS: Allopurinol 100 MG Tab PO SCH (08:16)
[2020-04-12 08:24] LABS: ANION GAP 17.6 mmol/L (5-15)
[2020-04-12] MEDS: guaiFENesin/Dextromethorphan 100-10 MG/5 ML Soln 5 ML Cup PO PRN ×2 (10:27→20:21)
[2020-04-12] MEDS: Sodium Chloride 0.9% 100 ML IV SCH (12:03)
[2020-04-12] MEDS: Magnesium Oxide 500 MG Tab PO SCH ×2 (13:15→20:22)
[2020-04-12] MEDS: Melatonin 3 MG Tab PO SCH (20:23)
[2020-04-12] MEDS: Sodium Chloride 0.9% 10 ML Syringe FLUSH PRN (21:21)
[2020-04-12] MEDS: Acetaminophen 325 MG Tab PO PRN (23:55)
[2020-04-13] MEDS: Omeprazole 20 MG Cap.CR PO SCH (06:31)
[2020-04-13 07:24] LABS: ANION GAP 20.5 mmol/L (5-15)
[2020-04-13] MEDS: Aspirin 81 MG Tab.Chew PO SCH (08:06)
[2020-04-13] MEDS: Apixaban 5 MG Tab PO SCH ×2 (08:07→20:38)
[2020-04-13] MEDS: Dexamethasone 4 MG Tab PO SCH (08:07)
[2020-04-13] MEDS: Calcium Citrate/Vitamin D3 315 MG-250 Unit Tab PO SCH (08:07)
[2020-04-13] MEDS: Magnesium Oxide 500 MG Tab PO SCH ×3 (08:08→20:38)
[2020-04-13] MEDS: ISOSORBIDE MONONITRATE 10 MG PO SCH ×2 (08:08→20:40)
[2020-04-13] MEDS: atorvaSTATin 40 MG Tab PO SCH (08:08)
[2020-04-13] MEDS: Fluticasone Propionate Nasal Spray 16 GM Bottle NASBOTH SCH (08:08)
[2020-04-13] MEDS: Folic Acid 1 MG Tab PO SCH (08:08)
[2020-04-13] MEDS: VALSARTAN PO SCH ×2 (08:09→20:42)
[2020-04-13] MEDS: Allopurinol 100 MG Tab PO SCH (08:09)
[2020-04-13] MEDS: SACUBITRIL PO SCH ×2 (08:09→20:42)
[2020-04-13] MEDS: Cholecalciferol (Vitamin D3) 25 MCG Tab PO SCH (08:09)
[2020-04-13] MEDS: Ascorbic Acid 500 MG Tab PO SCH ×2 (08:09→20:39)
[2020-04-13] MEDS: RANOLAZINE 1000 MG PO SCH ×2 (08:09→20:42)
[2020-04-13] MEDS: Cyanocobalamin (Vitamin B12) 500 MCG Tab PO SCH (08:09)
--- NOTE | 2020-04-13 12:01 | PCM.PN ---
- General Info Date of Service: 04/13/20 Subjective Update: Mr. Hampton reports continued improvement. He endorses no concerns today except for not yet having had a bowel movement; received milk of magnesia this morning. Ongoing improvement in respiratory status. Swelling at baseline. Denies orthopnea or PND. Eating and drinking stable, with ongoing poor appetite and sense of taste. Voiding without difficulty. No nursing concerns. - Patient Data Vitals - Most Recent: Last Vital Signs Temp 36.4 C 04/13/20 11:00 Pulse 67 04/13/20 11:00 Resp 18 04/13/20 11:00 BP 148/78 H 04/13/20 11:00 Pulse Ox 99 04/13/20 11:00 Weight - Most Recent: 111.674 kg I&O - Last 24 Hours: Intake & Output 04/12/20 04/13/20 04/13/20 22:59 06:59 14:59 Intake Total 300 400 Output Total 250 700 Balance 50 -300 Lab Results Last 24 Hours: Laboratory Results - last 24 hr 04/13/20 04/13/20 04/13/20 Range/Units 06:35 06:35 06:35 WBC 5.08 (5.00-10.00) 10^3/uL RBC 3.13 L (4.50-6.00) 10^6/uL Hgb 10.4 L (13.0-17.0) g/dL Hct 31.1 L (40.0-52.0) % MCV 99.4 H (82.0-92.0) fL MCH 33.2 H (27.0-31.0) pg MCHC 33.4 (32.0-36.0) g/dL RDW 13.9 (11.5-14.5) % Plt Count 105 L (150-400) 10^3/uL MPV 11.3 H (7.4-10.4) fL Immature Gran % (Auto) 0.2 (0.0-5.0) % Neut % (Auto) 74.8 H (50.0-70.0) % Lymph % (Auto) 14.6 L (20.0-40.0) % [place] % (Auto) 10.4 H (2.0-8.0) % Eos % (Auto) 0.0 L (1.0-3.0) % Baso % (Auto) 0.0 (0.0-1.0) % Neut # (Auto) 3.80 (2.50-7.00) 10^3/uL Lymph # (Auto) 0.74 L (1.00-4.00) 10^3/uL [place] # (Auto) 0.53 (0.10-0.80) 10^3/uL Eos # (Auto) 0.00 L (0.10-0.30) 10^3/uL Baso # (Auto) 0.00 (0.00-0.10) 10^3/uL Immature Gran # (Auto) 0.01 (0.00-0.50) 10^3/uL PT 11.9 H (9.2-11.2) SEC INR 1.2 H (0.9-1.1) Sodium 137 (136-145) mmol/L Potassium 4.7 (3.3-5.3) mmol/L Chloride 99 (98-115) mmol/L Carbon Dioxide 22.2 (21.0-32.0) mmol/L Anion Gap 20.5 H (5-15) mmol/L BUN 61 H* (6-25) mg/dL Creatinine 1.59 H (0.51-1.17) mg/dL Est Cr Clr Drug Dosing 39.99 mL/min Estimated GFR (MDRD) 42 mL/min Glucose 165 H (75 - 99) mg/dL Calcium 8.5 L (8.7-10.3) mg/dL Magnesium (1.8-2.4) mg/dL Total Bilirubin 0.6 (0.2-1.0) mg/dL AST 18 (15-37) U/L ALT 16 (12-78) U/L Alkaline Phosphatase 55 (46-116) IU/L Total Protein 6.0 L (6.4-8.2) g/dL Albumin 3.08 (3.00-4.80) g/dL 04/13/20 Range/Units 06:35 WBC (5.00-10.00) 10^3/uL RBC (4.50-6.00) 10^6/uL Hgb (13.0-17.0) g/dL Hct (40.0-52.0) % MCV (82.0-92.0) fL MCH (27.0-31.0) pg MCHC (32.0-36.0) g/dL RDW (11.5-14.5) % Plt Count (150-400) 10^3/uL MPV (7.4-10.4) fL Immature Gran % (Auto) (0.0-5.0) % Neut % (Auto) (50.0-70.0) % Lymph % (Auto) (20.0-40.0) % [place] % (Auto) (2.0-8.0) % Eos % (Auto) (1.0-3.0) % Baso % (Auto) (0.0-1.0) % Neut # (Auto) (2.50-7.00) 10^3/uL Lymph # (Auto) (1.00-4.00) 10^3/uL [place] # (Auto) (0.10-0.80) 10^3/uL Eos # (Auto) (0.10-0.30) 10^3/uL Baso # (Auto) (0.00-0.10) 10^3/uL Immature Gran # (Auto) (0.00-0.50) 10^3/uL PT (9.2-11.2) SEC INR (0.9-1.1) Sodium (136-145) mmol/L Potassium (3.3-5.3) mmol/L Chloride (98-115) mmol/L Carbon Dioxide (21.0-32.0) mmol/L Anion Gap (5-15) mmol/L BUN (6-25) mg/dL Creatinine (0.51-1.17) mg/dL Est Cr Clr Drug Dosing mL/min Estimated GFR (MDRD) mL/min Glucose (75 - 99) mg/dL Calcium (8.7-10.3) mg/dL Magnesium 1.7 L (1.8-2.4) mg/dL Total Bilirubin (0.2-1.0) mg/dL AST (15-37) U/L ALT (12-78) U/L Alkaline Phosphatase (46-116) IU/L Total Protein (6.4-8.2) g/dL Albumin (3.00-4.80) g/dL [place] Results Last 24 Hours: Microbiology 10/21/20 23:35 Aerobic Blood Culture - Preliminary Blood - Venous NO GROWTH AFTER 3 DAYS Anaerobic Blood Culture - Preliminary NO GROWTH AFTER 3 DAYS 04/09/20 23:25 Aerobic Blood Culture - Preliminary Blood - Venous - Lab Draw NO GROWTH AFTER 3 DAYS Anaerobic Blood Culture - Preliminary NO GROWTH AFTER 3 DAYS Med Orders - Current: Current Medications Acetaminophen (Tylenol) 650 mg PO Q6H PRN PRN Reason: Pain Last Admin: 04/12/20 23:55 Dose: 650 mg Documented by: Allopurinol (Zyloprim) 100 mg PO DAILY [facility] Last Admin: 04/13/20 08:09 Dose: 100 mg Documented by: Apixaban (Eliquis) 2.5 mg PO BID [facility] Last Admin: 04/13/20 08:07 Dose: 2.5 mg Documented by: Ascorbic Acid (Vitamin C) 1,000 mg PO BID [facility] Last Admin: 04/13/20 08:09 Dose: 1,000 mg Documented by: Aspirin (Aspirin) 81 mg PO DAILY [facility] Last Admin: 04/13/20 08:06 Dose: 81 mg Documented by: Atorvastatin Calcium (Lipitor) 80 mg PO DAILY [facility] Last Admin: 04/13/20 08:08 Dose: 80 mg Documented by: Bisacodyl (Dulcolax) 5 mg PO BID PRN PRN Reason: Constipation Calcium Citrate (Calcium Citrate + D) 1 tab PO DAILY [facility] Last Admin: 04/13/20 08:07 Dose: 1 tab Documented by: Cholecalciferol (Vitamin D3) 25 mcg PO DAILY [facility] Last Admin: 04/13/20 08:09 Dose: 25 mcg Documented by: Cyanocobalamin (Vitamin B12) 1,000 mcg PO DAILY [facility] Last Admin: 04/13/20 08:09 Dose: 1,000 mcg Documented by: Dexamethasone (Dexamethasone) 6 mg PO DAILY [facility] Stop: 04/19/20 21:31 Last Admin: 04/13/20 08:07 Dose: 6 mg Documented by: Fluticasone Propionate (Flonase) 0 gm NASBOTH DAILY [facility] Last Admin: 04/13/20 08:08 Dose: 1 spray Documented by: Folic Acid (Folic Acid) 1 mg PO DAILY [facility] Last Admin: 04/13/20 08:08 Dose: 1 mg Documented by: Furosemide (Lasix) 40 mg PO DAILY [facility] Guaifenesin/Phenylephrine HCl (Robitussin Dm) 10 ml PO Q4H PRN PRN Reason: Cough Last Admin: 04/12/20 20:21 Dose: 10 ml Documented by: Remdesivir 100 mg/ Sodium (Chloride) 250 mls @ 250 mls/hr IV Q24H [facility] Stop: 04/14/20 23:59 Last Admin: 04/12/20 12:03 Dose: 250 mls/hr Documented by: Sodium Chloride (Normal Saline) 100 mls @ 125 mls/hr IV ASDIRECTED [facility] Last Admin: 04/12/20 12:03 Dose: 125 mls/hr Documented by: Magnesium Hydroxide (Milk Of Magnesia) 30 ml PO DAILY PRN PRN Reason: Constipation Last Admin: 04/13/20 08:18 Dose: 30 ml Documented by: Magnesium Oxide (Magnesium Oxide) 500 mg PO BID [facility] Melatonin (Melatonin) 6 mg PO BEDTIME [facility] Last Admin: 04/12/20 20:23 Dose: 6 mg Documented by: Metolazone (Zaroxolyn) 2.5 mg PO MoWeFr@0900 [facility] Last Admin: 04/11/20 08:11 Dose: 2.5 mg Documented by: Isosorbide Mononitrate [ Isosorbide Mononitrate] 10mg Own Med 5 mg PO BEDTIME [facility] Last Admin: 04/12/20 20:24 Dose: 5 mg Documented by: Isosorbide Mononitrate [ Isosorbide Mononitrate] 10mg Own Med 10 mg PO DAILY [facility] Last Admin: 04/13/20 08:08 Dose: 10 mg Documented by: Ranolazine [Ranexa] 1,000mg Own Med * * 1,000 mg PO BID [facility] Last Admin: 04/13/20 08:09 Dose: 1,000 mg Documented by: Sacubitril/Valsartan [Entresto] 97mg- 103mg Own Med 1 each PO BID [facility] Last Admin: 04/13/20 08:09 Dose: 1 each Documented by: Omeprazole (Omeprazole) 20 mg PO ACBREAKFAST [facility] Last Admin: 04/13/20 06:31 Dose: 20 mg Documented by: Polyethylene Glycol (Miralax) 17 gm PO DAILY PRN PRN Reason: Constipation Last Admin: 04/12/20 10:27 Dose: 17 gm Documented by: Senna/Docusate Sodium (Senna Plus) 1 tab PO BEDTIME PRN PRN Reason: Constipation Last Admin: 04/12/20 21:21 Dose: 1 tab Documented by: Sodium Bicarbonate (Sodium Bicarbonate) 650 mg PO TID [facility] Last Admin: 04/13/20 08:09 Dose: 650 mg Documented by: Sodium Chloride (Saline Flush) 10 ml FLUSH Q8HR PRN PRN Reason: keep vein open Last Admin: 04/12/20 21:21 Dose: 10 ml Documented by: Discontinued Medications Furosemide (Lasix) 40 mg IVPUSH NOW ONE Stop: 04/09/20 18:21 Last Admin: 04/09/20 18:31 Dose: 40 mg Documented by: Furosemide (Lasix) 40 mg IVPUSH NOW ONE Stop: 04/10/20 11:52 Last Admin: 04/10/20 12:28 Dose: 40 mg Documented by: Remdesivir 200 mg/ Sodium (Chloride) 290 mls @ 290 mls/hr IV ONETIME ONE Stop: 04/10/20 11:37 Last Admin: 04/10/20 12:38 Dose: 290 mls/hr Documented by: Magnesium Oxide (Magnesium Oxide) 500 mg PO BID [facility] Stop: 04/13/20 09:01 Last Admin: 04/13/20 08:08 Dose: 500 mg Documented by: - Exam Physical Findings Comments:: GENERAL: Well-appearing elderly white male sitting in bedside chair in no acute distress. HEENT: Normocephalic, atraumatic. Conjunctiva clear. Nares patent without discharge. Mucous membranes moist. NECK: Supple, no masses. CV: Irregularly irregular, no murmurs, rubs, or gallops. 2+ radial pulses. PULMONARY: Normal effort, faint crackles in bases, no wheezes or rhonchi. ABDOMEN: Positive bowel sounds, soft, nontender, nondistended. EXTREMITIES: 1+ edema of bilateral ankles, no cyanosis or clubbing. MUSCULOSKELETAL: Moves all extremities well. NEUROLOGICAL: No obvious deficits. DERMATOLOGIC: No rashes or suspicious lesions in exposed areas. PSYCHIATRIC: Alert, interactive, appropriate affect. Sepsis Event Note - Evaluation Sepsis Screening Result: No Definite Risk - Focused Exam Vital Signs: Vital Signs Temp Pulse Resp BP Pulse Ox 10/25/20 11:00 36.4 C 67 18 148/78 H 99 04/13/20 06:27 35.9 C L 54 L 130/57 L 100 - Problem List Review Problem List Initiated/Reviewed/Updated: Yes - My Orders Last 24 Hours: My Active Orders 04/13/20 11:30 Furosemide [Lasix] 40 mg PO DAILY 04/13/20 13:00 Magnesium Oxide 500 mg PO BID - Plan Plan:: HPI summary: 79yoM with a history notable for HFrEF, CAD, atrial fibrillation, LAURA, CKD, DMT 2, and obesity, presented to the ED for generalized weakness in his lower extremities, intermittent fevers, and generalized body aches. He also has a known exposure to COVID-19 a week prior to presentation. Notable ED findings: Covid-19 Pos D-dimer 2270, Troponin 0.09 BNP 2500 Creatinine 1.87 Hospital course: 04/10/20: Discussion with patient and spouse regarding transfer to Covid Unit in [facility], however patient does not desire to be transferred and desires to be treated locally here at [facility]. He desires to be maximally m edically treated without intubation or resuscitation. Dexamethasone and other supportive cares started. Meets criteria for remdisivir, for which he was given written instructions and facts regarding its investigational use including all possible side effects. Documentation of Initiation of Remdesivir treatment consent signed and on file. Troponin peaked at 0.14. 04/11/20: Patient is doing fairly well despite significant comorbidities with concomitant Covid-19. He tolerated his first loading dose round of remdesivir without side effects or adverse reactions thus far. Receiving dexamethasone without a deterioration in his clinical course. He remains with an ongoing oxygen requirements at 2 L/min, CPAP is in use at night. Noted elevated ferritin >1000, Procalcitonin 0.2, LDH normal. BUN elevated with decreasing creatinine, and is drying out with no signs of fluid overload despite 1#wt gain and I>Output. Hold furosemide, continue with metolazone. Remove catheter. Does have yellow sputum however doubtful if bacterial infectious etiology given good lung sounds and no increase in oxygenation, but will obtain CXR today to further assess. 04/12/20: Ongoing clinical improvement without any evidence of deterioration. Fluid status now neutral, so will continue current regimen with plans to reinitiate home furosemide dose tomorrow. Labs all stable except hypomagnesemia which will be repleted. 04/13/20: Continuing to improve without concerns. Off supplemental oxygen. Mild increase in lower extremity edema, so will restart home furosemide. Labs all stable except ongoing hypomagnesemia which will be repleted. Hospitalization problems and plan: # COVID-19 - Continue dexamethasone and remdisivir - Monitoring labs tomorrow # HFrEF, acute on chronic - Continue carvedilol, sacubitril-valsartan, and metolazone - Restart home furosemide # NSTEMI: Troponin peak 0.14. Likely secondary to fluid overload. # Hypomagnesemia - MgOx 500mg BID - Recheck tomorrow Chronic, stable conditions: # Hx small left periventricular/parietal lacunar CVA, 10/2018: ASA. Zoladex onhold since. # LAURA: CPAP. # Coronary artery disease: Hx CABG/MA 1995. ASA, Ranexa. # Bilateral carotid artery stenosis, aneurysm of left internal iliac artery # Atrial fibrillation, chronic: [id number] = 8. Apixaban for anticoagulation. carvedilol 3.125mg BID for rate control. # HTN # GERD: PPI. # CKD stage 3: Avoid nephrotoxins. # T2DM: A1c November 6.3%, off insulin. Continue daily BG monitoring. # HLD: Atorvastatin. # Vitamin B12 deficiency: Supplement. # Obesity: BMI 39. # Hx prostate cancer with bone metastasis: Status post Lupron, previously on Zoladex until CVA. Hospitalization details: # FEN: No IVF. Electrolytes normal except magnesium, as above. Heart healthy diet. # PPX: Apixaban chronically sufficient for DVT ppx. # Code status: DNR/DNI, no transfer. # Emergency contact: , Ainsley. # Disposition: Continue inpatient status for ongoing treatment and close monitoring of status, as above. Anticipate discharge to home tomorrow following 5th dose of remdisivir, pending clinical course.
--- NOTE | 2020-04-13 12:01 | PCM.PN ---
- General Info Date of Service: 04/12/20 Subjective Update: Mr. Hampton reports overall ongoing improvement today. Only new symptom was some scant hemoptysis after a coughing spell this morning, which has not recurred since. Overall breathing has improved and he feels he is having less coughing overall. Eating and drinking has improved, though he endorses ongoing poor appetite and sense of taste. Swelling has improved. Was able to lie down in bed without feeling worsening shortness of breath. Voiding without difficulty. Took Miralax this morning due to not having had a BM in the last day. No nursing concerns. - Patient Data Vitals - Most Recent: Last Vital Signs Temp 36.4 C 04/13/20 11:00 Pulse 67 04/13/20 11:00 Resp 18 04/13/20 11:00 BP 148/78 H 04/13/20 11:00 Pulse Ox 99 04/13/20 11:00 Weight - Most Recent: 111.674 kg I&O - Last 24 Hours: Intake & Output 04/12/20 04/13/20 04/13/20 22:59 06:59 14:59 Intake Total 300 400 Output Total 250 700 Balance 50 -300 Lab Results Last 24 Hours: Laboratory Results - last 24 hr 04/13/20 04/13/20 04/13/20 Range/Units 06:35 06:35 06:35 WBC 5.08 (5.00-10.00) 10^3/uL RBC 3.13 L (4.50-6.00) 10^6/uL Hgb 10.4 L (13.0-17.0) g/dL Hct 31.1 L (40.0-52.0) % MCV 99.4 H (82.0-92.0) fL MCH 33.2 H (27.0-31.0) pg MCHC 33.4 (32.0-36.0) g/dL RDW 13.9 (11.5-14.5) % Plt Count 105 L (150-400) 10^3/uL MPV 11.3 H (7.4-10.4) fL Immature Gran % (Auto) 0.2 (0.0-5.0) % Neut % (Auto) 74.8 H (50.0-70.0) % Lymph % (Auto) 14.6 L (20.0-40.0) % [place] % (Auto) 10.4 H (2.0-8.0) % Eos % (Auto) 0.0 L (1.0-3.0) % Baso % (Auto) 0.0 (0.0-1.0) % Neut # (Auto) 3.80 (2.50-7.00) 10^3/uL Lymph # (Auto) 0.74 L (1.00-4.00) 10^3/uL [place] # (Auto) 0.53 (0.10-0.80) 10^3/uL Eos # (Auto) 0.00 L (0.10-0.30) 10^3/uL Baso # (Auto) 0.00 (0.00-0.10) 10^3/uL Immature Gran # (Auto) 0.01 (0.00-0.50) 10^3/uL PT 11.9 H (9.2-11.2) SEC INR 1.2 H (0.9-1.1) Sodium 137 (136-145) mmol/L Potassium 4.7 (3.3-5.3) mmol/L Chloride 99 (98-115) mmol/L Carbon Dioxide 22.2 (21.0-32.0) mmol/L Anion Gap 20.5 H (5-15) mmol/L BUN 61 H* (6-25) mg/dL Creatinine 1.59 H (0.51-1.17) mg/dL Est Cr Clr Drug Dosing 39.99 mL/min Estimated GFR (MDRD) 42 mL/min Glucose 165 H (75 - 99) mg/dL Calcium 8.5 L (8.7-10.3) mg/dL Magnesium (1.8-2.4) mg/dL Total Bilirubin 0.6 (0.2-1.0) mg/dL AST 18 (15-37) U/L ALT 16 (12-78) U/L Alkaline Phosphatase 55 (46-116) IU/L Total Protein 6.0 L (6.4-8.2) g/dL Albumin 3.08 (3.00-4.80) g/dL 04/13/ Range/Units 06:35 WBC (5.00-10.00) 10^3/uL RBC (4.50-6.00) 10^6/uL Hgb (13.0-17.0) g/dL Hct (40.0-52.0) % MCV (82.0-92.0) fL MCH (27.0-31.0) pg MCHC (32.0-36.0) g/dL RDW (11.5-14.5) % Plt Count (150-400) 10^3/uL MPV (7.4-10.4) fL Immature Gran % (Auto) (0.0-5.0) % Neut % (Auto) (50.0-70.0) % Lymph % (Auto) (20.0-40.0) % [place] % (Auto) (2.0-8.0) % Eos % (Auto) (1.0-3.0) % Baso % (Auto) (0.0-1.0) % Neut # (Auto) (2.50-7.00) 10^3/uL Lymph # (Auto) (1.00-4.00) 10^3/uL [place] # (Auto) (0.10-0.80) 10^3/uL Eos # (Auto) (0.10-0.30) 10^3/uL Baso # (Auto) (0.00-0.10) 10^3/uL Immature Gran # (Auto) (0.00-0.50) 10^3/uL PT (9.2-11.2) SEC INR (0.9-1.1) Sodium (136-145) mmol/L Potassium (3.3-5.3) mmol/L Chloride (98-115) mmol/L Carbon Dioxide (21.0-32.0) mmol/L Anion Gap (5-15) mmol/L BUN (6-25) mg/dL Creatinine (0.51-1.17) mg/dL Est Cr Clr Drug Dosing mL/min Estimated GFR (MDRD) mL/min Glucose (75 - 99) mg/dL Calcium (8.7-10.3) mg/dL Magnesium 1.7 L (1.8-2.4) mg/dL Total Bilirubin (0.2-1.0) mg/dL AST (15-37) U/L ALT (12-78) U/L Alkaline Phosphatase (46-116) IU/L Total Protein (6.4-8.2) g/dL Albumin (3.00-4.80) g/dL [facility] Results Last 24 Hours: Microbiology 04/09/20 23:35 Aerobic Blood Culture - Preliminary Blood - Venous NO GROWTH AFTER 3 DAYS Anaerobic Blood Culture - Preliminary NO GROWTH AFTER 3 DAYS 04/09/20 23:25 Aerobic Blood Culture - Preliminary Blood - Venous - Lab Draw NO GROWTH AFTER 3 DAYS Anaerobic Blood Culture - Preliminary NO GROWTH AFTER 3 DAYS Med Orders - Current: Current Medications Acetaminophen (Tylenol) 650 mg PO Q6H PRN PRN Reason: Pain Last Admin: 04/12/20 23:55 Dose: 650 mg Documented by: Allopurinol (Zyloprim) 100 mg PO DAILY [facility] Last Admin: 04/13/20 08:09 Dose: 100 mg Documented by: Apixaban (Eliquis) 2.5 mg PO BID [facility] Last Admin: 04/13/20 08:07 Dose: 2.5 mg Documented by: Ascorbic Acid (Vitamin C) 1,000 mg PO BID [facility] Last Admin: 04/13/20 08:09 Dose: 1,000 mg Documented by: Aspirin (Aspirin) 81 mg PO DAILY [facility] Last Admin: 04/13/20 08:06 Dose: 81 mg Documented by: Atorvastatin Calcium (Lipitor) 80 mg PO DAILY [facility] Last Admin: 04/13/20 08:08 Dose: 80 mg Documented by: Bisacodyl (Dulcolax) 5 mg PO BID PRN PRN Reason: Constipation Calcium Citrate (Calcium Citrate + D) 1 tab PO DAILY [facility] Last Admin: 04/13/20 08:07 Dose: 1 tab Documented by: Cholecalciferol (Vitamin D3) 25 mcg PO DAILY [facility] Last Admin: 04/13/20 08:09 Dose: 25 mcg Documented by: Cyanocobalamin (Vitamin B12) 1,000 mcg PO DAILY [facility] Last Admin: 04/13/20 08:09 Dose: 1,000 mcg Documented by: Dexamethasone (Dexamethasone) 6 mg PO DAILY [facility] Stop: 04/19/20 21:31 Last Admin: 04/13/20 08:07 Dose: 6 mg Documented by: Fluticasone Propionate (Flonase) 0 gm NASBOTH DAILY [facility] Last Admin: 04/13/20 08:08 Dose: 1 spray Documented by: Folic Acid (Folic Acid) 1 mg PO DAILY [facility] Last Admin: 04/13/20 08:08 Dose: 1 mg Documented by: Furosemide (Lasix) 40 mg PO DAILY [facility] Guaifenesin/Phenylephrine HCl (Robitussin Dm) 10 ml PO Q4H PRN PRN Reason: Cough Last Admin: 04/12/20 20:21 Dose: 10 ml Documented by: Remdesivir 100 mg/ Sodium (Chloride) 250 mls @ 250 mls/hr IV Q24H [facility] Stop: 04/14/20 23:59 Last Admin: 04/12/20 12:03 Dose: 250 mls/hr Documented by: Sodium Chloride (Normal Saline) 100 mls @ 125 mls/hr IV ASDIRECTED [facility] Last Admin: 04/12/20 12:03 Dose: 125 mls/hr Documented by: Magnesium Hydroxide (Milk Of Magnesia) 30 ml PO DAILY PRN PRN Reason: Constipation Last Admin: 04/13/20 08:18 Dose: 30 ml Documented by: Magnesium Oxide (Magnesium Oxide) 500 mg PO BID [facility] Melatonin (Melatonin) 6 mg PO BEDTIME [facility] Last Admin: 04/12/20 20:23 Dose: 6 mg Documented by: Metolazone (Zaroxolyn) 2.5 mg PO MoWeFr@0900 [facility] Last Admin: 04/11/20 08:11 Dose: 2.5 mg Documented by: Isosorbide Mononitrate [ Isosorbide Mononitrate] 10mg Own Med 5 mg PO BEDTIME [facility] Last Admin: 04/12/20 20:24 Dose: 5 mg Documented by: Isosorbide Mononitrate [ Isosorbide Mononitrate] 10mg Own Med 10 mg PO DAILY [facility] Last Admin: 04/13/20 08:08 Dose: 10 mg Documented by: Ranolazine [Ranexa] 1,000mg Own Med * * 1,000 mg PO BID [facility] Last Admin: 04/13/20 08:09 Dose: 1,000 mg Documented by: Sacubitril/Valsartan [Entresto] 97mg- 103mg Own Med 1 each PO BID [facility] Last Admin: 04/13/20 08:09 Dose: 1 each Documented by: Omeprazole (Omeprazole) 20 mg PO ACBREAKFAST [facility] Last Admin: 04/13/20 06:31 Dose: 20 mg Documented by: Polyethylene Glycol (Miralax) 17 gm PO DAILY PRN PRN Reason: Constipation Last Admin: 04/12/20 10:27 Dose: 17 gm Documented by: Senna/Docusate Sodium (Senna Plus) 1 tab PO BEDTIME PRN PRN Reason: Constipation Last Admin: 04/12/20 21:21 Dose: 1 tab Documented by: Sodium Bicarbonate (Sodium Bicarbonate) 650 mg PO TID [facility] Last Admin: 04/13/20 08:09 Dose: 650 mg Documented by: Sodium Chloride (Saline Flush) 10 ml FLUSH Q8HR PRN PRN Reason: keep vein open Last Admin: 04/12/20 21:21 Dose: 10 ml Documented by: Discontinued Medications Furosemide (Lasix) 40 mg IVPUSH NOW ONE Stop: 04/09/20 18:21 Last Admin: 04/09/20 18:31 Dose: 40 mg Documented by: Furosemide (Lasix) 40 mg IVPUSH NOW ONE Stop: 04/10/20 11:52 Last Admin: 04/10/20 12:28 Dose: 40 mg Documented by: Remdesivir 200 mg/ Sodium (Chloride) 290 mls @ 290 mls/hr IV ONETIME ONE Stop: 04/10/20 11:37 Last Admin: 04/10/20 12:38 Dose: 290 mls/hr Documented by: Magnesium Oxide (Magnesium Oxide) 500 mg PO BID [facility] Stop: 04/13/20 09:01 Last Admin: 04/13/20 08:08 Dose: 500 mg Documented by: - Exam Physical Findings Comments:: GENERAL: Well-appearing elderly white male sitting in bedside chair in no acute distress. HEENT: Normocephalic, atraumatic. Conjunctiva clear. Nares patent without discharge. Mucous membranes moist. NECK: Supple, no masses. CV: Irregularly irregular, no murmurs, rubs, or gallops. 2+ radial pulses. PULMONARY: Normal effort, faint crackles in bases, no wheezes or rhonchi. ABDOMEN: Positive bowel sounds, soft, nontender, nondistended. EXTREMITIES: 1+ edema of bilateral ankles, no cyanosis or clubbing. MUSCULOSKELETAL: Moves all extremities well. NEUROLOGICAL: No obvious deficits. DERMATOLOGIC: No rashes or suspicious lesions in exposed areas. PSYCHIATRIC: Alert, interactive, appropriate affect. Sepsis Event Note - Evaluation Sepsis Screening Result: No Definite Risk - Focused Exam Vital Signs: Vital Signs Temp Pulse Resp BP Pulse Ox 04/13/20 11:00 36.4 C 67 18 148/78 H 99 04/13/20 06:27 35.9 C L 54 L 130/57 L 100 - Problem List Review Problem List Initiated/Reviewed/Updated: Yes - My Orders Last 24 Hours: My Active Orders 04/13/20 11:30 Furosemide [Lasix] 40 mg PO DAILY 04/13/20 13:00 Magnesium Oxide 500 mg PO BID - Plan Plan:: HPI summary: 79yoM with a history notable for HFrEF, CAD, atrial fibrillation, LAURA, CKD, DMT2, and obesity, presented to the ED for generalized weakness in his lower extremities, intermittent fevers, and generalized body aches. He also has a known exposure to COVID-19 a week prior to presentation. Notable ED findings: Covid-19 Pos D-dimer 2270, Troponin 0.09 BNP 2500 Creatinine 1.87 Hospital course: 04/10/20: Discussion with patient and spouse regarding transfer to Covid Unit in [facility], however patient does not desire to be transferred and desires to be treated locally here at [facility]. He desires to be maximally medically treated without intubation or resuscitation. Dexamethasone and other supportive cares started. Meets criteria for remdisivir, for which he was given written instructions and facts regarding its investigational use including all possible side effects. Documentation of Initiation of Remdesivir treatment consent signed and on file. Troponin peaked at 0.14. 04/11/20: Patient is doing fairly well despite significant comorbidities with concomitant Covid-19. He tolerated his first loading dose round of remdesivir without side effects or adverse reactions thus far. Receiving dexamethasone without a deterioration in his clinical course. He remains with an ongoing oxygen requirements at 2 L/min, CPAP is in use at night. Noted elevated ferritin >1000, Procalcitonin 0.2, LDH normal. BUN elevated with decreasing creatinine, and is drying out with no signs of fluid overload despite 1#wt gain and I>Output. Hold furosemide, continue with metolazone. Remove catheter. Does have yellow sputum however doubtful if bacterial infectious etiology given good lung sounds and no increase in oxygenation, but will obtain CXR today to further assess. 04/12/20: Ongoing clinical improvement without any evidence of deterioration. Fluid status now neutral, so will continue current regimen with plans to reinitiate home furosemide dose tomorrow. Labs all stable except hypomagnesemia which will be repleted. Hospitalization problems and plan: # COVID-19 - Continue dexamethasone and remdisivir - Monitoring labs tomorrow # HFrEF, acute on chronic - Continue carvedilol, sacubitril-valsartan, and metolazone - Restart home furosemide # NSTEMI: Troponin peak 0.14. Likely secondary to fluid overload. # Hypomagnesemia - MgOx 500mg BID x 3 doses - Recheck tomorrow Chronic, stable conditions: # Hx small left periventricular/parietal lacunar CVA, 10/2018: ASA. Zoladex onhold since. # LAURA: CPAP. # Coronary artery disease: Hx CABG/CT 1995. ASA, Ranexa. # Bilateral carotid artery stenosis, aneurysm of left internal iliac artery # Atrial fibrillation, chronic: [id number] = 8. Apixaban for anticoagulation. carvedilol 3.125mg BID for rate control. # HTN # GERD: PPI. # CKD stage 3: Avoid nephrotoxins. # T2DM: A1c November 6.3%, off insulin. Continue daily BG monitoring. # HLD: Atorvastatin. # Vitamin B12 deficiency: Supplement. # Obesity: BMI 39. # Hx prostate cancer with bone metastasis: Status post Lupron, previously on Zoladex until CVA. Hospitalization details: # FEN: No IVF. Electrolytes normal except magnesium, as above. Heart healthy diet. # PPX: Apixaban chronically sufficient for DVT ppx. # Code status: DNR/DNI, no transfer. # Emergency contact: , Ainsley. # Disposition: Continue inpatient status for ongoing treatment and close monitoring of status, as above. Anticipate discharge to home in the next 2-3 days pending clinical course.
[2020-04-13] MEDS: Furosemide 40 MG Tab PO SCH (12:03)
[2020-04-13] MEDS: Sodium Chloride 0.9% 100 ML IV SCH (12:05)
[2020-04-13] MEDS: Melatonin 3 MG Tab PO SCH (20:37)
[2020-04-13] MEDS ORDERED: Simethicone 80 MG Tab.Chew PO PRN (21:08)
[2020-04-13] MEDS ORDERED: Aluminum Hydroxide/Magnesium Hydroxide/Simethicone Susp 30 ML Cup PO PRN (22:25)
[2020-04-14] MEDS: Omeprazole 20 MG Cap.CR PO SCH (06:32)
[2020-04-14 06:46] VITALS: BP 157/69; PULSE 66
[2020-04-14 08:00] LABS: ANION GAP 15.5 mmol/L (5-15)
[2020-04-14] MEDS: Aspirin 81 MG Tab.Chew PO SCH (08:40)
[2020-04-14] MEDS: Magnesium Oxide 500 MG Tab PO SCH (08:40)
[2020-04-14] MEDS: Cyanocobalamin (Vitamin B12) 500 MCG Tab PO SCH (08:40)
[2020-04-14] MEDS: Allopurinol 100 MG Tab PO SCH (08:40)
[2020-04-14] MEDS: Folic Acid 1 MG Tab PO SCH (08:41)
[2020-04-14] MEDS: Apixaban 5 MG Tab PO SCH (08:41)
[2020-04-14] MEDS: Furosemide 40 MG Tab PO SCH (08:41)
[2020-04-14] MEDS: atorvaSTATin 40 MG Tab PO SCH (08:42)
[2020-04-14] MEDS: Fluticasone Propionate Nasal Spray 16 GM Bottle NASBOTH SCH (08:45)
[2020-04-14] MEDS: Metolazone 2.5 MG Tab PO SCH (08:45)
[2020-04-14] MEDS: Dexamethasone 4 MG Tab PO SCH (08:46)
[2020-04-14] MEDS: ISOSORBIDE MONONITRATE 10 MG PO SCH (08:47)
[2020-04-14] MEDS: RANOLAZINE 1000 MG PO SCH (08:48)
[2020-04-14] MEDS: VALSARTAN PO SCH (08:48)
[2020-04-14] MEDS: SACUBITRIL PO SCH (08:48)
[2020-04-14] MEDS: Calcium Citrate/Vitamin D3 315 MG-250 Unit Tab PO SCH (08:49)
[2020-04-14] MEDS: Cholecalciferol (Vitamin D3) 25 MCG Tab PO SCH (08:49)
[2020-04-14] MEDS: Ascorbic Acid 500 MG Tab PO SCH (08:57)
--- NOTE | 2020-04-14 10:22 | PCM.DCSUM1 ---
Discharge Summary - Hospital Course Free Text/Narrative:: Date of admission: 04/09/20 Date of discharge: 04/14/20 Admission diagnoses: # Acute hypoxic respiratory failure # COVID-19 # HFrEF, acute on chronic # NSTEMI Discharge diagnoses: # Acute hypoxic respiratory failure, resolved # COVID-19 # HFrEF, acute on chronic # NSTEMI # Hypomagnesemia, resolved Secondary diagnoses: # Hx small left periventricular/parietal lacunar CVA # LAURA # Coronary artery disease # Bilateral carotid artery stenosis, aneurysm of left internal iliac artery # Atrial fibrillation, chronic # HTN # GERD # CKD stage 3 # T2DM # HLD # Vitamin B12 deficiency # Obesity # Hx prostate cancer with bone metastasis Hospital course: 79yoM with a history notable for HFrEF, CAD, atrial fibrillation, LAURA, CKD, DMT2, and obesity, presented to the ED for generalized weakness in his lower extremities, intermittent fevers, and generalized body aches. He also has a known exposure to COVID-19 a week prior to presentation. In the ED, he was noted to be hemodynamically stable with a 2lpm oxygen requirement and positive for COVID-19 in addition to notable laboratory findings of troponin 0.09, BNP 2500, and creatinine 1.87. A detailed discussion was had with the patient and spouse regarding transfer to COVID Unit at [facility], however patient did not desire to be transferred. He desired to be maximally medically treated without intubation or resuscitation and was admitted to inpatient status. IV furosemide was started initially with good output and later in the hospital course he was able to be transitioned to his home diuretic regimen. Dexamethasone and other supportive cares were initiated for COVID. He also met criteria for remdesivir for which he received 5 day course. He was able to be weaned from oxygen on hospital day #3 and continued to improve from a respiratory standpoint. Troponin peaked at 0.14 and he had no episodes of chest pain, making it fitting with a type 2 NSTEMI secondary to fluid overload. He was continued on all his other home medications for chronic medical conditions throughout his stay. No complications arose during his hospital course and he was deemed ready for discharge to home with his , who also has tested positive for COVID and overall doing well. Discussed return precautions at length. Discharge and follow-up recommendations: - Discharge to home with - Medications at discharge: - Resume all home medications - Start dexamethasone 6mg po for 5 more days to complete 10 day course - Follow-up with PCP Crista Ruiz APRN-[employer], on 04/21/20 - Discharge Data Discharge Date: 04/14/20 Discharge Disposition: Home, Self-Care 01 Condition: Good - Referral to Home Health Primary Care Physician: Crista Ruiz NP - Patient Summary/Data Consults: Consultations 04/10/20 11:48 Consult to Physical Therapy [PT Evaluation and Treatment] [CONS] Routine - Discharge Plan *PRESCRIPTION DRUG MONITORING PROGRAM REVIEWED*: Not Applicable *COPY OF PRESCRIPTION DRUG MONITORING REPORT IN PATIENT MARISSA: Not Applicable Prescriptions/Med Rec: dexAMETHasone [Dexamethasone] 6 mg PO DAILY 5 Days #5 tab Home Medications: Home Meds Calcium Carbonate/Vitamin D3 [Calcium 600 + Vit D Tablet] 1 each PO DAILY 01/08/15 [History] Cyanocobalamin (Vitamin B-12) [Vitamin B-12] 1,000 mcg PO DAILY 01/08/15 [History] allopurinoL [Zyloprim] 100 mg PO DAILY 01/08/15 [History] Folic Acid 800 mcg PO DAILY 12/19/17 [History] Melatonin 5 mg PO BEDTIME 09/18/18 [History] Sennosides [Senokot] 8.6 mg PO BEDTIME PRN 09/18/18 [History] Triamcinolone Acetonide [Triamcinolone Acetonide 0.1% Crm] 1 applic TOP BID PRN 09/18/18 [History] Apixaban [Eliquis] 2.5 mg PO BID 02/06/19 [History] Aspirin 81 mg PO DAILY 02/06/19 [History] Ranolazine [Ranexa] 1,000 mg PO BID 02/07/19 [History] Omeprazole 20 mg PO DAILY #90 tab.rap 02/08/19 [Rx] Acetaminophen 650 mg PO Q6H PRN 04/10/19 [History] Magnesium Hydroxide [Milk of Magnesia] 30 ml PO DAILY PRN 04/10/19 [History] atorvaSTATin Calcium [Lipitor] 80 mg PO DAILY 04/10/19 [History] bisacodyL [Dulcolax] 5 mg PO BID PRN 04/10/19 [History] Furosemide 40 mg PO DAILY 05/29/19 [History] Sacubitril/Valsartan [Entresto 97 mg-103 mg Tablet] 1 each PO BID 05/29/19 [History] Isosorbide Mononitrate 5 mg PO BEDTIME 06/28/19 [History] Isosorbide Mononitrate 10 mg PO DAILY 06/28/19 [History] Fluocinonide [Lidex 0.05% Oint] 1 applic TOP ASDIRECTED PRN 04/09/20 [History] Fluticasone Propionate [Flonase] 1 spray NASBOTH DAILY 04/09/20 [History] Sodium Bicarbonate 650 mg PO TID 04/09/20 [History] metOLazone [Zaroxolyn] 2.5 mg PO ASDIRECTED 04/09/20 [History] polyethylene glycoL 3350 [MiraLAX] 1 pkt PO DAILY PRN 04/09/20 [History] dexAMETHasone [Dexamethasone] 6 mg PO DAILY 5 Days #5 tab 04/14/20 [Rx] Referrals: Crista Ruiz, TRAFFIC TECHNICIAN [Primary Care Provider] - 04/21/20 (Please schedule appt for 04/21) - Discharge Summary/Plan Comment DC Time >30 min.: Yes - General Info Subjective Update: Mr. Hampton reports feeling fairly well this morning. Ongoing improvement in respiratory status. Swelling at baseline. Eating and drinking stable, with ongoing poor appetite and sense of taste. Had BM yesterday. Voiding without difficulty. No nursing concerns. - Patient Data Vitals - Most Recent: Last Vital Signs Temp 36.3 C 04/14/20 06:45 Pulse 66 04/14/20 06:45 Resp 20 04/14/20 06:45 BP 157/69 H 04/14/20 06:45 Pulse Ox 96 04/14/20 06:45 Weight - Most Recent: 111.584 kg I&O - Last 24 hours: Intake & Output 04/13/20 04/14/20 04/14/20 22:59 06:59 14:59 Intake Total 540 200 Output Total 900 800 Balance -360 -600 Lab Results - Last 24 hrs: Laboratory Results - last 24 hr 04/14/20 04/14/20 04/14/20 Range/Units 07:25 07:25 07:25 WBC 5.68 (5.00-10.00) 10^3/uL RBC 3.26 L (4.50-6.00) 10^6/uL Hgb 10.8 L (13.0-17.0) g/dL Hct 32.9 L (40.0-52.0) % MCV 100.9 H (82.0-92.0) fL MCH 33.1 H (27.0-31.0) pg MCHC 32.8 (32.0-36.0) g/dL RDW 14.1 (11.5-14.5) % Plt Count 108 L (150-400) 10^3/uL MPV 11.1 H (7.4-10.4) fL Immature Gran % (Auto) 0.4 (0.0-5.0) % Neut % (Auto) 75.7 H (50.0-70.0) % Lymph % (Auto) 12.3 L (20.0-40.0) % [place] % (Auto) 11.4 H (2.0-8.0) % Eos % (Auto) 0.0 L (1.0-3.0) % Baso % (Auto) 0.2 (0.0-1.0) % Neut # (Auto) 4.30 (2.50-7.00) 10^3/uL Lymph # (Auto) 0.70 L (1.00-4.00) 10^3/uL [place] # (Auto) 0.65 (0.10-0.80) 10^3/uL Eos # (Auto) 0.00 L (0.10-0.30) 10^3/uL Baso # (Auto) 0.01 (0.00-0.10) 10^3/uL Immature Gran # (Auto) 0.02 (0.00-0.50) 10^3/uL PT 11.5 H (9.2-11.2) SEC INR 1.1 (0.9-1.1) Sodium 135 L (136-145) mmol/L Potassium 4.7 (3.3-5.3) mmol/L Chloride 99 (98-115) mmol/L Carbon Dioxide 25.2 (21.0-32.0) mmol/L Anion Gap 15.5 H (5-15) mmol/L BUN 58 H* (6-25) mg/dL Creatinine 1.59 H (0.51-1.17) mg/dL Est Cr Clr Drug Dosing 39.99 mL/min Estimated GFR (MDRD) 42 mL/min Glucose 182 H (75 - 99) mg/dL Calcium 8.5 L (8.7-10.3) mg/dL Magnesium (1.8-2.4) mg/dL Total Bilirubin 0.6 (0.2-1.0) mg/dL AST 17 (15-37) U/L ALT 16 (12-78) U/L Alkaline Phosphatase 54 (46-116) IU/L Total Protein 6.2 L (6.4-8.2) g/dL Albumin 3.18 (3.00-4.80) g/dL 04/14/ Range/Units 07:25 WBC (5.00-10.00) 10^3/uL RBC (4.50-6.00) 10^6/uL Hgb (13.0-17.0) g/dL Hct (40.0-52.0) % MCV (82.0-92.0) fL MCH (27.0-31.0) pg MCHC (32.0-36.0) g/dL RDW (11.5-14.5) % Plt Count (150-400) 10^3/uL MPV (7.4-10.4) fL Immature Gran % (Auto) (0.0-5.0) % Neut % (Auto) (50.0-70.0) % Lymph % (Auto) (20.0-40.0) % [place] % (Auto) (2.0-8.0) % Eos % (Auto) (1.0-3.0) % Baso % (Auto) (0.0-1.0) % Neut # (Auto) (2.50-7.00) 10^3/uL Lymph # (Auto) (1.00-4.00) 10^3/uL [place] # (Auto) (0.10-0.80) 10^3/uL Eos # (Auto) (0.10-0.30) 10^3/uL Baso # (Auto) (0.00-0.10) 10^3/uL Immature Gran # (Auto) (0.00-0.50) 10^3/uL PT (9.2-11.2) SEC INR (0.9-1.1) Sodium (136-145) mmol/L Potassium (3.3-5.3) mmol/L Chloride (98-115) mmol/L Carbon Dioxide (21.0-32.0) mmol/L Anion Gap (5-15) mmol/L BUN (6-25) mg/dL Creatinine (0.51-1.17) mg/dL Est Cr Clr Drug Dosing mL/min Estimated GFR (MDRD) mL/min Glucose (75 - 99) mg/dL Calcium (8.7-10.3) mg/dL Magnesium 2.0 (1.8-2.4) mg/dL Total Bilirubin (0.2-1.0) mg/dL AST (15-37) U/L ALT (12-78) U/L Alkaline Phosphatase (46-116) IU/L Total Protein (6.4-8.2) g/dL Albumin (3.00-4.80) g/dL CAROLYN Results - Last 24 hrs: Microbiology 04/09/20 23:35 Aerobic Blood Culture - Preliminary Blood - Venous NO GROWTH AFTER 4 DAYS Anaerobic Blood Culture - Preliminary NO GROWTH AFTER 4 DAYS 04/09/20 23:25 Aerobic Blood Culture - Preliminary Blood - Venous - Lab Draw NO GROWTH AFTER 4 DAYS Anaerobic Blood Culture - Preliminary NO GROWTH AFTER 4 DAYS Med Orders - Current: Current Medications Acetaminophen (Tylenol) 650 mg PO Q6H PRN PRN Reason: Pain Last Admin: 04/12/20 23:55 Dose: 650 mg Documented by: Al Hydroxide/Mg Hydroxide (Mag-Al Plus) 30 ml PO Q6H PRN PRN Reason: Heartburn Last Admin: 04/13/20 22:49 Dose: 30 ml Documented by: Allopurinol (Zyloprim) 100 mg PO DAILY [facility] Last Admin: 04/14/20 08:40 Dose: 100 mg Documented by: Apixaban (Eliquis) 2.5 mg PO BID [facility] Last Admin: 04/14/20 08:41 Dose: 2.5 mg Documented by: Ascorbic Acid (Vitamin C) 1,000 mg PO BID [facility] Last Admin: 04/14/20 08:57 Dose: 1,000 mg Documented by: Aspirin (Aspirin) 81 mg PO DAILY [facility] Last Admin: 04/14/20 08:40 Dose: 81 mg Documented by: Atorvastatin Calcium (Lipitor) 80 mg PO DAILY [facility] Last Admin: 04/14/20 08:42 Dose: 80 mg Documented by: Bisacodyl (Dulcolax) 5 mg PO BID PRN PRN Reason: Constipation Last Admin: 04/13/20 12:04 Dose: 5 mg Documented by: Calcium Citrate (Calcium Citrate + D) 1 tab PO DAILY [facility] Last Admin: 04/14/20 08:49 Dose: 1 tab Documented by: Cholecalciferol (Vitamin D3) 25 mcg PO DAILY [facility] Last Admin: 04/14/20 08:49 Dose: 25 mcg Documented by: Cyanocobalamin (Vitamin B12) 1,000 mcg PO DAILY [facility] Last Admin: 04/14/20 08:40 Dose: 1,000 mcg Documented by: Dexamethasone (Dexamethasone) 6 mg PO DAILY [facility] Stop: 04/19/20 21:31 Last Admin: 04/14/20 08:46 Dose: 6 mg Documented by: Epoetin Ge (Procrit) 40,000 units SUBCUT ONETIME [facility] Stop: 04/14/20 13:00 Fluticasone Propionate (Flonase) 0 gm NASBOTH DAILY [facility] Last Admin: 04/14/20 08:45 Dose: 1 spray Documented by: Folic Acid (Folic Acid) 1 mg PO DAILY [facility] Last Admin: 04/14/20 08:41 Dose: 1 mg Documented by: Furosemide (Lasix) 40 mg PO DAILY [facility] Last Admin: 04/14/20 08:41 Dose: 40 mg Documented by: Guaifenesin/Phenylephrine HCl (Robitussin Dm) 10 ml PO Q4H PRN PRN Reason: Cough Last Admin: 04/12/20 20:21 Dose: 10 ml Documented by: Remdesivir 100 mg/ Sodium (Chloride) 250 mls @ 250 mls/hr IV Q24H [facility] Stop: 04/14/20 23:59 Last Admin: 04/13/20 12:04 Dose: 250 mls/hr Documented by: Sodium Chloride (Normal Saline) 100 mls @ 125 mls/hr IV ASDIRECTED [facility] Last Admin: 04/13/20 12:05 Dose: 125 mls/hr Documented by: Magnesium Hydroxide (Milk Of Magnesia) 30 ml PO DAILY PRN PRN Reason: Constipation Last Admin: 04/13/20 08:18 Dose: 30 ml Documented by: Magnesium Oxide (Magnesium Oxide) 500 mg PO BID [facility] Last Admin: 04/14/20 08:40 Dose: 500 mg Documented by: Melatonin (Melatonin) 6 mg PO BEDTIME [facility] Last Admin: 04/13/20 20:37 Dose: 6 mg Documented by: Metolazone (Zaroxolyn) 2.5 mg PO MoWeFr@0900 [facility] Last Admin: 04/14/20 08:45 Dose: 2.5 mg Documented by: Isosorbide Mononitrate [ Isosorbide Mononitrate] 10mg Own Med 5 mg PO BEDTIME [facility] Last Admin: 04/13/20 20:40 Dose: 5 mg Documented by: Isosorbide Mononitrate [ Isosorbide Mononitrate] 10mg Own Med 10 mg PO DAILY [facility] Last Admin: 04/14/20 08:47 Dose: 10 mg Documented by: Ranolazine [Ranexa] 1,000mg Own Med * * 1,000 mg PO BID [facility] Last Admin: 04/14/20 08:48 Dose: 1,000 mg Documented by: Sacubitril/Valsartan [Entresto] 97mg- 103mg Own Med 1 each PO BID [facility] Last Admin: 04/14/20 08:48 Dose: 1 each Documented by: Omeprazole (Omeprazole) 20 mg PO ACBREAKFAST [facility] Last Admin: 04/14/20 06:32 Dose: 20 mg Documented by: Polyethylene Glycol (Miralax) 17 gm PO DAILY PRN PRN Reason: Constipation Last Admin: 04/12/20 10:27 Dose: 17 gm Documented by: Senna/Docusate Sodium (Senna Plus) 1 tab PO BEDTIME PRN PRN Reason: Constipation Last Admin: 04/12/20 21:21 Dose: 1 tab Documented by: Simethicone (Simethicone) 80 mg PO Q6H PRN PRN Reason: Gas Last Admin: 04/13/20 21:47 Dose: 80 mg Documented by: Sodium Bicarbonate (Sodium Bicarbonate) 650 mg PO TID [facility] Last Admin: 04/14/20 08:40 Dose: 650 mg Documented by: Sodium Chloride (Saline Flush) 10 ml FLUSH Q8HR PRN PRN Reason: keep vein open Last Admin: 04/12/20 21:21 Dose: 10 ml Documented by: Discontinued Medications Furosemide (Lasix) 40 mg IVPUSH NOW ONE Stop: 04/09/20 18:21 Last Admin: 04/09/20 18:31 Dose: 40 mg Documented by: Furosemide (Lasix) 40 mg IVPUSH NOW ONE Stop: 04/10/20 11:52 Last Admin: 04/10/20 12:28 Dose: 40 mg Documented by: Remdesivir 200 mg/ Sodium (Chloride) 290 mls @ 290 mls/hr IV ONETIME ONE Stop: 04/10/20 11:37 Last Admin: 04/10/20 12:38 Dose: 290 mls/hr Documented by: Magnesium Oxide (Magnesium Oxide) 500 mg PO BID [facility] Stop: 04/13/20 09:01 Last Admin: 04/13/20 08:08 Dose: 500 mg Documented by: - Exam Physical Findings Comments:: GENERAL: Well-appearing elderly white male sitting on edge of bed in no acute distress. HEENT: Normocephalic, atraumatic. Conjunctiva clear. Nares patent without discharge. Mucous membranes moist. NECK: Supple, no masses. CV: Irregularly irregular, no murmurs, rubs, or gallops. 2+ radial pulses. PULMONARY: Normal effort, faint crackles in bases, no wheezes or rhonchi. ABDOMEN: Positive bowel sounds, soft, nontender, nondistended. EXTREMITIES: 1+ edema of bilateral ankles, no cyanosis or clubbing. MUSCULOSKELETAL: Moves all extremities well. NEUROLOGICAL: No obvious deficits. DERMATOLOGIC: No rashes or suspicious lesions in exposed areas. PSYCHIATRIC: Alert, interactive, appropriate affect.
[2020-04-14] MEDS ORDERED: Epoetin Alfa 40,000 Units/1 ML SDV SUBCUT SCH (11:30)
[2020-04-14] MEDS: Sodium Chloride 0.9% 100 ML IV SCH (12:47)
== END 2020-04-14 14:50 | disposition home or self-care (01) | DRG 177 ==
LOC: KA.ED 16:55 → KA.MS 18:44
PROVIDERS: ADMIT Family Medicine; ATTEND Nurse Practitioner Family
PROC: XW033E5 Introduction of Remdesivir Anti-infective into Peripheral Vein, Percutaneous Approach, New Technology Group 5 (ICD-10-PCS; principal; 2020-04-09)
PROC: XW033F5 Introduction of Other New Technology Therapeutic Substance into Peripheral Vein, Percutaneous Approach, New Technology Group 5 (ICD-10-PCS; 2020-04-09)
PROC: 8E0ZXY6 Isolation (ICD-10-PCS; 2020-04-09)
DX: U07.1 COVID-19 (principal); R53.1 Weakness; R79.89 Other specified abnormal findings of blood chemistry; I50.23 Acute on chronic systolic (congestive) heart failure; Z85.46 Personal history of malignant neoplasm of prostate; I50.9 Heart failure, unspecified; H91.90 Unspecified hearing loss, unspecified ear; H54.7 Unspecified visual loss; I48.91 Unspecified atrial fibrillation; I13.0 Hypertensive heart and chronic kidney disease with heart failure and stage 1 through stage 4 chronic kidney disease, or unspecified chronic kidney disease; E78.00 Pure hypercholesterolemia, unspecified; C79.51 Secondary malignant neoplasm of bone; G47.30 Sleep apnea, unspecified; K59.09 Other constipation; N40.0 Benign prostatic hyperplasia without lower urinary tract symptoms; Z87.442 Personal history of urinary calculi; Z95.5 Presence of coronary angioplasty implant and graft; E11.21 Type 2 diabetes mellitus with diabetic nephropathy; E11.40 Type 2 diabetes mellitus with diabetic neuropathy, unspecified; M19.90 Unspecified osteoarthritis, unspecified site; D64.9 Anemia, unspecified; Z88.8 Allergy status to other drugs, medicaments and biological substances; I48.20 Chronic atrial fibrillation, unspecified; Z79.82 Long term (current) use of aspirin; Z79.899 Other long term (current) drug therapy; N18.30 Chronic kidney disease, stage 3 unspecified; E11.22 Type 2 diabetes mellitus with diabetic chronic kidney disease; Z79.4 Long term (current) use of insulin; I25.2 Old myocardial infarction; Z95.1 Presence of aortocoronary bypass graft; I25.10 Atherosclerotic heart disease of native coronary artery without angina pectoris; E78.5 Hyperlipidemia, unspecified; E53.8 Deficiency of other specified B group vitamins; G47.33 Obstructive sleep apnea (adult) (pediatric); K21.9 Gastro-esophageal reflux disease without esophagitis; Z79.01 Long term (current) use of anticoagulants; Z66 Do not resuscitate; E66.9 Obesity, unspecified; Z68.39 Body mass index [BMI] 39.0-39.9, adult
CPT/HCPCS: 71045; 80053; 82550; 82553; 83605; 83735; 83880; 84484; 85025; 85379; 86140; 93005; 96374; 99285; J1940; U0002; 36415; 51702; 82728; 83615; 84145; 85610; 85730; 87040; 97161-GP; 99284; A9270-GY; J0885; J7050; J8540

== ENCOUNTER 2020-06-02 14:36 | Inpatient (IN) | payer MEDICARE, OTHER ==
[2020-06-02] MEDS ORDERED: Furosemide 40 MG/4 ML VIAL IVPUSH ONE (15:11)
[2020-06-02] MEDS: Sodium Chloride 0.9% 10 ML Syringe FLUSH PRN (15:53)
[2020-06-02] MEDS ORDERED: Polyethylene Glycol 3350 Powder 17 GM Packet PO PRN (16:48)
[2020-06-02] MEDS ORDERED: Acetaminophen 500 MG Tab PO PRN (16:48)
[2020-06-02] MEDS ORDERED: Albuterol 8 GM Inhaler INH PRN (17:38)
[2020-06-02] MEDS: Metolazone 2.5 MG Tab PO SCH (17:59)
[2020-06-02] MEDS: Melatonin 3 MG Tab PO SCH (20:57)
[2020-06-02] MEDS: VALSARTAN PO SCH (20:58)
[2020-06-02] MEDS: SACUBITRIL PO SCH (20:58)
[2020-06-02] MEDS ORDERED: ISOSORBIDE MONONITRATE 10 MG PO SCH (21:00)
[2020-06-02] MEDS ORDERED: Non-Formulary Medication 1 Each (Apixaban [Eliquis] 2.5 MG) PO SCH (21:00)
[2020-06-02] MEDS ORDERED: SODIUM BICARBONATE 650 MG PO SCH (21:00)
[2020-06-03] MEDS: Omeprazole 20 MG Cap.CR PO SCH (07:42)
[2020-06-03] MEDS: VALSARTAN PO SCH ×2 (08:47→20:59)
[2020-06-03] MEDS: SACUBITRIL PO SCH ×2 (08:47→20:59)
[2020-06-03] MEDS: Magnesium Oxide 500 MG Tab PO SCH (08:49)
[2020-06-03] MEDS: Aspirin 81 MG Tab.Chew PO SCH (08:49)
[2020-06-03] MEDS: atorvaSTATin 40 MG Tab PO SCH (08:49)
[2020-06-03] MEDS: Cholecalciferol (Vitamin D3) 25 MCG Tab PO SCH (08:49)
[2020-06-03] MEDS: Cyanocobalamin (Vitamin B12) 500 MCG Tab PO SCH (08:49)
[2020-06-03] MEDS: Calcium Citrate/Vitamin D3 315 MG-250 Unit Tab PO SCH (08:49)
[2020-06-03] MEDS: Folic Acid 1 MG Tab PO SCH (08:49)
[2020-06-03] MEDS: Allopurinol 100 MG Tab PO SCH (08:49)
[2020-06-03] MEDS ORDERED: ISOSORBIDE MONONITRATE 10 MG PO SCH (09:00)
[2020-06-03] MEDS: ISOSORBIDE MONONITRATE 10 MG PO SCH ×2 (09:06→20:58)
[2020-06-03] MEDS: ELIQUIS 2.5 MG PO SCH ×2 (09:06→20:56)
--- NOTE | 2020-06-03 09:55 | PCM.PN ---
- General Info Date of Service: 06/03/20 Functional Status: Reports: Pain Controlled, Tolerating Diet, Urinating. Denies: Ambulating, New Symptoms - Review of Systems General: Reports: Weakness, Fatigue. Denies: Chills, Night Sweats HEENT: Reports: Headaches (right sided post auricle headache). Denies: Rhinitis, Visual Changes Pulmonary: Reports: Shortness of Breath. Denies: Cough, Sputum, Hemoptysis, Wheezing Cardiovascular: Reports: Dyspnea on Exertion, Orthopnea, PND. Denies: Chest Pain Gastrointestinal: Reports: No Symptoms Genitourinary: Reports: No Symptoms Musculoskeletal: Reports: No Symptoms Skin: Reports: Pallor. Denies: Cyanosis, Jaundice, Dryness, Bruising Neurological: Reports: Difficulty Walking, Weakness, Gait Disturbance. Denies: Confusion, Dizziness, Numbness Psychiatric: Denies: Agitation - Patient Data Vitals - Most Recent: Last Vital Signs Temp 97.6 F 06/03/20 06:45 Pulse 66 06/03/20 06:45 Resp 28 H 06/03/20 06:45 BP 125/51 L 06/03/20 06:45 Pulse Ox 94 L 06/03/20 06:45 Weight - Most Recent: 217 lb I&O - Last 24 Hours: Intake & Output 06/02/20 06/03/20 06/03/20 22:59 06:59 14:59 Intake Total 150 100 Output Total 550 300 Balance -400 -200 Lab Results Last 24 Hours: Laboratory Results - last 24 hr 06/02/20 06/03/20 06/03/20 Range/Units 14:45 07:25 07:25 WBC 6.95 (5.00-10.00) 10^3/uL RBC 3.05 L (4.50-6.00) 10^6/uL Hgb 9.3 L D (13.0-17.0) g/dL Hct 30.1 L (40.0-52.0) % MCV 98.7 H (82.0-92.0) fL MCH 30.5 (27.0-31.0) pg MCHC 30.9 L (32.0-36.0) g/dL RDW 15.6 H (11.5-14.5) % Plt Count 269 D (150-400) 10^3/uL MPV 9.6 (7.4-10.4) fL Immature Gran % (Auto) 0.1 (0.0-5.0) % Neut % (Auto) 73.2 H (50.0-70.0) % Lymph % (Auto) 14.0 L (20.0-40.0) % [place] % (Auto) 9.8 H (2.0-8.0) % Eos % (Auto) 2.6 (1.0-3.0) % Baso % (Auto) 0.3 (0.0-1.0) % Neut # (Auto) 5.09 (2.50-7.00) 10^3/uL Lymph # (Auto) 0.97 L (1.00-4.00) 10^3/uL [place] # (Auto) 0.68 (0.10-0.80) 10^3/uL Eos # (Auto) 0.18 (0.10-0.30) 10^3/uL Baso # (Auto) 0.02 (0.00-0.10) 10^3/uL Immature Gran # (Auto) 0.01 (0.00-0.50) 10^3/uL Sodium 138 (136-145) mmol/L Potassium 4.6 (3.3-5.3) mmol/L Chloride 103 (98-115) mmol/L Carbon Dioxide 26.6 (21.0-32.0) mmol/L Anion Gap 13.0 (5-15) mmol/L BUN 48 H (6-25) mg/dL Creatinine 1.69 H (0.51-1.17) mg/dL Est Cr Clr Drug Dosing 36.99 mL/min Estimated GFR (MDRD) 39 mL/min Glucose 160 H (75 - 99) mg/dL Calcium 8.8 (8.7-10.3) mg/dL SARS CoV-2 RNA Rapid ROSENDO Negative (NEGATIVE) Med Orders - Current: Current Medications Acetaminophen (Tylenol Extra Strength) 1,000 mg PO DAILY PRN PRN Reason: Pain (moderate 4-6) Albuterol (Ventolin Hfa) 0 gm INH Q4H PRN PRN Reason: Shortness of Breath Allopurinol (Zyloprim) 100 mg PO DAILY [facility] Last Admin: 06/03/20 08:49 Dose: 100 mg Documented by: Aspirin (Aspirin) 81 mg PO DAILY [facility] Last Admin: 06/03/20 08:49 Dose: 81 mg Documented by: Atorvastatin Calcium (Lipitor) 40 mg PO DAILY [facility] Last Admin: 06/03/20 08:49 Dose: 40 mg Documented by: Calcium Citrate (Calcium Citrate + D) 1 tab PO DAILY [facility] Last Admin: 06/03/20 08:49 Dose: 1 tab Documented by: Cholecalciferol (Vitamin D3) 25 mcg PO DAILY [facility] Last Admin: 06/03/20 08:49 Dose: 25 mcg Documented by: Cyanocobalamin (Vitamin B12) 1,000 mcg PO DAILY [facility] Last Admin: 06/03/20 08:49 Dose: 1,000 mcg Documented by: Folic Acid (Folic Acid) 1 mg PO DAILY [facility] Last Admin: 06/03/20 08:49 Dose: 1 mg Documented by: Magnesium Oxide (Magnesium Oxide) 500 mg PO DAILY [facility] Last Admin: 06/03/20 08:49 Dose: 500 mg Documented by: Melatonin (Melatonin) 4.5 mg PO BEDTIME [facility] Last Admin: 06/02/20 20:57 Dose: 4.5 mg Documented by: Metolazone (Zaroxolyn) 2.5 mg PO MOTH [facility] Last Admin: 06/02/20 17:59 Dose: 2.5 mg Documented by: Sacubitril/Valsartan [Entresto] 97mg- 103mg Tablet Own Med 1 tab PO BID [facility] Last Admin: 06/03/20 08:47 Dose: 1 tab Documented by: Omeprazole (Omeprazole) 20 mg PO ACBREAKFAST [facility] Last Admin: 06/03/20 07:42 Dose: 20 mg Documented by: Eliquis 2.5 Mg Tab - (Ptom) 1 each PO BID [facility] Last Admin: 06/03/20 09:06 Dose: 1 each Documented by: Isosorbide Mononitrate 10mg Tab - Ptom 1 each PO DAILY@0900 [facility] Last Admin: 06/03/20 09:06 Dose: Not Given Documented by: Isosorbide Mononitrate 10mg - Ptom 0.5 each PO BEDTIME [facility] Polyethylene Glycol (Miralax) 17 gm PO DAILY PRN PRN Reason: Constipation Ranolazine (Ranexa) 1,000 mg PO BID [facility] Last Admin: 12/15/20 08:49 Dose: 1,000 mg Documented by: Sodium Bicarbonate (Sodium Bicarbonate) 650 mg PO TID [facility] Last Admin: 06/03/20 09:05 Dose: 650 mg Documented by: Sodium Chloride (Saline Flush) 10 ml FLUSH Q8HR PRN PRN Reason: keep vein open Last Admin: 06/02/20 15:53 Dose: 10 ml Documented by: Discontinued Medications Furosemide (Lasix) 40 mg IVPUSH NOW ONE Stop: 06/02/20 15:12 Last Admin: 06/02/20 15:51 Dose: 40 mg Documented by: Non-Formulary Medication (Apixaban [Eliquis]) 2.5 mg PO BID [facility] Last Admin: 06/02/20 20:56 Dose: 2.5 mg Documented by: Isosorbide Mononitrate 10mg Tab Own Med 0 each PO BEDTIME [facility] Last Admin: 06/02/20 20:57 Dose: 1 each Documented by: Isosorbide Mononitrate 10mg Tab Own Med 10 each PO DAILY@09 [facility] Last Admin: 06/03/20 08:48 Dose: 10 each Documented by: Non-Formulary Medication (Sodium Bicarbonate [Sodium Bicarbonate]) 650 mg PO TID [facility] Last Admin: 06/02/20 20:58 Dose: Not Given Documented by: - Exam Quality Assessment: Supplemental Oxygen, DVT Prophylaxis General: Alert, Oriented, Mild Distress HEENT: Mucous Membr. Moist/[place] Neck: Supple, JVD Lungs: Clear to Auscultation. No: Normal Respiratory Effort, Decreased Breath Sounds, Crackles, Rales, Rhonchi, Wheezing Cardiovascular: Irregular Rhythm. No: Tachycardia GI/Abdominal Exam: Soft Back Exam: No: CVA Tenderness (L), CVA Tenderness (R) Extremities: Slow Capillary Refill Skin: Moist Neurological: Normal Speech, Normal Tone, Sensation Intact Psy/Mental Status: Alert, Anxious Sepsis Event Note - Evaluation Sepsis Screening Result: No Definite Risk - Focused Exam Vital Signs: Vital Signs Temp Pulse Resp BP Pulse Ox Pulse Ox 06/03/20 06:45 97.6 F 66 28 H 125/51 L 94 L 06/03/20 05:26 95 06/03/20 02:58 97.4 F 63 28 H 131/51 L 95 06/02/20 23:00 98.8 F 72 20 134/87 98 - Problem List Review Problem List Initiated/Reviewed/Updated: Yes - Plan Plan:: History summary 80yr male was admitted into inpatient status due to increased shortness of breath, productive cough, right-sided oracle earache and headache, weight gain signs and symptoms suggestive of worsening CHF. Was evaluated and admitted by Crista Ruiz from a [facility] when he came in via wheelchair and of weakness fatigue shortness of breath and to have worsened over the past 2 to 3 days prior. Patient recent survivor of COVID-19 despite significant comorbidities requiring hospitalization and has been on oxygen since however now increased to 4 L/min. Patient has lost upwards towards 30 pounds since Covid-19 dx, and has not been able to uses CPAP at home due to right ear dysfunction he describes as periodic air moving through it. Home weight unchanged at 221 lbs. Denied fever or increased in edema Notable outpatient diagnostics CXR: PA View: Interval progression of the hazy bilateral opacities when compared to 04/28/2020. Diffuse pulmonary edema, infection or inflammatory change could have a similar appearance, Trace bilateral pleural effusions versus chronic pleural thickening. labs, white count 8.8, creatinine 1.69 BUN 47, BNP >2000 Hospital course 06/03/2020; patient did not sleep well, he is off his home CPAP, 40 mg Lasix was given on admission--diuresed -600 mL-3# loss since admission, remains SOB with PND, 4 L/min oxygen requirement, significant weakness lower extremities, no fever, renal indices unchanged Primary hospital problems --HFrEF; Combined, Entresto 97/103 mg BID, lasix 40 mg BID, metolazone 2.5 mg Mon/Thurs. --Hypoxemia requiring supplemental oxygen, worsening. --Restrictive lung disease/hypoxemia on oxygen, On albuterol HFA prn --CKD stage III, sodium bicarbonate 650 mg TID, allopurinol 100 mg daily. --LAURA, Resp Therapry c/s as patient not using home CPAP --Weakness of BLE --malnutrition, dietary c/s Chronic, stable conditions --Coronary artery disease: Hx CABG/MT 1995. ASA, Ranexa. --Bilateral carotid artery stenosis, aneurysm of left internal iliac artery --Atrial fibrillation, chronic: [id number]; Apixaban for anticoagulation. carvedilol 3.125mg BID for rate control. --Hypertension, stable --Hyperlipidemia, statin atorvastatin --Pulmonary artery hypertension --T2DM: A1c November 6.3%, off insulin. Continue daily BG monitoring. --Hx small left periventricular/parietal lacunar CVA, 10/2018: ASA. Zoladex onhold since --GERD, PPI --Vitamin B12 deficiency Supplement --Overweight; BMI 29; ~30lbs loss since recent Covid Illness --Hx prostate cancer with bone metastasis: Status post Lupron, previously on Zoladex until CVA --MDS/anemia of chronic disease: On weekly Procrit injections per oncology on at [facility] Disposition/overall plan --Patient meets inpatient qualification due to increased shortness of breath and the need for close monitoring, during respiratory status, the need for diuresing --Lasix, IV 40 mg twice daily --Respiratory consultation due to CPAP
[2020-06-03] MEDS: Furosemide 40 MG/4 ML VIAL IVPUSH SCH ×2 (10:30→20:55)
[2020-06-03] MEDS ORDERED: Sodium Chloride 0.65% Nasal Spray 45 ML Bottle NAS PRN (13:50)
[2020-06-03] MEDS: Melatonin 3 MG Tab PO SCH (20:54)
[2020-06-04] MEDS: Omeprazole 20 MG Cap.CR PO SCH (08:13)
[2020-06-04] MEDS: Cyanocobalamin (Vitamin B12) 500 MCG Tab PO SCH (08:14)
[2020-06-04] MEDS: Aspirin 81 MG Tab.Chew PO SCH (08:15)
[2020-06-04] MEDS: Magnesium Oxide 500 MG Tab PO SCH (08:16)
[2020-06-04] MEDS: Furosemide 40 MG/4 ML VIAL IVPUSH SCH (08:17)
[2020-06-04] MEDS: Folic Acid 1 MG Tab PO SCH (08:17)
[2020-06-04] MEDS: atorvaSTATin 40 MG Tab PO SCH (08:17)
[2020-06-04] MEDS: Calcium Citrate/Vitamin D3 315 MG-250 Unit Tab PO SCH (08:17)
[2020-06-04] MEDS: Cholecalciferol (Vitamin D3) 25 MCG Tab PO SCH (08:17)
[2020-06-04] MEDS: Allopurinol 100 MG Tab PO SCH (08:17)
[2020-06-04] MEDS: VALSARTAN PO SCH ×2 (08:21→20:25)
[2020-06-04] MEDS: SACUBITRIL PO SCH ×2 (08:21→20:25)
[2020-06-04] MEDS: ELIQUIS 2.5 MG PO SCH ×2 (08:21→20:27)
[2020-06-04] MEDS: ISOSORBIDE MONONITRATE 10 MG PO SCH ×2 (09:47→20:26)
--- NOTE | 2020-06-04 11:27 | PCM.PN ---
- General Info Date of Service: 06/04/20 Functional Status: Reports: Tolerating Diet, Ambulating (Ambulating in room), Incentive Spirometry. Denies: New Symptoms - Review of Systems General: Reports: Weakness. Denies: Night Sweats HEENT: Reports: No Symptoms Pulmonary: Reports: Shortness of Breath, Other (Less shortness of breath today) Cardiovascular: Reports: Dyspnea on Exertion. Denies: Chest Pain, Edema Gastrointestinal: Denies: Abdominal Pain, Constipation, Decreased Appetite Genitourinary: Denies: Incontinence Musculoskeletal: Denies: Back Pain Skin: Reports: Pallor Neurological: Reports: Difficulty Walking (Needs assistance of 1), Weakness Psychiatric: Denies: Confusion - Patient Data Vitals - Most Recent: Last Vital Signs Temp 97.2 F 06/04/20 10:57 Pulse 74 06/04/20 10:57 Resp 22 H 06/04/20 10:57 BP 129/54 L 06/04/20 10:57 Pulse Ox 94 L 06/04/20 10:57 Weight - Most Recent: 216 lb 14.4 oz I&O - Last 24 Hours: Intake & Output 06/03/20 06/04/20 06/04/20 22:59 06:59 14:59 Intake Total 480 300 Output Total 400 550 Balance 80 -250 Lab Results Last 24 Hours: Laboratory Results - last 24 hr 06/04/20 Range/Units 10:05 POC Glucose 200 H (74-100) mg/dL Med Orders - Current: Current Medications Acetaminophen (Tylenol Extra Strength) 1,000 mg PO DAILY PRN PRN Reason: Pain (moderate 4-6) Last Admin: 06/03/20 19:28 Dose: 1,000 mg Documented by: Albuterol (Ventolin Hfa) 0 gm INH Q4H PRN PRN Reason: Shortness of Breath Allopurinol (Zyloprim) 100 mg PO DAILY [facility] Last Admin: 06/04/20 08:17 Dose: 100 mg Documented by: Aspirin (Aspirin) 81 mg PO DAILY [facility] Last Admin: 06/04/20 08:15 Dose: 81 mg Documented by: Atorvastatin Calcium (Lipitor) 40 mg PO DAILY [facility] Last Admin: 06/04/20 08:17 Dose: 40 mg Documented by: Calcium Citrate (Calcium Citrate + D) 1 tab PO DAILY [facility] Last Admin: 06/04/20 08:17 Dose: 1 tab Documented by: Cholecalciferol (Vitamin D3) 25 mcg PO DAILY [facility] Last Admin: 06/04/20 08:17 Dose: 25 mcg Documented by: Cyanocobalamin (Vitamin B12) 1,000 mcg PO DAILY [facility] Last Admin: 06/04/20 08:14 Dose: 1,000 mcg Documented by: Folic Acid (Folic Acid) 1 mg PO DAILY [facility] Last Admin: 06/04/20 08:17 Dose: 1 mg Documented by: Furosemide (Lasix) 40 mg IVPUSH BID [facility] Last Admin: 06/04/20 08:17 Dose: 40 mg Documented by: Magnesium Oxide (Magnesium Oxide) 500 mg PO DAILY [facility] Last Admin: 06/04/20 08:16 Dose: 500 mg Documented by: Melatonin (Melatonin) 4.5 mg PO BEDTIME [facility] Last Admin: 06/03/20 20:54 Dose: 4.5 mg Documented by: Metolazone (Zaroxolyn) 2.5 mg PO MOTH [facility] Last Admin: 06/02/20 17:59 Dose: 2.5 mg Documented by: Sacubitril/Valsartan [Entresto] 97mg- 103mg Tablet Own Med 1 tab PO BID [facility] Last Admin: 06/04/20 08:21 Dose: 1 tab Documented by: Omeprazole (Omeprazole) 20 mg PO ACBREAKFAST [facility] Last Admin: 06/04/20 08:13 Dose: 20 mg Documented by: Eliquis 2.5 Mg Tab - (Ptom) 1 each PO BID [facility] Last Admin: 06/04/20 08:21 Dose: 1 each Documented by: Isosorbide Mononitrate 10mg Tab - Ptom 1 each PO DAILY@0900 [facility] Last Admin: 06/04/20 09:47 Dose: 1 each Documented by: Isosorbide Mononitrate 10mg - Ptom 0.5 each PO BEDTIME [facility] Last Admin: 06/03/20 20:58 Dose: 0.5 each Documented by: Polyethylene Glycol (Miralax) 17 gm PO DAILY PRN PRN Reason: Constipation Ranolazine (Ranexa) 1,000 mg PO BID [facility] Last Admin: 06/04/20 09:59 Dose: 1,000 mg Documented by: Sodium Bicarbonate (Sodium Bicarbonate) 650 mg PO TID [facility] Last Admin: 12/16/20 08:14 Dose: 650 mg Documented by: Sodium Chloride (Saline Flush) 10 ml FLUSH Q8HR PRN PRN Reason: keep vein open Last Admin: 06/02/20 15:53 Dose: 10 ml Documented by: Sodium Chloride ([place] Nasal [place]) 1 ml [place] QID PRN PRN Reason: Other Last Admin: 06/03/20 14:19 Dose: 1 spray Documented by: Discontinued Medications Furosemide (Lasix) 40 mg IVPUSH NOW ONE Stop: 06/02/20 15:12 Last Admin: 06/02/20 15:51 Dose: 40 mg Documented by: Non-Formulary Medication (Apixaban [Eliquis]) 2.5 mg PO BID [facility] Last Admin: 06/02/20 20:56 Dose: 2.5 mg Documented by: Isosorbide Mononitrate 10mg Tab Own Med 0 each PO BEDTIME [facility] Last Admin: 06/02/20 20:57 Dose: 1 each Documented by: Isosorbide Mononitrate 10mg Tab Own Med 10 each PO DAILY@09 [facility] Last Admin: 06/03/20 08:48 Dose: 10 each Documented by: Non-Formulary Medication (Sodium Bicarbonate [Sodium Bicarbonate]) 650 mg PO TID [facility] Last Admin: 06/02/20 20:58 Dose: Not Given Documented by: - Exam Quality Assessment: Supplemental Oxygen General: Alert, Oriented, Cooperative, No Acute Distress Neck: JVD Lungs: Clear to Auscultation. No: Crackles, Rales, Rhonchi Cardiovascular: Regular Rate, Regular Rhythm GI/Abdominal Exam: Normal Bowel Sounds, Soft, Non-Tender Back Exam: No: CVA Tenderness (L), CVA Tenderness (R) Extremities: No Pedal Edema, Normal Capillary Refill Neurological: Normal Speech, Normal Tone, Sensation Intact Psy/Mental Status: Alert, Normal Affect, Normal Mood Sepsis Event Note - Evaluation Sepsis Screening Result: No Definite Risk - Focused Exam Vital Signs: Vital Signs Temp Pulse Resp BP Pulse Ox 06/04/20 10:57 97.2 F 74 22 H 129/54 L 94 L 06/04/20 06:27 97.4 F 75 18 120/51 L 94 L 06/04/20 03:00 97.6 F 77 22 H 100/52 L 90 L - Problem List Review Problem List Initiated/Reviewed/Updated: Yes - My Orders Last 24 Hours: My Active Orders 06/04/20 09:23 PT Evaluation and Treatment [CONS] Routine - Plan Plan:: History summary 80yr male was admitted into inpatient status due to increased shortness of breath, productive cough, right-sided oracle earache and headache, weight gain signs and symptoms suggestive of worsening CHF. Was evaluated and admitted by Crista Ruiz from a [facility] when he came in via wheelchair and of weakness fatigue shortness of breath and to have worsened over the past 2 to 3 days prior. Patient recent survivor of COVID-19 despite significant comorbidities requiring hospitalization and has been on oxygen since however now increased to 4 L/min. Patient has lost upwards towards 30 pounds since Covid- 19 dx, and has not been able to uses CPAP at home due to right ear dysfunction he describes as periodic air moving through it. Home weight unchanged at 221 lbs. Denied fever or increased in edema Notable outpatient diagnostics CXR: PA View: Interval progression of the hazy bilateral opacities when compared to 04/28/2020. Diffuse pulmonary edema, infection or inflammatory change could have a similar appearance, Trace bilateral pleural effusions versus chronic pleural thickening. labs, white count 8.8, creatinine 1.69 BUN 47, BNP >2000 Hospital course 06/03/2020; patient did not sleep well, he is off his home CPAP, 40 mg Lasix was given on admission--diuresed -600 mL-3# loss since admission, remains SOB with PND, 4 L/min oxygen requirement, significant weakness lower extremities, no fever, renal indices unchanged 06/04/2020; no overnight concerns, afebrile, less shortness of breath with improved respiratory rate, still requiring 3 L of oxygen since post Covid. 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 --Hypoxemia requiring supplemental oxygen, --Restrictive lung disease/hypoxemia on oxygen, On albuterol HFA prn --CKD stage III, sodium bicarbonate 650 mg TID, allopurinol 100 mg daily. --LAURA, Resp Therapry c/s as patient not using home CPAP --Weakness of BLE --malnutrition, dietary c/s Chronic, stable conditions --Coronary artery disease: Hx CABG/ND 1995. ASA, Ranexa. --Bilateral carotid artery stenosis, aneurysm of left internal iliac artery --Atrial fibrillation, chronic: [id number]; Apixaban for anticoagulation. carvedilol 3.125mg BID for rate control. --Hypertension, stable --Hyperlipidemia, statin atorvastatin --Pulmonary artery hypertension --T2DM: A1c November 6.3%, off insulin. Continue daily BG monitoring. --Hx small left periventricular/parietal lacunar CVA, 10/2018: ASA. Zoladex onhold since --GERD, PPI --Vitamin B12 deficiency Supplement --Overweight; BMI 29; ~30lbs loss since recent Covid Illness --Hx prostate cancer with bone metastasis: Status post Lupron, previously on Zoladex until CVA --MDS/anemia of chronic disease: On weekly Procrit injections per oncology on at [facility] Disposition/overall plan --Patient meets inpatient qualification due to increased shortness of breath (although improving) the need for diuresing --Respiratory consultation due to CPAP --Reduce Lasix, --Anticipate discharge back to home health 24-48 hours
[2020-06-04 12:37] LABS: ANION GAP 17.7 mmol/L (5-15)
[2020-06-04] MEDS: Melatonin 3 MG Tab PO SCH (20:26)
[2020-06-05] MEDS: Omeprazole 20 MG Cap.CR PO SCH (08:11)
[2020-06-05] MEDS: Folic Acid 1 MG Tab PO SCH (08:12)
[2020-06-05] MEDS: Cholecalciferol (Vitamin D3) 25 MCG Tab PO SCH (08:12)
[2020-06-05] MEDS: Magnesium Oxide 500 MG Tab PO SCH (08:12)
[2020-06-05] MEDS: Cyanocobalamin (Vitamin B12) 500 MCG Tab PO SCH (08:13)
[2020-06-05] MEDS: Allopurinol 100 MG Tab PO SCH (08:13)
[2020-06-05] MEDS: Aspirin 81 MG Tab.Chew PO SCH (08:14)
[2020-06-05] MEDS: Calcium Citrate/Vitamin D3 315 MG-250 Unit Tab PO SCH (08:14)
[2020-06-05] MEDS: atorvaSTATin 40 MG Tab PO SCH (08:14)
[2020-06-05] MEDS: VALSARTAN PO SCH ×2 (08:16→20:19)
[2020-06-05] MEDS: SACUBITRIL PO SCH ×2 (08:16→20:19)
[2020-06-05] MEDS: ISOSORBIDE MONONITRATE 10 MG PO SCH ×2 (08:16→20:19)
[2020-06-05] MEDS: ELIQUIS 2.5 MG PO SCH ×2 (08:17→20:19)
[2020-06-05] MEDS ORDERED: Furosemide 40 MG/4 ML VIAL IVPUSH ONE (09:53)
[2020-06-05] MEDS ORDERED: Epoetin Alfa 40,000 Units/1 ML SDV SUBCUT SCH (10:00)
--- NOTE | 2020-06-05 10:00 | CR ---
[id number] RAD/RAD Chest PA or AP 1V EXAM: FRONTAL CHEST INDICATION: SHORTNESS OF BREATH. COMPARISON: April 11, 2020. DISCUSSION: Stable cardiomegaly. Moderate bilateral central predominant airspace opacities, edema versus infiltrates. Stable mild to moderate elevation right hemidiaphragm. Sternotomy IMPRESSION: 1. There are increased moderate bilateral airspace edema and/or infiltrates. Shlomo Carpenter MD 06/05/20 0959 Thank you for allowing us to participate in the care of your patient.
[2020-06-05 10:22] LABS: ANION GAP 12.6 mmol/L (5-15)
--- NOTE | 2020-06-05 11:04 | PCM.PN ---
- General Info Date of Service: 06/05/20 Functional Status: Reports: Pain Controlled, Tolerating Diet, Ambulating (SUBRAMANIAN upon ambulation), Incentive Spirometry - Review of Systems General: Reports: Weakness Pulmonary: Reports: Shortness of Breath. Denies: Sputum (Very scant), Wheezing Cardiovascular: Reports: PND Gastrointestinal: Denies: Abdominal Pain, Diarrhea, Nausea Genitourinary: Reports: No Symptoms Musculoskeletal: Reports: No Symptoms Neurological: Reports: No Symptoms, Pre-Existing Deficit, Gait Disturbance. Denies: Confusion Psychiatric: Reports: No Symptoms - Patient Data Vitals - Most Recent: Last Vital Signs Temp 97.7 F 06/05/20 06:40 Pulse 82 06/05/20 06:40 Resp 28 H 06/05/20 06:40 BP 149/60 H 06/05/20 06:40 Pulse Ox 92 L 06/05/20 06:40 Weight - Most Recent: 215 lb 8 oz I&O - Last 24 Hours: Intake & Output 06/04/20 06/05/20 06/05/20 22:59 06:59 14:59 Intake Total 300 100 Output Total 400 300 Balance -100 -200 Lab Results Last 24 Hours: Laboratory Results - last 24 hr 06/04/20 06/05/20 06/05/20 Range/Units 12:10 09:48 09:48 WBC 7.30 (5.00-10.00) 10^3/uL RBC 3.26 L (4.50-6.00) 10^6/uL Hgb 9.7 L (13.0-17.0) g/dL Hct 32.1 L (40.0-52.0) % MCV 98.5 H (82.0-92.0) fL MCH 29.8 (27.0-31.0) pg MCHC 30.2 L (32.0-36.0) g/dL RDW 15.7 H (11.5-14.5) % Plt Count 303 (150-400) 10^3/uL MPV 9.7 (7.4-10.4) fL Immature Gran % (Auto) 0.1 (0.0-5.0) % Neut % (Auto) 76.3 H (50.0-70.0) % Lymph % (Auto) 12.2 L (20.0-40.0) % [place] % (Auto) 9.0 H (2.0-8.0) % Eos % (Auto) 2.3 (1.0-3.0) % Baso % (Auto) 0.1 (0.0-1.0) % Neut # (Auto) 5.56 (2.50-7.00) 10^3/uL Lymph # (Auto) 0.89 L (1.00-4.00) 10^3/uL [place] # (Auto) 0.66 (0.10-0.80) 10^3/uL Eos # (Auto) 0.17 (0.10-0.30) 10^3/uL Baso # (Auto) 0.01 (0.00-0.10) 10^3/uL Immature Gran # (Auto) 0.01 (0.00-0.50) 10^3/uL Sodium 139 136 (136-145) mmol/L Potassium 4.7 4.7 (3.3-5.3) mmol/L Chloride 98 99 (98-115) mmol/L Carbon Dioxide 28.0 29.1 (21.0-32.0) mmol/L Anion Gap 17.7 H 12.6 (5-15) mmol/L BUN 49 H 51 H* (6-25) mg/dL Creatinine 1.67 H 1.62 H (0.51-1.17) mg/dL Est Cr Clr Drug Dosing 37.43 38.59 mL/min Estimated GFR (MDRD) 40 41 mL/min Glucose 163 H 203 H (75 - 99) mg/dL Calcium 9.2 8.9 (8.7-10.3) mg/dL B-Natriuretic Peptide 1290 H (0-100) pg/mL Med Orders - Current: Current Medications Acetaminophen (Tylenol Extra Strength) 1,000 mg PO DAILY PRN PRN Reason: Pain (moderate 4-6) Last Admin: 06/03/20 19:28 Dose: 1,000 mg Documented by: Albuterol (Ventolin Hfa) 0 gm INH Q4H PRN PRN Reason: Shortness of Breath Allopurinol (Zyloprim) 100 mg PO DAILY [facility] Last Admin: 06/05/20 08:13 Dose: 100 mg Documented by: Aspirin (Aspirin) 81 mg PO DAILY [facility] Last Admin: 06/05/20 08:14 Dose: 81 mg Documented by: Atorvastatin Calcium (Lipitor) 40 mg PO DAILY [facility] Last Admin: 06/05/20 08:14 Dose: 40 mg Documented by: Calcium Citrate (Calcium Citrate + D) 1 tab PO DAILY [facility] Last Admin: 06/05/20 08:14 Dose: 1 tab Documented by: Cholecalciferol (Vitamin D3) 25 mcg PO DAILY [facility] Last Admin: 06/05/20 08:12 Dose: 25 mcg Documented by: Cyanocobalamin (Vitamin B12) 1,000 mcg PO DAILY [facility] Last Admin: 06/05/20 08:13 Dose: 1,000 mcg Documented by: Epoetin Ge (Procrit) 40,000 units SUBCUT ONETIME [facility] Last Admin: 06/05/20 10:00 Dose: 40,000 units Documented by: Folic Acid (Folic Acid) 1 mg PO DAILY [facility] Last Admin: 06/05/20 08:12 Dose: 1 mg Documented by: Magnesium Oxide (Magnesium Oxide) 500 mg PO DAILY [facility] Last Admin: 06/05/20 08:12 Dose: 500 mg Documented by: Melatonin (Melatonin) 4.5 mg PO BEDTIME [facility] Last Admin: 06/04/20 20:26 Dose: 4.5 mg Documented by: Metolazone (Zaroxolyn) 2.5 mg PO MOTH [facility] Last Admin: 06/02/20 17:59 Dose: 2.5 mg Documented by: Sacubitril/Valsartan [Entresto] 97mg- 103mg Tablet Own Med 1 tab PO BID [facility] Last Admin: 06/05/20 08:16 Dose: 1 tab Documented by: Omeprazole (Omeprazole) 20 mg PO ACBREAKFAST [facility] Last Admin: 06/05/20 08:11 Dose: 20 mg Documented by: Eliquis 2.5 Mg Tab - (Ptom) 1 each PO BID [facility] Last Admin: 06/05/20 08:17 Dose: 1 each Documented by: Isosorbide Mononitrate 10mg Tab - Ptom 1 each PO DAILY@0900 [facility] Last Admin: 06/05/20 08:16 Dose: 1 each Documented by: Isosorbide Mononitrate 10mg - Ptom 0.5 each PO BEDTIME [facility] Last Admin: 06/04/20 20:26 Dose: 0.5 each Documented by: Polyethylene Glycol (Miralax) 17 gm PO DAILY PRN PRN Reason: Constipation Ranolazine (Ranexa) 1,000 mg PO BID [facility] Last Admin: 06/05/20 09:47 Dose: 1,000 mg Documented by: Sodium Bicarbonate (Sodium Bicarbonate) 650 mg PO TID [facility] Last Admin: 06/05/20 08:12 Dose: 650 mg Documented by: Sodium Chloride (Saline Flush) 10 ml FLUSH Q8HR PRN PRN Reason: keep vein open Last Admin: 06/02/20 15:53 Dose: 10 ml Documented by: Sodium Chloride ([place] Nasal [place]) 1 ml [place] QID PRN PRN Reason: Other Last Admin: 06/03/20 14:19 Dose: 1 spray Documented by: Discontinued Medications Furosemide (Lasix) 40 mg IVPUSH NOW ONE Stop: 06/02/20 15:12 Last Admin: 06/02/20 15:51 Dose: 40 mg Documented by: Furosemide (Lasix) 40 mg IVPUSH BID [facility] Last Admin: 06/04/20 08:17 Dose: 40 mg Documented by: Furosemide (Lasix) 40 mg IVPUSH NOW ONE Stop: 06/05/20 09:54 Non-Formulary Medication (Apixaban [Eliquis]) 2.5 mg PO BID [facility] Last Admin: 06/02/20 20:56 Dose: 2.5 mg Documented by: Isosorbide Mononitrate 10mg Tab Own Med 0 each PO BEDTIME [facility] Last Admin: 06/02/20 20:57 Dose: 1 each Documented by: Isosorbide Mononitrate 10mg Tab Own Med 10 each PO DAILY@09 [facility] Last Admin: 06/03/20 08:48 Dose: 10 each Documented by: Non-Formulary Medication (Sodium Bicarbonate [Sodium Bicarbonate]) 650 mg PO TID [facility] Last Admin: 06/02/20 20:58 Dose: Not Given Documented by: - Exam Quality Assessment: Supplemental Oxygen (Liters per minute) General: Alert, Mild Distress Neck: No JVD Lungs: Crackles Cardiovascular: Regular Rate, Regular Rhythm GI/Abdominal Exam: Soft Back Exam: No: CVA Tenderness (L), CVA Tenderness (R) Extremities: No Pedal Edema Skin: Dry Neurological: Normal Speech, Normal Tone, Sensation Intact. No: Normal Gait Psy/Mental Status: Alert Sepsis Event Note - Evaluation Sepsis Screening Result: No Definite Risk - Focused Exam Vital Signs: Vital Signs Temp Pulse Resp BP Pulse Ox 06/05/20 06:40 97.7 F 82 28 H 149/60 H 92 L 06/05/20 03:00 97.0 F 62 28 H 127/48 L 92 L 06/04/20 23:00 97.5 F 69 24 H 129/52 L 94 L - Problem List Review Problem List Initiated/Reviewed/Updated: Yes - My Orders Last 24 Hours: My Active Orders 06/05/20 10:00 Epoetin Ge [Procrit] 40,000 units SUBCUT ONETIME - Plan Plan:: History summary 80yr male was admitted into inpatient status due to increased shortness of breath, productive cough, right-sided oracle earache and headache, weight gain signs and symptoms suggestive of worsening CHF. [facility] evaluated [facility] and of weakness fatigue shortness of breath and to have worsened over the past 2 to 3 days prior. Patient recent survivor of COVID-19 despite significant comorbidities requiring hospitalization and has been on oxygen since however now increased to 4 L/min. Patient has lost upwards towards 30 pounds since Covid- 19 dx, and has not been able to uses CPAP at home due to right ear dysfunction he describes as periodic air moving through it. Home weight unchanged at 221 lbs. Denied fever or increased in edema Notable outpatient diagnostics CXR: PA View: Interval progression of the hazy bilateral opacities when compared to 04/28/2020. Diffuse pulmonary edema, infection or inflammatory change could have a similar appearance, Trace bilateral pleural effusions versus chronic pleural thickening. labs, white count 8.8, creatinine 1.69 BUN 47, BNP >2000 Hospital course 06/03/2020; patient did not sleep well, he is off his home CPAP, 40 mg Lasix was given on admission--diuresed -600 mL-3# loss since admission, remains SOB with PND, 4 L/min oxygen requirement, significant weakness lower extremities, no fever, renal indices unchanged 06/04/2020; no overnight concerns, afebrile, less shortness of breath with improved respiratory rate, still requiring 3 L of oxygen since post Covid. 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 BNP decreased to 1290 (from 2190), P chest x-ray demonstrates increased moderate bilateral airspace edema, neck some cardiorenal syndrome with an elevated BUN of 51 Primary hospital problems --HFrEF; Combined, Entresto 97/103 mg BID, reduce lasix, metolazone 2.5 mg Tue/. --Hypoxemia requiring supplemental oxygen, --Restrictive lung disease/hypoxemia on oxygen, On albuterol HFA prn --CKD stage III, sodium bicarbonate 650 mg TID, allopurinol 100 mg daily. --LAURA, Resp Therapry c/s as patient not using home CPAP --Weakness of BLE --malnutrition, dietary c/s Chronic, stable conditions --Coronary artery disease: Hx CABG/AL 1995. ASA, Ranexa. --Bilateral carotid artery stenosis, aneurysm of left internal iliac artery --Atrial fibrillation, chronic: [id number]; Apixaban for anticoagulation. carvedilol 3.125mg BID for rate control. --Hypertension, stable --Hyperlipidemia, statin atorvastatin --Pulmonary artery hypertension --T2DM: A1c November 6.3%, off insulin. Continue daily BG monitoring. --Hx small left periventricular/parietal lacunar CVA, 10/2018: ASA. Zoladex onhold since --GERD, PPI --Vitamin B12 deficiency Supplement --Overweight; BMI 29; ~30lbs loss since recent Covid Illness --Hx prostate cancer with bone metastasis: Status post Lupron, previously on Zoladex until CVA --MDS/anemia of chronic disease: On weekly Procrit injections per oncology on at [facility] Disposition/overall plan --Patient meets inpatient qualification due to increased shortness of breath mainly on ambulation, the need for diuresing --Respiratory consultation due to CPAP --Fluid restriction to 1000 cc per 24 hours --Acapella device today --Only 1x lasix today, encourage Oral PO --Anticipate discharge back to home health 24-48 hours
[2020-06-05] MEDS: Sodium Chloride 0.9% 10 ML Syringe FLUSH PRN (11:11)
[2020-06-05] MEDS: Metolazone 2.5 MG Tab PO SCH (16:53)
[2020-06-05] MEDS: Melatonin 3 MG Tab PO SCH (20:18)
[2020-06-06 07:05] VITALS: BP 158/71; PULSE 78
[2020-06-06] MEDS: Omeprazole 20 MG Cap.CR PO SCH (07:56)
[2020-06-06] MEDS: Calcium Citrate/Vitamin D3 315 MG-250 Unit Tab PO SCH (08:53)
[2020-06-06] MEDS: Allopurinol 100 MG Tab PO SCH (08:53)
[2020-06-06] MEDS: atorvaSTATin 40 MG Tab PO SCH (08:53)
[2020-06-06] MEDS: Aspirin 81 MG Tab.Chew PO SCH (08:53)
[2020-06-06] MEDS: Folic Acid 1 MG Tab PO SCH (08:53)
[2020-06-06] MEDS: Magnesium Oxide 500 MG Tab PO SCH (08:53)
[2020-06-06] MEDS: Cyanocobalamin (Vitamin B12) 500 MCG Tab PO SCH (08:53)
[2020-06-06] MEDS: Cholecalciferol (Vitamin D3) 25 MCG Tab PO SCH (08:53)
[2020-06-06] MEDS: ELIQUIS 2.5 MG PO SCH (08:55)
[2020-06-06] MEDS: ISOSORBIDE MONONITRATE 10 MG PO SCH (08:56)
[2020-06-06] MEDS: SACUBITRIL PO SCH (08:56)
[2020-06-06] MEDS: VALSARTAN PO SCH (08:56)
--- NOTE | 2020-06-06 09:30 | PCM.DCSUM1 ---
Discharge Summary - Hospital Course Diagnosis: Stroke: No - Discharge Data Discharge Date: 06/06/20 Discharge Disposition: Home, Self-Care 01 Condition: Good - Referral to Home Health Primary Care Physician: Crista Ruiz NP - Patient Summary/Data Consults: Consultations 06/04/20 09:23 PT Evaluation and Treatment [CONS] Routine - Patient Instructions Diet: Heart Healthy Diet, Usual Diet as Tolerated Activity: As Tolerated, Cough & Deep Breathe, Rest and Relax Today Driving: Do Not Drive Showering/Bathing: May Shower Notify Provider of: Fever Other/Special Instructions: report any worsening shortness of breath - Discharge Plan *PRESCRIPTION DRUG MONITORING PROGRAM REVIEWED*: Not Applicable *COPY OF PRESCRIPTION DRUG MONITORING REPORT IN PATIENT MARISSA: Not Applicable Home Medications: Home Meds Calcium Carbonate/Vitamin D3 [Calcium 600 + Vit D Tablet] 1 each PO DAILY [History] Cyanocobalamin (Vitamin B-12) [Vitamin B-12] 1,000 mcg PO DAILY 01/08/15 [History] allopurinoL [Zyloprim] 100 mg PO DAILY 01/08/15 [History] Folic Acid 800 mcg PO DAILY 12/19/17 [History] Melatonin 5 mg PO BEDTIME 09/18/18 [History] Sennosides [Senokot] 8.6 mg PO BEDTIME PRN 09/18/18 [History] Triamcinolone Acetonide [Triamcinolone Acetonide 0.1% Crm] 1 applic TOP BID PRN 09/18/18 [History] Apixaban [Eliquis] 2.5 mg PO BID 02/06/19 [History] Aspirin 81 mg PO DAILY 02/06/19 [History] Ranolazine [Ranexa] 1,000 mg PO BID 02/07/19 [History] Omeprazole 20 mg PO DAILY #90 tab.rap 02/08/19 [Rx] atorvaSTATin Calcium [Lipitor] 40 mg PO DAILY 04/10/19 [History] Furosemide 40 mg PO DAILY 05/29/19 [History] Fluocinonide [Lidex 0.05% Oint] 1 applic TOP ASDIRECTED PRN 04/09/20 [History] Fluticasone Propionate [Flonase] 1 spray NASBOTH DAILY PRN 04/09/20 [History] Sodium Bicarbonate 650 mg PO TID 04/09/20 [History] polyethylene glycoL 3350 [MiraLAX] 1 pkt PO DAILY PRN 04/09/20 [History] Albuterol Sulfate [Albuterol Sulfate Hfa] 1 - 2 puff IH Q4H PRN 05/01/20 [History] Cholecalciferol (Vitamin D3) [Vitamin D3] 2,000 unit PO DAILY 05/01/20 [History] Sacubitril/Valsartan [Entresto 97 mg-103 mg Tablet] 1 tab PO BID 05/01/20 [History] bisacodyL [Bisacodyl] 5 mg PO BID PRN 05/01/20 [History] metOLazone [Zaroxolyn] 2.5 mg PO MOTH 05/01/20 [History] Acetaminophen [Acetaminophen Extra Strength] 1,000 mg PO DAILY PRN 05/22/20 [History] Aloe Vera/Sodium Chloride [[place] Saline Nasal Gel] 1 applic NASBOTH QID 05/22/20 [History] Isosorbide Mononitrate 5 mg PO BEDTIME 05/22/20 [History] Isosorbide Mononitrate 10 mg PO DAILY@09 05/22/20 [History] Magnesium Oxide 500 mg PO DAILY 05/22/20 [History] Referrals: Crista Ruiz, [employer] [Primary Care Provider] - (Early next week) - Discharge Summary/Plan Comment DC Time >30 min.: Yes Discharge Summary/Plan Comment: Final diagnosis --HFrEF; acute on chronic, Covid sequela, ~40% improvement --Hypoxemia requiring supplemental oxygen --Restrictive lung disease/hypoxemia on oxygen --CKD stage III, --Weakness of BLE, improved --malnutrition, protein Chronic conditions --Coronary artery disease: Hx CABG/TX 1995. ASA, Ranexa. --Bilateral carotid artery stenosis, aneurysm of left internal iliac artery --Atrial fibrillation, chronic: [id number] 8; Apixaban for anticoagulation. carvedilol 3.125mg BID for rate control. --Hypertension, stable --Hyperlipidemia, statin atorvastatin --Pulmonary artery hypertension --T2DM: A1c November 6.3%, off insulin. No hyperglycemia inpatient --Hx small left periventricular/parietal lacunar CVA, 10/2018: ASA. Zoladex onhold since --GERD, PPI --Vitamin B12 deficiency Supplement --Overweight; BMI 29; ~30lbs loss since recent Covid Illness --Hx prostate cancer with bone metastasis: Status post Lupron, previously on Zoladex until CVA --MDS/anemia of chronic disease: On weekly Procrit injections per oncology--was given inpatient at [facility] History summary 80yr male was admitted into inpatient status due to increased shortness of breath, productive cough, right-sided oracle earache and headache, weight gain signs and symptoms suggestive of worsening CHF. Was evaluated and admitted by Crista Ruiz [facility] from a [facility] when he came in via wheelchair and of weakness fatigue shortness of breath and to have worsened over the past 2 to 3 days prior. Patient recent survivor of COVID-19 despite significant comorbidities requiring hospitalization and has been on oxygen since however now increased to 4 L/min. Patient has lost upwards towards 30 pounds since Covid-19 dx, and has not been able to uses CPAP at home due to right ear dysfunction he describes as periodic air moving through it. Home weight unchanged at 221 lbs. Denied fever or increased in edema on admission. Notable outpatient diagnostics --CXR: PA View: Interval progression of the hazy bilateral opacities when compared to 04/28/2020. Diffuse pulmonary edema, infection or inflammatory change could have a similar appearance, Trace bilateral pleural effusions versus chronic pleural thickening. --labs, white count 8.8, creatinine 1.69 BUN 47, BNP >2000 Hospital course 06/03/2020; patient did not sleep well, he is off his home CPAP, 40 mg Lasix was given on admission--diuresed -600 mL-3# loss since admission, remains SOB with PND, 4 L/min oxygen requirement, significant weakness lower extremities, no f ever, renal indices unchanged 06/04/2020; no overnight concerns, afebrile, less shortness of breath with improved respiratory rate, still requiring 3 L of oxygen since post Covid. Can ambulate in room now however 1 public health training assistant, weight down 1 pound total for since admission, no signs of overload or edema clinically as much less JVD, peripheral edema 06/05/2020; continues shortness of breath on any exertion, no peripheral edema however mild crackles this morning, negative output 450 past 24 hours, weight down another pound total 5 since admission. BNP decreased to 1290 (from 2190), P chest x-ray demonstrates increased moderate bilateral airspace edema, neck some cardiorenal syndrome with an elevated BUN of 51 06/06/2020; upon rounds that morning patient was ready for discharge however not optimal regarding his respiratory status. It had improved but when ambulation to the bathroom he did get more short of breath. He had wrinkling in his skin no Rales no JVD no crackles. PT did evaluate patient and the patient was deemed to be good enough for outpatient ongoing physical therapy and senior care health. Acapella device helped with his breathing. Total wt loss ~5# Labs upon discharge Sodium 134, BUN 51, K+ 4.5, creatinine 1.59, (improved from admission), Medication changes/adjustments upon discharge None, continue regular home medications Disposition Patient will be discharged from acute care status at [facility], he will continue with home health PT follow-up appointment with Crista Ruiz nurse practitioner early next week, suggest Hospice referral patient high risk for readmission - General Info Functional Status: Reports: Pain Controlled, Tolerating Diet, Ambulating, Incentive Spirometry - Review of Systems HEENT: Reports: No Symptoms Pulmonary: Reports: Shortness of Breath. Denies: Cough, Sputum, Wheezing Cardiovascular: Reports: Dyspnea on Exertion. Denies: Orthopnea Gastrointestinal: Reports: No Symptoms Genitourinary: Reports: No Symptoms Musculoskeletal: Reports: No Symptoms Skin: Reports: Dryness Neurological: Reports: Difficulty Walking, Gait Disturbance Psychiatric: Reports: No Symptoms - Patient Data Vitals - Most Recent: Last Vital Signs Temp 96.8 F L 06/06/20 07:00 Pulse 78 06/06/20 07:00 Resp 24 H 06/06/20 07:00 BP 158/71 H 06/06/20 07:00 Pulse Ox 91 L 06/06/20 07:00 Weight - Most Recent: 216 lb I&O - Last 24 hours: Intake & Output 06/05/20 06/06/20 06/06/20 22:59 06:59 14:59 Intake Total 400 50 Output Total 450 450 Balance -50 -400 Lab Results - Last 24 hrs: Laboratory Results - last 24 hr 06/05/20 06/05/20 06/06/20 Range/Units 09:48 09:48 08:00 WBC 7.30 (5.00-10.00) 10^3/uL RBC 3.26 L (4.50-6.00) 10^6/uL Hgb 9.7 L (13.0-17.0) g/dL Hct 32.1 L (40.0-52.0) % MCV 98.5 H (82.0-92.0) fL MCH 29.8 (27.0-31.0) pg MCHC 30.2 L (32.0-36.0) g/dL RDW 15.7 H (11.5-14.5) % Plt Count 303 (150-400) 10^3/uL MPV 9.7 (7.4-10.4) fL Immature Gran % (Auto) 0.1 (0.0-5.0) % Neut % (Auto) 76.3 H (50.0-70.0) % Lymph % (Auto) 12.2 L (20.0-40.0) % [place] % (Auto) 9.0 H (2.0-8.0) % Eos % (Auto) 2.3 (1.0-3.0) % Baso % (Auto) 0.1 (0.0-1.0) % Neut # (Auto) 5.56 (2.50-7.00) 10^3/uL Lymph # (Auto) 0.89 L (1.00-4.00) 10^3/uL [place] # (Auto) 0.66 (0.10-0.80) 10^3/uL Eos # (Auto) 0.17 (0.10-0.30) 10^3/uL Baso # (Auto) 0.01 (0.00-0.10) 10^3/uL Immature Gran # (Auto) 0.01 (0.00-0.50) 10^3/uL Sodium 136 134 L (136-145) mmol/L Potassium 4.7 4.5 (3.3-5.3) mmol/L Chloride 99 99 (98-115) mmol/L Carbon Dioxide 29.1 28.5 (21.0-32.0) mmol/L Anion Gap 12.6 11.0 (5-15) mmol/L BUN 51 H* 51 H* (6-25) mg/dL Creatinine 1.62 H 1.59 H (0.51-1.17) mg/dL Est Cr Clr Drug Dosing 38.59 39.32 mL/min Estimated GFR (MDRD) 41 42 mL/min Glucose 203 H 176 H (75 - 99) mg/dL Calcium 8.9 8.7 (8.7-10.3) mg/dL Med Orders - Current: Current Medications Acetaminophen (Tylenol Extra Strength) 1,000 mg PO DAILY PRN PRN Reason: Pain (moderate 4-6) Last Admin: 06/03/20 19:28 Dose: 1,000 mg Documented by: Albuterol (Ventolin Hfa) 0 gm INH Q4H PRN PRN Reason: Shortness of Breath Allopurinol (Zyloprim) 100 mg PO DAILY [facility] Last Admin: 06/06/20 08:53 Dose: 100 mg Documented by: Aspirin (Aspirin) 81 mg PO DAILY [facility] Last Admin: 06/06/20 08:53 Dose: 81 mg Documented by: Atorvastatin Calcium (Lipitor) 40 mg PO DAILY [facility] Last Admin: 06/06/20 08:53 Dose: 40 mg Documented by: Calcium Citrate (Calcium Citrate + D) 1 tab PO DAILY [facility] Last Admin: 06/06/20 08:53 Dose: 1 tab Documented by: Cholecalciferol (Vitamin D3) 25 mcg PO DAILY [facility] Last Admin: 06/06/20 08:53 Dose: 25 mcg Documented by: Cyanocobalamin (Vitamin B12) 1,000 mcg PO DAILY [facility] Last Admin: 06/06/20 08:53 Dose: 1,000 mcg Documented by: Epoetin Ge (Procrit) 40,000 units SUBCUT ONETIME [facility] Last Admin: 06/05/20 10:00 Dose: 40,000 units Documented by: Folic Acid (Folic Acid) 1 mg PO DAILY [facility] Last Admin: 06/06/20 08:53 Dose: 1 mg Documented by: Magnesium Oxide (Magnesium Oxide) 500 mg PO DAILY [facility] Last Admin: 06/06/20 08:53 Dose: 500 mg Documented by: Melatonin (Melatonin) 4.5 mg PO BEDTIME [facility] Last Admin: 06/05/20 20:18 Dose: 4.5 mg Documented by: Metolazone (Zaroxolyn) 2.5 mg PO MOTH [facility] Last Admin: 06/05/20 16:53 Dose: 2.5 mg Documented by: Sacubitril/Valsartan [Entresto] 97mg- 103mg Tablet Own Med 1 tab PO BID [facility] Last Admin: 06/06/20 08:56 Dose: 1 tab Documented by: Omeprazole (Omeprazole) 20 mg PO ACBREAKFAST [facility] Last Admin: 06/06/20 07:56 Dose: 20 mg Documented by: Eliquis 2.5 Mg Tab - (Ptom) 1 each PO BID [facility] Last Admin: 06/06/20 08:55 Dose: 1 each Documented by: Isosorbide Mononitrate 10mg Tab - Ptom 1 each PO DAILY@0900 [facility] Last Admin: 06/06/20 08:56 Dose: 1 each Documented by: Isosorbide Mononitrate 10mg - Ptom 0.5 each PO BEDTIME [facility] Last Admin: 06/05/20 20:19 Dose: 0.5 each Documented by: Polyethylene Glycol (Miralax) 17 gm PO DAILY PRN PRN Reason: Constipation Ranolazine (Ranexa) 1,000 mg PO BID [facility] Last Admin: 06/06/20 08:53 Dose: 1,000 mg Documented by: Sodium Bicarbonate (Sodium Bicarbonate) 650 mg PO TID [facility] Last Admin: 06/06/20 08:53 Dose: 650 mg Documented by: Sodium Chloride (Saline Flush) 10 ml FLUSH Q8HR PRN PRN Reason: keep vein open Last Admin: 06/05/20 11:11 Dose: 10 ml Documented by: Sodium Chloride ([place] Nasal [place]) 1 ml [place] QID PRN PRN Reason: Other Last Admin: 06/03/20 14:19 Dose: 1 spray Documented by: Discontinued Medications Furosemide (Lasix) 40 mg IVPUSH NOW ONE Stop: 06/02/20 15:12 Last Admin: 06/02/20 15:51 Dose: 40 mg Documented by: Furosemide (Lasix) 40 mg IVPUSH BID [facility] Last Admin: 06/04/20 08:17 Dose: 40 mg Documented by: Furosemide (Lasix) 40 mg IVPUSH NOW ONE Stop: 06/05/20 09:54 Last Admin: 06/05/20 11:08 Dose: 40 mg Documented by: Non-Formulary Medication (Apixaban [Eliquis]) 2.5 mg PO BID [facility] Last Admin: 06/02/20 20:56 Dose: 2.5 mg Documented by: Isosorbide Mononitrate 10mg Tab Own Med 0 each PO BEDTIME [facility] Last Admin: 06/02/20 20:57 Dose: 1 each Documented by: Isosorbide Mononitrate 10mg Tab Own Med 10 each PO DAILY@09 [facility] Last Admin: 06/03/20 08:48 Dose: 10 each Documented by: Non-Formulary Medication (Sodium Bicarbonate [Sodium Bicarbonate]) 650 mg PO TID [facility] Last Admin: 06/02/20 20:58 Dose: Not Given Documented by: - Exam Quality Assessment: Reports: Supplemental Oxygen General: Reports: Alert, Oriented, No Acute Distress Neck: Denies: JVD Lungs: Reports: Other (Shortness of breath on ambulation). Denies: Crackles, Rales, Rhonchi, Rub, Wheezing Cardiovascular: Reports: Regular Rhythm, Irregular Rhythm
== END 2020-06-06 10:05 | disposition home or self-care (01) | DRG 291 ==
LOC: UNDOADMIN 14:36 → KA.MS 14:36
PROVIDERS: ADMIT Nurse Practitioner Family; ATTEND Family Medicine
DX: I13.0 Hypertensive heart and chronic kidney disease with heart failure and stage 1 through stage 4 chronic kidney disease, or unspecified chronic kidney disease (principal); I50.23 Acute on chronic systolic (congestive) heart failure; E46 Unspecified protein-calorie malnutrition; I48.20 Chronic atrial fibrillation, unspecified; N18.30 Chronic kidney disease, stage 3 unspecified; I25.10 Atherosclerotic heart disease of native coronary artery without angina pectoris; I25.2 Old myocardial infarction; I65.23 Occlusion and stenosis of bilateral carotid arteries; I72.3 Aneurysm of iliac artery; E78.5 Hyperlipidemia, unspecified; I27.20 Pulmonary hypertension, unspecified; E11.9 Type 2 diabetes mellitus without complications; K21.9 Gastro-esophageal reflux disease without esophagitis; D63.1 Anemia in chronic kidney disease; H83.2X1 Labyrinthine dysfunction, right ear; Z95.1 Presence of aortocoronary bypass graft; Z79.82 Long term (current) use of aspirin; Z79.899 Other long term (current) drug therapy; Z79.01 Long term (current) use of anticoagulants; Z79.4 Long term (current) use of insulin; Z86.73 Personal history of transient ischemic attack (TIA), and cerebral infarction without residual deficits; Z85.46 Personal history of malignant neoplasm of prostate; Z85.830 Personal history of malignant neoplasm of bone; Z99.81 Dependence on supplemental oxygen; Z20.828 Contact with and (suspected) exposure to other viral communicable diseases
CPT/HCPCS: 36415; 71045; 80048; 82962; 83880; 85025; 97161-GP; A9270-GY; J0885; J1940; U0002

== ENCOUNTER 2020-06-27 02:44 | Emergency (ER) | payer MEDICARE, OTHER ==
[2020-06-27 03:29] VITALS: BP 113/49; PULSE 57
--- NOTE | 2020-06-27 03:40 | EDM.PDOC ---
ED HPI GENERAL MEDICAL PROBLEM - General Chief Complaint: General Stated Complaint: syncopal episode Time Seen by Provider: 06/27/20 03:15 Source of Information: Reports: Patient History Limitations: Reports: No Limitations - History of Present Illness INITIAL COMMENTS - FREE TEXT/NARRATIVE: 80 YO WM PRESENTS TO ER AFTER A NEAR SYNCOPAL EPISODE AT HOME TONIGHT. PT REPORTS HE WAS ON HIS WAY BACK TO BED FROM THE BATHROOM WHEN HE BECAME LIGHTHEADED. PT REPORTS HE WAS ABLE TO GET TO THE SIDE OF THE BED AND SAT DOWN, BUT CONTINUED TO FEEL LIGHTHEADED PROMPTING HIM TO LAY DOWN WITHOUT LOSS OF CONSCIOUSNESS. PT REPORTS HE CALLED EMS AND WHEN THEY ARRIVED NOTICED HE HAD A LOW HEART RATE AND LOW BLOOD PRESSURE PROMPTING ER EVALUATION. PT CURRENTLY DENIES ANY SYMPTOMS OF LIGHTHEADEDNESS. PT DENIES ANY CHEST PAIN, SHORTNESS OF BREATH, NO NAUSEA/VOMITING, NO DIAPHORESIS. PT DENIES SYNCOPE AND STATES HE WAS CONSCIOUS THE WHOLE TIME AND NEVER FELL OR HIT HIS HEAD. PT DENIES FEVER/CHILLS OR URI SYMPTOMS RECENTLY OR AT THIS TIME. Onset: Today Location: Reports: Generalized Severity: Mild Improves with: Reports: Rest Worsens with: Reports: None Associated Symptoms: Reports: No Other Symptoms, Syncope - Related Data Allergies Allergy/AdvReac Type Severity Reaction Status Date / Time celecoxib [From Celebrex] Allergy Hives Verified 06/27/20 03:42 degarelix Allergy Rash Verified 06/27/20 03:42 ezetimibe [From Zetia] Allergy Stomach Verified 06/27/20 03:42 Ache nitroglycerin Allergy Bradycardia Verified 06/27/20 03:42 Home Meds: Home Meds Calcium Carbonate/Vitamin D3 [Calcium 600 + Vit D Tablet] 1 each PO DAILY 01/08/15 [History] Cyanocobalamin (Vitamin B-12) [Vitamin B-12] 1,000 mcg PO DAILY 01/08/15 [History] allopurinoL [Zyloprim] 100 mg PO DAILY 01/08/15 [History] Folic Acid 800 mcg PO DAILY 12/19/17 [History] Melatonin 5 mg PO BEDTIME 09/18/18 [History] Sennosides [Senokot] 8.6 mg PO BEDTIME PRN 09/18/18 [History] Triamcinolone Acetonide [Triamcinolone Acetonide 0.1% Crm] 1 applic TOP BID PRN 09/18/18 [History] Apixaban [Eliquis] 2.5 mg PO BID 02/06/19 [History] Aspirin 81 mg PO DAILY 02/06/19 [History] Ranolazine [Ranexa] 1,000 mg PO BID 02/07/19 [History] Omeprazole 20 mg PO DAILY #90 tab.rap. 02/08/19 [Rx] atorvaSTATin Calcium [Lipitor] 40 mg PO DAILY 04/10/19 [History] Furosemide 40 mg PO DAILY 05/29/19 [History] Fluocinonide [Lidex 0.05% Oint] 1 applic TOP DAILY PRN 04/09/20 [History] Fluticasone Propionate [Flonase] 1 spray NASBOTH DAILY PRN 04/09/20 [History] Sodium Bicarbonate 650 mg PO TID 04/09/20 [History] polyethylene glycoL 3350 [MiraLAX] 1 pkt PO DAILY PRN 04/09/20 [History] Albuterol Sulfate [Albuterol Sulfate Hfa] 1 - 2 puff IH Q4H PRN 05/01/20 [History] Cholecalciferol (Vitamin D3) [Vitamin D3] 2,000 unit PO DAILY 05/01/20 [History] Sacubitril/Valsartan [Entresto 97 mg-103 mg Tablet] 1 tab PO BID 05/01/20 [History] bisacodyL [Bisacodyl] 5 mg PO BID PRN 05/01/20 [History] metOLazone [Zaroxolyn] 2.5 mg PO MOWEFR 05/01/20 [History] Acetaminophen [Acetaminophen Extra Strength] 1,000 mg PO DAILY PRN 05/22/20 [History] Aloe Vera/Sodium Chloride [[place] Saline Nasal Gel] 1 applic NASBOTH QID 05/22/20 [History] Isosorbide Mononitrate 10 mg PO BID 05/22/20 [History] Magnesium Oxide 500 mg PO DAILY 05/22/20 [History] Past Medical History HEENT History: Reports: Hard of Hearing, Impaired Vision Other HEENT History: pat. is supposed to have cataract surgery in the right eye Cardiovascular History: Reports: Afib, CAD, High Cholesterol, Hypertension, CT, Stents Respiratory History: Reports: Sleep Apnea, Other (See Below) Other Respiratory History: on oxygen 3l per [place] Gastrointestinal History: Reports: Chronic Constipation Genitourinary History: Reports: BPH, Diabetic Nephropathy, Prostate Disorder, Renal Calculus Musculoskeletal History: Reports: Arthritis, Fracture, Other (See Below) Other Musculoskeletal History: 50 years ago pat. had fx. in the right foot Neurological History: Reports: Neuropathy, Diabetic Psychiatric History: Reports: None Endocrine/Metabolic History: Reports: Diabetes, Type II Hematologic History: Reports: Anemia, Blood Transfusion(s) Immunologic History: Reports: None Oncologic (Cancer) History: Reports: Prostate Dermatologic History: Reports: Other (See Below) Other Dermatologic History: Blister to right foot - Infectious Disease History Infectious Disease History: Reports: Chicken Pox, Measles, Mumps - Past Surgical History Head Surgeries/Procedures: Reports: None HEENT Surgical History: Reports: Cataract Surgery, Tonsillectomy Other HEENT Surgeries/Procedures: Cataract Sx to Rt eye in 2018 Cardiovascular Surgical History: Reports: AAA Repair, Cardiac Ablation, Coronary Artery Bypass Other Cardiovascular Surgeries/Procedures: ablation in 2012, triple bypass in ", AAA repair in 2009 Respiratory Surgical History: Reports: None GI Surgical History: Reports: Colonoscopy, Hernia, Abdominal Other GI Surgeries/Procedures: 2012 Male Surgical History: Reports: Prostate Biopsy, Prostatectomy Endocrine Surgical History: Reports: None Neurological Surgical History: Reports: None Musculoskeletal Surgical History: Reports: Knee Replacement Other Musculoskeletal Surgeries/Procedures:: Bilateral knee replacement Oncologic Surgical History: Reports: Bone Marrow Aspiration Dermatological Surgical History: Reports: None Social & Family History - Family History Family Medical History: No Pertinent Family History Cardiac: Reports: CT, Other (See Below) Other Cardiac Family History: brother had heart problems Respiratory: Reports: Other (See Below) Other Respiratory Family Hisory: pulmonary fibrosis - sister GI: Reports: None : Reports: None OBGYN: Reports: None Musculoskeletal: Reports: None Neurological: Reports: None Psychiatric: Reports: None Endocrine/Metabolic: Reports: None Hematologic: Reports: None Immunologic: Reports: None Oncologic: Reports: Lung, Prostate, Other (See Below) Other Oncologic Family History: sister - lung cancer. father - prostate cancer - Tobacco Use Tobacco Use Status *Q: Never Tobacco User - Caffeine Use Caffeine Use: Reports: Tea - Recreational Drug Use Recreational Drug Use: No ED ROS GENERAL - Review of Systems Review Of Systems: See Below Constitutional: Reports: No Symptoms HEENT: Reports: No Symptoms Respiratory: Reports: No Symptoms Cardiovascular: Reports: Lightheadedness Endocrine: Reports: No Symptoms GI/Abdominal: Reports: No Symptoms : Reports: No Symptoms Musculoskeletal: Reports: No Symptoms Skin: Reports: No Symptoms Neurological: Reports: No Symptoms Psychiatric: Reports: No Symptoms Hematologic/Lymphatic: Reports: No Symptoms Immunologic: Reports: No Symptoms ED EXAM, GENERAL - Physical Exam Exam: See Below Exam Limited By: No Limitations General Appearance: Alert, WD/WN, No Apparent Distress Eye Exam: Bilateral Eye: EOMI, PERRL Head: Atraumatic, Normocephalic Neck: Normal Inspection, Supple, Non-Tender, Full Range of Motion Respiratory/Chest: No Respiratory Distress, Lungs Clear, Normal Breath Sounds, No Accessory Muscle Use, Chest Non-Tender Cardiovascular: Normal Peripheral Pulses, Regular Rate, Rhythm, No Edema, No Gallop, No JVD, No Murmur, No Rub GI/Abdominal: Normal Bowel Sounds, Soft, Non-Tender, No Organomegaly, No Distention, No Abnormal Bruit, No Mass Back Exam: Normal Inspection, Full Range of Motion, NT Extremities: Normal Inspection, Normal Range of Motion, Non-Tender, Normal Capillary Refill, No Pedal Edema Neurological: Alert, Oriented, CN II-XII Intact, Normal Cognition, Normal Gait, Normal Reflexes, No Motor/Sensory Deficits Psychiatric: Normal Affect, Normal Mood Skin Exam: Warm, Dry, Intact, Normal Color, No Rash Lymphatic: No Adenopathy #1 Interpretation EKG Date: 06/27/20 Time: 03:02 Rhythm: NSR Rate (Beats/Min): 55 [place]: Normal P-Wave: Present QRS: Normal ST-T: Normal QT: Normal Comparison: No Change Course - Vital Signs Last Recorded V/S: Last Vital Signs Temp 97.9 F 06/27/20 03:13 Pulse 57 L 06/27/20 03:28 Resp 21 H 06/27/20 03:28 BP 113/49 L 06/27/20 03:28 Pulse Ox 99 06/27/20 03:28 - Orders/Labs/Meds Orders: Active Orders 24 hr Category Date Time Status EKG Documentation Completion [RC] STAT Care 06/27/20 03:23 Active EKG 12 Lead [EK] Stat Ther 06/27/20 03:23 Ordered Labs: Laboratory Tests 06/27/20 06/27/20 06/27/20 Range/Units 03:10 03:10 03:20 WBC 5.05 (5.00-10.00) 10^3/uL RBC 3.48 L (4.50-6.00) 10^6/uL Hgb 10.7 L (13.0-17.0) g/dL Hct 34.6 L (40.0-52.0) % MCV 99.4 H (82.0-92.0) fL MCH 30.7 (27.0-31.0) pg MCHC 30.9 L (32.0-36.0) g/dL RDW 17.1 H (11.5-14.5) % Plt Count 174 D (150-400) 10^3/uL MPV 10.4 (7.4-10.4) fL Immature Gran % (Auto) 0.2 (0.0-5.0) % Neut % (Auto) 56.8 (50.0-70.0) % Lymph % (Auto) 25.9 (20.0-40.0) % [place] % (Auto) 11.7 H (2.0-8.0) % Eos % (Auto) 5.0 H (1.0-3.0) % Baso % (Auto) 0.4 (0.0-1.0) % Neut # (Auto) 2.87 (2.50-7.00) 10^3/uL Lymph # (Auto) 1.31 (1.00-4.00) 10^3/uL [place] # (Auto) 0.59 (0.10-0.80) 10^3/uL Eos # (Auto) 0.25 (0.10-0.30) 10^3/uL Baso # (Auto) 0.02 (0.00-0.10) 10^3/uL Immature Gran # (Auto) 0.01 (0.00-0.50) 10^3/uL PT TNP INR 1.2 H (0.9-1.1) Sodium 135 L (136-145) mmol/L Potassium 4.6 (3.5-5.1) mmol/L Chloride 100 (98-107) mmol/L Carbon Dioxide 31.3 (21.0-32.0) mmol/L Anion Gap 8.3 (5-15) mmol/L BUN 42 H (7-18) mg/dL Creatinine 1.74 H (0.51-1.17) mg/dL Est Cr Clr Drug Dosing 35.93 mL/min Estimated GFR (MDRD) 38 mL/min Glucose 135 (70-140) mg/dL Calcium 8.9 (8.7-10.3) mg/dL Total Bilirubin 0.8 (0.2-1.0) mg/dL AST 16 (15-37) U/L ALT 15 (14-63) U/L Alkaline Phosphatase 73 (46-116) U/L Creatine Kinase 20 L (26-276) U/L CK-MB (CK-2) 1.10 (0.00-3.60) ng/mL Troponin I < 0.017 (0.000-0.056) ng/mL Total Protein 6.5 (6.4-8.2) g/dL Albumin 2.71 L (3.40-5.00) g/dL Departure - Departure Time of Disposition: 03:52 Disposition: Home, Self-Care 01 Condition: Good Clinical Impression: Near syncope - Discharge Information Instructions: Near-Syncope Referrals: Crista Ruiz DISPLAY FABRICATION SUPERVISOR [Nurse Practitioner] - Forms: ED Department Discharge Additional Instructions: 1. DISCHARGE HOME 2. FOLLOW UP WITH PCP FOR FURTHER EVALUATION AND TREATMENT 3. RETURN TO ER FOR WORSENING SYMPTOMS 4. AVOID STANDING UP TOO QUICKLY AND MAKE SURE YOU TAKE DEEP BREATHS WHILE USING THE COMMODE Sepsis Event Note (ED) - Evaluation Sepsis Screening Result: No Definite Risk - Focused Exam Vital Signs: Vital Signs Temp Pulse Resp BP Pulse Ox 06/27/20 03:28 57 L 21 H 113/49 L 99 06/27/20 03:13 97.9 F 60 26 H 117/55 L 96 - My Orders Last 24 Hours: My Active Orders 06/27/20 03:23 EKG Documentation Completion [RC] STAT EKG 12 Lead [EK] Stat - Assessment/Plan Last 24 Hours: My Active Orders 06/27/20 03:23 EKG Documentation Completion [RC] STAT EKG 12 Lead [EK] Stat Assessment:: 1. NEAR SYNCOPAL EPISODE Plan: 1. DISCHARGE HOME 2. FOLLOW UP WITH PCP FOR FURTHER EVALUATION AND TREATMENT 3. RETURN TO ER FOR WORSENING SYMPTOMS 4. AVOID STANDING UP TOO QUICKLY AND MAKE SURE YOU TAKE DEEP BREATHS WHILE USING THE COMMODE
[2020-06-27 03:47] LABS: ANION GAP 8.3 mmol/L (5-15); CHLORIDE,CL 100 mmol/L (98-107); SODIUM,NA 135 mmol/L (136-145)
== END 2020-06-27 04:15 | disposition home or self-care (01) ==
LOC: KA.ED 02:44
DX: R55 Syncope and collapse (principal); I48.91 Unspecified atrial fibrillation; I25.10 Atherosclerotic heart disease of native coronary artery without angina pectoris; E78.00 Pure hypercholesterolemia, unspecified; I25.2 Old myocardial infarction; E11.21 Type 2 diabetes mellitus with diabetic nephropathy; M19.90 Unspecified osteoarthritis, unspecified site; Z95.5 Presence of coronary angioplasty implant and graft; Z88.8 Allergy status to other drugs, medicaments and biological substances; Z88.1 Allergy status to other antibiotic agents; Z79.82 Long term (current) use of aspirin; Z79.01 Long term (current) use of anticoagulants; Z79.899 Other long term (current) drug therapy
CPT/HCPCS: 36415; 80053; 82550; 82553; 84484; 85025; 85610; 93005; 99284; 99284-25

== ENCOUNTER 2020-09-09 16:26 | Inpatient (IN) | payer MEDICARE, OTHER ==
[2020-09-09] MEDS ORDERED: Furosemide 40 MG/4 ML VIAL IVPUSH ONE (16:50)
[2020-09-09 17:35] LABS: ANION GAP 11.4 mmol/L (5-15); CHLORIDE,CL 104 mmol/L (98-107); SODIUM,NA 139 mmol/L (136-145)
--- NOTE | 2020-09-09 17:49 | CR ---
[id number] RAD/RAD Chest PA or AP 1V EXAM: FRONTAL CHEST INDICATION: CHF EXACERBATION. COMPARISON: June 05, 2020. DISCUSSION: Stable cardiomegaly. Mild to moderate pulmonary edema has decreased relative to the previous study. There is stable moderate elevation of the right hemidiaphragm. Stable small pleural effusions are suggested. Sternotomy. IMPRESSION: Mild to moderate congestive heart failure. Shlomo Carpenter MD 09/09/20 [id number] Thank you for allowing us to participate in the care of your patient.
[2020-09-09] MEDS ORDERED: Polyethylene Glycol 3350 Powder 17 GM Packet PO PRN (20:31)
[2020-09-09] MEDS ORDERED: Triamcinolone Acetonide 0.1% Crm 15 GM Tube TOP PRN (20:31)
[2020-09-09] MEDS ORDERED: Albuterol 8 GM Inhaler INH PRN (20:31)
[2020-09-09] MEDS ORDERED: FLUOCINONIDE TOP PRN (20:31)
[2020-09-09] MEDS ORDERED: Fluticasone Propionate Nasal Spray 16 GM Bottle NASBOTH PRN (20:31)
[2020-09-09] MEDS ORDERED: Bisacodyl 5 MG Tab PO PRN (20:31)
[2020-09-09] MEDS ORDERED: Acetaminophen 500 MG Tab PO PRN (20:31)
[2020-09-09] MEDS: Sodium Chloride 0.65% Nasal Spray 45 ML Bottle NASBOTH SCH (21:34)
[2020-09-09] MEDS: Apixaban 5 MG Tab PO SCH (21:37)
[2020-09-10] MEDS: Aspirin 81 MG Tab.Chew PO SCH (08:42)
[2020-09-10] MEDS: Calcium Citrate/Vitamin D3 315 MG-250 Unit Tab PO SCH (08:42)
[2020-09-10] MEDS: Apixaban 5 MG Tab PO SCH ×2 (08:42→20:48)
[2020-09-10] MEDS: Cyanocobalamin (Vitamin B12) 500 MCG Tab PO SCH (08:43)
[2020-09-10] MEDS: Allopurinol 100 MG Tab PO SCH (08:43)
[2020-09-10] MEDS: Magnesium Oxide 500 MG Tab PO SCH (08:44)
[2020-09-10] MEDS: Cholecalciferol (Vitamin D3) 25 MCG Tab PO SCH (08:44)
[2020-09-10] MEDS: atorvaSTATin 40 MG Tab PO SCH (08:44)
[2020-09-10] MEDS: Sodium Chloride 0.65% Nasal Spray 45 ML Bottle NASBOTH SCH ×4 (08:47→20:53)
[2020-09-10] MEDS ORDERED: Omeprazole 20 MG Cap.CR PO SCH (09:00)
--- NOTE | 2020-09-10 09:33 | PCM.PN ---
- General Info Date of Service: 09/10/20 Functional Status: Reports: Pain Controlled, Tolerating Diet. Denies: New Symptoms - Review of Systems General: Reports: No Symptoms HEENT: Reports: No Symptoms Pulmonary: Denies: Shortness of Breath, Sputum Cardiovascular: Denies: Chest Pain, Dyspnea on Exertion, Orthopnea, Edema Gastrointestinal: Reports: No Symptoms Genitourinary: Reports: No Symptoms Skin: Reports: No Symptoms Neurological: Reports: No Symptoms - Patient Data Vitals - Most Recent: Last Vital Signs Temp 97.3 F 09/10/20 06:16 Pulse 65 09/10/20 06:16 Resp 16 09/10/20 06:16 BP 161/75 H 09/10/20 06:16 Pulse Ox 97 09/10/20 06:16 Weight - Most Recent: 236 lb I&O - Last 24 Hours: Intake & Output 09/09/20 09/10/20 09/10/20 22:59 06:59 14:59 Intake Total 300 100 Output Total 650 Balance 300 -550 Lab Results Last 24 Hours: Laboratory Results - last 24 hr 09/09/20 09/09/20 09/09/20 Range/Units 16:43 16:43 16:43 WBC 5.29 (5.00-10.00) 10^3/uL RBC 3.54 L (4.50-6.00) 10^6/uL Hgb 10.8 L (13.0-17.0) g/dL Hct 34.2 L (40.0-52.0) % MCV 96.6 H (82.0-92.0) fL MCH 30.5 (27.0-31.0) pg MCHC 31.6 L (32.0-36.0) g/dL RDW 15.9 H (11.5-14.5) % Plt Count 118 L (150-400) 10^3/uL MPV 11.7 H (7.4-10.4) fL Immature Gran % (Auto) 0.2 (0.0-5.0) % Neut % (Auto) 65.9 (50.0-70.0) % Lymph % (Auto) 20.8 (20.0-40.0) % [place] % (Auto) 8.5 H (2.0-8.0) % Eos % (Auto) 4.2 H (1.0-3.0) % Baso % (Auto) 0.4 (0.0-1.0) % Neut # (Auto) 3.49 (2.50-7.00) 10^3/uL Lymph # (Auto) 1.10 (1.00-4.00) 10^3/uL [place] # (Auto) 0.45 (0.10-0.80) 10^3/uL Eos # (Auto) 0.22 (0.10-0.30) 10^3/uL Baso # (Auto) 0.02 (0.00-0.10) 10^3/uL Immature Gran # (Auto) 0.01 (0.00-0.50) 10^3/uL Sodium 139 (136-145) mmol/L Potassium 5.2 H (3.5-5.1) mmol/L Chloride 104 (98-107) mmol/L Carbon Dioxide 28.8 (21.0-32.0) mmol/L Anion Gap 11.4 (5-15) mmol/L BUN 61 H* (7-18) mg/dL Creatinine 1.85 H (0.51-1.17) mg/dL Est Cr Clr Drug Dosing 29.78 mL/min Estimated GFR (MDRD) 35 mL/min Glucose 148 H (70-140) mg/dL Calcium 8.7 (8.7-10.3) mg/dL Total Bilirubin 0.7 (0.2-1.0) mg/dL AST 11 L (15-37) U/L ALT 14 (14-63) U/L Alkaline Phosphatase 83 (46-116) U/L Troponin I < 0.017 (0.000-0.056) ng/mL B-Natriuretic Peptide 1170 H (0-100) pg/mL Total Protein 6.7 (6.4-8.2) g/dL Albumin 3.29 L (3.40-5.00) g/dL SARS CoV-2 RNA Rapid ROSENDO Negative (NEGATIVE) 09/10/20 Range/Units 07:10 WBC (5.00-10.00) 10^3/uL RBC (4.50-6.00) 10^6/uL Hgb (13.0-17.0) g/dL Hct (40.0-52.0) % MCV (82.0-92.0) fL MCH (27.0-31.0) pg MCHC (32.0-36.0) g/dL RDW (11.5-14.5) % Plt Count (150-400) 10^3/uL MPV (7.4-10.4) fL Immature Gran % (Auto) (0.0-5.0) % Neut % (Auto) (50.0-70.0) % Lymph % (Auto) (20.0-40.0) % [place] % (Auto) (2.0-8.0) % Eos % (Auto) (1.0-3.0) % Baso % (Auto) (0.0-1.0) % Neut # (Auto) (2.50-7.00) 10^3/uL Lymph # (Auto) (1.00-4.00) 10^3/uL [place] # (Auto) (0.10-0.80) 10^3/uL Eos # (Auto) (0.10-0.30) 10^3/uL Baso # (Auto) (0.00-0.10) 10^3/uL Immature Gran # (Auto) (0.00-0.50) 10^3/uL Sodium 140 (136-145) mmol/L Potassium 5.1 (3.5-5.1) mmol/L Chloride 103 (98-107) mmol/L Carbon Dioxide 29.1 (21.0-32.0) mmol/L Anion Gap 13.0 (5-15) mmol/L BUN 61 H* (7-18) mg/dL Creatinine 1.94 H (0.51-1.17) mg/dL Est Cr Clr Drug Dosing 28.40 mL/min Estimated GFR (MDRD) 33 mL/min Glucose 145 H (70-140) mg/dL Calcium 8.9 (8.7-10.3) mg/dL Total Bilirubin (0.2-1.0) mg/dL AST (15-37) U/L ALT (14-63) U/L Alkaline Phosphatase (46-116) U/L Troponin I (0.000-0.056) ng/mL B-Natriuretic Peptide (0-100) pg/mL Total Protein (6.4-8.2) g/dL Albumin (3.40-5.00) g/dL SARS CoV-2 RNA Rapid ROSENDO (NEGATIVE) Med Orders - Current: Current Medications Acetaminophen (Acetaminophen 500 Mg Tab) 1,000 mg PO DAILY PRN PRN Reason: Pain (moderate 4-6) Albuterol (Albuterol 8 Gm Inhaler) 0 gm INH Q4H PRN PRN Reason: Shortness of Breath Allopurinol (Allopurinol 100 Mg Tab) 100 mg PO DAILY [facility] Last Admin: 09/10/20 08:43 Dose: 100 mg Documented by: Apixaban (Apixaban 5 Mg Tab) 2.5 mg PO BID [facility] Last Admin: 09/10/20 08:42 Dose: 2.5 mg Documented by: Aspirin (Aspirin 81 Mg Tab.Chew) 81 mg PO DAILY [facility] Last Admin: 09/10/20 08:42 Dose: 81 mg Documented by: Atorvastatin Calcium (Atorvastatin 40 Mg Tab) 40 mg PO DAILY [facility] Last Admin: 09/10/20 08:44 Dose: 40 mg Documented by: Bisacodyl (Bisacodyl 5 Mg Tab) 5 mg PO BID PRN PRN Reason: Constipation Calcium Citrate (Calcium Citrate/Vitamin D3 315 Mg-250 Unit Tab) 1 tab PO DAILY [facility] Last Admin: 09/10/20 08:42 Dose: 1 tab Documented by: Cholecalciferol (Cholecalciferol (Vitamin D3) 25 Mcg Tab) 50 mcg PO DAILY [facility] Last Admin: 09/10/20 08:44 Dose: 50 mcg Documented by: Cyanocobalamin (Cyanocobalamin (Vitamin B12) 500 Mcg Tab) 1,000 mcg PO DAILY [facility] Last Admin: 09/10/20 08:43 Dose: 1,000 mcg Documented by: Fluticasone Propionate (Fluticasone Propionate Nasal [place] 16 Gm Bottle) 0 gm NASBOTH DAILY PRN PRN Reason: Allergies Magnesium Oxide (Magnesium Oxide 500 Mg Tab) 500 mg PO DAILY [facility] Last Admin: 09/10/20 08:44 Dose: 500 mg Documented by: Melatonin (Melatonin 3 Mg Tab) 6 mg PO BEDTIME KEVAN (Fluocinonide [Lidex 0.05% Oint] 60 Gm Tube) 1 applic TOP DAILY PRN PRN Reason: Itching Omeprazole (Omeprazole 20 Mg Cap.Cr) 20 mg PO DAILY [facility] Last Admin: 09/10/20 08:43 Dose: 20 mg Documented by: Folic Acid 800mcg 1 each PO DAILY [facility] Isosorbide Mononitrate 20 Mg Tab 0.5 each PO BID [facility] Ptom- Entresto 97mg- (103mg) 1 each PO BID [facility] Polyethylene Glycol (Polyethylene Glycol 3350 Powder 17 Gm Packet) 17 gm PO DAILY PRN PRN Reason: Constipation Ranolazine (Ranolazine 1,000 Mg Tab.Er) 1,000 mg PO BID [facility] Last Admin: 09/10/20 08:41 Dose: 1,000 mg Documented by: Senna/Docusate Sodium (Docusate Sodium/Sennosides 50-8.6 Mg Tab) 8.6 tab PO BEDTIME PRN PRN Reason: Constipation Sodium Bicarbonate (Sodium Bicarbonate 325 Mg Tab) 650 mg PO TID [facility] Last Admin: 09/10/20 08:42 Dose: 650 mg Documented by: Sodium Chloride (Sodium Chloride 0.65% Nasal [place] 45 Ml Bottle) 0 ml NASBOTH QID [facility] Last Admin: 09/10/20 08:47 Dose: 1 spray Documented by: Triamcinolone Acetonide (Triamcinolone Acetonide 0.1% Crm 15 Gm Tube) 0 gm TOP BID PRN PRN Reason: Rash Discontinued Medications Furosemide (Furosemide 40 Mg/4 Ml Vial) 40 mg IVPUSH NOW ONE Stop: 09/09/20 16:51 Last Admin: 09/09/20 17:56 Dose: 40 mg Documented by: - Exam Quality Assessment: DVT Prophylaxis. No: Supplemental Oxygen General: Alert, Oriented Neck: Supple, No JVD Lungs: Clear to Auscultation, Normal Respiratory Effort Cardiovascular: Regular Rhythm, Murmurs GI/Abdominal Exam: Normal Bowel Sounds, Soft Back Exam: No: CVA Tenderness (R) Extremities: No Pedal Edema Skin: Warm, Dry, Intact Neurological: No New Focal Deficit Psy/Mental Status: Alert - Patient Data Lab Results Last 24 hrs: Laboratory Results - last 24 hr 09/09/20 09/09/20 09/09/20 Range/Units 16:43 16:43 16:43 WBC 5.29 (5.00-10.00) 10^3/uL RBC 3.54 L (4.50-6.00) 10^6/uL Hgb 10.8 L (13.0-17.0) g/dL Hct 34.2 L (40.0-52.0) % MCV 96.6 H (82.0-92.0) fL MCH 30.5 (27.0-31.0) pg MCHC 31.6 L (32.0-36.0) g/dL RDW 15.9 H (11.5-14.5) % Plt Count 118 L (150-400) 10^3/uL MPV 11.7 H (7.4-10.4) fL Immature Gran % (Auto) 0.2 (0.0-5.0) % Neut % (Auto) 65.9 (50.0-70.0) % Lymph % (Auto) 20.8 (20.0-40.0) % [place] % (Auto) 8.5 H (2.0-8.0) % Eos % (Auto) 4.2 H (1.0-3.0) % Baso % (Auto) 0.4 (0.0-1.0) % Neut # (Auto) 3.49 (2.50-7.00) 10^3/uL Lymph # (Auto) 1.10 (1.00-4.00) 10^3/uL [place] # (Auto) 0.45 (0.10-0.80) 10^3/uL Eos # (Auto) 0.22 (0.10-0.30) 10^3/uL Baso # (Auto) 0.02 (0.00-0.10) 10^3/uL Immature Gran # (Auto) 0.01 (0.00-0.50) 10^3/uL Sodium 139 (136-145) mmol/L Potassium 5.2 H (3.5-5.1) mmol/L Chloride 104 (98-107) mmol/L Carbon Dioxide 28.8 (21.0-32.0) mmol/L Anion Gap 11.4 (5-15) mmol/L BUN 61 H* (7-18) mg/dL Creatinine 1.85 H (0.51-1.17) mg/dL Est Cr Clr Drug Dosing 29.78 mL/min Estimated GFR (MDRD) 35 mL/min Glucose 148 H (70-140) mg/dL Calcium 8.7 (8.7-10.3) mg/dL Total Bilirubin 0.7 (0.2-1.0) mg/dL AST 11 L (15-37) U/L ALT 14 (14-63) U/L Alkaline Phosphatase 83 (46-116) U/L Troponin I < 0.017 (0.000-0.056) ng/mL B-Natriuretic Peptide 1170 H (0-100) pg/mL Total Protein 6.7 (6.4-8.2) g/dL Albumin 3.29 L (3.40-5.00) g/dL SARS CoV-2 RNA Rapid ROSENDO Negative (NEGATIVE) 09/10/20 Range/Units 07:10 WBC (5.00-10.00) 10^3/uL RBC (4.50-6.00) 10^6/uL Hgb (13.0-17.0) g/dL Hct (40.0-52.0) % MCV (82.0-92.0) fL MCH (27.0-31.0) pg MCHC (32.0-36.0) g/dL RDW (11.5-14.5) % Plt Count (150-400) 10^3/uL MPV (7.4-10.4) fL Immature Gran % (Auto) (0.0-5.0) % Neut % (Auto) (50.0-70.0) % Lymph % (Auto) (20.0-40.0) % [place] % (Auto) (2.0-8.0) % Eos % (Auto) (1.0-3.0) % Baso % (Auto) (0.0-1.0) % Neut # (Auto) (2.50-7.00) 10^3/uL Lymph # (Auto) (1.00-4.00) 10^3/uL [place] # (Auto) (0.10-0.80) 10^3/uL Eos # (Auto) (0.10-0.30) 10^3/uL Baso # (Auto) (0.00-0.10) 10^3/uL Immature Gran # (Auto) (0.00-0.50) 10^3/uL Sodium 140 (136-145) mmol/L Potassium 5.1 (3.5-5.1) mmol/L Chloride 103 (98-107) mmol/L Carbon Dioxide 29.1 (21.0-32.0) mmol/L Anion Gap 13.0 (5-15) mmol/L BUN 61 H* (7-18) mg/dL Creatinine 1.94 H (0.51-1.17) mg/dL Est Cr Clr Drug Dosing 28.40 mL/min Estimated GFR (MDRD) 33 mL/min Glucose 145 H (70-140) mg/dL Calcium 8.9 (8.7-10.3) mg/dL Total Bilirubin (0.2-1.0) mg/dL AST (15-37) U/L ALT (14-63) U/L Alkaline Phosphatase (46-116) U/L Troponin I (0.000-0.056) ng/mL B-Natriuretic Peptide (0-100) pg/mL Total Protein (6.4-8.2) g/dL Albumin (3.40-5.00) g/dL SARS CoV-2 RNA Rapid ROSENDO (NEGATIVE) Result Diagrams: 09/09/20 16:43 09/10/20 07:10 Sepsis Event Note - Evaluation Sepsis Screening Result: No Definite Risk - Focused Exam Vital Signs: Vital Signs Temp Pulse Resp BP Pulse Ox 09/10/20 06:16 97.3 F 65 16 161/75 H 97 09/10/20 02:34 97.3 F 67 22 H 145/68 H 95 09/09/20 22:17 97.5 F 56 L 16 148/59 H 99 - Problem List Review Problem List Initiated/Reviewed/Updated: Yes - My Orders Last 24 Hours: My Active Orders 09/09/20 16:40 Patient Status [ADT] Routine Oxygen Therapy [RC] .PRN Up to Chair [RC] DAILY Vital Signs [RC] 03,07,11,15,, Resuscitation Status Routine 09/09/20 Dinner [employer] [employer] Diet [DIET] 09/09/20 18:26 Communication Order [RC] - Plan Plan:: History summary John is an 80-year-old gentleman that was admitted to [facility] by this author yesterday after increasing shortness of breath, weight gain, increased edema in his lower extremities, fatigue, PND, failing outpatient treatment increase oxygen requirements. I had seen him about a week ago for slightly increased in SOB, and placed him on 3 days of extra Lasix 20 mg in the afternoon. Home regimen included Lasix 40 mg every morning along with 3 times a week Zaroxolyn. At that time he did admit to eatinghigh sodium diet at [employer] restaurant. stated was slightly more weaker however no cough. Denies any fever. He is on home oxygen 1.5 L in which it was increased at 2 L nighttime. He does not weigh himself faithfully at home. He is on CPAP but has not been using. He was admitted for IV diuretics Pertinent clinical findings BNP, 1119 Wt, Up 11 lbs from last week BUN 55 creatinine 1.96 Hospital course 09/10/2020; patient doing very well, lost 7 pounds of diuresis overnight, much less edema in lower extremities, no JVD, lungs clear, improved sleep, refused CPAP, his oxygen requirements Primary hospital problems Acute on chronic CHF, improving Chronic, stable conditions --Coronary artery disease: Hx CABG/[place] 1995. ASA, [place]. --Bilateral carotid artery stenosis, aneurysm of left internal iliac artery --Atrial fibrillation, chronic: [id number]; Apixaban for anticoagulation. carvedilol 3.125mg BID for rate control. --Hypertension, stable --Hyperlipidemia, statin atorvastatin --Pulmonary artery hypertension --Restrictive lung disease, stable. requiring supplemental oxygen, stable. --T2DM: A1c 6.9%, off insulin. --Hx small left periventricular/parietal lacunar CVA, 10/2018: ASA. --GERD, PPI --Vitamin B12 deficiency Supplement --Overweight; BMI 36; after ~wt loss due to Covid, gained most back. --Hx prostate cancer with bone metastasis: Status post Lupron, previously on Zoladex until CVA --MDS/anemia of chronic disease: Disposition/overall plan --Continue 1 more day inpatient stay for ongoing diuresis as visible edema lagging indicator of overall fluid status. --Encourage PO fluids --Encourage compression stockings during day --Cpap tonight
[2020-09-10] MEDS: ENTRESTO PO SCH ×2 (09:58→20:52)
[2020-09-10] MEDS ORDERED: Furosemide 40 MG/4 ML VIAL IVPUSH ONE (10:30)
[2020-09-10] MEDS ORDERED: Melatonin 3 MG Tab PO SCH (21:00)
[2020-09-11 06:07] VITALS: BP 150/62; PULSE 61
[2020-09-11] MEDS: Omeprazole 20 MG Cap.CR PO SCH ×2 (07:31→07:59)
[2020-09-11] MEDS: Calcium Citrate/Vitamin D3 315 MG-250 Unit Tab PO SCH (08:18)
[2020-09-11] MEDS: atorvaSTATin 40 MG Tab PO SCH (08:18)
[2020-09-11] MEDS: Cyanocobalamin (Vitamin B12) 500 MCG Tab PO SCH (08:18)
[2020-09-11] MEDS: Magnesium Oxide 500 MG Tab PO SCH (08:18)
[2020-09-11] MEDS: Cholecalciferol (Vitamin D3) 25 MCG Tab PO SCH (08:18)
[2020-09-11] MEDS: Aspirin 81 MG Tab.Chew PO SCH (08:18)
[2020-09-11] MEDS: Allopurinol 100 MG Tab PO SCH (08:18)
[2020-09-11] MEDS: ENTRESTO PO SCH (08:20)
[2020-09-11] MEDS: Sodium Chloride 0.65% Nasal Spray 45 ML Bottle NASBOTH SCH (08:21)
[2020-09-11] MEDS: Apixaban 5 MG Tab PO SCH (08:21)
[2020-09-11] MEDS ORDERED: Furosemide 40 MG/4 ML VIAL IVPUSH ONE (09:13)
--- NOTE | 2020-09-11 10:14 | PCM.DCSUM1 ---
Discharge Summary - Hospital Course Diagnosis: Stroke: No - Discharge Data Discharge Date: 09/11/20 Discharge Disposition: Home, Self-Care 01 Condition: Good - Referral to Home Health Primary Care Physician: Carlitos Casiano NP - Patient Instructions Showering/Bathing: May Shower Other/Special Instructions: Weigh yourself every am, place weight in log, report weight gain more than 2 pounds per day or 5 pounds in 1 week. Bring Weight logs to every appointment. Important to use CPAP every night. Wear support stockings every day, take off at night. Low salt diet - Discharge Plan *PRESCRIPTION DRUG MONITORING PROGRAM REVIEWED*: Not Applicable *COPY OF PRESCRIPTION DRUG MONITORING REPORT IN PATIENT MARISSA: Not Applicable Home Medications: Home Meds Calcium Carbonate/Vitamin D3 [Calcium 600 + Vit D Tablet] 1 each PO DAILY [History] Cyanocobalamin (Vitamin B-12) [Vitamin B-12] 1,000 mcg PO DAILY 01/08/15 [History] allopurinoL [Zyloprim] 100 mg PO DAILY 01/08/15 [History] Folic Acid 800 mcg PO DAILY 12/19/17 [History] Melatonin 5 mg PO BEDTIME 09/18/18 [History] Sennosides [Senokot] 8.6 mg PO BEDTIME PRN 09/18/18 [History] Triamcinolone Acetonide [Triamcinolone Acetonide 0.1% Crm] 1 applic TOP BID PRN 09/18/18 [History] Apixaban [Eliquis] 2.5 mg PO BID 02/06/19 [History] Aspirin 81 mg PO DAILY 02/06/19 [History] Ranolazine [Ranexa] 1,000 mg PO BID 02/07/19 [History] Omeprazole 20 mg PO DAILY #90 tab.rap. 02/08/19 [Rx] atorvaSTATin Calcium [Lipitor] 40 mg PO DAILY 04/10/19 [History] Furosemide 40 mg PO DAILY 05/29/19 [History] Fluocinonide [Lidex 0.05% Oint] 1 applic TOP DAILY PRN 04/09/20 [History] Fluticasone Propionate [Flonase] 1 spray NASBOTH DAILY PRN 04/09/20 [History] Sodium Bicarbonate 650 mg PO TID 04/09/20 [History] polyethylene glycoL 3350 [MiraLAX] 1 pkt PO DAILY PRN 04/09/20 [History] Albuterol Sulfate [Albuterol Sulfate Hfa] 1 - 2 puff IH Q4H PRN 05/01/20 [History] Cholecalciferol (Vitamin D3) [Vitamin D3] 2,000 unit PO DAILY 05/01/20 [History] Sacubitril/Valsartan [Entresto 97 mg-103 mg Tablet] 1 tab PO BID 05/01/20 [History] bisacodyL [Bisacodyl] 5 mg PO BID PRN 05/01/20 [History] metOLazone [Zaroxolyn] 2.5 mg PO MOWEFR 05/01/20 [History] Acetaminophen [Acetaminophen Extra Strength] 1,000 mg PO DAILY PRN 05/22/20 [History] Aloe Vera/Sodium Chloride [[place] Saline Nasal Gel] 1 applic NASBOTH QID 05/22/20 [History] Isosorbide Mononitrate 10 mg PO BID 05/22/20 [History] Magnesium Oxide 500 mg PO DAILY 05/22/20 [History] Referrals: Crista Ruiz, [facility] [Nurse Practitioner] - (anytime next week) - Discharge Summary/Plan Comment DC Time >30 min.: No Discharge Summary/Plan Comment: Final diagnosis --Acute on chronic CHF exacerbation Chronic, stable conditions --Coronary artery disease: Hx CABG/[place] 1995. ASA, Ranexa. --Bilateral carotid artery stenosis, aneurysm of left internal iliac artery --Atrial fibrillation, chronic: [id number]; Apixaban for anticoagulation. carvedilol 3.125mg BID for rate control. --Hypertension, stable --Hyperlipidemia, statin atorvastatin --Pulmonary artery hypertension --Restrictive lung disease, stable. requiring supplemental oxygen, stable. --T2DM: A1c 6.9%, off insulin. --Hx small left periventricular/parietal lacunar CVA, 10/2018: ASA. --GERD, PPI --Vitamin B12 deficiency Supplement --Overweight; BMI 36; after ~wt loss due to Covid, gained most back. --Hx prostate cancer with bone metastasis: Status post Lupron, previously on Zoladex until CVA --MDS/anemia of chronic disease: History summary John is an 80-year-old gentleman that was admitted to [facility] by this author yesterday after increasing shortness of breath, weight gain, increased edema in his lower extremities, fatigue, PND, failing outpatient treatment increase oxygen requirements. I had seen him about a week ago for slightly increased in SOB, and placed him on 3 days of extra Lasix 20 mg in the afternoon. Home regimen included Lasix 40 mg every morning along with 3 times a week Zaroxolyn. At that time he did admit to eatinghigh sodium diet at [employer]. stated was slightly more weaker however no cough. Denies any fever. He is on home oxygen 1.5 L in which it was increased at 2 L nighttime. He does not weigh himself faithfully at home. He is on CPAP but has not been using. He was admitted for IV diuretics Pertinent clinical findings BNP, 1119 Wt, Up 11 lbs from last week BUN 55 creatinine 1.96 Hospital course Patient did very well throughout the hospital course with a total of 9 pound weight loss due to IV loop diuretic therapy. Upon discharge no edema in his lower extremities, he did wear his CPAP, upon discharge he no longer had JVD, lungs clear, improved sleep, he was back to his baseline of 1.5 L of oxygen. Zaroxolyn was held during this admission. Electrolytes were monitored, slightly high potassium at 5.2 on admission normalized upon discharge. BUN/creatinine upon discharge 61/1.94. The patient did desire to go home after 24 hours I felt important that he remain another day of ongoing IV diuresing with loop diuretics as as visible edema lagging indicator of overall fluid status. Medication changes/adjustments upon discharge --No changes to home meds. --Discussed possibility of home injectables IM Lasix PRN as patient may be becoming resistant to p.o. diuretics Patient discharge instructions/education --Weigh yourself every am, place weight in log, report weight gain more than 2 pounds per day or 5 pounds in 1 week --Bring Weight logs to every appointment --Important to use CPAP every night --Wear support stockings every day, take off at night --Low salt diet --Follow-up Crista Ruiz NP [facility] next week - General Info Functional Status: Reports: Pain Controlled - Review of Systems General: Reports: No Symptoms HEENT: Reports: No Symptoms Pulmonary: Reports: No Symptoms Cardiovascular: Denies: Chest Pain, Palpitations, Dyspnea on Exertion, Orthopnea, PND, Edema Gastrointestinal: Reports: No Symptoms Genitourinary: Reports: No Symptoms Skin: Reports: Other (coxxyc breakdown POA) Neurological: Denies: Confusion Psychiatric: Denies: Agitation - Patient Data Vitals - Most Recent: Last Vital Signs Temp 97.0 F 09/11/20 06:06 Pulse 61 09/11/20 06:06 Resp 20 09/11/20 06:06 BP 150/62 H 09/11/20 06:06 Pulse Ox 98 09/11/20 06:06 Weight - Most Recent: 234 lb 3 oz I&O - Last 24 hours: Intake & Output 09/10/20 09/11/20 09/11/20 22:59 06:59 14:59 Intake Total 300 150 Output Total 100 200 Balance 200 -50 Med Orders - Current: Current Medications Acetaminophen (Acetaminophen 500 Mg Tab) 1,000 mg PO DAILY PRN PRN Reason: Pain (moderate 4-6) Last Admin: 09/10/20 20:53 Dose: 1,000 mg Documented by: Albuterol (Albuterol 8 Gm Inhaler) 0 gm INH Q4H PRN PRN Reason: Shortness of Breath Allopurinol (Allopurinol 100 Mg Tab) 100 mg PO DAILY [facility] Last Admin: 09/11/20 08:18 Dose: 100 mg Documented by: Apixaban (Apixaban 5 Mg Tab) 2.5 mg PO BID [facility] Last Admin: 09/11/20 08:21 Dose: 2.5 mg Documented by: Aspirin (Aspirin 81 Mg Tab.Chew) 81 mg PO DAILY [facility] Last Admin: 09/11/20 08:18 Dose: 81 mg Documented by: Atorvastatin Calcium (Atorvastatin 40 Mg Tab) 40 mg PO DAILY [facility] Last Admin: 09/11/20 08:18 Dose: 40 mg Documented by: Bisacodyl (Bisacodyl 5 Mg Tab) 5 mg PO BID PRN PRN Reason: Constipation Calcium Citrate (Calcium Citrate/Vitamin D3 315 Mg-250 Unit Tab) 1 tab PO DAILY [facility] Last Admin: 09/11/20 08:18 Dose: 1 tab Documented by: Cholecalciferol (Cholecalciferol (Vitamin D3) 25 Mcg Tab) 50 mcg PO DAILY [facility] Last Admin: 09/11/20 08:18 Dose: 50 mcg Documented by: Cyanocobalamin (Cyanocobalamin (Vitamin B12) 500 Mcg Tab) 1,000 mcg PO DAILY [facility] Last Admin: 09/11/20 08:18 Dose: 1,000 mcg Documented by: Fluticasone Propionate (Fluticasone Propionate Nasal [place] 16 Gm Bottle) 0 gm NASBOTH DAILY PRN PRN Reason: Allergies Magnesium Oxide (Magnesium Oxide 500 Mg Tab) 500 mg PO DAILY [facility] Last Admin: 09/11/20 08:18 Dose: 500 mg Documented by: Melatonin (Melatonin 3 Mg Tab) 6 mg PO BEDTIME [facility] Last Admin: 09/10/20 20:50 Dose: 6 mg Documented by: (Fluocinonide [Lidex 0.05% Oint] 60 Gm Tube) 1 applic TOP DAILY PRN PRN Reason: Itching Omeprazole (Omeprazole 20 Mg Cap.Cr) 20 mg PO DAILY [facility] Last Admin: 09/11/20 07:59 Dose: Not Given Documented by: Folic Acid 800mcg 1 each PO DAILY [facility] Last Admin: 09/11/20 08:20 Dose: 1 each Documented by: Isosorbide Mononitrate 20 Mg Tab 0.5 each PO BID [facility] Last Admin: 09/11/20 08:21 Dose: 0.5 each Documented by: Ptom- Entresto 97mg- (103mg) 1 each PO BID [facility] Last Admin: 09/11/20 08:20 Dose: 1 each Documented by: Polyethylene Glycol (Polyethylene Glycol 3350 Powder 17 Gm Packet) 17 gm PO DAILY PRN PRN Reason: Constipation Ranolazine (Ranolazine 1,000 Mg Tab.Er) 1,000 mg PO BID [facility] Last Admin: 09/11/20 08:18 Dose: 1,000 mg Documented by: Senna/Docusate Sodium (Docusate Sodium/Sennosides 50-8.6 Mg Tab) 8.6 tab PO BEDTIME PRN PRN Reason: Constipation Sodium Bicarbonate (Sodium Bicarbonate 325 Mg Tab) 650 mg PO TID [facility] Last Admin: 09/11/20 08:18 Dose: 650 mg Documented by: Sodium Chloride (Sodium Chloride 0.65% Nasal [place] 45 Ml Bottle) 0 ml NASBOTH QID [facility] Last Admin: 09/11/20 08:21 Dose: 1 spray Documented by: Triamcinolone Acetonide (Triamcinolone Acetonide 0.1% Crm 15 Gm Tube) 0 gm TOP BID PRN PRN Reason: Rash Discontinued Medications Furosemide (Furosemide 40 Mg/4 Ml Vial) 40 mg IVPUSH NOW ONE Stop: 09/09/20 16:51 Last Admin: 09/09/20 17:56 Dose: 40 mg Documented by: Furosemide (Furosemide 40 Mg/4 Ml Vial) 40 mg IVPUSH NOW ONE Stop: 09/10/20 10:31 Last Admin: 09/10/20 10:53 Dose: 40 mg Documented by: Furosemide (Furosemide 40 Mg/4 Ml Vial) 40 mg IVPUSH NOW ONE Stop: 09/11/20 09:14 Last Admin: 09/11/20 09:45 Dose: 40 mg Documented by: Omeprazole (Omeprazole 20 Mg Cap.Cr) 20 mg PO DAILY [facility] Last Admin: 09/10/20 08:43 Dose: 20 mg Documented by: - Exam Quality Assessment: Reports: Supplemental Oxygen General: Reports: Alert, Oriented, Cooperative, No Acute Distress Neck: Reports: No JVD Lungs: Reports: Clear to Auscultation, Normal Respiratory Effort Cardiovascular: Reports: Regular Rhythm GI/Abdominal Exam: Normal Bowel Sounds, Soft Extremities: No Pedal Edema Skin: Reports: Other (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
== END 2020-09-11 10:35 | disposition home or self-care (01) | DRG 291 ==
LOC: KA.MS 16:35
PROVIDERS: ADMIT Nurse Practitioner Family; ATTEND Nurse Practitioner Family
DX: I13.0 Hypertensive heart and chronic kidney disease with heart failure and stage 1 through stage 4 chronic kidney disease, or unspecified chronic kidney disease (principal); I50.43 Acute on chronic combined systolic (congestive) and diastolic (congestive) heart failure; I48.19 Other persistent atrial fibrillation; Z68.41 Body mass index [BMI] 40.0-44.9, adult; C79.51 Secondary malignant neoplasm of bone; I65.23 Occlusion and stenosis of bilateral carotid arteries; E78.5 Hyperlipidemia, unspecified; I27.21 Secondary pulmonary arterial hypertension; K21.9 Gastro-esophageal reflux disease without esophagitis; E53.8 Deficiency of other specified B group vitamins; E83.42 Hypomagnesemia; D63.1 Anemia in chronic kidney disease; E11.22 Type 2 diabetes mellitus with diabetic chronic kidney disease; N18.32 Chronic kidney disease, stage 3b; K59.04 Chronic idiopathic constipation; G47.33 Obstructive sleep apnea (adult) (pediatric); D46.9 Myelodysplastic syndrome, unspecified; E66.9 Obesity, unspecified; Z96.652 Presence of left artificial knee joint; C61 Malignant neoplasm of prostate; Z20.822 Contact with and (suspected) exposure to COVID-19; Z79.899 Other long term (current) drug therapy; Z79.82 Long term (current) use of aspirin; I25.2 Old myocardial infarction; Z86.73 Personal history of transient ischemic attack (TIA), and cerebral infarction without residual deficits; Z99.81 Dependence on supplemental oxygen; Z87.891 Personal history of nicotine dependence
CPT/HCPCS: 36415; 71045; 80048; 80053; 83880; 84484; 85025; A9270-GY; J1940; U0002

== ENCOUNTER 2021-01-31 12:17 | Emergency (ER) | payer MEDICARE, OTHER ==
--- NOTE | 2021-01-31 12:22 | EDM.PDOC ---
ED HPI GENERAL MEDICAL PROBLEM - General Chief Complaint: Neuro Symptoms/Deficits Stated Complaint: fall..tia?? Time Seen by Provider: 01/31/21 12:22 Source of Information: Reports: Patient, Family - History of Present Illness INITIAL COMMENTS - FREE TEXT/NARRATIVE: John, 80-year-old male, presents by ambulance with his accompanying him secondary of another fall. He denies any specific injury with chronic right hip right-sided back pain. States the left leg is weaker as it has been over the past month. states that he has had speech changes the past 24+ hours to which John replies at times it is difficult to get his words out. He thinks it is Tuesday and is unsure of what month it is. He is able to appropriately answer his 's questions on recent company that visited as well as the reason that they were here to visit. His complained deficits are predominantly weakness and chronic pain, along with the change in his speech pattern and word formulation that is of 24-48 hours. No deficits beyond chronic when it comes to his extremities and function. No COVID-19 risks or exposures. Onset: Today Duration: Minutes: Bilateral Lower Back Pain Score (Numeric/FACES): 5 - Related Data Allergies Allergy/AdvReac Type Severity Reaction Status Date / Time celecoxib [From Celebrex] Allergy Hives Verified 01/31/21 13:16 degarelix Allergy Rash Verified 01/31/21 13:16 ezetimibe [From Zetia] Allergy Stomach Verified 01/31/21 13:16 Ache nitroglycerin Allergy Bradycardia Verified 01/31/21 13:16 Home Meds: Home Meds Calcium Carbonate/Vitamin D3 [Calcium 600 + Vit D Tablet] 1 each PO DAILY 01/08/15 [History] Cyanocobalamin (Vitamin B-12) [Vitamin B-12] 1,000 mcg PO DAILY 01/08/15 [History] allopurinoL [Zyloprim] 100 mg PO DAILY 01/08/15 [History] Folic Acid 800 mcg PO DAILY 12/19/17 [History] Melatonin 5 mg PO BEDTIME 09/18/18 [History] Sennosides [Senokot] 8.6 mg PO BEDTIME PRN 09/18/18 [History] Triamcinolone Acetonide [Triamcinolone Acetonide 0.1% Crm] 1 applic TOP BID PRN 09/18/18 [History] Apixaban [Eliquis] 2.5 mg PO BID 02/06/19 [History] Aspirin 81 mg PO DAILY 02/06/19 [History] Ranolazine [Ranexa] 1,000 mg PO BID 02/07/19 [History] Omeprazole 20 mg PO DAILY #90 tab.rap. 02/08/19 [Rx] atorvaSTATin Calcium [Lipitor] 40 mg PO DAILY 04/10/19 [History] Furosemide 40 mg PO DAILY 05/29/19 [History] Fluocinonide [Lidex 0.05% Oint] 1 applic TOP DAILY PRN 04/09/20 [History] Fluticasone Propionate [Flonase] 1 spray NASBOTH DAILY PRN 04/09/20 [History] Sodium Bicarbonate 650 mg PO TID 04/09/20 [History] Cholecalciferol (Vitamin D3) [Vitamin D3] 2,000 unit PO DAILY 05/01/20 [History] Sacubitril/Valsartan [Entresto 97 mg-103 mg Tablet] 1 tab PO BID 05/01/20 [History] Acetaminophen [Acetaminophen Extra Strength] 1,000 mg PO DAILY PRN 05/22/20 [History] Aloe Vera/Sodium Chloride [Fajardo Saline Nasal Gel] 1 applic NASBOTH QID 05/22/20 [History] Isosorbide Mononitrate 10 mg PO BID 05/22/20 [History] Magnesium Oxide 500 mg PO DAILY 05/22/20 [History] Epoetin Ge [Procrit] 40,000 unit IJ WEEKLY 09/11/20 [History] Past Medical History HEENT History: Reports: Hard of Hearing, Impaired Vision Other HEENT History: pat. is supposed to have cataract surgery in the right eye Cardiovascular History: Reports: Afib, CAD, High Cholesterol, Hypertension, NM, Stents Respiratory History: Reports: Sleep Apnea, Other (See Below) Other Respiratory History: on oxygen 2l per [place] Gastrointestinal History: Reports: Chronic Constipation Genitourinary History: Reports: BPH, Diabetic Nephropathy, Prostate Disorder, Renal Calculus Musculoskeletal History: Reports: Arthritis, Fracture, Other (See Below) Other Musculoskeletal History: 50 years ago pat. had fx. in the right foot Neurological History: Reports: Neuropathy, Diabetic Psychiatric History: Reports: None Endocrine/Metabolic History: Reports: Diabetes, Type II Hematologic History: Reports: Anemia, Blood Transfusion(s) Immunologic History: Reports: None Oncologic (Cancer) History: Reports: Prostate Dermatologic History: Reports: Other (See Below) Other Dermatologic History: Blister to right foot - Infectious Disease History Infectious Disease History: Reports: Chicken Pox, Measles, Mumps, Novel Coronavirus - Past Surgical History Head Surgeries/Procedures: Reports: None HEENT Surgical History: Reports: Cataract Surgery, Tonsillectomy Other HEENT Surgeries/Procedures: Cataract Sx to Rt eye in 2019 Cardiovascular Surgical History: Reports: AAA Repair, Cardiac Ablation, Coronary Artery Bypass Other Cardiovascular Surgeries/Procedures: ablation in 2012, triple bypass in ", AAA repair in 2009 Respiratory Surgical History: Reports: None GI Surgical History: Reports: Colonoscopy, Hernia, Abdominal Other GI Surgeries/Procedures: 2012 Male Surgical History: Reports: Prostate Biopsy, Prostatectomy Endocrine Surgical History: Reports: None Neurological Surgical History: Reports: None Musculoskeletal Surgical History: Reports: Knee Replacement Other Musculoskeletal Surgeries/Procedures:: Bilateral knee replacement Oncologic Surgical History: Reports: Bone Marrow Aspiration Dermatological Surgical History: Reports: None - Past Imaging History Past Imaging History: Reports: CAT Scan, Event Monitor, PET, Xray Social & Family History - Family History Family Medical History: No Pertinent Family History Cardiac: Reports: NM, Other (See Below) Other Cardiac Family History: brother had heart problems Respiratory: Reports: Other (See Below) Other Respiratory Family Hisory: pulmonary fibrosis - sister GI: Reports: None : Reports: None OBGYN: Reports: None Musculoskeletal: Reports: None Neurological: Reports: None Psychiatric: Reports: None Endocrine/Metabolic: Reports: None Hematologic: Reports: None Immunologic: Reports: None Oncologic: Reports: Lung, Prostate, Other (See Below) Other Oncologic Family History: sister - lung cancer. father - prostate cancer - Caffeine Use Caffeine Use: Reports: Coffee ED ROS GENERAL - Review of Systems Review Of Systems: Comprehensive ROS is negative, except as noted in HPI. ED EXAM, GENERAL - Physical Exam Exam: See Below Free Text/Narrative:: Alert, oriented, in no apparent acute distress. HEENT is negative to discharge or deformity. PERRLA no icterus no injection. Neck is soft supple no lymphadenopathy. No focal tenderness no rigidity. Thorax is overall clear diminished basis left side more so than right. Cardiac is bradycardic irregularly irregular consistent with his history of atrial fibrillation. Rate varies from mid 40s into the 60's Abdomen is rotund soft bowel sounds are present there is no tenderness or point tenderness with scars of previous laparoscopic surgery well-healed. No tenderness of the pelvic girdle or hips. Lower extremities he is able to move upon command as well as upper extremities with what he states he feels weakness to the left leg and chronic pain to the right hip and lower back. He denies any pain of injury from the fall today. His adds that he had x-rays done secondary of the hip and back pain and may undergo injection therapy in the upcoming weeks. There is no facial asymmetry noted. His speech is clear but at times he seems to struggle to get words to formulate. He adds that in the past days he thinks but is unable to get the word come out as fast as he is trying or thinking to say. He has had noted falls to which for occurred in December with no acute injury. He has had at least 2 falls this month or ambulance has been summoned for assistance, the first just assisting him up again, this time today was transported to what he says was his 's insistence, "not his decision to come him" #1 Interpretation EKG Date: 01/31/21 Time: 12:29 Rhythm: NSR Rate (Beats/Min): 48 P-Wave: Variable QRS: RBBB ST-T: Normal QT: Prolonged Comparison: Change From Previous EKG Course - Vital Signs Last Recorded V/S: Last Vital Signs Temp 96.2 F L 01/31/21 12:20 Pulse 40 L 01/31/21 14:48 Resp 20 01/31/21 14:48 BP 117/53 L 01/31/21 14:48 Pulse Ox 100 01/31/21 14:48 - Orders/Labs/Meds Orders: Active Orders 24 hr Category Date Time Status Peripheral IV Care [RC] . DIRECTED Care 01/31/21 12:33 Active CULTURE BLOOD [BC] Stat Lab 01/31/21 13:20 Received CULTURE BLOOD [BC] Stat Lab 01/31/21 13:40 Received UA RFX CAROLYN AND CULT IF INDIC [URIN] Stat Lab 01/31/21 12:32 Stop Req Sodium Chloride 0.9% [Saline Flush] Med 01/31/21 12:32 Active 10 ml FLUSH Q8HR PRN Blood Culture x2 Reflex Set [OM.PC] Stat Oth 01/31/21 12:32 Ordered Peripheral IV Insertion Adult [OM.PC] Stat Oth 01/31/21 12:32 Ordered Medication Orders Sodium Chloride (Sodium Chloride 0.9% 10 Ml Syringe) 10 ml FLUSH Q8HR PRN PRN Reason: keep vein open Last Admin: 01/31/21 12:58 Dose: 10 ml Documented by: JENNIFER Labs: Laboratory Tests 01/31/21 01/31/21 01/31/21 Range/Units 13:05 13:05 13:05 WBC 5.26 (5.00-10.00) 10^3/uL RBC 3.30 L (4.50-6.00) 10^6/uL Hgb 10.6 L (13.0-17.0) g/dL Hct 33.7 L (40.0-52.0) % MCV 102.1 H D (82.0-92.0) fL MCH 32.1 H (27.0-31.0) pg MCHC 31.5 L (32.0-36.0) g/dL RDW 14.6 H (11.5-14.5) % Plt Count 129 L (150-400) 10^3/uL MPV 11.1 H (7.4-10.4) fL Immature Gran % (Auto) 0.0 (0.0-5.0) % Neut % (Auto) 68.4 (50.0-70.0) % Lymph % (Auto) 19.0 L (20.0-40.0) % [place] % (Auto) 9.9 H (2.0-8.0) % Eos % (Auto) 2.3 (1.0-3.0) % Baso % (Auto) 0.4 (0.0-1.0) % Neut # (Auto) 3.60 (2.50-7.00) 10^3/uL Lymph # (Auto) 1.00 (1.00-4.00) 10^3/uL [place] # (Auto) 0.52 (0.10-0.80) 10^3/uL Eos # (Auto) 0.12 (0.10-0.30) 10^3/uL Baso # (Auto) 0.02 (0.00-0.10) 10^3/uL Immature Gran # (Auto) 0.00 (0.00-0.50) 10^3/uL Sodium 134 L (136-145) mmol/L Potassium 5.8 H (3.5-5.1) mmol/L Chloride 98 (98-107) mmol/L Carbon Dioxide 25.4 (21.0-32.0) mmol/L Anion Gap 16.4 H (5-15) mmol/L BUN 64 H* (7-18) mg/dL Creatinine 2.72 H (0.51-1.17) mg/dL Est Cr Clr Drug Dosing 20.26 mL/min Estimated GFR (MDRD) 23 mL/min Glucose 114 (70-140) mg/dL Lactic Acid 1.6 (0.4-2.0) mmol/L Calcium 8.3 L (8.7-10.3) mg/dL Total Bilirubin 0.9 (0.2-1.0) mg/dL AST 13 L (15-37) U/L ALT 13 L (14-63) U/L Alkaline Phosphatase 126 H (46-116) U/L Troponin I High Sens 18.700 (0-76.000) pg/mL B-Natriuretic Peptide (0-100) pg/mL Total Protein 6.5 (6.4-8.2) g/dL Albumin 3.39 L (3.40-5.00) g/dL 01/31/21 Range/Units 13:05 WBC (5.00-10.00) 10^3/uL RBC (4.50-6.00) 10^6/uL Hgb (13.0-17.0) g/dL Hct (40.0-52.0) % MCV (82.0-92.0) fL MCH (27.0-31.0) pg MCHC (32.0-36.0) g/dL RDW (11.5-14.5) % Plt Count (150-400) 10^3/uL MPV (7.4-10.4) fL Immature Gran % (Auto) (0.0-5.0) % Neut % (Auto) (50.0-70.0) % Lymph % (Auto) (20.0-40.0) % [place] % (Auto) (2.0-8.0) % Eos % (Auto) (1.0-3.0) % Baso % (Auto) (0.0-1.0) % Neut # (Auto) (2.50-7.00) 10^3/uL Lymph # (Auto) (1.00-4.00) 10^3/uL [place] # (Auto) (0.10-0.80) 10^3/uL Eos # (Auto) (0.10-0.30) 10^3/uL Baso # (Auto) (0.00-0.10) 10^3/uL Immature Gran # (Auto) (0.00-0.50) 10^3/uL Sodium (136-145) mmol/L Potassium (3.5-5.1) mmol/L Chloride (98-107) mmol/L Carbon Dioxide (21.0-32.0) mmol/L Anion Gap (5-15) mmol/L BUN (7-18) mg/dL Creatinine (0.51-1.17) mg/dL Est Cr Clr Drug Dosing mL/min Estimated GFR (MDRD) mL/min Glucose (70-140) mg/dL Lactic Acid (0.4-2.0) mmol/L Calcium (8.7-10.3) mg/dL Total Bilirubin (0.2-1.0) mg/dL AST (15-37) U/L ALT (14-63) U/L Alkaline Phosphatase (46-116) U/L Troponin I High Sens (0-76.000) pg/mL B-Natriuretic Peptide 1600 H (0-100) pg/mL Total Protein (6.4-8.2) g/dL Albumin (3.40-5.00) g/dL Meds: Medications Generic Name Dose Route Start Last Admin Trade Name Freq PRN Reason Stop Dose Admin Sodium Chloride 10 ml 01/31/21 12:32 01/31/21 12:58 Sodium Chloride 0.9% 10 Ml Syringe FLUSH 10 ml Q8HR PRN Administration keep vein open Discontinued Medications Generic Name Dose Route Start Last Admin Trade Name Freq PRN Reason Stop Dose Admin Ondansetron HCl 8 mg 01/31/21 12:43 01/31/21 12:57 Ondansetron 4 Mg/2 Ml Sdv IVPUSH 01/31/21 12:44 8 mg ONETIME ONE Administration - Re-Assessments/Exams Free Text/Narrative Re-Assessment/Exam: 01/31/21 15:12 Declines giving urine sample order will be removed Departure - Departure Time of Disposition: 14:59 Disposition: Home, Self-Care 01 Condition: Fair Clinical Impression: Elevated brain natriuretic peptide (BNP) level, Weakness generalized Chronic renal failure, stage 3 (moderate) Qualifiers: Chronic kidney disease stage 3 subtype: stage 3b (GFR 30-44) Qualified Code(s): N18.32 - Chronic kidney disease, stage 3b - Discharge Information *PRESCRIPTION DRUG MONITORING PROGRAM REVIEWED*: Not Applicable *COPY OF PRESCRIPTION DRUG MONITORING REPORT IN PATIENT MARISSA: Not Applicable Instructions: Chronic Kidney Disease, Adult Referrals: Crista Ruiz NP [Primary Care Provider] - Forms: ED Department Discharge Additional Instructions: Your hemoglobin has dropped 1 g since it was last tested at the [facility]. This is still not low enough to qualify for transfusion. Follow-up with your clinic for your next scheduled hemoglobin testing. Your potassium on today's test is at 5.8. It was 5.4 in the clinic when the adjusted your Entresto. For safety please do not take Entresto until you speak with your clinic on Tuesday to explain to them that the potassium had still increased in the past 2 days with the lower dose. Your chest x-ray showing the chronic lower lobe atelectasis with no evidence of pneumonia nor any enlargement of the heart or evidence of edema. Your BNP which is a marker for heart failure is up slightly,, we will leave this at this time as increasing your Lasix would only put additional strain on your kidney. This can be discussed with the clinic when you call Tuesday about the Entresto as well. I would not take anymore tramadol, for at least the next 2 days to see if that is what is attributing to the speech changes and his increased fatigue. If you see that he returns back to his baseline by holding that medication, call your clinic to advise them as they may seek a substitute medication for the tramadol. Continue all of your other medications as directed and follow-up with your clinic Tuesday morning. Call or return to the emergency department if symptoms worsen. Sepsis Event Note (ED) - Focused Exam Vital Signs: Vital Signs Temp Pulse Resp BP Pulse Ox 01/31/21 14:48 40 L 20 117/53 L 100 01/31/21 14:16 41 L 17 119/55 L 100 01/31/21 14:01 46 L 17 115/49 L 100 01/31/21 13:46 41 L 17 114/45 L 99 01/31/21 13:31 41 L 18 127/53 L 99 01/31/21 13:16 41 L 17 110/48 L 99 01/31/21 13:01 41 L 18 124/48 L 100 01/31/21 12:58 41 L 20 131/51 L 100 01/31/21 12:20 96.2 F L 42 L 20 122/100 H 99 - Problem List & Annotations (1) Weakness generalized SNOMED Code(s): 09057154 Code(s): R53.1 - WEAKNESS Status: Acute Priority: High Current Visit: Yes (2) Chronic renal failure, stage 3 (moderate) SNOMED Code(s): 91829898, 415139556 Code(s): N18.30 - CHRONIC KIDNEY DISEASE, STAGE 3 UNSPECIFIED Status: Chronic Priority: High Current Visit: Yes Qualifiers: Chronic kidney disease stage 3 subtype: stage 3b (GFR 30-44) Qualified Code(s): N18.32 - Chronic kidney disease, stage 3b (3) Fall SNOMED Code(s): 0726261, 214980557 Code(s): W19.XXXA - UNSPECIFIED FALL, INITIAL ENCOUNTER Status: Acute Current Visit: Yes Qualifiers: Encounter type: subsequent encounter Qualified Code(s): W19.XXXD - Unspeci fied fall, subsequent encounter (4) Hyperkalemia SNOMED Code(s): 42095731 Code(s): E87.5 - HYPERKALEMIA Status: Acute Current Visit: Yes (5) Elevated brain natriuretic peptide (BNP) level SNOMED Code(s): 148146776, 824352237 Code(s): R79.89 - OTHER SPECIFIED ABNORMAL FINDINGS OF BLOOD CHEMISTRY Status: Acute Priority: High Current Visit: Yes - Problem List Review Problem List Initiated/Reviewed/Updated: Yes - My Orders Last 24 Hours: My Active Orders 01/31/21 12:32 UA RFX CAROLYN AND CULT IF INDIC [URIN] Stat Sodium Chloride 0.9% [Saline Flush] 10 ml FLUSH Q8HR PRN Blood Culture x2 Reflex Set [OM.PC] Stat Peripheral IV Insertion Adult [OM.PC] Stat 01/31/21 12:33 Peripheral IV Care [RC] . DIRECTED 01/31/21 13:20 CULTURE BLOOD [BC] Stat 01/31/21 13:40 CULTURE BLOOD [BC] Stat - Assessment/Plan Last 24 Hours: My Active Orders 01/31/21 12:32 UA RFX CAROLYN AND CULT IF INDIC [URIN] Stat Sodium Chloride 0.9% [Saline Flush] 10 ml FLUSH Q8HR PRN Blood Culture x2 Reflex Set [OM.PC] Stat Peripheral IV Insertion Adult [OM.PC] Stat 01/31/21 12:33 Peripheral IV Care [RC] . DIRECTED 01/31/21 13:20 CULTURE BLOOD [BC] Stat 01/31/21 13:40 CULTURE BLOOD [BC] Stat Plan: Your hemoglobin has dropped 1 g since it was last tested at the [facility]. This is still not low enough to qualify for transfusion. Follow-up with your clinic for your next scheduled hemoglobin testing. Your potassium on today's test is at 5.8. It was 5.4 in the clinic when the adjusted your Entresto. For safety please do not take Entresto until you speak with your clinic on Tuesday to explain to them that the potassium had still increased in the past 2 days with the lower dose. Your chest x-ray showing the chronic lower lobe atelectasis with no evidence of pneumonia nor any enlargement of the heart or evidence of edema. Your BNP which is a marker for heart failure is up slightly,, we will leave this at this time as increasing your Lasix would only put additional strain on your kidney. This can be discussed with the clinic when you call Tuesday about the Entresto as well. I would not take anymore tramadol, for at least the next 2 days to see if that is what is attributing to the speech changes and his increased fatigue. If you see that he returns back to his baseline by holding that medication, call your clinic to advise them as they may seek a substitute medication for the tramadol. Continue all of your other medications as directed and follow-up with your clinic Tuesday morning. Call or return to the emergency department if symptoms worsen.
[2021-01-31] MEDS ORDERED: Sodium Chloride 0.9% 10 ML Syringe FLUSH PRN (12:32)
[2021-01-31] MEDS ORDERED: Ondansetron 4 MG/2 ML SDV IVPUSH ONE (12:43)
--- NOTE | 2021-01-31 13:35 | CT ---
[id number] CT/CT Head WO IV EXAM: NONCONTRAST HEAD CT INDICATION: WEAKNESS, SPEECH ISSUES. COMPARISON: February 07, 2019. DISCUSSION: Stable mild to moderate frontotemporal predominate atrophy. Prominence of the CSF spaces along the convexities of both frontal lobes and the parafalcine aspect of the right frontal lobe potentially relating to hygromas or chronic subdurals which have not appreciably changed. Stable moderate chronic small vessel ischemic changes including a small left basal ganglia/periventricular infarct. A few scattered subarachnoid calcifications are unchanged and could represent the sequela of remote cysticercosis. No acute hemorrhage, midline shift, hydrocephalus or acute territorial infarct is identified. The orbits and paranasal sinuses are unremarkable. IMPRESSION: 1. No acute findings. Shlomo Carpenter MD 01/31/21 [id number] Thank you for allowing us to participate in the care of your patient.
--- NOTE | 2021-01-31 13:41 | CR ---
[id number] RAD/RAD Chest PA or AP 1V EXAM: FRONTAL CHEST INDICATION: Weakness, speech issues, recent fall and speech changes. COMPARISON: September 09, 2020. DISCUSSION: Borderline heart size with no definite evidence of edema. Persistent low lung volumes and elevation of the right hemidiaphragm with central vascular crowding and basilar atelectasis that is similar to the prior study. Early infiltrates and other pathology could be obscured in the andrez and lung bases. Sternotomy. IMPRESSION: 1. Low lung volumes. No definite acute findings. Shlomo Carpenter MD 01/31/21 [id number] Thank you for allowing us to participate in the care of your patient.
[2021-01-31 13:47] LABS: ANION GAP 16.4 mmol/L (5-15)
[2021-01-31 15:02] VITALS: BP 117/53; PULSE 40
== END 2021-01-31 15:15 | disposition home or self-care (01) ==
LOC: KA.ED 12:17
DX: I12.9 Hypertensive chronic kidney disease with stage 1 through stage 4 chronic kidney disease, or unspecified chronic kidney disease (principal); E11.22 Type 2 diabetes mellitus with diabetic chronic kidney disease; N18.32 Chronic kidney disease, stage 3b; R79.89 Other specified abnormal findings of blood chemistry; I25.10 Atherosclerotic heart disease of native coronary artery without angina pectoris; E78.00 Pure hypercholesterolemia, unspecified; I48.91 Unspecified atrial fibrillation; E11.40 Type 2 diabetes mellitus with diabetic neuropathy, unspecified; E11.621 Type 2 diabetes mellitus with foot ulcer; I25.2 Old myocardial infarction; Z95.5 Presence of coronary angioplasty implant and graft; Z79.82 Long term (current) use of aspirin; Z79.01 Long term (current) use of anticoagulants; Z95.1 Presence of aortocoronary bypass graft; Z88.8 Allergy status to other drugs, medicaments and biological substances; R47.89 Other speech disturbances
CPT/HCPCS: 36415; 70450; 71045; 80053; 83605; 83880; 84484; 85025; 87040; 93005; 96374; 99284; 99285-25; J2405

== ENCOUNTER 2021-02-02 11:24 | Inpatient (IN) | payer MEDICARE, OTHER ==
[2021-02-02] MEDS ORDERED: EPINEPHrine 1:10,000 1 MG/10 ML Syringe IVPUSH PRN (11:43)
[2021-02-02] MEDS ORDERED: Atropine 0.1 MG/ML 10 ML Syringe IVPUSH PRN (11:43)
[2021-02-02] MEDS ORDERED: Sodium Chloride 0.9% 10 ML Syringe FLUSH PRN (11:43)
[2021-02-02] MEDS ORDERED: Lidocaine 2% 100 MG/5 ML Syringe IVPUSH PRN (11:43)
[2021-02-02] MEDS ORDERED: Polyethylene Glycol 3350 Powder 17 GM Packet PO PRN (11:58)
[2021-02-02] MEDS ORDERED: Bisacodyl 5 MG Tab PO PRN (11:58)
[2021-02-02] MEDS ORDERED: Furosemide 40 MG/4 ML VIAL IVPUSH ONE (11:58)
[2021-02-02] MEDS ORDERED: Albuterol 0.083% 2.5 MG/3 ML Neb Soln INH SCH ×2 (12:45→12:59)
[2021-02-02] MEDS: cefTRIAXone 1 GM Vial IVPUSH SCH (12:45)
[2021-02-02] MEDS ORDERED: Albuterol 8 GM Inhaler INH PRN (12:48)
[2021-02-02] MEDS ORDERED: Sodium Chloride 0.65% Nasal Spray 45 ML Bottle NASBOTH PRN (13:00)
[2021-02-02] MEDS: Diclofenac Sodium 1% Gel 100 GM Tube TOP SCH ×3 (13:43→20:03)
[2021-02-02] MEDS: Sodium Bicarbonate 650 MG Tab PO SCH ×2 (14:19→20:02)
[2021-02-02] MEDS: Acetaminophen 500 MG Tab PO PRN (16:40)
[2021-02-02] MEDS: APIXABAN 2.5 MG PO SCH (20:00)
[2021-02-02] MEDS: ISOSORBIDE MONONITRATE 20 MG PO SCH (20:00)
[2021-02-02] MEDS: Melatonin 3 MG Tab PO SCH (20:01)
[2021-02-02] MEDS: tiZANidine 4 MG Tab PO SCH (20:02)
[2021-02-03] MEDS: Omeprazole 20 MG Cap.CR PO SCH (07:30)
[2021-02-03 08:08] LABS: ANION GAP 11.6 mmol/L (5-15)
[2021-02-03] MEDS: atorvaSTATin 40 MG Tab PO SCH (08:13)
[2021-02-03] MEDS: Cyanocobalamin (Vitamin B12) 500 MCG Tab PO SCH (08:13)
[2021-02-03] MEDS: Sodium Bicarbonate 650 MG Tab PO SCH ×3 (08:13→20:41)
[2021-02-03] MEDS: Aspirin 81 MG Tab.Chew PO SCH (08:13)
[2021-02-03] MEDS: Furosemide 20 MG Tab PO SCH (08:13)
[2021-02-03] MEDS: Folic Acid 1 MG Tab PO SCH (08:13)
[2021-02-03] MEDS: tiZANidine 4 MG Tab PO SCH ×2 (08:13→20:41)
[2021-02-03] MEDS: Magnesium Oxide 500 MG Tab PO SCH (08:14)
[2021-02-03] MEDS: ISOSORBIDE MONONITRATE 20 MG PO SCH ×2 (08:14→21:12)
[2021-02-03] MEDS: APIXABAN 2.5 MG PO SCH ×2 (08:14→21:12)
[2021-02-03] MEDS: CALCIUM CARBONATE PO SCH (08:15)
[2021-02-03] MEDS: Fluticasone Propionate Nasal Spray 16 GM Bottle NASBOTH SCH (08:15)
[2021-02-03] MEDS: [UNRECOGNIZED DRUG - OTHER] PO SCH (08:15)
[2021-02-03] MEDS: Allopurinol 100 MG Tab PO SCH (08:19)
[2021-02-03] MEDS: Diclofenac Sodium 1% Gel 100 GM Tube TOP SCH ×4 (08:19→21:11)
[2021-02-03] MEDS: Cholecalciferol (Vitamin D3) 25 MCG Tab PO SCH (08:23)
[2021-02-03] MEDS ORDERED: Lidocaine 5% 700 MG Patch TOP PRN (09:00)
--- NOTE | 2021-02-03 09:05 | PCM.PN ---
- General Info Date of Service: 02/03/21 Functional Status: Reports: Pain Controlled (no further flank pain), Tolerating Diet, Urinating, Incentive Spirometry. Denies: Ambulating, New Symptoms - Review of Systems General: Reports: Weakness (much improved), Appetite. Denies: Fever HEENT: Denies: Dysphasia, Headaches, Visual Changes Pulmonary: Denies: Shortness of Breath, Cough, Sputum, Wheezing Cardiovascular: Reports: Edema (very slight BLE 1+) Gastrointestinal: Denies: Diarrhea, Nausea, Vomiting, Other (large BM this am) Genitourinary: Reports: Frequency, Urgency. Denies: Dysuria, Pain, Incontinence, Hematuria, Retention Musculoskeletal: Denies: Back Pain Skin: Reports: Bruising Neurological: Reports: Difficulty Walking. Denies: Confusion - Patient Data Vitals - Most Recent: Last Vital Signs Temp 97.0 F 02/03/21 07:00 Pulse 56 L 02/03/21 07:00 Resp 20 02/03/21 07:00 BP 145/60 H 02/03/21 07:00 Pulse Ox 98 02/03/21 07:00 Weight - Most Recent: 238 lb 5 oz I&O - Last 24 Hours: Intake & Output 02/02/21 02/03/21 02/03/21 22:59 06:59 14:59 Intake Total 450 50 Output Total 550 100 Balance -100 -50 Lab Results Last 24 Hours: Laboratory Results - last 24 hr 02/02/21 02/03/21 02/03/21 Range/Units 11:30 07:35 07:35 WBC 4.42 L (5.00-10.00) 10^3/uL RBC 2.86 L (4.50-6.00) 10^6/uL Hgb 9.1 L D (13.0-17.0) g/dL Hct 28.7 L (40.0-52.0) % MCV 100.3 H (82.0-92.0) fL MCH 31.8 H (27.0-31.0) pg MCHC 31.7 L (32.0-36.0) g/dL RDW 14.8 H (11.5-14.5) % Plt Count 128 L (150-400) 10^3/uL MPV 10.2 (7.4-10.4) fL Immature Gran % (Auto) 0.2 (0.0-5.0) % Neut % (Auto) 65.8 (50.0-70.0) % Lymph % (Auto) 19.7 L (20.0-40.0) % [place] % (Auto) 11.3 H (2.0-8.0) % Eos % (Auto) 2.3 (1.0-3.0) % Baso % (Auto) 0.7 (0.0-1.0) % Neut # (Auto) 2.91 (2.50-7.00) 10^3/uL Lymph # (Auto) 0.87 L (1.00-4.00) 10^3/uL [place] # (Auto) 0.50 (0.10-0.80) 10^3/uL Eos # (Auto) 0.10 (0.10-0.30) 10^3/uL Baso # (Auto) 0.03 (0.00-0.10) 10^3/uL Immature Gran # (Auto) 0.01 (0.00-0.50) 10^3/uL Sodium 132 L (136-145) mmol/L Potassium 5.2 H (3.5-5.1) mmol/L Chloride 97 L (98-107) mmol/L Carbon Dioxide 28.6 (21.0-32.0) mmol/L Anion Gap 11.6 (5-15) mmol/L BUN 59 H* (7-18) mg/dL Creatinine 2.79 H (0.51-1.17) mg/dL Est Cr Clr Drug Dosing 19.75 mL/min Estimated GFR (MDRD) 22 mL/min Glucose 113 (70-140) mg/dL Calcium 8.3 L (8.7-10.3) mg/dL SARS CoV-2 RNA Rapid ROSENDO Negative (NEGATIVE) Med Orders - Current: Current Medications Acetaminophen (Acetaminophen 500 Mg Tab) 1,000 mg PO DAILY PRN PRN Reason: Pain (moderate 4-6) Last Admin: 02/02/21 16:40 Dose: 1,000 mg Documented by: Allopurinol (Allopurinol 100 Mg Tab) 100 mg PO DAILY [facility] Last Admin: 02/03/21 08:19 Dose: 100 mg Documented by: Aspirin (Aspirin 81 Mg Tab.Chew) 81 mg PO DAILY [facility] Last Admin: 02/03/21 08:13 Dose: 81 mg Documented by: Atorvastatin Calcium (Atorvastatin 40 Mg Tab) 40 mg PO DAILY [facility] Last Admin: 02/03/21 08:13 Dose: 40 mg Documented by: Atropine Sulfate (Atropine 0.1 Mg/Ml 10 Ml Syringe) 0 mg IVPUSH ASDIRECTED PRN PRN Reason: Heart. Bisacodyl (Bisacodyl 5 Mg Tab) 5 mg PO BID PRN PRN Reason: Constipation Ceftriaxone Sodium (Ceftriaxone 1 Gm Vial) 1 gm IVPUSH Q24H [facility] Last Admin: 02/02/21 12:45 Dose: 1 gm Documented by: Cholecalciferol (Cholecalciferol (Vitamin D3) 25 Mcg Tab) 50 mcg PO DAILY [facility] Last Admin: 02/03/21 08:23 Dose: 50 mcg Documented by: Cyanocobalamin (Cyanocobalamin (Vitamin B12) 500 Mcg Tab) 1,000 mcg PO DAILY [facility] Last Admin: 02/03/21 08:13 Dose: 1,000 mcg Documented by: Diclofenac Sodium (Diclofenac Sodium 1% Gel 100 Gm Tube) 2 gm TOP QID [facility] Last Admin: 02/03/21 08:19 Dose: 1 applic Documented by: Epinephrine HCl (Epinephrine 1:10,000 1 Mg/10 Ml Syringe) 1 mg IVPUSH ASDIRECTED PRN PRN Reason: Heart. Fluticasone Propionate (Fluticasone Propionate Nasal [place] 16 Gm Bottle) 0 gm NASBOTH DAILY [facility] Last Admin: 02/03/21 08:15 Dose: 1 spray Documented by: Folic Acid (Folic Acid 1 Mg Tab) 1 mg PO DAILY [facility] Last Admin: 02/03/21 08:13 Dose: 1 mg Documented by: Furosemide (Furosemide 20 Mg Tab) 40 mg PO DAILY [facility] Last Admin: 02/03/21 08:13 Dose: 40 mg Documented by: Lidocaine (Lidocaine 5% 700 Mg Patch) 700 mg TOP DAILY PRN PRN Reason: pain Lidocaine HCl (Lidocaine 2% 100 Mg/5 Ml Syringe) 0 mg IVPUSH ASDIRECTED PRN PRN Reason: Heart. Magnesium Oxide (Magnesium Oxide 500 Mg Tab) 500 mg PO DAILY [facility] Last Admin: 02/03/21 08:14 Dose: 500 mg Documented by: Melatonin (Melatonin 3 Mg Tab) 6 mg PO BEDTIME [facility] Last Admin: 02/02/21 20:01 Dose: 6 mg Documented by: Apixaban [Eliquis] 2 .5 Mg Tablet Ptom* * 2.5 mg PO BID [facility] Last Admin: 02/03/21 08:14 Dose: 2.5 mg Documented by: Calcium Carbonate/Vitamin D 600mg- 800iu Ptom 1 each PO DAILY [facility] Last Admin: 02/03/21 08:15 Dose: 1 each Documented by: Isosorbide Mononitrate 20mg Tab Ptom 10 mg PO BID [facility] Last Admin: 02/03/21 08:14 Dose: 10 mg Documented by: Omeprazole (Omeprazole 20 Mg Cap.Cr) 20 mg PO ACBREAKFAST [facility] Last Admin: 02/03/21 07:30 Dose: 20 mg Documented by: Polyethylene Glycol (Polyethylene Glycol 3350 Powder 17 Gm Packet) 17 gm PO DAILY PRN PRN Reason: Constipation Ranolazine (Ranolazine 1,000 Mg Tab.Er) 1,000 mg PO BID [facility] Last Admin: 02/03/21 08:13 Dose: 1,000 mg Documented by: Senna/Docusate Sodium (Docusate Sodium/Sennosides 50-8.6 Mg Tab) 8.6 tab PO BEDTIME PRN PRN Reason: Constipation Sodium Bicarbonate (Sodium Bicarbonate 650 Mg Tab) 650 mg PO TID [facility] Last Admin: 02/03/21 08:13 Dose: 650 mg Documented by: Sodium Chloride (Sodium Chloride 0.9% 10 Ml Syringe) 10 ml FLUSH Q8HR PRN PRN Reason: keep vein open Sodium Chloride (Sodium Chloride 0.65% Nasal [place] 45 Ml Bottle) 0 ml NASBOTH QID PRN PRN Reason: DRY NOSTRILS Tizanidine HCl (Tizanidine 4 Mg Tab) 4 mg PO BID [facility] Last Admin: 02/03/21 08:13 Dose: 4 mg Documented by: Discontinued Medications Albuterol (Albuterol 0.083% 2.5 Mg/3 Ml Neb Soln) 1.25 mg INH Q2H [facility] Last Admin: 02/02/21 13:25 Dose: Not Given Documented by: Furosemide (Furosemide 40 Mg/4 Ml Vial) 20 mg IVPUSH NOW ONE Stop: 02/02/21 11:59 Last Admin: 02/02/21 12:46 Dose: 20 mg Documented by: Sodium Bicarbonate (Sodium Bicarbonate 325 Mg Tab) 650 mg PO TID KEVAN - Exam Quality Assessment: Supplemental Oxygen General: Alert, Oriented, Cooperative, No Acute Distress Neck: Supple. No: JVD Lungs: No: Crackles, Rales Cardiovascular: Irregular Rhythm Back Exam: No: CVA Tenderness (L), CVA Tenderness (R) (resolved no more flank pain) Extremities: Pedal Edema (1 + BLE pitting) Skin: Warm, Dry, Intact Neurological: No New Focal Deficit (slight slurred speech. ), Normal Tone, Sensation Intact, Cranial Nerves Intact. No: Normal Speech Psy/Mental Status: Alert, Normal Affect. No: Depressed, Agitated, Hallucinations - Patient Data Lab Results Last 24 hrs: Laboratory Results - last 24 hr 02/02/21 02/03/21 02/03/21 Range/Units 11:30 07:35 07:35 WBC 4.42 L (5.00-10.00) 10^3/uL RBC 2.86 L (4.50-6.00) 10^6/uL Hgb 9.1 L D (13.0-17.0) g/dL Hct 28.7 L (40.0-52.0) % MCV 100.3 H (82.0-92.0) fL MCH 31.8 H (27.0-31.0) pg MCHC 31.7 L (32.0-36.0) g/dL RDW 14.8 H (11.5-14.5) % Plt Count 128 L (150-400) 10^3/uL MPV 10.2 (7.4-10.4) fL Immature Gran % (Auto) 0.2 (0.0-5.0) % Neut % (Auto) 65.8 (50.0-70.0) % Lymph % (Auto) 19.7 L (20.0-40.0) % [place] % (Auto) 11.3 H (2.0-8.0) % Eos % (Auto) 2.3 (1.0-3.0) % Baso % (Auto) 0.7 (0.0-1.0) % Neut # (Auto) 2.91 (2.50-7.00) 10^3/uL Lymph # (Auto) 0.87 L (1.00-4.00) 10^3/uL [place] # (Auto) 0.50 (0.10-0.80) 10^3/uL Eos # (Auto) 0.10 (0.10-0.30) 10^3/uL Baso # (Auto) 0.03 (0.00-0.10) 10^3/uL Immature Gran # (Auto) 0.01 (0.00-0.50) 10^3/uL Sodium 132 L (136-145) mmol/L Potassium 5.2 H (3.5-5.1) mmol/L Chloride 97 L (98-107) mmol/L Carbon Dioxide 28.6 (21.0-32.0) mmol/L Anion Gap 11.6 (5-15) mmol/L BUN 59 H* (7-18) mg/dL Creatinine 2.79 H (0.51-1.17) mg/dL Est Cr Clr Drug Dosing 19.75 mL/min Estimated GFR (MDRD) 22 mL/min Glucose 113 (70-140) mg/dL Calcium 8.3 L (8.7-10.3) mg/dL SARS CoV-2 RNA Rapid ROSENDO Negative (NEGATIVE) Result Diagrams: 02/03/21 07:35 02/03/21 07:35 Sepsis Event Note - Evaluation Sepsis Screening Result: No Definite Risk - Focused Exam Vital Signs: Vital Signs Temp Pulse Resp BP Pulse Ox 02/03/21 07:00 97.0 F 56 L 20 145/60 H 98 02/03/21 03:00 97.5 F 41 L 20 108/48 L 98 02/02/21 23:00 96.9 F 56 L 20 105/55 L 98 - Problem List Review Problem List Initiated/Reviewed/Updated: Yes - Plan Plan:: History Summary: Mr Hampton is a 80yr male was admitted by Crista Ruiz NP from local [facility] with a working dx of Hyperkalemia, extremity weakness, and Constipation. He was following up from a recent ED visit due to a fall in which they questioned him having a TIA. His cardiac work-up was negative however BNP 1600, work-up for UTI included blood cultures which showing no growth, x-ray along with head CT no acute process (however chronic LL atelectasis upon reveiwing ED workup independently) UA; cloudy with moderate bacteria/leukocyte esterase--LUTS He has been having elevated potassium levels in which we have been holding his Entresto. Due to thoracic lumbar pain he has been on tramadol and he was advised to discontinue this as it was some suspect of altered mental status and possible slurred speech (previous hallucinations with [place] use). Patient was accompanied by his and she denoted improved on slurred speech however he cant seem to "find the right words"--endorsed by the patient himself. has also noted increased confusion in the last 24-48 hours with increasing difficulty getting him to stand up with minimal assistance, which is worsened from his baseline weakness. Patient has had 4 falls in December with near fall more recently. He does have some spasicity in his right leg and arm in which he describes as "jumping". Has chronic right low back pain, which has moved up towards the right flank area as well. Has been working with PT for his back pain, which is helping some. Hasn't had a good BM since Tuesday night. Took a stool softener Tuesday and Tuesday with small amount of stool today. Appetite is okay. Hospital course 02/03/2021; He was admitted with orders for Ольга Loza. Na 132, K 5.2, BUN 59 creat 2.79 (ratio 21) Input 650 Output 800. Wt. up 4 lbs--doubt reliabillity. Day on rounds he no longer has acute confusion, he states his flank pain is resolved and his urinary frequency is improving. Large bowel movement this morning, no fever, no night sweats, no PND or orthopnea. He does have some sx suggestive of cerebellar dysarthria out any diffuse neurological abnormalities. 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 Will recieve Procrit today -CKD stage 3b: sodium bicarbonate 650 mg TID, allopurinol 100 mg daily. -Chronic combined CHF: On lasix 40 mg daily. -Hx of TIA/Hx of left ischemic embolic stroke (10/2018). -Hypomagnesemia: On magnesium oxide 500 mg daily. -Chronic right-sided low back pain: On tylenol 1000 mg daily prn, Voltaren 1% gel QID, tizanadine 4 mg BID, Lidoderm 5% patch daily. -Constipation, BM this am, On Miralax 17 gm daily prn, Senna 1 tab at HS prn, bisacodyl 5 mg BID prn. -B12 deficiency: On b12 1 tab daily. Disposition overall plan --Continue inpatient status, given history symptoms, physical exam , hx of LUTS, continue with Rocephin --Discontinue telemetry --Procrit today --Anticipate placing in swing bed for extensive PT/OT anticipations of eventually going back to home with HH --code status: DO NOT RESUSCITATE, KERRI signed on rounds this am.
[2021-02-03] MEDS: cefTRIAXone 1 GM Vial IVPUSH SCH (11:54)
[2021-02-03] MEDS: Melatonin 3 MG Tab PO SCH (20:41)
[2021-02-04] MEDS: Omeprazole 20 MG Cap.CR PO SCH ×2 (06:17→06:32)
--- NOTE | 2021-02-04 07:20 | PT ---
PATIENT NAME: ESTEFANY WILSON MEDICAL RECORD NUMBER: : [id number] DATE: 02/03/2021 REFERRING PHYSICIAN: Marlena Masterson MD PT evaluation was attempted, but the patient refused due to fatigue at that time.
[2021-02-04] MEDS: CALCIUM CARBONATE PO SCH (08:35)
[2021-02-04] MEDS: [UNRECOGNIZED DRUG - OTHER] PO SCH (08:35)
[2021-02-04] MEDS: Fluticasone Propionate Nasal Spray 16 GM Bottle NASBOTH SCH (08:35)
[2021-02-04] MEDS: ISOSORBIDE MONONITRATE 20 MG PO SCH ×2 (08:36→21:06)
[2021-02-04] MEDS: APIXABAN 2.5 MG PO SCH ×2 (08:36→21:06)
[2021-02-04] MEDS: Cholecalciferol (Vitamin D3) 25 MCG Tab PO SCH (08:37)
[2021-02-04] MEDS: Cyanocobalamin (Vitamin B12) 500 MCG Tab PO SCH (08:37)
[2021-02-04] MEDS: Aspirin 81 MG Tab.Chew PO SCH (08:37)
[2021-02-04] MEDS: Diclofenac Sodium 1% Gel 100 GM Tube TOP SCH ×4 (08:37→21:05)
[2021-02-04] MEDS: Magnesium Oxide 500 MG Tab PO SCH (08:38)
[2021-02-04] MEDS: Allopurinol 100 MG Tab PO SCH (08:38)
[2021-02-04] MEDS: Folic Acid 1 MG Tab PO SCH (08:38)
[2021-02-04] MEDS: Furosemide 20 MG Tab PO SCH (08:38)
[2021-02-04] MEDS: tiZANidine 4 MG Tab PO SCH ×2 (08:38→21:07)
[2021-02-04] MEDS: atorvaSTATin 40 MG Tab PO SCH (08:38)
[2021-02-04] MEDS: Sodium Bicarbonate 650 MG Tab PO SCH ×3 (08:39→21:07)
--- NOTE | 2021-02-04 10:03 | PCM.PN ---
- General Info Date of Service: 02/04/21 Functional Status: Reports: Pain Controlled, Tolerating Diet, Incentive Spirometry. Denies: New Symptoms - Review of Systems General: Reports: Weakness. Denies: Fever, Fatigue, Chills, Night Sweats, Appetite HEENT: Reports: No Symptoms Pulmonary: Denies: Shortness of Breath, Pleuritic Chest Pain, Cough, Sputum, Wheezing Cardiovascular: Reports: Edema (1+). Denies: Chest Pain Gastrointestinal: Reports: No Symptoms Genitourinary: Reports: No Symptoms Musculoskeletal: Denies: Back Pain Neurological: Reports: Pre-Existing Deficit, Difficulty Walking, Weakness, Gait Disturbance. Denies: Confusion, Change in Speech Psychiatric: Denies: Confusion, Agitation - Patient Data Vitals - Most Recent: Last Vital Signs Temp 96.7 F L 02/04/21 06:15 Pulse 58 L 02/04/21 06:15 Resp 24 H 02/04/21 06:15 BP 137/62 02/04/21 06:15 Pulse Ox 100 02/04/21 06:15 Weight - Most Recent: 242 lb I&O - Last 24 Hours: Intake & Output 02/03/21 02/04/21 02/04/21 22:59 06:59 14:59 Intake Total 240 50 Output Total 300 550 Balance -60 -500 Med Orders - Current: Current Medications Acetaminophen (Acetaminophen 500 Mg Tab) 1,000 mg PO DAILY PRN PRN Reason: Pain (moderate 4-6) Last Admin: 02/02/21 16:40 Dose: 1,000 mg Documented by: Allopurinol (Allopurinol 100 Mg Tab) 100 mg PO DAILY [facility] Last Admin: 02/04/21 08:38 Dose: 100 mg Documented by: Aspirin (Aspirin 81 Mg Tab.Chew) 81 mg PO DAILY [facility] Last Admin: 02/04/21 08:37 Dose: 81 mg Documented by: Atorvastatin Calcium (Atorvastatin 40 Mg Tab) 40 mg PO DAILY [facility] Last Admin: 02/04/21 08:38 Dose: 40 mg Documented by: Atropine Sulfate (Atropine 0.1 Mg/Ml 10 Ml Syringe) 0 mg IVPUSH ASDIRECTED PRN PRN Reason: Heart. Bisacodyl (Bisacodyl 5 Mg Tab) 5 mg PO BID PRN PRN Reason: Constipation Ceftriaxone Sodium (Ceftriaxone 1 Gm Vial) 1 gm IVPUSH Q24H [facility] Last Admin: 02/03/21 11:54 Dose: 1 gm Documented by: Cholecalciferol (Cholecalciferol (Vitamin D3) 25 Mcg Tab) 50 mcg PO DAILY [facility] Last Admin: 02/04/21 08:37 Dose: 50 mcg Documented by: Cyanocobalamin (Cyanocobalamin (Vitamin B12) 500 Mcg Tab) 1,000 mcg PO DAILY [facility] Last Admin: 02/04/21 08:37 Dose: 1,000 mcg Documented by: Diclofenac Sodium (Diclofenac Sodium 1% Gel 100 Gm Tube) 2 gm TOP QID [facility] Last Admin: 02/04/21 08:37 Dose: 1 applic Documented by: Epinephrine HCl (Epinephrine 1:10,000 1 Mg/10 Ml Syringe) 1 mg IVPUSH ASDIRECTED PRN PRN Reason: Heart. Fluticasone Propionate (Fluticasone Propionate Nasal [place] 16 Gm Bottle) 0 gm NASBOTH DAILY [facility] Last Admin: 02/04/21 08:35 Dose: 1 spray Documented by: Folic Acid (Folic Acid 1 Mg Tab) 1 mg PO DAILY [facility] Last Admin: 02/04/21 08:38 Dose: 1 mg Documented by: Furosemide (Furosemide 20 Mg Tab) 40 mg PO DAILY [facility] Last Admin: 02/04/21 08:38 Dose: 40 mg Documented by: Lidocaine (Lidocaine 5% 700 Mg Patch) 700 mg TOP DAILY PRN PRN Reason: pain Lidocaine HCl (Lidocaine 2% 100 Mg/5 Ml Syringe) 0 mg IVPUSH ASDIRECTED PRN PRN Reason: Heart. Magnesium Oxide (Magnesium Oxide 500 Mg Tab) 500 mg PO DAILY [facility] Last Admin: 02/04/21 08:38 Dose: 500 mg Documented by: Melatonin (Melatonin 3 Mg Tab) 6 mg PO BEDTIME [facility] Last Admin: 02/03/21 20:41 Dose: 6 mg Documented by: Apixaban [Eliquis] 2 .5 Mg Tablet Ptom* * 2.5 mg PO BID [facility] Last Admin: 02/04/21 08:36 Dose: 2.5 mg Documented by: Calcium Carbonate/Vitamin D 600mg- 800iu Ptom 1 each PO DAILY [facility] Last Admin: 02/04/21 08:35 Dose: 1 each Documented by: Isosorbide Mononitrate 20mg Tab Ptom 10 mg PO BID [facility] Last Admin: 02/04/21 08:36 Dose: 10 mg Documented by: Omeprazole (Omeprazole 20 Mg Cap.Cr) 20 mg PO ACBREAKFAST [facility] Last Admin: 02/04/21 06:32 Dose: Not Given Documented by: Polyethylene Glycol (Polyethylene Glycol 3350 Powder 17 Gm Packet) 17 gm PO DAILY PRN PRN Reason: Constipation Ranolazine (Ranolazine 1,000 Mg Tab.Er) 1,000 mg PO BID [facility] Last Admin: 02/04/21 08:37 Dose: 1,000 mg Documented by: Senna/Docusate Sodium (Docusate Sodium/Sennosides 50-8.6 Mg Tab) 1 tab PO BEDTIME PRN PRN Reason: Constipation Sodium Bicarbonate (Sodium Bicarbonate 650 Mg Tab) 650 mg PO TID [facility] Last Admin: 02/04/21 08:39 Dose: 650 mg Documented by: Sodium Chloride (Sodium Chloride 0.9% 10 Ml Syringe) 10 ml FLUSH Q8HR PRN PRN Reason: keep vein open Sodium Chloride (Sodium Chloride 0.65% Nasal [place] 45 Ml Bottle) 0 ml NASBOTH QID PRN PRN Reason: DRY NOSTRILS Tizanidine HCl (Tizanidine 4 Mg Tab) 4 mg PO BID [facility] Last Admin: 02/04/21 08:38 Dose: 4 mg Documented by: Discontinued Medications Albuterol (Albuterol 0.083% 2.5 Mg/3 Ml Neb Soln) 1.25 mg INH Q2H [facility] Last Admin: 02/02/21 13:25 Dose: Not Given Documented by: Furosemide (Furosemide 40 Mg/4 Ml Vial) 20 mg IVPUSH NOW ONE Stop: 02/02/21 11:59 Last Admin: 02/02/21 12:46 Dose: 20 mg Documented by: Senna/Docusate Sodium (Docusate Sodium/Sennosides 50-8.6 Mg Tab) 8.6 tab PO BEDTIME PRN PRN Reason: Constipation Last Admin: 02/03/21 20:42 Dose: 1 tab Documented by: Sodium Bicarbonate (Sodium Bicarbonate 325 Mg Tab) 650 mg PO TID [facility] - Exam Quality Assessment: Supplemental Oxygen General: Alert, Oriented, Cooperative. No: No Acute Distress, Mild Distress Lungs: Clear to Auscultation, Normal Respiratory Effort Cardiovascular: Regular Rate GI/Abdominal Exam: Normal Bowel Sounds, Soft, No Distention (Male) Exam: No: Rash Back Exam: No: CVA Tenderness (L), CVA Tenderness (R) Extremities: Pedal Edema (1+ BLE) Neurological: Normal Gait, Normal Speech, Other (improved in speech quality) Psy/Mental Status: Alert, Normal Affect, Normal Mood. No: Anxious - Patient Data Result Diagrams: 02/03/21 07:35 02/03/21 07:35 Sepsis Event Note - Evaluation Sepsis Screening Result: Possible Sepsis Risk - Focused Exam Vital Signs: Vital Signs Temp Pulse Resp BP Pulse Ox Pulse Ox 02/04/21 06:15 96.7 F L 58 L 24 H 137/62 100 02/04/21 06:00 100 02/03/21 22:05 97.1 F 59 L 20 137/52 L 98 - Problem List Review Problem List Initiated/Reviewed/Updated: Yes - My Orders Last 24 Hours: My Active Orders 02/03/21 09:45 Discontinue Telemetry Monitoring [Cardiac Monitoring Discontinue] [RC] Click to Edit 02/03/21 10:27 Consult to Occupational Therapy [OT Evaluation and Treatment] [CONS] Routine - Plan Plan:: History Summary: Mr Hampton is a 80yr male was admitted by Crista Ruiz NP from local [facility] with a working dx of Hyperkalemia, extremity weakness, and Constipation. He was following up from a recent ED visit due to a fall in which they questioned him having a TIA. His cardiac work-up was negative however BNP 1600, work-up for UTI included blood cultures which showing no growth, x-ray along with head CT no acute process (however chronic LL atelectasis upon reveiwing ED workup independently) UA; cloudy with moderate bacteria/leukocyte esterase--LUTS He has been having elevated potassium levels in which we have been holding his Entresto. Due to thoracic lumbar pain he has been on tramadol and he was advised to discontinue this as it was some suspect of altered mental status and possible slurred speech (previous hallucinations with [place] use). Patient was accompanied by his and she denoted improved on slurred speech however he cant seem to "find the right words"--endorsed by the patient himself. has also noted increased confusion in the last 24-48 hours with increasing difficulty getting him to stand up with minimal assistance, which is worsened from his baseline weakness. Patient has had 4 falls in December with near fall more recently. He does have some spasicity in his right leg and arm in which he describes as "jumping". Has chronic right low back pain, which has moved up towards the right flank area as well. Has been working with PT for his back pain, which is helping some. Hasn't had a good BM since Tuesday night. Took a stool softener Tuesday and Tuesday with small amount of stool today. Appetite is okay. Hospital course 02/03/2021; He was admitted with orders for Lasix, Rocephin. Na 132, K 5.2, BUN 59 creat 2.79 (ratio 21) Input 650 Output 800. Wt. up 4 lbs--doubt reliabillity. Day on rounds he no longer has acute confusion, he states his flank pain is resolved and his urinary frequency is improving. Large bowel movement this morning, no fever, no night sweats, no PND or orthopnea. He does have some sx suggestive of cerebellar dysarthria out any diffuse neurological abnormalities. 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 Recieved Procrit on admission. -CKD stage 3b: sodium bicarbonate 650 mg TID, allopurinol 100 mg daily. -Chronic combined CHF: On lasix 40 mg daily. -Hx of TIA/Hx of left ischemic embolic stroke (10/2018). -Hypomagnesemia: On magnesium oxide 500 mg daily. -Chronic right-sided low back pain: On tylenol 1000 mg daily prn, Voltaren 1% gel QID, tizanadine 4 mg BID, Lidoderm 5% patch daily. -Constipation, BM this am, On Miralax 17 gm daily prn, Senna 1 tab at HS prn, bisacodyl 5 mg BID prn. -B12 deficiency: On b12 1 tab daily. Disposition overall plan --Continue inpatient status, given history symptoms, physical exam , improving LUTS, continue with Rocephin --TEDS during day, ankle pumps demonstrated, legs up while in chair. --Anticipate placing in swing bed for extensive PT/OT with plans on returning home with HH --code status: DO NOT RESUSCITATE, POLST on file.
[2021-02-04] MEDS ORDERED: guaiFENesin/Dextromethorphan 100-10 MG/5 ML Soln 5 ML Cup PO PRN (10:13)
[2021-02-04] MEDS: cefTRIAXone 1 GM Vial IVPUSH SCH (12:11)
[2021-02-04] MEDS: Acetaminophen 500 MG Tab PO PRN (17:29)
[2021-02-04] MEDS: Melatonin 3 MG Tab PO SCH (21:07)
[2021-02-04] MEDS ORDERED: Simethicone 80 MG Tab.Chew PO PRN (22:08)
[2021-02-04 22:58] VITALS: PULSE 56
[2021-02-05] MEDS: Omeprazole 20 MG Cap.CR PO SCH ×2 (06:17→06:32)
[2021-02-05 06:24] VITALS: BP 141/63
[2021-02-05] MEDS ORDERED: LORazepam 0.5 MG Tab PO ONE (07:47)
--- NOTE | 2021-02-05 08:02 | PT ---
PATIENT NAME: ESTEFANY WILSON MEDICAL RECORD NUMBER: : [id number] DATE: 02/04/2021 REFERRING PHYSICIAN: JAMES Anderson ONSET DATE: 01/31/2021. DIAGNOSIS: Bilateral lower extremity weakness and deconditioning with history of falls. SUBJECTIVE: The patient's tells me that her has had four falls in the month of 12/2020 and one in the month of 01/2021. The patient seems to have gotten weak especially on his right side. Frequently, his right leg will jump and move beyond his control. They both believe that this is the main cause for his falling. He was seen in the ED after a fall on 01/31/2021. The patient was later found to have a significant UTI with high potassium and admitted. The patient's both have a goal of returning the patient to home. The patient does not have any steps to accommodate. The patient typically uses a front- wheeled walker as an aide when weightbearing and walking. The patient himself tells me that he feels a lot better today compared to yesterday. He still has significant back pain, especially along the right flank that he rates as a 9/10. The patient does agree to PT today. OBJECTIVE: TREATMENT TIME: Time in 1645 hours. Time out 1715 hours. TREATMENT: Consisted of physical therapy initial evaluation, low complex, and 20 minutes of therapeutic exercises consisting of sit to stand transfers inside a front-wheeled walker x3 along with marching in place 10 repetitions each to bilateral lower extremities. The patient did require 2 minutes rest between each set. OBSERVATION: The patient is upright in the chair. PAIN: The patient rates his right middle back pain as a 9/10. PALPATION: The patient is tender to palpating the right middle thoracic paraspinals and latissimus dorsi. RANGE OF MOTION: Active range of motion of bilateral lower extremities is within functional limits. Active range of motion of bilateral upper extremities is within normal limits. MANUAL MUSCLE TEST: Left lower extremity is grade 4/5 in all planes of left hip, knee, and ankle, and right lower extremity is grade 4-/5 in right hip, knee, foot, and ankle. Manual muscle test of bilateral upper extremities is grossly 4/5 bilaterally. SPECIAL TESTS: Not assessed. NEUROLOGIC FINDINGS: Dermatomes and myotomes grossly normal through the lower extremities. ASSESSMENT: Impression: The patient has been improving during his acute stay. I do believe that the patient has the potential to return home under his 's care. I do recommend that swing bed begin tomorrow to work on improving strength and conditioning of his lower extremities. The patient did display the ability to transfer [id number] inside a front-wheeled walker independently. He did appear safe in terms of balance while inside of his walker as well. GOALS: Please refer to plan of care. PLAN: The patient will be transitioning to swing bed as of tomorrow to continue to work on improving strength and endurance. The patient and his both agreed to this plan of care as the patient shows good rehab potential to achieve goals established.
[2021-02-05 08:20] LABS: ANION GAP 12.6 mmol/L (5-15)
[2021-02-05] MEDS: APIXABAN 2.5 MG PO SCH (09:13)
[2021-02-05] MEDS: [UNRECOGNIZED DRUG - OTHER] PO SCH (09:14)
[2021-02-05] MEDS: CALCIUM CARBONATE PO SCH (09:14)
[2021-02-05] MEDS: Sodium Bicarbonate 650 MG Tab PO SCH (09:15)
[2021-02-05] MEDS: Cyanocobalamin (Vitamin B12) 500 MCG Tab PO SCH (09:15)
[2021-02-05] MEDS: tiZANidine 4 MG Tab PO SCH (09:16)
[2021-02-05] MEDS: Cholecalciferol (Vitamin D3) 25 MCG Tab PO SCH (09:16)
[2021-02-05] MEDS: atorvaSTATin 40 MG Tab PO SCH (09:17)
[2021-02-05] MEDS: Folic Acid 1 MG Tab PO SCH (09:18)
[2021-02-05] MEDS: Allopurinol 100 MG Tab PO SCH (09:18)
[2021-02-05] MEDS: Furosemide 20 MG Tab PO SCH (09:18)
[2021-02-05] MEDS: Magnesium Oxide 500 MG Tab PO SCH (09:19)
[2021-02-05] MEDS: Aspirin 81 MG Tab.Chew PO SCH (09:20)
[2021-02-05] MEDS: ISOSORBIDE MONONITRATE 20 MG PO SCH (09:20)
[2021-02-05] MEDS: Fluticasone Propionate Nasal Spray 16 GM Bottle NASBOTH SCH (09:21)
[2021-02-05] MEDS: Diclofenac Sodium 1% Gel 100 GM Tube TOP SCH (09:21)
--- NOTE | 2021-02-05 11:20 | PCM.DCSUM1 ---
Discharge Summary - Discharge Data Discharge Date: 02/05/21 Discharge Disposition: DC/Tfer W/I Hosp To Swing 61 Condition: Good - Referral to Home Health Primary Care Physician: Crista Ruiz NP - Patient Summary/Data Consults: Consultations 02/02/21 11:43 Consult to Case Management/Barber Apprentice [CONS] Routine 02/02/21 11:58 Consult to Physical Therapy [PT Evaluation and Treatment] [CONS] Routine 02/03/21 10:27 Consult to Occupational Therapy [OT Evaluation and Treatment] [CONS] Routine - Discharge Plan Home Medications: Home Meds Calcium Carbonate/Vitamin D3 [Calcium 600 + Vit D Tablet] 1 each PO DAILY 01/08/15 [History] Cyanocobalamin (Vitamin B-12) [Vitamin B-12] 1,000 mcg PO DAILY 01/08/15 [History] allopurinoL [Zyloprim] 100 mg PO DAILY 01/08/15 [History] Folic Acid 800 mcg PO DAILY 12/19/17 [History] Melatonin 5 mg PO BEDTIME 09/18/18 [History] Sennosides [Senokot] 8.6 mg PO BEDTIME PRN 09/18/18 [History] Triamcinolone Acetonide [Triamcinolone Acetonide 0.1% Crm] 1 applic TOP BID PRN 09/18/18 [History] Apixaban [Eliquis] 2.5 mg PO BID 02/06/19 [History] Aspirin 81 mg PO DAILY 02/06/19 [History] Ranolazine [Ranexa] 1,000 mg PO BID 02/07/19 [History] Omeprazole 20 mg PO DAILY #90 tab.rap. 02/08/19 [Rx] atorvaSTATin Calcium [Lipitor] 40 mg PO DAILY 04/10/19 [History] Furosemide 40 mg PO DAILY 05/29/19 [History] Fluocinonide [Lidex 0.05% Oint] 1 applic TOP DAILY PRN 04/09/20 [History] Fluticasone Propionate [Flonase] 1 spray NASBOTH DAILY 04/09/20 [History] Sodium Bicarbonate 650 mg PO TID 04/09/20 [History] Cholecalciferol (Vitamin D3) [Vitamin D3] 2,000 unit PO DAILY 05/01/20 [History] Acetaminophen [Acetaminophen Extra Strength] 1,000 mg PO DAILY PRN 05/22/20 [History] Aloe Vera/Sodium Chloride [[place] Saline Nasal Gel] 1 applic NASBOTH QID 05/22/20 [History] Isosorbide Mononitrate 10 mg PO BID 05/22/20 [History] Magnesium Oxide 500 mg PO DAILY 05/22/20 [History] Diclofenac Sodium [Voltaren 1% Gel] 2 gram TOP QID 02/02/21 [History] Lidocaine 5% [Lidoderm 5%] 1 patch TOP DAILY PRN 02/02/21 [History] Sacubitril/Valsartan [Entresto 24 mg-26 mg Tablet] 1 tab PO BID 02/02/21 [History] bisacodyL [Dulcolax] 5 mg PO BID PRN 02/02/21 [History] polyethylene glycoL 3350 [MiraLAX] 17 gm PO DAILY PRN 02/02/21 [History] tiZANidine [Zanaflex] 4 mg PO BID 02/02/21 [History] traMADol [Ultram] 50 mg PO Q6H PRN 02/02/21 [History] - Discharge Summary/Plan Comment DC Time >30 min.: Yes Total # of Minutes for Discharge Time: 90 minutes Discharge Summary/Plan Comment: Final Dx --Weakness/deconditioning --UTI, improving symptoms --Dysarthria, --Generalized weakness, --Frequent falls, high risk, --Acute confusion, --Hyperkalemia, History Summary: Mr Hampton is a 80yr male was admitted by Crista Ruiz NP from local [facility] with a working dx of Hyperkalemia, extremity weakness, and Constipation. He was following up from a recent ED visit due to a fall in which they questioned him having a TIA. His cardiac work-up was negative however BNP 1600, work-up for UTI included blood cultures which showing no growth, x-ray along with head CT no acute process (however chronic LL atelectasis upon reveiwing ED workup independently) UA; cloudy with moderate bacteria/leukocyte esterase--LUTS He has been having elevated potassium levels in which we have been holding his Entresto. Due to thoracic lumbar pain he has been on tramadol and he was advised to discontinue this as it was some suspect of altered mental status and possible slurred speech (previous hallucinations with [place] use). Patient was accompanied by his and she denoted improved on slurred speech however he cant seem to "find the right words"--endorsed by the patient himself. has also noted increased confusion in the last 24-48 hours with increasing difficulty getting him to stand up with minimal assistance, which is worsened from his baseline weakness. Patient has had 4 falls in December with near fall more recently. He does have some spasicity in his right leg and arm in which he de scribes as "jumping". Has chronic right low back pain, which has moved up towards the right flank area as well. Has been working with PT for his back pain, which is helping some. Hasn't had a good BM since Tuesday night. Took a stool softener Tuesday and Tuesday with small amount of stool today. Appetite is okay. Hospital course He was admitted with orders for [place] eldridgehin. Na 132, K 5.2, BUN 59 creat 2.79 (ratio 21) Input 650 Output 800. Wt. up 4 lbs--doubt reliabillity. Day on rounds he no longer has acute confusion, he states his flank pain is resolved and his urinary frequency is improving. Large bowel movement this morning, no fever, no night sweats, no PND or orthopnea. He does have some sx suggestive of cerebellar dysarthria out any diffuse neurological abnormalities. Good gag reflex. Did well, lower urinary tract like symptoms improved, he was evaluated by physical therapy and was deemed appropriate that in order for him to be able to go home on home health he would need further strengthening and ambulation. He did have some mild bilateral lower extremity edema, TAYE stockings were placed, ankle pumps, his legs were elevated while in chair. His stayed with him most of days. On rounds February 05 I noticed the patient was peeling a banana and had yogurt on his tray both high in potassium. Consulted with nursing/dietary to ensure heart healthy but to include low potassium diet. Disposition overall plan --Transfer patient into swing bed therapy for PT/OT due to physical deconditioning and weakness is mainly of bilateral lower extremities, plan is to eventually return home with home health services. - General Info Date of Service: 02/05/21 - Review of Systems General: Reports: Weakness Pulmonary: Reports: No Symptoms Cardiovascular: Reports: Edema Gastrointestinal: Reports: No Symptoms Genitourinary: Reports: No Symptoms Musculoskeletal: Denies: Back Pain Neurological: Reports: Pre-Existing Deficit, Difficulty Walking, Weakness, Gait Disturbance Psychiatric: Reports: No Symptoms - Patient Data Vitals - Most Recent: Last Vital Signs Temp 97.5 F 02/05/21 06:22 Pulse 56 L 02/05/21 06:22 Resp 24 H 02/05/21 06:22 BP 141/63 H 02/05/21 06:22 Pulse Ox 97 02/05/21 06:30 Weight - Most Recent: 245 lb 5 oz I&O - Last 24 hours: Intake & Output 02/04/21 02/05/21 02/05/21 22:59 06:59 14:59 Intake Total 320 300 Output Total 300 425 Balance 20 -125 Lab Results - Last 24 hrs: Laboratory Results - last 24 hr 02/05/21 Range/Units 07:30 Sodium 129 L (136-145) mmol/L Potassium 5.7 H (3.5-5.1) mmol/L Chloride 94 L (98-107) mmol/L Carbon Dioxide 28.1 (21.0-32.0) mmol/L Anion Gap 12.6 (5-15) mmol/L BUN 53 H* (7-18) mg/dL Creatinine 2.55 H (0.51-1.17) mg/dL Est Cr Clr Drug Dosing 21.61 mL/min Estimated GFR (MDRD) 24 mL/min Glucose 118 (70-140) mg/dL Calcium 8.4 L (8.7-10.3) mg/dL Med Orders - Current: Current Medications Acetaminophen (Acetaminophen 500 Mg Tab) 1,000 mg PO DAILY PRN PRN Reason: Pain (moderate 4-6) Last Admin: 02/04/21 17:29 Dose: 1,000 mg Documented by: Allopurinol (Allopurinol 100 Mg Tab) 100 mg PO DAILY KEVAN Last Admin: 02/05/21 09:18 Dose: 100 mg Documented by: Aspirin (Aspirin 81 Mg Tab.Chew) 81 mg PO DAILY [facility] Last Admin: 02/05/21 09:20 Dose: 81 mg Documented by: Atorvastatin Calcium (Atorvastatin 40 Mg Tab) 40 mg PO DAILY [facility] Last Admin: 02/05/21 09:17 Dose: 40 mg Documented by: Atropine Sulfate (Atropine 0.1 Mg/Ml 10 Ml Syringe) 0 mg IVPUSH ASDIRECTED PRN PRN Reason: Heart. Bisacodyl (Bisacodyl 5 Mg Tab) 5 mg PO BID PRN PRN Reason: Constipation Ceftriaxone Sodium (Ceftriaxone 1 Gm Vial) 1 gm IVPUSH Q24H [facility] Last Admin: 02/04/21 12:11 Dose: 1 gm Documented by: Cholecalciferol (Cholecalciferol (Vitamin D3) 25 Mcg Tab) 50 mcg PO DAILY [facility] Last Admin: 02/05/21 09:16 Dose: 50 mcg Documented by: Cyanocobalamin (Cyanocobalamin (Vitamin B12) 500 Mcg Tab) 1,000 mcg PO DAILY [facility] Last Admin: 02/05/21 09:15 Dose: 1,000 mcg Documented by: Diclofenac Sodium (Diclofenac Sodium 1% Gel 100 Gm Tube) 2 gm TOP QID [facility] Last Admin: 02/05/21 09:21 Dose: 1 applic Documented by: Epinephrine HCl (Epinephrine 1:10,000 1 Mg/10 Ml Syringe) 1 mg IVPUSH ASDIRECTED PRN PRN Reason: Heart. Fluticasone Propionate (Fluticasone Propionate Nasal [place] 16 Gm Bottle) 0 gm NASBOTH DAILY [facility] Last Admin: 02/05/21 09:21 Dose: 1 spray Documented by: Folic Acid (Folic Acid 1 Mg Tab) 1 mg PO DAILY [facility] Last Admin: 02/05/21 09:18 Dose: 1 mg Documented by: Furosemide (Furosemide 20 Mg Tab) 40 mg PO DAILY [facility] Last Admin: 02/05/21 09:18 Dose: 40 mg Documented by: Guaifenesin/Phenylephrine HCl (Guaifenesin/Dextromethorphan 100-10 Mg/5 Ml Soln 5 Ml Cup) 10 ml PO Q4H PRN PRN Reason: Cough Lidocaine (Lidocaine 5% 700 Mg Patch) 700 mg TOP DAILY PRN PRN Reason: pain Lidocaine HCl (Lidocaine 2% 100 Mg/5 Ml Syringe) 0 mg IVPUSH ASDIRECTED PRN PRN Reason: Heart. Magnesium Oxide (Magnesium Oxide 500 Mg Tab) 500 mg PO DAILY [facility] Last Admin: 02/05/21 09:19 Dose: 500 mg Documented by: Melatonin (Melatonin 3 Mg Tab) 6 mg PO BEDTIME [facility] Last Admin: 02/04/21 21:07 Dose: 6 mg Documented by: Apixaban [Eliquis] 2 .5 Mg Tablet Ptom* * 2.5 mg PO BID [facility] Last Admin: 02/05/21 09:13 Dose: 2.5 mg Documented by: Calcium Carbonate/Vitamin D 600mg- 800iu Ptom 1 each PO DAILY [facility] Last Admin: 02/05/21 09:14 Dose: 1 each Documented by: Isosorbide Mononitrate 20mg Tab Ptom 10 mg PO BID [facility] Last Admin: 02/05/21 09:20 Dose: 10 mg Documented by: Omeprazole (Omeprazole 20 Mg Cap.Cr) 20 mg PO ACBREAKFAST [facility] Last Admin: 02/05/21 06:32 Dose: Not Given Documented by: Polyethylene Glycol (Polyethylene Glycol 3350 Powder 17 Gm Packet) 17 gm PO DAILY PRN PRN Reason: Constipation Ranolazine (Ranolazine 1,000 Mg Tab.Er) 1,000 mg PO BID [facility] Last Admin: 02/05/21 09:19 Dose: 1,000 mg Documented by: Senna/Docusate Sodium (Docusate Sodium/Sennosides 50-8.6 Mg Tab) 1 tab PO BEDTIME PRN PRN Reason: Constipation Simethicone (Simethicone 80 Mg Tab.Chew) 80 mg PO Q4H PRN PRN Reason: Heartburn Last Admin: 02/04/21 22:17 Dose: 80 mg Documented by: Sodium Bicarbonate (Sodium Bicarbonate 650 Mg Tab) 650 mg PO TID [facility] Last Admin: 02/05/21 09:15 Dose: 650 mg Documented by: Sodium Chloride (Sodium Chloride 0.9% 10 Ml Syringe) 10 ml FLUSH Q8HR PRN PRN Reason: keep vein open Sodium Chloride (Sodium Chloride 0.65% Nasal [place] 45 Ml Bottle) 0 ml NASBOTH QID PRN PRN Reason: DRY NOSTRILS Tizanidine HCl (Tizanidine 4 Mg Tab) 4 mg PO BID [facility] Last Admin: 02/05/21 09:16 Dose: 4 mg Documented by: Discontinued Medications Albuterol (Albuterol 0.083% 2.5 Mg/3 Ml Neb Soln) 1.25 mg INH Q2H KEVAN Last Admin: 02/02/21 13:25 Dose: Not Given Documented by: Furosemide (Furosemide 40 Mg/4 Ml Vial) 20 mg IVPUSH NOW ONE Stop: 02/02/21 11:59 Last Admin: 02/02/21 12:46 Dose: 20 mg Documented by: Lorazepam (Lorazepam 0.5 Mg Tab) 0.25 mg PO ONETIME ONE Stop: 02/05/21 07:48 Last Admin: 02/05/21 07:56 Dose: 0.25 mg Documented by: Senna/Docusate Sodium (Docusate Sodium/Sennosides 50-8.6 Mg Tab) 8.6 tab PO BEDTIME PRN PRN Reason: Constipation Last Admin: 02/03/21 20:42 Dose: 1 tab Documented by: Sodium Bicarbonate (Sodium Bicarbonate 325 Mg Tab) 650 mg PO TID KEVAN - Exam Quality Assessment: Reports: Supplemental Oxygen General: Reports: Alert, Oriented Lungs: Reports: Clear to Auscultation, Normal Respiratory Effort Cardiovascular: Reports: Irregular Rhythm GI/Abdominal Exam: Soft, No Distention (Male) Exam: Deferred Rectal (Males) Exam: Deferred Back Exam: Denies: CVA Tenderness (L), CVA Tenderness (R) Extremities: Pedal Edema (1+ BLE) Skin: Reports: Warm, Dry, Intact Neurological: Reports: Normal Speech, Normal Tone, Sensation Intact, Cranial Nerves Intact Psy/Mental Status: Reports: Alert, Normal Affect
--- NOTE | 2021-02-05 11:28 | MR ---
[id number] MR/MRI Brain and Stem WO IV EXAM: MRI Brain and Stem WO IV CLINICAL DATA: TRANSIENT CEREBRAL ISCHEMIA, UNSPECIFIED TYPE, SPEECH COMPARISON STUDY: CT from January 31, 2021. FINDINGS: Extensive abnormal hyperintense T2 signal in the subcortical and periventricular white matter both cerebral hemispheres. Findings are on a background of bilateral and symmetric parenchymal atrophy throughout the brain. Findings are most consistent with sequela of chronic small vessel disease. No restricted diffusion to suggest acute on chronic ischemia at this time. Calvarium intact. Paranasal sinuses and mastoid air cells are clear. IMPRESSION: No acute intracranial findings. Changes of chronic small vessel disease throughout the brain, described above. Rajesh Ca MD 02/05/21 1127 Thank you for allowing us to participate in the care of your patient.
[2021-02-05] MEDS ORDERED: Epoetin Alfa 40,000 Units/1 ML SDV SUBCUT SCH (11:30)
== END 2021-02-05 11:02 | disposition swing bed (61) | DRG 690 ==
LOC: KA.MS 11:24
PROVIDERS: ADMIT Nurse Practitioner Family; ATTEND Family Medicine
DX: N30.01 Acute cystitis with hematuria (principal); I50.42 Chronic combined systolic (congestive) and diastolic (congestive) heart failure; G93.49 Other encephalopathy; E87.5 Hyperkalemia; R41.0 Disorientation, unspecified; R47.1 Dysarthria and anarthria; Z66 Do not resuscitate; Z20.822 Contact with and (suspected) exposure to COVID-19; R29.6 Repeated falls; D63.1 Anemia in chronic kidney disease; N18.32 Chronic kidney disease, stage 3b; E83.42 Hypomagnesemia; M54.5 Low back pain; K59.00 Constipation, unspecified; E53.8 Deficiency of other specified B group vitamins; D46.9 Myelodysplastic syndrome, unspecified
CPT/HCPCS: 36415; 70551; 80048; 85025; 97110-GP; 97161-GP; 97535-GO; A9270-GY; J0696; J1940; U0002

== ENCOUNTER 2021-02-05 09:24 | Inpatient (IN) | payer MEDICARE, OTHER ==
[2021-02-05] MEDS ORDERED: guaiFENesin/Dextromethorphan 100-10 MG/5 ML Soln 5 ML Cup PO PRN (11:02)
[2021-02-05] MEDS ORDERED: Sodium Chloride 0.9% 10 ML Syringe FLUSH PRN ×2 (11:02)
[2021-02-05] MEDS ORDERED: Polyethylene Glycol 3350 Powder 17 GM Packet PO PRN (11:02)
[2021-02-05] MEDS ORDERED: Simethicone 80 MG Tab.Chew PO PRN (11:02)
[2021-02-05] MEDS ORDERED: Atropine 0.1 MG/ML 10 ML Syringe IVPUSH PRN (11:02)
[2021-02-05] MEDS ORDERED: Sodium Chloride 0.65% Nasal Spray 45 ML Bottle NASBOTH PRN (11:02)
[2021-02-05] MEDS ORDERED: EPINEPHrine 1:10,000 1 MG/10 ML Syringe IVPUSH PRN (11:02)
[2021-02-05] MEDS ORDERED: Lidocaine 2% 100 MG/5 ML Syringe IVPUSH PRN (11:02)
--- NOTE | 2021-02-05 11:33 | PCM.HP.2 ---
H&P History of Present Illness - General Date of Service: 02/05/21 Admit Problem/Dx: Admission Diagnosis/Problem Admission Diagnosis/Problem UTI (urinary tract infection), uncomplicated - Related Data Allergies/Adverse Reactions: Allergies Allergy/AdvReac Type Severity Reaction Status Date / Time celecoxib [From Celebrex] Allergy Hives Verified 02/05/21 15:05 degarelix Allergy Rash Verified 02/05/21 15:05 ezetimibe [From Zetia] Allergy Stomach Verified 02/05/21 15:05 Ache nitroglycerin Allergy Bradycardia Verified 02/05/21 15:05 Home Medications: Home Meds Calcium Carbonate/Vitamin D3 [Calcium 600 + Vit D Tablet] 1 each PO DAILY 01/08/15 [History] Cyanocobalamin (Vitamin B-12) [Vitamin B-12] 1,000 mcg PO DAILY 01/08/15 [History] Folic Acid 800 mcg PO DAILY 12/19/17 [History] Melatonin 5 mg PO BEDTIME 09/18/18 [History] Sennosides [Senokot] 8.6 mg PO BEDTIME PRN 09/18/18 [History] Triamcinolone Acetonide [Triamcinolone Acetonide 0.1% Crm] 1 applic TOP BID PRN 09/18/18 [History] Apixaban [Eliquis] 2.5 mg PO BID 02/06/19 [History] Aspirin 81 mg PO DAILY 02/06/19 [History] Ranolazine [Ranexa] 1,000 mg PO BID 02/07/19 [History] Omeprazole 20 mg PO DAILY #90 tab 02/08/19 [Rx] atorvaSTATin Calcium [Lipitor] 40 mg PO DAILY 04/10/19 [History] Furosemide 40 mg PO DAILY 05/29/19 [History] Fluocinonide [Lidex 0.05% Oint] 1 applic TOP DAILY PRN 04/09/20 [History] Fluticasone Propionate [Flonase] 1 spray NASBOTH DAILY 04/09/20 [History] Sodium Bicarbonate 650 mg PO TID 04/09/20 [History] Cholecalciferol (Vitamin D3) [Vitamin D3] 2,000 unit PO DAILY 05/01/20 [History] Aloe Vera/Sodium Chloride [Temple Saline Nasal Gel] 1 applic NASBOTH QID 05/22/20 [History] Isosorbide Mononitrate 10 mg PO BID 05/22/20 [History] Diclofenac Sodium [Voltaren 1% Gel] 2 gram TOP QID 02/02/21 [History] Lidocaine 5% [Lidoderm 5%] 1 patch TOP DAILY PRN 02/02/21 [History] bisacodyL [Dulcolax] 5 mg PO BID PRN 02/02/21 [History] polyethylene glycoL 3350 [MiraLAX] 17 gm PO DAILY PRN 02/02/21 [History] tiZANidine [Zanaflex] 4 mg PO BID 02/02/21 [History] Acetaminophen [Tylenol Extra Strength] 1,000 mg PO Q12H PRN tablet 02/16/21 [Rx] Simethicone 80 mg PO Q4H PRN tab.chew 02/16/21 [Rx] allopurinoL [Zyloprim] 100 mg PO DAILY #30 tab 02/16/21 [Rx] Past Medical History HEENT History: Reports: Hard of Hearing, Impaired Vision Other HEENT History: pat. is supposed to have cataract surgery in the right eye Cardiovascular History: Reports: Afib, CAD, High Cholesterol, Hypertension, RI, Stents Respiratory History: Reports: Sleep Apnea, Other (See Below) Other Respiratory History: on oxygen 2l per [place] Gastrointestinal History: Reports: Chronic Constipation Genitourinary History: Reports: BPH, Diabetic Nephropathy, Prostate Disorder, Renal Calculus Musculoskeletal History: Reports: Arthritis, Fracture, Other (See Below) Other Musculoskeletal History: 50 years ago pat. had fx. in the right foot Neurological History: Reports: Neuropathy, Diabetic Psychiatric History: Reports: None Endocrine/Metabolic History: Reports: Diabetes, Type II Hematologic History: Reports: Anemia, Blood Transfusion(s) Immunologic History: Reports: None Oncologic (Cancer) History: Reports: Prostate Dermatologic History: Reports: Other (See Below) Other Dermatologic History: Blister to right foot - Infectious Disease History Infectious Disease History: Reports: Chicken Pox, Measles, Mumps, Novel C oronavirus - Past Surgical History Head Surgeries/Procedures: Reports: None HEENT Surgical History: Reports: Cataract Surgery, Tonsillectomy Other HEENT Surgeries/Procedures: Cataract Sx to Rt eye in 2019 Cardiovascular Surgical History: Reports: AAA Repair, Cardiac Ablation, Coronary Artery Bypass Other Cardiovascular Surgeries/Procedures: ablation in 2013, triple bypass in "96, AAA repair in 2010 Respiratory Surgical History: Reports: None GI Surgical History: Reports: Colonoscopy, Hernia, Abdominal Other GI Surgeries/Procedures: 2013 Male Surgical History: Reports: Prostate Biopsy, Prostatectomy Endocrine Surgical History: Reports: None Neurological Surgical History: Reports: None Musculoskeletal Surgical History: Reports: Knee Replacement Other Musculoskeletal Surgeries/Procedures:: Bilateral knee replacement Oncologic Surgical History: Reports: Bone Marrow Aspiration Dermatological Surgical History: Reports: None - Past Imaging History Past Imaging History: Reports: CAT Scan, Event Monitor, PET, Xray Social & Family History - Family History Family Medical History: No Pertinent Family History Cardiac: Reports: RI, Other (See Below) Other Cardiac Family History: brother had heart problems Respiratory: Reports: Other (See Below) Other Respiratory Family Hisory: pulmonary fibrosis - sister GI: Reports: None : Reports: None OBGYN: Reports: None Musculoskeletal: Reports: None Neurological: Reports: None Psychiatric: Reports: None Endocrine/Metabolic: Reports: None Hematologic: Reports: None Immunologic: Reports: None Oncologic: Reports: Lung, Prostate, Other (See Below) Other Oncologic Family History: sister - lung cancer. father - prostate cancer - Caffeine Use Caffeine Use: Reports: Coffee, Soda H&P Review of Systems - Review of Systems: Review Of Systems: See Below Exam - Exam Exam: See Below - Patient Data Result Diagrams: 02/16/21 07:20 02/16/21 07:20 Problem List Initiated/Reviewed/Updated: Yes Orders Last 24hrs: Active Orders 24 hr Category Date Time Status Patient Status [ADT] Routine ADT 02/05/21 11:02 Active Antiembolic Devices [RC] PER UNIT ROUTINE Care 02/05/21 11:02 Active Antiembolic Devices [RC] PER UNIT ROUTINE Care 02/05/21 11:02 Active Discontinue Telemetry Monitoring [Cardiac Monitoring Care 02/05/21 11:02 Active Discontinue] [RC] Click to Edit Height and Weight [RC] DAILY Care 02/05/21 11:02 Active Intake and Output [RC] QSHIFT Care 02/05/21 11:02 Active Nurse Communication: Isolation [RC] ASDIRECTED Care 02/05/21 11:02 Active Oxygen Therapy [RC] PRN Care 02/05/21 11:02 Active Peripheral IV Care [RC] . DIRECTED Care 02/05/21 11:02 Active Peripheral IV Care [RC] . DIRECTED Care 02/05/21 11:02 Active Up With Assistance [RC] ASDIRECTED Care 02/05/21 11:02 Active VTE/DVT Education [RC] PER UNIT ROUTINE Care 02/05/21 11:02 Active Vital Signs [RC] Q4H Care 02/05/21 11:02 Active Consult to Case Management/Traffic Controller Cable [CONS] Cons 02/05/21 11:02 Active Routine Consult to Occupational Therapy [OT Evaluation and Cons 02/05/21 11:02 Active Treatment] [CONS] Routine Consult to Physical Therapy [PT Evaluation and Cons 02/05/21 11:02 Active Treatment] [CONS] Routine Acetaminophen [Tylenol Extra Strength] Med 02/05/21 11:02 Active 1,000 mg PO DAILY PRN Apixaban [Eliquis] Med 02/05/21 21:00 Ordered 2.5 mg PO BID Aspirin Med 02/06/21 09:00 Ordered 81 mg PO DAILY Atropine [Atropine 0.1 MG/ML] Med 02/05/21 11:02 Ordered See Dose Instructions IVPUSH ASDIRECTED PRN Calcium Carbonate/Vitamin D3 [Calcium 600 + Vit D Med 02/06/21 09:00 Ordered Tablet] 1 each PO DAILY Cholecalciferol (Vitamin D3) [Vitamin D3] Med 02/06/21 09:00 Ordered 50 mcg PO DAILY Cyanocobalamin (Vitamin B12) [Vitamin B12] Med 02/06/21 09:00 Ordered 1,000 mcg PO DAILY Dextromethorphan/guaiFENesin [Robitussin DM] Med 02/05/21 11:02 Ordered 10 ml PO Q4H PRN Diclofenac Sodium [Voltaren 1% Gel] Med 02/05/21 13:00 Ordered 2 gm TOP QID Docusate Sodium/Sennosides [Senna Plus] Med 02/05/21 11:02 Ordered 1 tab PO BEDTIME PRN EPINEPHrine [EPINEPHrine 1:10,000] Med 02/05/21 11:02 Ordered 1 mg IVPUSH ASDIRECTED PRN Fluticasone Propionate [Flonase] Med 02/06/21 09:00 Ordered 1 gm NASBOTH DAILY Folic Acid Med 02/06/21 09:00 Ordered 1 mg PO DAILY Furosemide [Lasix] Med 02/06/21 09:00 Ordered 40 mg PO DAILY Isosorbide Mononitrate [Isosorbide Mononitrate] Med 02/05/21 21:00 Ordered 10 mg PO BID Lidocaine 2% [Xylocaine 2%] Med 02/05/21 11:02 Ordered See Dose Instructions IVPUSH ASDIRECTED PRN Lidocaine 5% [Lidoderm 5%] Med 02/05/21 11:02 Ordered 700 mg TOP DAILY PRN Magnesium Oxide Med 02/06/21 09:00 Ordered 500 mg PO DAILY Melatonin Med 02/05/21 21:00 Ordered 6 mg PO BEDTIME Omeprazole Med 02/06/21 07:30 Ordered 20 mg PO ACBREAKFAST Ranolazine [Ranexa] Med 02/05/21 21:00 Ordered 1,000 mg PO BID Simethicone Med 02/05/21 11:02 Ordered 80 mg PO Q4H PRN Sodium Bicarbonate Med 02/05/21 14:00 Ordered 650 mg PO TID Sodium Chloride 0.65% [[place] Nasal [place]] Med 02/05/21 11:02 Ordered 1 ml NASBOTH QID PRN Sodium Chloride 0.9% [Saline Flush] Med 02/05/21 11:02 Ordered 10 ml FLUSH Q8HR PRN Sodium Chloride 0.9% [Saline Flush] Med 02/05/21 11:02 Ordered 10 ml FLUSH Q8HR PRN allopurinoL [Zyloprim] Med 02/06/21 09:00 Ordered 100 mg PO DAILY atorvaSTATin [Lipitor] Med 02/06/21 09:00 Ordered 40 mg PO DAILY bisacodyL [Dulcolax] Med 02/05/21 11:02 Ordered 5 mg PO BID PRN cefTRIAXone [Rocephin] Med 02/05/21 12:00 Ordered 1 gm IVPUSH Q24H polyethylene glycoL 3350 [MiraLAX] Med 02/05/21 11:02 Ordered 17 gm PO DAILY PRN tiZANidine [Zanaflex] Med 02/05/21 21:00 Ordered 4 mg PO BID Isolation [COMM] Routine Oth 02/05/21 11:02 Ordered Peripheral IV Insertion Adult [OM.PC] Routine Oth 02/05/21 11:02 Ordered TAYE Hose Substitution [Sequential Compression Device] [ Oth 02/05/21 11:02 Ordered OM.PC] Routine Resuscitation Status Routine Resus Stat 02/05/21 11:02 Ordered Medication Orders Acetaminophen (Acetaminophen 500 Mg Tab) 1,000 mg PO DAILY PRN PRN Reason: Pain (moderate 4-6) Allopurinol (Allopurinol 100 Mg Tab) 100 mg PO DAILY [facility] Aspirin (Aspirin 81 Mg Tab.Chew) 81 mg PO DAILY [facility] Atorvastatin Calcium (Atorvastatin 40 Mg Tab) 40 mg PO DAILY [facility] Atropine Sulfate (Atropine 0.1 Mg/Ml 10 Ml Syringe) 0 mg IVPUSH ASDIRECTED PRN PRN Reason: Heart. Bisacodyl (Bisacodyl 5 Mg Tab) 5 mg PO BID PRN PRN Reason: Constipation Ceftriaxone Sodium (Ceftriaxone 1 Gm Vial) 1 gm IVPUSH Q24H [facility] Cholecalciferol (Cholecalciferol (Vitamin D3) 25 Mcg Tab) 50 mcg PO DAILY [facility] Cyanocobalamin (Cyanocobalamin (Vitamin B12) 500 Mcg Tab) 1,000 mcg PO DAILY [facility] Diclofenac Sodium (Diclofenac Sodium 1% Gel 100 Gm Tube) 2 gm TOP QID [facility] Epinephrine HCl (Epinephrine 1:10,000 1 Mg/10 Ml Syringe) 1 mg IVPUSH ASDIRECTED PRN PRN Reason: Heart. Fluticasone Propionate (Fluticasone Propionate Nasal [place] 16 Gm Bottle) 1 gm NASBOTH DAILY [facility] Folic Acid (Folic Acid 1 Mg Tab) 1 mg PO DAILY [facility] Furosemide (Furosemide 20 Mg Tab) 40 mg PO DAILY [facility] Guaifenesin/Phenylephrine HCl (Guaifenesin/Dextromethorphan 100-10 Mg/5 Ml Soln 5 Ml Cup) 10 ml PO Q4H PRN PRN Reason: Cough Lidocaine (Lidocaine 5% 700 Mg Patch) 700 mg TOP DAILY PRN PRN Reason: pain Lidocaine HCl (Lidocaine 2% 100 Mg/5 Ml Syringe) 0 mg IVPUSH ASDIRECTED PRN PRN Reason: Heart. Magnesium Oxide (Magnesium Oxide 500 Mg Tab) 500 mg PO DAILY [facility] Melatonin (Melatonin 3 Mg Tab) 6 mg PO BEDTIME [facility] Non-Formulary Medication (Apixaban [Eliquis]) 2.5 mg PO BID [facility] Non-Formulary Medication (Calcium Carbonate/Vitamin D3 [Calcium 600 + Vit D Tablet]) 1 each PO DAILY [facility] Non-Formulary Medication (Isosorbide Mononitrate [Isosorbide Mononitrate]) 10 mg PO BID [facility] Omeprazole (Omeprazole 20 Mg Cap.Cr) 20 mg PO ACBREAKFAST [facility] Polyethylene Glycol (Polyethylene Glycol 3350 Powder 17 Gm Packet) 17 gm PO DAILY PRN PRN Reason: Constipation Ranolazine (Ranolazine 1,000 Mg Tab.Er) 1,000 mg PO BID [facility] Senna/Docusate Sodium (Docusate Sodium/Sennosides 50-8.6 Mg Tab) 1 tab PO BEDTIME PRN PRN Reason: Constipation Simethicone (Simethicone 80 Mg Tab.Chew) 80 mg PO Q4H PRN PRN Reason: Heartburn Sodium Bicarbonate (Sodium Bicarbonate 650 Mg Tab) 650 mg PO TID KEVAN Sodium Chloride (Sodium Chloride 0.9% 10 Ml Syringe) 10 ml FLUSH Q8HR PRN PRN Reason: keep vein open Sodium Chloride (Sodium Chloride 0.9% 10 Ml Syringe) 10 ml FLUSH Q8HR PRN PRN Reason: keep vein open Sodium Chloride (Sodium Chloride 0.65% Nasal [place] 45 Ml Bottle) 1 ml NASBOTH QID PRN PRN Reason: DRY NOSTRILS Tizanidine HCl (Tizanidine 4 Mg Tab) 4 mg PO BID [facility] Assessment/Plan Comment:: History of present illness Mr Hampton is a 80yr male was admitted to acute care status by Crista Ruiz [employer] February 02, from local [facility] with a dx of Hyperkalemia, extremity weakness, and Constipation, and acute confusion. He was following up with her from a recent ED visit due to a fall in which they questioned him having a TIA. His cardiac work-up was negative however BNP 1600, work-up for UTI included blood cultures which showing no growth, x-ray along with head CT no acute process (however chronic LL atelectasis upon reveiwing ED workup independently) UA; cloudy with moderate bacteria/leukocyte esterase--LUTS He has been having elevated potassium levels in which we have been holding his Entresto. Due to thoracic lumbar pain he has been on tramadol and he was advised to discontinue this as it was some suspect of altered mental status and possible slurred speech (previous hallucinations with [place] use). Patient was accompanied by his and she denoted improved on slurred speech however he cant seem to "find the right words"--endorsed by the patient himself. has also noted increased confusion in the last 24-48 hours with increasing difficulty getting him to stand up with minimal assistance, which is worsened from his baseline weakness. Patient has had 4 falls in December with near fall more recently. He does have some spasicity in his right leg and arm in which he describes as "jumping". Has chronic right low back pain, which has moved up towards the right flank area as well. Has been working with PT for his back p ain, which is helping some. Hasn't had a good BM since Tuesday night. Took a stool softener Tuesday and Tuesday with small amount of stool today. Appetite is okay. Brief acute care hospital course, (see acute care records for more detail) He did well, His LUTS, pain dysuria improved with Rocephin, his acute fusion resolved, he still has mild residual dysarthria and will be receiving an MRI today. No difficulty swallowing. Potassium was monitored slightly elevated, it was noted that he was eating bananas and yogurt rich with potassium. Dietary notified to ensure low potassium diet. Evaluated by PT and qualified for swing bed status due to deconditioning __ Primary Hospital Problems --Weakness/deconditioning, PT/OT --UTI, improving symptoms --Dysarthria, without sensory agnosia, improved in rhythm in speech from acute admission, MRI Brain without contrast today to assist in r/o upper motor neurone dz/cerebral lesion --Frequent falls, high risk, fall precautions --Hyperkalemia, improving, HOLDING Entresto, ordered low K+ diet, Lasix today Chronic conditions: -Myelodysplastic syndrome/anemia of chronic disease. Recieved Procrit on admission. -CKD stage 3b: sodium bicarbonate 650 mg TID, allopurinol 100 mg daily. -Chronic combined CHF: On lasix 40 mg daily. -Hx of TIA/Hx of left ischemic embolic stroke (10/2018). -Hypomagnesemia: On magnesium oxide 500 mg daily. -Chronic right-sided low back pain: On tylenol 1000 mg daily prn, Voltaren 1% gel QID, tizanadine 4 mg BID, Lidoderm 5% patch daily. -Constipation, BM this am, On Miralax 17 gm daily prn, Senna 1 tab at HS prn, bisacodyl 5 mg BID prn. -B12 deficiency: On b12 1 tab daily. ROS: General: Reports: Weakness Pulmonary: Reports: No Symptoms Cardiovascular: Reports: Edema Gastrointestinal: Reports: No Symptoms Genitourinary: Reports: No Symptoms Musculoskeletal: Denies: Back Pain Neurological: Reports: Pre-Existing Deficit, Difficulty Walking, Weakness, Gait Disturbance Psychiatric: Reports: No Symptoms Physical Exam: Quality Assessment: Reports: Supplemental Oxygen General: Reports: Alert, Oriented Lungs: Reports: Clear to Auscultation, Normal Respiratory Effort Cardiovascular: Reports: Irregular Rhythm GI/Abdominal Exam: Soft, No Distention (Male) Exam: Deferred Rectal (Males) Exam: Deferred Back Exam: Denies: CVA Tenderness (L), CVA Tenderness (R) Extremities: Pedal Edema (1+ BLE) Skin: Reports: Warm, Dry, Intact Neurological: Reports: Normal Speech, Normal Tone, Sensation Intact, Cranial Nerves Intact Psy/Mental Status: Reports: Alert, Normal Affect Disposition overall plan --Transfer patient into swing bed therapy for PT/OT due to physical deconditioning and weakness is mainly of bilateral lower extremities, plan is to eventually return home with home health services. --Ensure Low K+ diet --Continue with Rocephin, stop date placed --TEDS during day, ankle pumps demonstrated, legs up while in chair. --code status: DO NOT RESUSCITATE, POLST on file. - Mortality Measure Prognosis:: Good
[2021-02-05] MEDS: cefTRIAXone 1 GM Vial IVPUSH SCH (12:59)
[2021-02-05] MEDS: Diclofenac Sodium 1% Gel 100 GM Tube TOP SCH ×3 (13:00→21:10)
[2021-02-05] MEDS: Sodium Bicarbonate 650 MG Tab PO SCH ×2 (13:07→21:13)
[2021-02-05] MEDS ORDERED: Epoetin Alfa 40,000 Units/1 ML SDV SUBCUT ONE (14:00)
[2021-02-05] MEDS: Acetaminophen 500 MG Tab PO PRN (17:13)
[2021-02-05] MEDS: RANOLAZINE 1000 MG PO SCH (21:11)
[2021-02-05] MEDS: APIXABAN 2.5 MG PO SCH (21:12)
[2021-02-05] MEDS: Melatonin 3 MG Tab PO SCH (21:13)
[2021-02-05] MEDS: tiZANidine 4 MG Tab PO SCH (21:13)
[2021-02-05] MEDS: ISOSORBIDE MONONITRATE 20 MG PO SCH (21:13)
[2021-02-06] MEDS: Omeprazole 20 MG Cap.CR PO SCH ×2 (06:13→06:30)
[2021-02-06] MEDS: Cholecalciferol (Vitamin D3) 25 MCG Tab PO SCH (09:20)
[2021-02-06] MEDS: Sodium Bicarbonate 650 MG Tab PO SCH ×3 (09:20→20:05)
[2021-02-06] MEDS: Folic Acid 1 MG Tab PO SCH (09:20)
[2021-02-06] MEDS: Furosemide 20 MG Tab PO SCH (09:21)
[2021-02-06] MEDS: tiZANidine 4 MG Tab PO SCH ×2 (09:21→20:04)
[2021-02-06] MEDS: Cyanocobalamin (Vitamin B12) 500 MCG Tab PO SCH (09:21)
[2021-02-06] MEDS: Allopurinol 100 MG Tab PO SCH (09:21)
[2021-02-06] MEDS: Aspirin 81 MG Tab.Chew PO SCH (09:21)
[2021-02-06] MEDS: atorvaSTATin 40 MG Tab PO SCH (09:21)
[2021-02-06] MEDS: ISOSORBIDE MONONITRATE 20 MG PO SCH ×2 (09:22→20:07)
[2021-02-06] MEDS: Magnesium Oxide 500 MG Tab PO SCH (09:22)
[2021-02-06] MEDS: RANOLAZINE 1000 MG PO SCH ×2 (09:22→20:05)
[2021-02-06] MEDS: VITAMIN D3 PO SCH (09:23)
[2021-02-06] MEDS: APIXABAN 2.5 MG PO SCH ×2 (09:23→20:05)
[2021-02-06] MEDS: Fluticasone Propionate Nasal Spray 16 GM Bottle NASBOTH SCH (09:23)
[2021-02-06] MEDS: CALCIUM CARBONATE PO SCH (09:23)
[2021-02-06] MEDS: Diclofenac Sodium 1% Gel 100 GM Tube TOP SCH ×4 (09:24→20:05)
[2021-02-06] MEDS: Acetaminophen 500 MG Tab PO PRN ×2 (11:08→20:04)
[2021-02-06] MEDS: cefTRIAXone 1 GM Vial IVPUSH SCH (11:08)
[2021-02-06] MEDS ORDERED: Furosemide 40 MG/4 ML VIAL IVPUSH ONE (18:00)
--- NOTE | 2021-02-06 18:06 | PCM.SN.2 ---
- Free Text/Narrative Note: Nursing reported increased weight as well as patient complaints of increased leg swelling and shortness of breath on exertion. Fine crackles noted to bilateral lung bases as well as 2-3+ edema to bilateral lower extremities. Patient has known history of HFrEF with EF of 40% on last echo in 2018. He takes lasix 20mg PO daily. Will give additional lasix 20mg IV x 1 dose and re-evaluate fluid status in am.
[2021-02-06] MEDS: Bisacodyl 5 MG Tab PO PRN (18:18)
[2021-02-06] MEDS: Melatonin 3 MG Tab PO SCH (20:04)
[2021-02-07 07:34] LABS: ANION GAP 14.5 mmol/L (5-15)
[2021-02-07] MEDS: Omeprazole 20 MG Cap.CR PO SCH (07:59)
[2021-02-07] MEDS: atorvaSTATin 40 MG Tab PO SCH (08:00)
[2021-02-07] MEDS: Furosemide 20 MG Tab PO SCH (08:00)
[2021-02-07] MEDS: Sodium Bicarbonate 650 MG Tab PO SCH ×3 (08:00→20:39)
[2021-02-07] MEDS: Allopurinol 100 MG Tab PO SCH (08:00)
[2021-02-07] MEDS: Folic Acid 1 MG Tab PO SCH (08:00)
[2021-02-07] MEDS: Aspirin 81 MG Tab.Chew PO SCH (08:00)
[2021-02-07] MEDS: Cholecalciferol (Vitamin D3) 25 MCG Tab PO SCH (08:00)
[2021-02-07] MEDS: Magnesium Oxide 500 MG Tab PO SCH (08:00)
[2021-02-07] MEDS: tiZANidine 4 MG Tab PO SCH ×2 (08:00→20:39)
[2021-02-07] MEDS: CALCIUM CARBONATE PO SCH (08:01)
[2021-02-07] MEDS: Cyanocobalamin (Vitamin B12) 500 MCG Tab PO SCH (08:01)
[2021-02-07] MEDS: Diclofenac Sodium 1% Gel 100 GM Tube TOP SCH (08:01)
[2021-02-07] MEDS: VITAMIN D3 PO SCH (08:01)
[2021-02-07] MEDS: APIXABAN 2.5 MG PO SCH ×2 (08:02→20:40)
[2021-02-07] MEDS: ISOSORBIDE MONONITRATE 20 MG PO SCH ×2 (08:02→20:40)
[2021-02-07] MEDS: Fluticasone Propionate Nasal Spray 16 GM Bottle NASBOTH SCH (08:03)
[2021-02-07] MEDS: RANOLAZINE 1000 MG PO SCH ×2 (08:03→20:39)
[2021-02-07] MEDS ORDERED: Sodium Polystyrene Sulfonate 15 GM/60 ML Susp 60 ML Bot PO ONE (10:02)
[2021-02-07] MEDS: cefTRIAXone 1 GM Vial IVPUSH SCH (11:17)
--- NOTE | 2021-02-07 13:08 | PT ---
PATIENT NAME: ESTEFANY WILSON MEDICAL RECORD NUMBER: : [id number] DATE: 02/06/2021 REFERRING PHYSICIAN: JAMES Anderson ONSET DATE: 02/02/2021. DIAGNOSIS: Deconditioning, bilateral extremity weakness, falls. SUBJECTIVE: The patient has gone to swing bed status with a goal of improving his strength and conditioning to where he is able to return to home with his . The patient has currently 8/10 pain in his right middle back. The patient said his legs feel extremely weak today. Yesterday, the patient was not able to participate with PT due to significant fatigue after having a long day of scans and getting moved to his new location. The patient and his again mentioned that the patient has had several falls over the past 4 to 6 weeks. The patient's said he fell four times in the month of December and once in the month of January. He seemed to be developing more weakness and loss of balance over time. The patient does feel he has improved since an admission in the acute care on 02/02/2021. The patient tells me he is fairly motivated to participate in PT, so he can improve to where he can return to home. OBJECTIVE: TREATMENT TIME: Time in 1300 hours. Time out 1340 hours. TREATMENT: Consisted of physical therapy initial evaluation, low complex, and 10 minutes of therapeutic exercise consisting of sit to stand into front wheeled walker with marching in place, three sets of 10 repetitions bilaterally, and the patient then completed walking x3 feet forward and backward x3. PAIN: The patient rates his back pain as an 8/10. PALPATION: The patient is exquisitely tender to palpating the right side of the thoracic spine inferior to the scapula. RANGE OF MOTION: Active range of motion is within functional limits in bilateral upper and lower extremities. Passive range of motion is grossly normal. MANUAL MUSCLE TEST: Bilateral upper extremities are grossly 4/5 and lower extremities are grossly 3/5. SPECIAL TESTS: Romberg balance assessment is 0 seconds while unsupported. NEUROLOGIC FINDINGS: Grossly intact. ASSESSMENT: Impression: The patient will benefit from being in swing bed status to have both physical and occupational therapy to improve function. The overall goal is to improve strength to the point that the patient is able to safely return home under the care of his . PLAN: The patient will be seen in swing bed status five days a week for therapeutic exercises, gait training, and home program. The patient understands and agrees to this plan of care and shows good rehab potential to achieved goals established.
--- NOTE | 2021-02-07 13:14 | PCM.PN ---
- General Info Date of Service: 02/07/21 Subjective Update: Patient reports shortness of breath improved after additional lasix yesterday. Patient rather tired today. Functional Status: Reports: Pain Controlled, Tolerating Diet, Urinating, Incentive Spirometry - Review of Systems General: Reports: No Symptoms. Denies: Fever, Chills HEENT: Reports: No Symptoms. Denies: Headaches, Sore Throat Pulmonary: Reports: Shortness of Breath, Cough. Denies: Hemoptysis, Wheezing Cardiovascular: Reports: Dyspnea on Exertion, Edema. Denies: Chest Pain, Palpitations Gastrointestinal: Reports: No Symptoms. Denies: Abdominal Pain, Constipation, Diarrhea, Nausea Genitourinary: Reports: No Symptoms Musculoskeletal: Reports: Back Pain (chronic lumbar back pain) Skin: Reports: No Symptoms Neurological: Reports: No Symptoms Psychiatric: Reports: No Symptoms - Patient Data Vitals - Most Recent: Last Vital Signs Temp 97.8 F 02/07/21 08:07 Pulse 58 L 02/07/21 09:00 Resp 20 02/07/21 08:07 BP 117/49 L 02/07/21 09:00 Pulse Ox 96 02/07/21 09:00 Weight - Most Recent: 247 lb 3 oz I&O - Last 24 Hours: Intake & Output 02/06/21 02/07/21 02/07/21 22:59 06:59 14:59 Intake Total 350 100 Output Total 450 360 Balance -100 -260 Lab Results Last 24 Hours: Laboratory Results - last 24 hr 02/07/21 Range/Units 07:00 Sodium 128 L (136-145) mmol/L Potassium 6.1 H (3.5-5.1) mmol/L Chloride 94 L (98-107) mmol/L Carbon Dioxide 25.6 (21.0-32.0) mmol/L Anion Gap 14.5 (5-15) mmol/L BUN 54 H* (7-18) mg/dL Creatinine 2.50 H (0.51-1.17) mg/dL Est Cr Clr Drug Dosing 22.04 mL/min Estimated GFR (MDRD) 25 mL/min Glucose 129 (70-140) mg/dL Calcium 8.5 L (8.7-10.3) mg/dL Med Orders - Current: Current Medications Acetaminophen (Acetaminophen 500 Mg Tab) 1,000 mg PO Q12H PRN PRN Reason: Pain (moderate 4-6) Last Admin: 02/06/21 20:04 Dose: 1,000 mg Documented by: Allopurinol (Allopurinol 100 Mg Tab) 100 mg PO DAILY [facility] Last Admin: 02/07/21 08:00 Dose: 100 mg Documented by: Aspirin (Aspirin 81 Mg Tab.Chew) 81 mg PO DAILY [facility] Last Admin: 02/07/21 08:00 Dose: 81 mg Documented by: Atorvastatin Calcium (Atorvastatin 40 Mg Tab) 40 mg PO DAILY [facility] Last Admin: 02/07/21 08:00 Dose: 40 mg Documented by: Bisacodyl (Bisacodyl 5 Mg Tab) 5 mg PO BID PRN PRN Reason: Constipation Last Admin: 02/06/21 18:18 Dose: 5 mg Documented by: Ceftriaxone Sodium (Ceftriaxone 1 Gm Vial) 1 gm IVPUSH Q24H [facility] Stop: 02/08/21 23:59 Last Admin: 02/07/21 11:17 Dose: 1 gm Documented by: Cholecalciferol (Cholecalciferol (Vitamin D3) 25 Mcg Tab) 50 mcg PO DAILY [facility] Last Admin: 02/07/21 08:00 Dose: 50 mcg Documented by: Cyanocobalamin (Cyanocobalamin (Vitamin B12) 500 Mcg Tab) 1,000 mcg PO DAILY [facility] Last Admin: 02/07/21 08:01 Dose: 1,000 mcg Documented by: Diclofenac Sodium (Diclofenac Sodium 1% Gel 100 Gm Tube) 2 gm TOP QID [facility] Last Admin: 02/07/21 08:01 Dose: 1 applic Documented by: Fluticasone Propionate (Fluticasone Propionate Nasal [place] 16 Gm Bottle) 0 gm NASBOTH DAILY [facility] Last Admin: 02/07/21 08:03 Dose: 1 spray Documented by: Folic Acid (Folic Acid 1 Mg Tab) 1 mg PO DAILY [facility] Last Admin: 02/07/21 08:00 Dose: 1 mg Documented by: Furosemide (Furosemide 20 Mg Tab) 40 mg PO DAILY [facility] Last Admin: 02/07/21 08:00 Dose: 40 mg Documented by: Guaifenesin/Phenylephrine HCl (Guaifenesin/Dextromethorphan 100-10 Mg/5 Ml Soln 5 Ml Cup) 10 ml PO Q4H PRN PRN Reason: Cough Lidocaine (Lidocaine 5% 700 Mg Patch) 700 mg TOP DAILY PRN PRN Reason: pain Melatonin (Melatonin 3 Mg Tab) 6 mg PO BEDTIME [facility] Last Admin: 02/06/21 20:04 Dose: 6 mg Documented by: Apixaban [Eliquis] 2 (.5 Mg - Ptom) 2.5 mg PO BID [facility] Last Admin: 02/07/21 08:02 Dose: 2.5 mg Documented by: Calcium Carbonate/Vitamin D3 600mg- 800iu - Ptom 1 each PO DAILY [facility] Last Admin: 02/07/21 08:01 Dose: 1 each Documented by: Isosorbide Mononitrate 20 Mg Tab - Ptom 10 mg PO BID [facility] Last Admin: 02/07/21 08:02 Dose: 10 mg Documented by: Omeprazole (Omeprazole 20 Mg Cap.Cr) 20 mg PO ACBREAKFAST [facility] Last Admin: 02/07/21 07:59 Dose: 20 mg Documented by: Polyethylene Glycol (Polyethylene Glycol 3350 Powder 17 Gm Packet) 17 gm PO DAILY PRN PRN Reason: Constipation Last Admin: 02/06/21 11:07 Dose: 17 gm Documented by: Ranolazine (Ranolazine 1,000 Mg Tab.Er - Ptom) 1,000 mg PO BID [facility] Last Admin: 02/07/21 08:03 Dose: 1,000 mg Documented by: Senna/Docusate Sodium (Docusate Sodium/Sennosides 50-8.6 Mg Tab) 1 tab PO BEDTIME PRN PRN Reason: Constipation Last Admin: 02/05/21 17:56 Dose: 1 tab Documented by: Simethicone (Simethicone 80 Mg Tab.Chew) 80 mg PO Q4H PRN PRN Reason: Heartburn Last Admin: 02/05/21 22:08 Dose: 80 mg Documented by: Sodium Bicarbonate (Sodium Bicarbonate 650 Mg Tab) 650 mg PO TID [facility] Last Admin: 02/07/21 08:00 Dose: 650 mg Documented by: Sodium Chloride (Sodium Chloride 0.9% 10 Ml Syringe) 10 ml FLUSH Q8HR PRN PRN Reason: keep vein open Last Admin: 02/05/21 13:00 Dose: 10 ml Documented by: Sodium Chloride (Sodium Chloride 0.65% Nasal [place] 45 Ml Bottle) 1 ml NASBOTH QID PRN PRN Reason: DRY NOSTRILS Tizanidine HCl (Tizanidine 4 Mg Tab) 4 mg PO BID [facility] Last Admin: 02/07/21 08:00 Dose: 4 mg Documented by: Discontinued Medications Acetaminophen (Acetaminophen 500 Mg Tab) 1,000 mg PO DAILY PRN PRN Reason: Pain (moderate 4-6) Last Admin: 02/06/21 11:08 Dose: 1,000 mg Documented by: Atropine Sulfate (Atropine 0.1 Mg/Ml 10 Ml Syringe) 0 mg IVPUSH ASDIRECTED PRN PRN Reason: Heart. Epinephrine HCl (Epinephrine 1:10,000 1 Mg/10 Ml Syringe) 1 mg IVPUSH ASDIRECTED PRN PRN Reason: Heart. Epoetin Ge (Epoetin Ge 40,000 Units/1 Ml Sdv) 40,000 units SUBCUT ONETIME ONE Stop: 02/05/21 14:01 Last Admin: 02/05/21 14:00 Dose: 40,000 units Documented by: Furosemide (Furosemide 40 Mg/4 Ml Vial) 20 mg IVPUSH NOW ONE Stop: 02/06/21 18:01 Last Admin: 02/06/21 18:11 Dose: 20 mg Documented by: Lidocaine HCl (Lidocaine 2% 100 Mg/5 Ml Syringe) 0 mg IVPUSH ASDIRECTED PRN PRN Reason: Heart. Magnesium Oxide (Magnesium Oxide 500 Mg Tab) 500 mg PO DAILY [facility] Last Admin: 02/07/21 08:00 Dose: 500 mg Documented by: Sodium Polystyrene Sulfonate (Sodium Polystyrene Sulfonate 15 Gm/60 Ml Susp 60 Ml Bot) 15 gm PO ONETIME ONE Stop: 02/07/21 10:03 Last Admin: 02/07/21 10:21 Dose: 15 gm Documented by: - Exam Quality Assessment: Supplemental Oxygen General: Alert, Oriented, Cooperative, No Acute Distress HEENT: Pupils Equal, Pupils Reactive, Mucous Membr. Moist/[place] Neck: Supple Lungs: Decreased Breath Sounds, Crackles Cardiovascular: Regular Rate, Regular Rhythm, No Murmurs GI/Abdominal Exam: Normal Bowel Sounds, Soft, Non-Tender, No Distention (Male) Exam: Deferred Back Exam: Normal Inspection, Full Range of Motion Extremities: Normal Range of Motion, Pedal Edema (1-2+ bilaterally) Peripheral Pulses: 2+: Dorsalis Pedis (L), Dorsalis Pedis (R) Skin: Warm, Dry, Intact Neurological: No New Focal Deficit Psy/Mental Status: Alert, Normal Affect, Normal Mood - Patient Data Lab Results Last 24 hrs: Laboratory Results - last 24 hr 02/07/21 Range/Units 07:00 Sodium 128 L (136-145) mmol/L Potassium 6.1 H (3.5-5.1) mmol/L Chloride 94 L (98-107) mmol/L Carbon Dioxide 25.6 (21.0-32.0) mmol/L Anion Gap 14.5 (5-15) mmol/L BUN 54 H* (7-18) mg/dL Creatinine 2.50 H (0.51-1.17) mg/dL Est Cr Clr Drug Dosing 22.04 mL/min Estimated GFR (MDRD) 25 mL/min Glucose 129 (70-140) mg/dL Calcium 8.5 L (8.7-10.3) mg/dL Result Diagrams: 02/07/21 07:00 Sepsis Event Note - Evaluation Sepsis Screening Result: No Definite Risk - Focused Exam Vital Signs: Vital Signs Temp Pulse Resp BP Pulse Ox Pulse Ox 02/07/21 09:00 58 L 117/49 L 96 02/07/21 08:07 97.8 F 57 L 20 168/64 H 99 - Problem List Review Problem List Initiated/Reviewed/Updated: Yes - My Orders Last 24 Hours: My Active Orders 02/06/21 17:42 Acetaminophen [Tylenol Extra Strength] 1,000 mg PO Q12H PRN 02/08/21 05:11 BMP [BASIC METABOLIC PANEL,BMP] [CHEM] AM - Plan Plan:: HPI summary: Mr Hampton is a 80yr male was admitted to acute care status by Crista Ruiz NP February 02, from local [facility] with a dx of Hyperkalemia, extremity weakness, and Constipation, and acute confusion. He was following up with her from a recent ED visit due to a fall in which they questioned him having a TIA. His cardiac work-up was negative however BNP 1600, work-up for UTI included blood cultures which showing no growth, x-ray along with head CT no acute process (however chronic LL atelectasis upon reviewing ED workup independently) UA; cloudy with moderate bacteria/leukocyte esterase--LUTS Home medication of entresto on hold given hyperkalemia. Due to thoracic lumbar pain he has been on tramadol and he was advised to discontinue this as it was some suspect of altered mental status and possible slurred speech (previous hallucinations with [place] use). Recent history includes increased weakness and confusion. Patient has had 4 falls in December with near fall more recently. He does have some spasticity in his right leg and arm in which he describes as "jumping". Hx of chronic right low back pain, which has moved up towards the right flank area as well. Has been working with PT for his back pain, which is helping some. Brief acute care hospital course, (see acute care records for more detail) LUTS, pain dysuria improved with Rocephin, his acute confusion resolved, he still has mild residual dysarthria. MRI completed without acute findings. Chronic small vessel changes t/o reported. No difficulty swallowing. Low K diet started. Evaluated by PT and qualified for swing bed status due to deconditioning. Hospital course: 02/07/21: Shortness of breath, edema somewhat improved. Labs this am: K 6.1 with kaexylate 15ml given. BUN 54, creatinine 2.54 - stable given CKD stage 3b- 4; results decreased from prior. Will continue rocephin until tomorrow for full 7 day course for tx of UTI with streptococcus bovis species on urine culture at [place]. Holding magnesium due to CKD as well as topical diclofenac though limited systemic absorption likely. CXR obtained today to evaluate for pulmonary congestion and fluid overload. 1-2+ pitting edema to BLE. Continue Teds, fluid restriction of 2000ml and monitor I&O more closely. Will repeat lasix 20mg IV today. BMP in am. Hospitalization problems and plan: # Weakness/deconditioning - continue PT/OT # UTI - continue rocephin 1g daily until 02/08 for full 7 day course of treatment # Hyperkalemia - K 6.1 this am. - Continue HOLDING Entresto - Continue low K+ diet - Kaexylate today - Repeat BMP in am (02/08/21) Chronic, stable conditions: # HTN - Stable, no current medications. # Persistent atrial fibrillation - continue eliquis 2.5mg PO BID # CAD - Continue ranexa 1000mg PO BID, isosorbide mononitrate 10mg PO BID, continue ASA 81mg PO daily # HFrEF: EF 40%, pulmonary HTN on last echo from 2019 - continue lasix 40 mg daily. Additional lasix 20mg IV today. Fluid restrictions initiated, monitor I&O. Continue to hold entresto # Hx of TIA/Hx of left ischemic embolic stroke (10/2018). # Hyperlipidemia - continue atovastatin 40mg PO HS # Myelodysplastic syndrome/anemia of chronic disease. Received Procrit on admission. # CKD stage 3b: sodium bicarbonate 650 mg TID, allopurinol 100 mg daily. # Hypomagnesemia - hold Mg supplementation due to CKD stage 3b-4. # Chronic right-sided low back pain: On tylenol 1000 mg daily prn, tizanadine 4 mg BID, Lidoderm 5% patch daily. HOLD topical NSAID due to CKD. # Constipation - takes miralax, sennokot, dulcolax supp # B12 deficiency: Continue b12 supplement daily. Hospitalization details: # FEN: IV SL, Kaexylate for hyperkalemia - continue low K, heart healthy, renal diet # PPX: Continue home eliquis # Code status: DNR/DNI # Emergency contact: # Disposition: Continue swing bed status, planning for home possibly next week with home health services
--- NOTE | 2021-02-07 14:30 | CR ---
[id number] RAD/RAD Chest PA And Lateral EXAM: RAD Chest PA And Lateral INDICATION: SHORTNESS OF BREATH. COMPARISON: January 31, 2021. DISCUSSION/IMPRESSION: Low lung volumes result in bibasilar vascular crowding/atelectasis. Cardiomegaly and central vascular congestion was seen previously and is similar. Bibasal left greater than right interlobular septal thickening suggesting early changes of fluid retention/pulmonary edema. No new findings compared to the prior examination. Rajesh Ca MD 02/07/21 [id number] Thank you for allowing us to participate in the care of your patient.
[2021-02-07] MEDS ORDERED: Furosemide 40 MG/4 ML VIAL IVPUSH ONE (15:14)
[2021-02-07] MEDS: Melatonin 3 MG Tab PO SCH (20:39)
[2021-02-07] MEDS: Acetaminophen 500 MG Tab PO PRN (20:39)
[2021-02-08] MEDS: Omeprazole 20 MG Cap.CR PO SCH (07:40)
[2021-02-08 07:50] LABS: ANION GAP 16.9 mmol/L (5-15)
[2021-02-08] MEDS: Allopurinol 100 MG Tab PO SCH (08:10)
[2021-02-08] MEDS: Cyanocobalamin (Vitamin B12) 500 MCG Tab PO SCH (08:10)
[2021-02-08] MEDS: Cholecalciferol (Vitamin D3) 25 MCG Tab PO SCH (08:10)
[2021-02-08] MEDS: atorvaSTATin 40 MG Tab PO SCH (08:10)
[2021-02-08] MEDS: tiZANidine 4 MG Tab PO SCH ×2 (08:10→20:36)
[2021-02-08] MEDS: Sodium Bicarbonate 650 MG Tab PO SCH ×3 (08:10→20:35)
[2021-02-08] MEDS: Folic Acid 1 MG Tab PO SCH (08:10)
[2021-02-08] MEDS: Aspirin 81 MG Tab.Chew PO SCH (08:10)
[2021-02-08] MEDS: Furosemide 20 MG Tab PO SCH (08:10)
[2021-02-08] MEDS: APIXABAN 2.5 MG PO SCH ×2 (08:11→20:35)
[2021-02-08] MEDS: VITAMIN D3 PO SCH (08:11)
[2021-02-08] MEDS: CALCIUM CARBONATE PO SCH (08:11)
[2021-02-08] MEDS: RANOLAZINE 1000 MG PO SCH ×2 (08:11→20:35)
[2021-02-08] MEDS: Fluticasone Propionate Nasal Spray 16 GM Bottle NASBOTH SCH (08:12)
[2021-02-08] MEDS: ISOSORBIDE MONONITRATE 20 MG PO SCH ×2 (08:12→20:35)
[2021-02-08] MEDS: cefTRIAXone 1 GM Vial IVPUSH SCH (11:32)
[2021-02-08] MEDS: Melatonin 3 MG Tab PO SCH (20:35)
[2021-02-08] MEDS: Acetaminophen 500 MG Tab PO PRN (20:35)
[2021-02-09] MEDS: Omeprazole 20 MG Cap.CR PO SCH ×2 (05:48→06:29)
[2021-02-09 08:08] LABS: ANION GAP 11.9 mmol/L (5-15)
[2021-02-09] MEDS: Cholecalciferol (Vitamin D3) 25 MCG Tab PO SCH (08:32)
[2021-02-09] MEDS: Fluticasone Propionate Nasal Spray 16 GM Bottle NASBOTH SCH (08:33)
[2021-02-09] MEDS: Furosemide 20 MG Tab PO SCH (08:33)
[2021-02-09] MEDS: ISOSORBIDE MONONITRATE 20 MG PO SCH ×2 (08:33→20:07)
[2021-02-09] MEDS: Aspirin 81 MG Tab.Chew PO SCH (08:33)
[2021-02-09] MEDS: Allopurinol 100 MG Tab PO SCH (08:33)
[2021-02-09] MEDS: Sodium Bicarbonate 650 MG Tab PO SCH ×3 (08:33→20:08)
[2021-02-09] MEDS: tiZANidine 4 MG Tab PO SCH ×2 (08:33→20:08)
[2021-02-09] MEDS: atorvaSTATin 40 MG Tab PO SCH (08:33)
[2021-02-09] MEDS: Folic Acid 1 MG Tab PO SCH (08:33)
[2021-02-09] MEDS: Cyanocobalamin (Vitamin B12) 500 MCG Tab PO SCH (08:33)
[2021-02-09] MEDS: APIXABAN 2.5 MG PO SCH ×2 (08:34→20:07)
[2021-02-09] MEDS: RANOLAZINE 1000 MG PO SCH ×2 (08:34→20:07)
[2021-02-09] MEDS: CALCIUM CARBONATE PO SCH (08:34)
[2021-02-09] MEDS: VITAMIN D3 PO SCH (08:34)
[2021-02-09] MEDS: Melatonin 3 MG Tab PO SCH (20:08)
[2021-02-09] MEDS: Acetaminophen 500 MG Tab PO PRN (20:08)
[2021-02-10] MEDS: Omeprazole 20 MG Cap.CR PO SCH ×2 (05:39→06:31)
[2021-02-10 08:07] LABS: ANION GAP 12.2 mmol/L (5-15)
[2021-02-10] MEDS: Cholecalciferol (Vitamin D3) 25 MCG Tab PO SCH (08:31)
[2021-02-10] MEDS: Sodium Bicarbonate 650 MG Tab PO SCH ×3 (08:32→20:16)
[2021-02-10] MEDS: Aspirin 81 MG Tab.Chew PO SCH (08:32)
[2021-02-10] MEDS: Furosemide 20 MG Tab PO SCH (08:32)
[2021-02-10] MEDS: Folic Acid 1 MG Tab PO SCH (08:32)
[2021-02-10] MEDS: atorvaSTATin 40 MG Tab PO SCH (08:32)
[2021-02-10] MEDS: tiZANidine 4 MG Tab PO SCH ×2 (08:32→20:17)
[2021-02-10] MEDS: Allopurinol 100 MG Tab PO SCH (08:33)
[2021-02-10] MEDS: Cyanocobalamin (Vitamin B12) 500 MCG Tab PO SCH (08:33)
[2021-02-10] MEDS: APIXABAN 2.5 MG PO SCH ×2 (08:34→20:16)
[2021-02-10] MEDS: RANOLAZINE 1000 MG PO SCH ×2 (08:34→20:16)
[2021-02-10] MEDS: ISOSORBIDE MONONITRATE 20 MG PO SCH ×2 (08:35→20:16)
[2021-02-10] MEDS: Fluticasone Propionate Nasal Spray 16 GM Bottle NASBOTH SCH (08:36)
[2021-02-10] MEDS: VITAMIN D3 PO SCH (08:36)
[2021-02-10] MEDS: CALCIUM CARBONATE PO SCH (08:36)
[2021-02-10] MEDS: Melatonin 3 MG Tab PO SCH (20:16)
[2021-02-10] MEDS: Acetaminophen 500 MG Tab PO PRN (20:17)
[2021-02-11] MEDS: Omeprazole 20 MG Cap.CR PO SCH (07:31)
[2021-02-11] MEDS: Folic Acid 1 MG Tab PO SCH (08:25)
[2021-02-11] MEDS: Cholecalciferol (Vitamin D3) 25 MCG Tab PO SCH (08:25)
[2021-02-11] MEDS: Furosemide 20 MG Tab PO SCH (08:25)
[2021-02-11] MEDS: Aspirin 81 MG Tab.Chew PO SCH (08:25)
[2021-02-11] MEDS: atorvaSTATin 40 MG Tab PO SCH (08:25)
[2021-02-11] MEDS: Cyanocobalamin (Vitamin B12) 500 MCG Tab PO SCH (08:25)
[2021-02-11] MEDS: Allopurinol 100 MG Tab PO SCH (08:25)
[2021-02-11] MEDS: tiZANidine 4 MG Tab PO SCH ×2 (08:25→20:50)
[2021-02-11] MEDS: RANOLAZINE 1000 MG PO SCH ×2 (08:27→20:51)
[2021-02-11] MEDS: APIXABAN 2.5 MG PO SCH ×2 (08:27→20:52)
[2021-02-11] MEDS: Fluticasone Propionate Nasal Spray 16 GM Bottle NASBOTH SCH (08:27)
[2021-02-11] MEDS: VITAMIN D3 PO SCH (08:28)
[2021-02-11] MEDS: CALCIUM CARBONATE PO SCH (08:28)
[2021-02-11] MEDS: ISOSORBIDE MONONITRATE 20 MG PO SCH ×2 (08:28→20:51)
[2021-02-11] MEDS: Sodium Bicarbonate 650 MG Tab PO SCH ×3 (08:31→20:50)
[2021-02-11] MEDS: Acetaminophen 500 MG Tab PO PRN (11:47)
[2021-02-11] MEDS: Melatonin 3 MG Tab PO SCH (20:50)
[2021-02-12] MEDS: Omeprazole 20 MG Cap.CR PO SCH (07:59)
[2021-02-12] MEDS: atorvaSTATin 40 MG Tab PO SCH (08:00)
[2021-02-12] MEDS: Allopurinol 100 MG Tab PO SCH (08:00)
[2021-02-12] MEDS: Furosemide 20 MG Tab PO SCH (08:00)
[2021-02-12] MEDS: tiZANidine 4 MG Tab PO SCH ×2 (08:00→20:36)
[2021-02-12] MEDS: Cyanocobalamin (Vitamin B12) 500 MCG Tab PO SCH (08:00)
[2021-02-12] MEDS: Cholecalciferol (Vitamin D3) 25 MCG Tab PO SCH (08:00)
[2021-02-12] MEDS: Bisacodyl 5 MG Tab PO PRN (08:00)
[2021-02-12] MEDS: Sodium Bicarbonate 650 MG Tab PO SCH ×3 (08:00→20:36)
[2021-02-12] MEDS: ISOSORBIDE MONONITRATE 20 MG PO SCH ×2 (08:01→20:38)
[2021-02-12] MEDS: Folic Acid 1 MG Tab PO SCH (08:01)
[2021-02-12] MEDS: RANOLAZINE 1000 MG PO SCH ×2 (08:01→20:39)
[2021-02-12] MEDS: APIXABAN 2.5 MG PO SCH ×2 (08:01→20:38)
[2021-02-12] MEDS: Aspirin 81 MG Tab.Chew PO SCH (08:01)
[2021-02-12] MEDS: CALCIUM CARBONATE PO SCH (08:02)
[2021-02-12] MEDS: VITAMIN D3 PO SCH (08:02)
[2021-02-12] MEDS: Fluticasone Propionate Nasal Spray 16 GM Bottle NASBOTH SCH (08:03)
[2021-02-12 10:03] LABS: ANION GAP 11.8 mmol/L (5-15)
[2021-02-12] MEDS ORDERED: EPOETIN ALFA EPBX 20000 UNIT/ML SUBCUT ONE (10:55)
[2021-02-12] MEDS ORDERED: Epoetin Alfa 20,000 Units/1 ML MDV SUBCUT ONE (11:04)
[2021-02-12] MEDS ORDERED: EPOETIN ALFA EPBX 40000 UNIT/ML SUBCUT ONE (11:30)
[2021-02-12 11:53] LABS: ANION GAP 13.6 mmol/L (5-15)
[2021-02-12] MEDS: Acetaminophen 500 MG Tab PO PRN (16:40)
[2021-02-12] MEDS: Melatonin 3 MG Tab PO SCH (20:36)
[2021-02-12] MEDS: Lidocaine 5% 700 MG Patch TOP PRN (21:30)
[2021-02-13] MEDS: Acetaminophen 500 MG Tab PO PRN ×2 (04:57→16:57)
[2021-02-13] MEDS: Omeprazole 20 MG Cap.CR PO SCH (06:43)
[2021-02-13] MEDS: Furosemide 20 MG Tab PO SCH (08:34)
[2021-02-13] MEDS: tiZANidine 4 MG Tab PO SCH ×2 (08:34→20:09)
[2021-02-13] MEDS: atorvaSTATin 40 MG Tab PO SCH (08:34)
[2021-02-13] MEDS: Aspirin 81 MG Tab.Chew PO SCH (08:34)
[2021-02-13] MEDS: Cyanocobalamin (Vitamin B12) 500 MCG Tab PO SCH (08:34)
[2021-02-13] MEDS: Allopurinol 100 MG Tab PO SCH (08:35)
[2021-02-13] MEDS: Cholecalciferol (Vitamin D3) 25 MCG Tab PO SCH (08:35)
[2021-02-13] MEDS: Folic Acid 1 MG Tab PO SCH (08:35)
[2021-02-13] MEDS: Sodium Bicarbonate 650 MG Tab PO SCH ×3 (08:35→20:09)
[2021-02-13] MEDS: CALCIUM CARBONATE PO SCH (08:37)
[2021-02-13] MEDS: Fluticasone Propionate Nasal Spray 16 GM Bottle NASBOTH SCH (08:37)
[2021-02-13] MEDS: VITAMIN D3 PO SCH (08:37)
[2021-02-13] MEDS: RANOLAZINE 1000 MG PO SCH ×2 (08:38→20:11)
[2021-02-13] MEDS: APIXABAN 2.5 MG PO SCH ×2 (08:38→20:10)
[2021-02-13] MEDS: ISOSORBIDE MONONITRATE 20 MG PO SCH ×2 (08:38→20:10)
[2021-02-13] MEDS: Melatonin 3 MG Tab PO SCH (20:09)
[2021-02-14] MEDS: Omeprazole 20 MG Cap.CR PO SCH (06:35)
[2021-02-14] MEDS: Aspirin 81 MG Tab.Chew PO SCH (08:25)
[2021-02-14] MEDS: Cyanocobalamin (Vitamin B12) 500 MCG Tab PO SCH (08:26)
[2021-02-14] MEDS: atorvaSTATin 40 MG Tab PO SCH (08:26)
[2021-02-14] MEDS: Cholecalciferol (Vitamin D3) 25 MCG Tab PO SCH (08:26)
[2021-02-14] MEDS: Allopurinol 100 MG Tab PO SCH (08:26)
[2021-02-14] MEDS: Sodium Bicarbonate 650 MG Tab PO SCH ×3 (08:26→20:37)
[2021-02-14] MEDS: Furosemide 20 MG Tab PO SCH (08:26)
[2021-02-14] MEDS: Fluticasone Propionate Nasal Spray 16 GM Bottle NASBOTH SCH (08:27)
[2021-02-14] MEDS: APIXABAN 2.5 MG PO SCH ×2 (08:27→20:38)
[2021-02-14] MEDS: ISOSORBIDE MONONITRATE 20 MG PO SCH ×2 (08:27→20:38)
[2021-02-14] MEDS: RANOLAZINE 1000 MG PO SCH ×2 (08:27→20:39)
[2021-02-14] MEDS: tiZANidine 4 MG Tab PO SCH ×2 (08:27→20:37)
[2021-02-14] MEDS: VITAMIN D3 PO SCH (08:27)
[2021-02-14] MEDS: CALCIUM CARBONATE PO SCH (08:27)
[2021-02-14] MEDS: Folic Acid 1 MG Tab PO SCH (08:27)
[2021-02-14] MEDS: Melatonin 3 MG Tab PO SCH (20:37)
[2021-02-14] MEDS: Acetaminophen 500 MG Tab PO PRN (20:50)
[2021-02-15] MEDS: Omeprazole 20 MG Cap.CR PO SCH (06:29)
[2021-02-15] MEDS: VITAMIN D3 PO SCH (08:42)
[2021-02-15] MEDS: RANOLAZINE 1000 MG PO SCH ×2 (08:42→21:16)
[2021-02-15] MEDS: CALCIUM CARBONATE PO SCH (08:42)
[2021-02-15] MEDS: Allopurinol 100 MG Tab PO SCH (08:43)
[2021-02-15] MEDS: ISOSORBIDE MONONITRATE 20 MG PO SCH ×2 (08:43→21:15)
[2021-02-15] MEDS: Folic Acid 1 MG Tab PO SCH (08:43)
[2021-02-15] MEDS: Fluticasone Propionate Nasal Spray 16 GM Bottle NASBOTH SCH (08:43)
[2021-02-15] MEDS: Aspirin 81 MG Tab.Chew PO SCH (08:43)
[2021-02-15] MEDS: APIXABAN 2.5 MG PO SCH ×2 (08:43→21:15)
[2021-02-15] MEDS: Furosemide 20 MG Tab PO SCH (08:43)
[2021-02-15] MEDS: atorvaSTATin 40 MG Tab PO SCH (08:43)
[2021-02-15] MEDS: tiZANidine 4 MG Tab PO SCH ×2 (08:44→21:16)
[2021-02-15] MEDS: Cyanocobalamin (Vitamin B12) 500 MCG Tab PO SCH (08:44)
[2021-02-15] MEDS: Sodium Bicarbonate 650 MG Tab PO SCH ×3 (08:44→21:16)
[2021-02-15] MEDS: Cholecalciferol (Vitamin D3) 25 MCG Tab PO SCH (08:44)
[2021-02-15] MEDS ORDERED: Furosemide 20 MG Tab PO ONE (10:45)
--- NOTE | 2021-02-15 11:55 | PCM.SN.2 ---
- Free Text/Narrative Note: S: concerned that he has more swelling in legs. O: Patient is up 6 pounds in one week. A/P: Will add furosemide 20mg orally one time today and recheck lab in the AM.
[2021-02-15] MEDS: Acetaminophen 500 MG Tab PO PRN (17:36)
[2021-02-15] MEDS: Melatonin 3 MG Tab PO SCH (21:16)
[2021-02-15] MEDS: Lidocaine 5% 700 MG Patch TOP PRN (21:17)
[2021-02-16] MEDS: Omeprazole 20 MG Cap.CR PO SCH ×2 (06:25→06:36)
[2021-02-16 08:45] VITALS: BP 141/61; PULSE 63
[2021-02-16 08:46] LABS: ANION GAP 13.1 mmol/L (5-15)
[2021-02-16] MEDS: Sodium Bicarbonate 650 MG Tab PO SCH (08:46)
[2021-02-16] MEDS: Cyanocobalamin (Vitamin B12) 500 MCG Tab PO SCH (08:46)
[2021-02-16] MEDS: Folic Acid 1 MG Tab PO SCH (08:46)
[2021-02-16] MEDS: Aspirin 81 MG Tab.Chew PO SCH (08:46)
[2021-02-16] MEDS: Allopurinol 100 MG Tab PO SCH (08:46)
[2021-02-16] MEDS: atorvaSTATin 40 MG Tab PO SCH (08:46)
[2021-02-16] MEDS: Furosemide 20 MG Tab PO SCH (08:46)
[2021-02-16] MEDS: tiZANidine 4 MG Tab PO SCH (08:46)
[2021-02-16] MEDS: Cholecalciferol (Vitamin D3) 25 MCG Tab PO SCH (08:46)
[2021-02-16] MEDS: Fluticasone Propionate Nasal Spray 16 GM Bottle NASBOTH SCH (08:46)
[2021-02-16] MEDS: ISOSORBIDE MONONITRATE 20 MG PO SCH (08:47)
[2021-02-16] MEDS: RANOLAZINE 1000 MG PO SCH (08:47)
[2021-02-16] MEDS: APIXABAN 2.5 MG PO SCH (08:48)
[2021-02-16] MEDS: VITAMIN D3 PO SCH (08:48)
[2021-02-16] MEDS: CALCIUM CARBONATE PO SCH (08:48)
--- NOTE | 2021-02-16 11:17 | PCM.DCSUM1 ---
Discharge Summary - Hospital Course Free Text/Narrative:: Date of admission: 02/05/2021 Date of discharge: 02/16/2021 Admission diagnoses: # Weakness/deconditioning # UTI # Hyperkalemia Discharge diagnoses: # Weakness/deconditioning # UTI # Hyperkalemia # HTN # Persistent atrial fibrillation # CAD # HFrEF: EF 40%, pulmonary HTN on last echo from 2018 Continue to hold entresto # Hx of TIA/Hx of left ischemic embolic stroke (10/2018). # Hyperlipidemia # Myelodysplastic syndrome/anemia of chronic disease # CKD stage 3b # Hypomagnesemia # Chronic right-sided low back pain # Constipation # B12 deficiency Consultations: None Procedures: None Hospital course: HPI summary: Mr Hampton is a 80yr male was admitted to acute care status by Crista Ruiz NP February 02, from local [facility] with a dx of Hyperkalemia, extremity weakness, and Constipation, and acute confusion. He was following up with her from a recent ED visit due to a fall in which they questioned him having a TIA. His cardiac work-up was negative however BNP 1600, work-up for UTI included blood cultures which showing no growth, x-ray along with head CT no acute process (however chronic LL atelectasis upon reviewing ED workup independently) UA; cloudy with moderate bacteria/leukocyte esterase--LUTS Home medication of entresto on hold given hyperkalemia. Due to thoracic lumbar pain he has been on tramadol and he was advised to discontinue this as it was some suspect of altered mental status and possible slurred speech (previous hallucinations with Dayhoit use). Recent history includes increased weakness and confusion. Patient has had 4 falls in December with near fall more recently. He does have some spasticity in his right leg and arm in which he describes as "jumping". Hx of chronic right low back pain, which has moved up towards the right flank area as well. Has been working with PT for his back pain, which is helping some. Brief acute care hospital course, (see acute care records for more detail) LUTS, pain dysuria improved with Rocephin, his acute confusion resolved, he still has mild residual dysarthria. MRI completed without acute findings. Chronic small vessel changes t/o reported. No difficulty swallowing. Low K diet started. Evaluated by PT and qualified for swing bed status due to deconditioning. Hospital course: 8/21/21: Shortness of breath, edema somewhat improved. Labs this am: K 6.1 with kaexylate 15ml given. BUN 54, creatinine 2.54 - stable given CKD stage 3b- 4; results decreased from prior. Will continue rocephin until tomorrow for full 7 day course for tx of UTI with streptococcus bovis species on urine culture at [place]. Holding magnesium due to CKD as well as topical diclofenac though limited systemic absorption likely. CXR obtained today to evaluate for pulmonary congestion and fluid overload. 1-2+ pitting edema to BLE. Continue Teds, fluid restriction of 2000ml and monitor I&O more closely. Will repeat lasix 20mg IV today. BMP in am. 02/16/2021: Notified that patient is ready for discharge after PT today. Patient and are requesting discharge with home health. Patient reports baseline shortness of breath. He was given extra one time oral dose of Lasix on 02/15/2021 due to increased weight and edema. Patient reports improvement in edema today. Face to face completed for home health referral today with skilled need for in home physical and occupational therapy due to muscle weakness and deconditioning that are due to chronic medical conditions of CHF and chronic kidney disease. He is in need of home health nursing and a bathing aid as well for home management of multiple disease processes due to his chronic and worsening shortness of breath with minimal activity as well as unsteady gait due to previous stroke, from multiple disease processes including CHF, persistent atrial fibrillation, hx of left ischemic embolic stroke, myelodysplastic syndrome and CKD stage 3b. He will be followed by his primary care provider Crista Ruiz APRN-RG at the [facility] and she will sign home health orders. Discharge and follow-up recommendations: - Discharge to home with home health care - New medications at discharge: - discontinued Entresto - discontinued magnesium - consider Veltassa on follow up - Follow-up with Crista Ruiz APRN, CNP on Tuesday02/20/2021 - Discharge Data Discharge Date: 02/16/21 Discharge Disposition: Home, W Home Health Agency 06 Condition: Fair - Referral to Home Health Date of Face to Face Encounter: 02/16/21 Reason for Homebound Status: Face to face completed for home health referral today with skilled need for in home physical and occupational therapy due to muscle weakness and deconditioning that are due to chronic medical conditions of CHF and chronic kidney disease. He is in need of home health nursing and a ba thing aid as well for home management of multiple disease processes due to his chronic and worsening shortness of breath with minimal activity as well as unsteady gait due to previous stroke, from multiple disease processes including CHF, persistent atrial fibrillation, hx of left ischemic embolic stroke, myelodysplastic syndrome and CKD stage 3b. He will be followed by his primary care provider LUIS MIGUEL Childs at the [facility] and she will sign home health orders. Primary Care Physician: Crista Ruiz NP Skilled Need: Face to face completed for home health referral today with skilled need for in home physical and occupational therapy due to muscle weakness and deconditioning that are due to chronic medical conditions of CHF and chronic kidney disease. He is in need of home health nursing and a bathing aid as well for home management of multiple disease processes due to his chronic and worsening shortness of breath with minimal activity as well as unsteady gait due to previous stroke, from multiple disease processes including CHF, persistent atrial fibrillation, hx of left ischemic embolic stroke, myelodysplastic syndrome and CKD stage 3b. He will be followed by his primary care provider LUIS MIGUEL Childs at the [facility] and she will sign home health orders. - Patient Summary/Data Consults: Consultations 02/05/21 11:02 Consult to Case Management/Strategic Marketing Leader [CONS] Routine Consult to Occupational Therapy [OT Evaluation and Treatment] [CONS] Routine Consult to Physical Therapy [PT Evaluation and Treatment] [CONS] Routine - Patient Instructions Diet: Heart Healthy Diet Diet, Other: low salt, low potassium Fluid Restriction: 2000 mL Activity: As Tolerated Notify Provider of: Fever, Increased Pain, Swelling and Redness, Nausea and/or Vomiting Other/Special Instructions: Increase in weight 5 pounds in one week or 2 pounds in one day. Increaseing shortness of breath. Chest pain or palpitations - Discharge Plan *PRESCRIPTION DRUG MONITORING PROGRAM REVIEWED*: Not Applicable *COPY OF PRESCRIPTION DRUG MONITORING REPORT IN PATIENT MARISSA: Not Applicable Home Medications: Home Meds Calcium Carbonate/Vitamin D3 [Calcium 600 + Vit D Tablet] 1 each PO DAILY 01/08/15 [History] Cyanocobalamin (Vitamin B-12) [Vitamin B-12] 1,000 mcg PO DAILY 01/08/15 [History] Folic Acid 800 mcg PO DAILY 12/19/17 [History] Melatonin 5 mg PO BEDTIME 09/18/18 [History] Sennosides [Senokot] 8.6 mg PO BEDTIME PRN 09/18/18 [History] Triamcinolone Acetonide [Triamcinolone Acetonide 0.1% Crm] 1 applic TOP BID PRN 09/18/18 [History] Apixaban [Eliquis] 2.5 mg PO BID 02/06/19 [History] Aspirin 81 mg PO DAILY 02/06/19 [History] Ranolazine [Ranexa] 1,000 mg PO BID 02/07/19 [History] Omeprazole 20 mg PO DAILY #90 tab.rap. 02/08/19 [Rx] atorvaSTATin Calcium [Lipitor] 40 mg PO DAILY 04/10/19 [History] Furosemide 40 mg PO DAILY 05/29/19 [History] Fluocinonide [Lidex 0.05% Oint] 1 applic TOP DAILY PRN 04/09/20 [History] Fluticasone Propionate [Flonase] 1 spray NASBOTH DAILY 04/09/20 [History] Sodium Bicarbonate 650 mg PO TID 04/09/20 [History] Cholecalciferol (Vitamin D3) [Vitamin D3] 2,000 unit PO DAILY 05/01/20 [History] Aloe Vera/Sodium Chloride [[place] Saline Nasal Gel] 1 applic NASBOTH QID 05/22/20 [History] Isosorbide Mononitrate 10 mg PO BID 05/22/20 [History] Diclofenac Sodium [Voltaren 1% Gel] 2 gram TOP QID 02/02/21 [History] Lidocaine 5% [Lidoderm 5%] 1 patch TOP DAILY PRN 02/02/21 [History] bisacodyL [Dulcolax] 5 mg PO BID PRN 02/02/21 [History] polyethylene glycoL 3350 [MiraLAX] 17 gm PO DAILY PRN 02/02/21 [History] tiZANidine [Zanaflex] 4 mg PO BID 02/02/21 [History] Acetaminophen [Tylenol Extra Strength] 1,000 mg PO Q12H PRN tablet 02/16/21 [Rx] Simethicone 80 mg PO Q4H PRN tab.chew 02/16/21 [Rx] allopurinoL [Zyloprim] 100 mg PO DAILY #30 tab 02/16/21 [Rx] Referrals: [facility] [Outside] - Discharge Summary/Plan Comment DC Time >30 min.: Yes Total # of Minutes for Discharge Time: 60 - General Info Date of Service: 02/16/21 Subjective Update: Patient sitting up in chair with by side. Offers no complaints, both are requesting discharge. Functional Status: Reports: Pain Controlled, Tolerating Diet, Ambulating, Urinating. Denies: New Symptoms - Review of Systems General: Reports: Weakness. Denies: Fever, Chills HEENT: Denies: Dysphasia, Headaches, Sore Throat Pulmonary: Reports: Shortness of Breath (baseline). Denies: Cough, Wheezing Cardiovascular: Reports: Edema (improving). Denies: Chest Pain, Palpitations Gastrointestinal: Denies: Abdominal Pain, Constipation, Diarrhea Genitourinary: Denies: Dysuria, Urgency, Hematuria, Retention Musculoskeletal: Reports: Back Pain. Denies: Neck Pain, Leg Pain Skin: Denies: Jaundice, Pallor, Rash Neurological: Denies: Confusion, Headache, Trouble Speaking Psychiatric: Denies: Confusion, Depression, Anxiety - Patient Data Vitals - Most Recent: Last Vital Signs Temp 36.1 C 02/16/21 08:43 Pulse 63 02/16/21 08:43 Resp 16 02/16/21 08:43 BP 141/61 H 02/16/21 08:43 Pulse Ox 99 02/16/21 08:43 Weight - Most Recent: 69.4 kg I&O - Last 24 hours: Intake & Output 02/15/21 02/16/21 02/16/21 22:59 06:59 14:59 Intake Total 600 300 Balance 600 300 Lab Results - Last 24 hrs: Laboratory Results - last 24 hr 02/16/21 02/16/21 Range/Units 07:20 07:20 WBC 4.92 L (5.00-10.00) 10^3/uL RBC 2.74 L (4.50-6.00) 10^6/uL Hgb 8.9 L (13.0-17.0) g/dL Hct 28.6 L (40.0-52.0) % MCV 104.4 H (82.0-92.0) fL MCH 32.5 H (27.0-31.0) pg MCHC 31.1 L (32.0-36.0) g/dL RDW 16.5 H (11.5-14.5) % Plt Count 150 (150-400) 10^3/uL MPV 9.7 (7.4-10.4) fL Immature Gran % (Auto) 0.2 (0.0-5.0) % Neut % (Auto) 69.4 (50.0-70.0) % Lymph % (Auto) 15.0 L (20.0-40.0) % [place] % (Auto) 12.4 H (2.0-8.0) % Eos % (Auto) 2.4 (1.0-3.0) % Baso % (Auto) 0.6 (0.0-1.0) % Neut # (Auto) 3.41 (2.50-7.00) 10^3/uL Lymph # (Auto) 0.74 L (1.00-4.00) 10^3/uL [place] # (Auto) 0.61 (0.10-0.80) 10^3/uL Eos # (Auto) 0.12 (0.10-0.30) 10^3/uL Baso # (Auto) 0.03 (0.00-0.10) 10^3/uL Immature Gran # (Auto) 0.01 (0.00-0.50) 10^3/uL Sodium 134 L (136-145) mmol/L Potassium 4.8 (3.5-5.1) mmol/L Chloride 99 (98-107) mmol/L Carbon Dioxide 26.7 (21.0-32.0) mmol/L Anion Gap 13.1 (5-15) mmol/L BUN 60 H* (7-18) mg/dL Creatinine 2.51 H (0.51-1.17) mg/dL Est Cr Clr Drug Dosing 21.95 mL/min Estimated GFR (MDRD) 25 mL/min Glucose 126 (70-140) mg/dL Calcium 8.2 L (8.7-10.3) mg/dL Total Bilirubin 0.8 (0.2-1.0) mg/dL AST 12 L (15-37) U/L ALT 13 L (14-63) U/L Alkaline Phosphatase 105 (46-116) U/L Total Protein 6.4 (6.4-8.2) g/dL Albumin 3.29 L (3.40-5.00) g/dL Med Orders - Current: Current Medications Acetaminophen (Acetaminophen 500 Mg Tab) 1,000 mg PO Q12H PRN PRN Reason: Pain (moderate 4-6) Last Admin: 02/15/21 17:36 Dose: 1,000 mg Documented by: Allopurinol (Allopurinol 100 Mg Tab) 100 mg PO DAILY [facility] Last Admin: 02/16/21 08:46 Dose: 100 mg Documented by: Aspirin (Aspirin 81 Mg Tab.Chew) 81 mg PO DAILY [facility] Last Admin: 02/16/21 08:46 Dose: 81 mg Documented by: Atorvastatin Calcium (Atorvastatin 40 Mg Tab) 40 mg PO DAILY [facility] Last Admin: 02/16/21 08:46 Dose: 40 mg Documented by: Bisacodyl (Bisacodyl 5 Mg Tab) 5 mg PO BID PRN PRN Reason: Constipation Last Admin: 02/12/21 08:00 Dose: 5 mg Documented by: Cholecalciferol (Cholecalciferol (Vitamin D3) 25 Mcg Tab) 50 mcg PO DAILY [facility] Last Admin: 02/16/21 08:46 Dose: 50 mcg Documented by: Cyanocobalamin (Cyanocobalamin (Vitamin B12) 500 Mcg Tab) 1,000 mcg PO DAILY [facility] Last Admin: 02/16/21 08:46 Dose: 1,000 mcg Documented by: Fluticasone Propionate (Fluticasone Propionate Nasal [place] 16 Gm Bottle) 0 gm NASBOTH DAILY [facility] Last Admin: 02/16/21 08:46 Dose: 1 spray Documented by: Folic Acid (Folic Acid 1 Mg Tab) 1 mg PO DAILY [facility] Last Admin: 02/16/21 08:46 Dose: 1 mg Documented by: Furosemide (Furosemide 20 Mg Tab) 40 mg PO DAILY [facility] Last Admin: 02/16/21 08:46 Dose: 40 mg Documented by: Guaifenesin/Phenylephrine HCl (Guaifenesin/Dextromethorphan 100-10 Mg/5 Ml Soln 5 Ml Cup) 10 ml PO Q4H PRN PRN Reason: Cough Lidocaine (Lidocaine 5% 700 Mg Patch) 700 mg TOP DAILY PRN PRN Reason: pain Last Admin: 02/15/21 21:17 Dose: 700 mg Documented by: Melatonin (Melatonin 3 Mg Tab) 6 mg PO BEDTIME [facility] Last Admin: 02/15/21 21:16 Dose: 6 mg Documented by: Apixaban [Eliquis] 2 (.5 Mg - Ptom) 2.5 mg PO BID [facility] Last Admin: 02/16/21 08:48 Dose: 2.5 mg Documented by: Calcium Carbonate/Vitamin D3 600mg- 800iu - Ptom 1 each PO DAILY [facility] Last Admin: 02/16/21 08:48 Dose: 1 each Documented by: Isosorbide Mononitrate 20 Mg Tab - Ptom 10 mg PO BID [facility] Last Admin: 02/16/21 08:47 Dose: 10 mg Documented by: Omeprazole (Omeprazole 20 Mg Cap.Cr) 20 mg PO ACBREAKFAST [facility] Last Admin: 02/16/21 06:36 Dose: Not Given Documented by: Polyethylene Glycol (Polyethylene Glycol 3350 Powder 17 Gm Packet) 17 gm PO DAILY PRN PRN Reason: Constipation Last Admin: 02/06/21 11:07 Dose: 17 gm Documented by: Ranolazine (Ranolazine 1,000 Mg Tab.Er - Ptom) 1,000 mg PO BID [facility] Last Admin: 02/16/21 08:47 Dose: 1,000 mg Documented by: Senna/Docusate Sodium (Docusate Sodium/Sennosides 50-8.6 Mg Tab) 1 tab PO BEDTIME PRN PRN Reason: Constipation Last Admin: 02/14/21 20:37 Dose: 1 tab Documented by: Simethicone (Simethicone 80 Mg Tab.Chew) 80 mg PO Q4H PRN PRN Reason: Heartburn Last Admin: 02/05/21 22:08 Dose: 80 mg Documented by: Sodium Bicarbonate (Sodium Bicarbonate 650 Mg Tab) 650 mg PO TID [facility] Last Admin: 02/16/21 08:46 Dose: 650 mg Documented by: Sodium Chloride (Sodium Chloride 0.9% 10 Ml Syringe) 10 ml FLUSH Q8HR PRN PRN Reason: keep vein open Last Admin: 02/05/21 13:00 Dose: 10 ml Documented by: Sodium Chloride (Sodium Chloride 0.65% Nasal [place] 45 Ml Bottle) 1 ml NASBOTH QID PRN PRN Reason: DRY NOSTRILS Tizanidine HCl (Tizanidine 4 Mg Tab) 4 mg PO BID [facility] Last Admin: 02/16/21 08:46 Dose: 4 mg Documented by: Discontinued Medications Acetaminophen (Acetaminophen 500 Mg Tab) 1,000 mg PO DAILY PRN PRN Reason: Pain (moderate 4-6) Last Admin: 02/06/21 11:08 Dose: 1,000 mg Documented by: Atropine Sulfate (Atropine 0.1 Mg/Ml 10 Ml Syringe) 0 mg IVPUSH ASDIRECTED PRN PRN Reason: Heart. Ceftriaxone Sodium (Ceftriaxone 1 Gm Vial) 1 gm IVPUSH Q24H [facility] Stop: 02/08/21 23:59 Last Admin: 02/08/21 11:32 Dose: 1 gm Documented by: Diclofenac Sodium (Diclofenac Sodium 1% Gel 100 Gm Tube) 2 gm TOP QID [facility] Last Admin: 02/07/21 08:01 Dose: 1 applic Documented by: Epinephrine HCl (Epinephrine 1:10,000 1 Mg/10 Ml Syringe) 1 mg IVPUSH ASDIRECTED PRN PRN Reason: Heart. Epoetin Ge (Epoetin Ge 40,000 Units/1 Ml Sdv) 40,000 units SUBCUT ONETIME ONE Stop: 02/05/21 14:01 Last Admin: 02/05/21 14:00 Dose: 40,000 units Documented by: Epoetin Ge (Epoetin Ge 20,000 Units/1 Ml Mdv) 40,000 units SUBCUT ONETIME ONE Stop: 02/12/21 11:05 Last Admin: 02/12/21 11:09 Dose: Not Given Documented by: Epoetin Ge-epbx (Epoetin Ge-Epbx 20,000 Unit/Ml Sdv) 40,000 unit SUBCUT ONETIME ONE Stop: 02/12/21 10:56 Last Admin: 02/12/21 11:39 Dose: Not Given Documented by: Epoetin Ge-epbx (Epoetin Ge-Epbx 40,000 Unit/Ml Sdv) 40,000 unit SUBCUT ONETIME ONE Stop: 02/12/21 11:31 Last Admin: 02/12/21 11:30 Dose: 40,000 unit Documented by: Furosemide (Furosemide 40 Mg/4 Ml Vial) 20 mg IVPUSH NOW ONE Stop: 02/06/21 18:01 Last Admin: 02/06/21 18:11 Dose: 20 mg Documented by: Furosemide (Furosemide 40 Mg/4 Ml Vial) 20 mg IVPUSH NOW ONE Stop: 02/07/21 15:15 Last Admin: 02/07/21 15:32 Dose: 20 mg Documented by: Furosemide (Furosemide 20 Mg Tab) 20 mg PO ONETIME ONE Stop: 02/15/21 10:46 Last Admin: 02/15/21 11:17 Dose: 20 mg Documented by: Lidocaine HCl (Lidocaine 2% 100 Mg/5 Ml Syringe) 0 mg IVPUSH ASDIRECTED PRN PRN Reason: Heart. Magnesium Oxide (Magnesium Oxide 500 Mg Tab) 500 mg PO DAILY [facility] Last Admin: 02/07/21 08:00 Dose: 500 mg Documented by: Sodium Polystyrene Sulfonate (Sodium Polystyrene Sulfonate 15 Gm/60 Ml Susp 60 Ml Bot) 15 gm PO ONETIME ONE Stop: 02/07/21 10:03 Last Admin: 02/07/21 10:21 Dose: 15 gm Documented by: - Exam Physical Findings Comments:: GENERAL: Well-appearing adult in no acute distress. HEENT: Normocephalic, atraumatic. Conjunctiva clear. Nares patent without discharge. Mucous membranes moist, posterior pharynx unremarkable. NECK: Supple, no masses. CV: Regular rate and rhythm, no murmurs, rubs, or gallops. 2+ radial pulses. PULMONARY: Normal effort, clear to auscultation bilaterally, no wheezes, rales, or rhonchi. ABDOMEN: Positive bowel sounds, soft, nontender, nondistended. EXTREMITIES: 1+ BLE edema, no cyanosis or clubbing. MUSCULOSKELETAL: Moves all extremities well. NEUROLOGICAL: No obvious deficits. DERMATOLOGIC: No rashes or suspicious lesions in exposed areas. PSYCHIATRIC: Alert, interactive, appropriate affect.
== END 2021-02-16 14:35 | disposition home health service (06) | DRG 948 ==
LOC: KA.MS 11:02
PROVIDERS: ADMIT Nurse Practitioner Family; ATTEND Nurse Practitioner Family
DX: R53.81 Other malaise (principal); N39.0 Urinary tract infection, site not specified; I13.0 Hypertensive heart and chronic kidney disease with heart failure and stage 1 through stage 4 chronic kidney disease, or unspecified chronic kidney disease; I48.19 Other persistent atrial fibrillation; I50.22 Chronic systolic (congestive) heart failure; E87.5 Hyperkalemia; E78.5 Hyperlipidemia, unspecified; N18.32 Chronic kidney disease, stage 3b; Z66 Do not resuscitate; M54.5 Low back pain; G89.29 Other chronic pain; D46.9 Myelodysplastic syndrome, unspecified; I25.10 Atherosclerotic heart disease of native coronary artery without angina pectoris; E53.8 Deficiency of other specified B group vitamins; H91.90 Unspecified hearing loss, unspecified ear; H54.7 Unspecified visual loss; E78.00 Pure hypercholesterolemia, unspecified; G47.30 Sleep apnea, unspecified; K59.09 Other constipation; E11.21 Type 2 diabetes mellitus with diabetic nephropathy; E11.22 Type 2 diabetes mellitus with diabetic chronic kidney disease; E11.42 Type 2 diabetes mellitus with diabetic polyneuropathy; Z96.653 Presence of artificial knee joint, bilateral; D63.1 Anemia in chronic kidney disease; Z99.81 Dependence on supplemental oxygen; Z98.41 Cataract extraction status, right eye; Z88.1 Allergy status to other antibiotic agents; Z79.899 Other long term (current) drug therapy; Z79.82 Long term (current) use of aspirin; I25.2 Old myocardial infarction; Z95.5 Presence of coronary angioplasty implant and graft; Z98.890 Other specified postprocedural states; Z86.73 Personal history of transient ischemic attack (TIA), and cerebral infarction without residual deficits
CPT/HCPCS: 36415; 71046; 80048; 80053; 81001; 81003; 82728; 83540; 83550; 83615; 84550; 85025; 85046; 97110-GO; 97110-GP; 97161-GP; A9270-GY; G0103; J0696; J0885; J1940; Q5106

== ENCOUNTER 2021-03-18 14:50 | Inpatient (IN) | payer MEDICARE, OTHER ==
[2021-03-18] MEDS ORDERED: Sodium Chloride 0.9% 10 ML Syringe FLUSH PRN (15:01)
[2021-03-18] MEDS ORDERED: Bisacodyl 5 MG Tab PO PRN (15:38)
[2021-03-18] MEDS ORDERED: traMADol 50 MG Tab PO PRN (15:38)
[2021-03-18] MEDS ORDERED: Polyethylene Glycol 3350 Powder 17 GM Packet PO PRN (15:38)
[2021-03-18] MEDS ORDERED: Non-Formulary Medication 1 Each (Sennosides [Senokot] 8.6 MG Tablet) PO PRN (15:38)
[2021-03-18] MEDS ORDERED: Acetaminophen 500 MG Tab PO PRN (15:38)
--- NOTE | 2021-03-18 15:43 | CR ---
[id number] RAD/RAD Chest PA or AP 1V EXAM: FRONTAL CHEST INDICATION: Congestive heart failure. COMPARISON: February 07, 2021. DISCUSSION: Hypoinflation is similar to the prior study. There is stable cardiomegaly with increased mild to moderate central vascular congestion. No acute infiltrates are identified, but low lung volumes and pulmonary edema could obscure pathology. Sternotomy. No effusions. IMPRESSION: 1. Mild to moderate congestive heart failure has increased. Shlomo Carpenter MD 03/18/21 1221 Thank you for allowing us to participate in the care of your patient.
[2021-03-18] MEDS: Furosemide 40 MG/4 ML VIAL IVPUSH SCH (15:45)
[2021-03-18] MEDS ORDERED: Albuterol 8 GM Inhaler INH PRN (15:52)
[2021-03-18 15:56] LABS: ANION GAP 12.7 mmol/L (5-15); CHLORIDE,CL 102 mmol/L (98-107); SODIUM,NA 138 mmol/L (136-145)
[2021-03-18] MEDS: AYR SALINE NASA NASBOTH SCH ×2 (19:30→20:26)
[2021-03-18] MEDS: Apixaban 5 MG Tab PO SCH (20:25)
[2021-03-18] MEDS: RANOLAZINE 1000 MG PO SCH (20:26)
[2021-03-18] MEDS: MELATONIN 10 MG PO SCH (20:26)
[2021-03-18] MEDS: ISOSORBIDE MONONITRATE 20 MG PO SCH (20:26)
[2021-03-18] MEDS: Sodium Bicarbonate 650 MG Tab PO SCH (20:26)
[2021-03-19] MEDS: Pantoprazole 40 MG Tab.CR PO SCH ×2 (05:29→06:33)
[2021-03-19] MEDS: Aspirin 81 MG Tab.Chew PO SCH (08:23)
[2021-03-19] MEDS: Furosemide 40 MG/4 ML VIAL IVPUSH SCH (08:24)
[2021-03-19] MEDS: atorvaSTATin 40 MG Tab PO SCH (08:24)
[2021-03-19] MEDS: Sodium Bicarbonate 650 MG Tab PO SCH ×3 (08:24→20:33)
[2021-03-19] MEDS: Allopurinol 100 MG Tab PO SCH (08:24)
[2021-03-19] MEDS: Apixaban 5 MG Tab PO SCH ×2 (08:24→20:32)
[2021-03-19] MEDS: RANOLAZINE 1000 MG PO SCH ×2 (08:26→20:32)
[2021-03-19] MEDS: AYR SALINE NASA NASBOTH SCH ×4 (08:26→20:32)
[2021-03-19] MEDS: ISOSORBIDE MONONITRATE 20 MG PO SCH ×2 (08:26→20:31)
[2021-03-19 09:43] LABS: ANION GAP 11.9 mmol/L (5-15)
[2021-03-19] MEDS ORDERED: Furosemide 40 MG/4 ML VIAL IVPUSH ONE (14:00)
[2021-03-19] MEDS: MELATONIN 10 MG PO SCH (20:32)
--- NOTE | 2021-03-19 22:53 | PCM.PN ---
- General Info Date of Service: 03/19/21 - Patient Data Vitals - Most Recent: Last Vital Signs Temp 36.0 C L 03/19/21 21:57 Pulse 68 03/19/21 21:57 Resp 22 H 03/19/21 21:57 BP 129/69 03/19/21 21:57 Pulse Ox 97 03/19/21 21:57 Weight - Most Recent: 120.519 kg I&O - Last 24 Hours: Intake & Output 03/19/21 03/19/21 03/19/21 06:59 14:59 22:59 Intake Total 300 700 470 Output Total 300 225 100 Balance 0 475 370 Lab Results Last 24 Hours: Laboratory Results - last 24 hr 03/19/21 Range/Units 09:05 Sodium 138 (136-145) mmol/L Potassium 4.4 (3.5-5.1) mmol/L Chloride 103 (98-107) mmol/L Carbon Dioxide 27.5 (21.0-32.0) mmol/L Anion Gap 11.9 (5-15) mmol/L BUN 43 H (7-18) mg/dL Creatinine 2.12 H (0.51-1.17) mg/dL Est Cr Clr Drug Dosing 25.99 mL/min Estimated GFR (MDRD) 30 mL/min Glucose 156 H (70-140) mg/dL Calcium 8.5 L (8.7-10.3) mg/dL Med Orders - Current: Current Medications Acetaminophen (Acetaminophen 500 Mg Tab) 1,000 mg PO DAILY PRN PRN Reason: Pain (moderate 4-6) Albuterol (Albuterol 8 Gm Inhaler) 0 gm INH Q4H PRN PRN Reason: Shortness of Breath Allopurinol (Allopurinol 100 Mg Tab) 100 mg PO DAILY [facility] Last Admin: 03/19/21 08:24 Dose: 100 mg Documented by: Apixaban (Apixaban 5 Mg Tab) 2.5 mg PO BID [facility] Last Admin: 03/19/21 20:32 Dose: 2.5 mg Documented by: Aspirin (Aspirin 81 Mg Tab.Chew) 81 mg PO DAILY [facility] Last Admin: 03/19/21 08:23 Dose: 81 mg Documented by: Atorvastatin Calcium (Atorvastatin 40 Mg Tab) 40 mg PO DAILY [facility] Last Admin: 03/19/21 08:24 Dose: 40 mg Documented by: Bisacodyl (Bisacodyl 5 Mg Tab) 5 mg PO BID PRN PRN Reason: Constipation Furosemide (Furosemide 40 Mg/4 Ml Vial) 40 mg IVPUSH DAILY [facility] Last Admin: 03/19/21 08:24 Dose: 40 mg Documented by: Non-Formulary Medication (Sennosides [Senokot]) 8.6 mg PO BEDTIME PRN PRN Reason: Constipation Pantoprazole Sodium (Pantoprazole 40 Mg Tab.Cr) 40 mg PO ACBREAKFAST [facility] Last Admin: 03/19/21 06:33 Dose: Not Given Documented by: Juan Daniel Saline Nasa Gel (*Pt Own Med*) 0 each NASBOTH QID [facility] Last Admin: 03/19/21 20:32 Dose: Not Given Documented by: Isosorbide [id number] Mg Mg Tab *Pt Own Med* 0 each PO BID [facility] Last Admin: 03/19/21 20:31 Dose: 1 each Documented by: Melatonin 10 Mg Tab (*Pt Own Med*) 0 each PO BEDTIME [facility] Last Admin: 03/19/21 20:32 Dose: 1 each Documented by: Ranolazine Er 1000 Mg Tab *Patient's Own Medication* 0 each PO BID [facility] Last Admin: 03/19/21 20:32 Dose: 1 each Documented by: Polyethylene Glycol (Polyethylene Glycol 3350 Powder 17 Gm Packet) 17 gm PO DAILY PRN PRN Reason: Constipation Sodium Bicarbonate (Sodium Bicarbonate 650 Mg Tab) 650 mg PO TID [facility] Last Admin: 03/19/21 20:33 Dose: 650 mg Documented by: Sodium Chloride (Sodium Chloride 0.9% 10 Ml Syringe) 10 ml FLUSH Q8HR PRN PRN Reason: keep vein open Tramadol HCl (Tramadol 50 Mg Tab) 50 mg PO Q6H PRN PRN Reason: Pain Discontinued Medications Furosemide (Furosemide 40 Mg/4 Ml Vial) 20 mg IVPUSH NOW ONE Stop: 03/19/21 14:01 Last Admin: 03/19/21 14:10 Dose: 20 mg Documented by: - Patient Data Lab Results Last 24 hrs: Laboratory Results - last 24 hr 03/19/21 Range/Units 09:05 Sodium 138 (136-145) mmol/L Potassium 4.4 (3.5-5.1) mmol/L Chloride 103 (98-107) mmol/L Carbon Dioxide 27.5 (21.0-32.0) mmol/L Anion Gap 11.9 (5-15) mmol/L BUN 43 H (7-18) mg/dL Creatinine 2.12 H (0.51-1.17) mg/dL Est Cr Clr Drug Dosing 25.99 mL/min Estimated GFR (MDRD) 30 mL/min Glucose 156 H (70-140) mg/dL Calcium 8.5 L (8.7-10.3) mg/dL Result Diagrams: 03/18/21 15:30 03/19/21 09:05 Sepsis Event Note - Evaluation Sepsis Screening Result: No Definite Risk - Focused Exam Vital Signs: Vital Signs Temp Pulse Resp BP Pulse Ox Pulse Ox 03/19/21 21:57 36.0 C L 68 22 H 129/69 97 03/19/21 18:38 36.5 C 65 24 H 152/66 H 93 L 03/19/21 15:01 97 03/19/21 14:44 36.3 C 63 24 H 126/60 97 03/19/21 11:00 36.5 C 65 20 126/66 98
[2021-03-20] MEDS: Pantoprazole 40 MG Tab.CR PO SCH ×2 (05:33→06:30)
[2021-03-20] MEDS: AYR SALINE NASA NASBOTH SCH ×5 (08:32→20:40)
[2021-03-20] MEDS: RANOLAZINE 1000 MG PO SCH ×2 (08:32→20:27)
[2021-03-20] MEDS: ISOSORBIDE MONONITRATE 20 MG PO SCH ×2 (08:32→20:29)
[2021-03-20] MEDS: Aspirin 81 MG Tab.Chew PO SCH (08:33)
[2021-03-20] MEDS: Allopurinol 100 MG Tab PO SCH (08:33)
[2021-03-20] MEDS: atorvaSTATin 40 MG Tab PO SCH (08:33)
[2021-03-20] MEDS: Sodium Bicarbonate 650 MG Tab PO SCH ×3 (08:33→20:27)
[2021-03-20] MEDS: Furosemide 40 MG/4 ML VIAL IVPUSH SCH (08:33)
[2021-03-20] MEDS: Apixaban 5 MG Tab PO SCH ×2 (08:33→20:27)
[2021-03-20 11:29] LABS: ANION GAP 10.2 mmol/L (5-15)
[2021-03-20] MEDS ORDERED: Metolazone 2.5 MG Tab PO ONE (14:26)
[2021-03-20] MEDS: MELATONIN 10 MG PO SCH (20:28)
--- NOTE | 2021-03-21 02:18 | PCM.PN ---
- General Info Date of Service: 03/20/21 - Patient Data Vitals - Most Recent: Last Vital Signs Temp 36.1 C 03/20/21 22:56 Pulse 64 03/20/21 22:56 Resp 24 H 03/20/21 22:56 BP 139/68 03/20/21 22:56 Pulse Ox 96 03/20/21 22:56 Weight - Most Recent: 120.293 kg I&O - Last 24 Hours: Intake & Output 03/20/21 03/20/21 03/21/21 14:59 22:59 06:59 Intake Total 400 560 Output Total 225 300 Balance 175 260 Lab Results Last 24 Hours: Laboratory Results - last 24 hr 03/20/21 Range/Units 10:35 Sodium 138 (136-145) mmol/L Potassium 4.4 (3.5-5.1) mmol/L Chloride 102 (98-107) mmol/L Carbon Dioxide 30.2 (21.0-32.0) mmol/L Anion Gap 10.2 (5-15) mmol/L BUN 44 H (7-18) mg/dL Creatinine 2.18 H (0.51-1.17) mg/dL Est Cr Clr Drug Dosing 25.28 mL/min Estimated GFR (MDRD) 29 mL/min Glucose 152 H (70-140) mg/dL Calcium 8.4 L (8.7-10.3) mg/dL Med Orders - Current: Current Medications Acetaminophen (Acetaminophen 500 Mg Tab) 1,000 mg PO DAILY PRN PRN Reason: Pain (moderate 4-6) Albuterol (Albuterol 8 Gm Inhaler) 0 gm INH Q4H PRN PRN Reason: Shortness of Breath Allopurinol (Allopurinol 100 Mg Tab) 100 mg PO DAILY [facility] Last Admin: 03/20/21 08:33 Dose: 100 mg Documented by: Apixaban (Apixaban 5 Mg Tab) 2.5 mg PO BID [facility] Last Admin: 03/20/21 20:27 Dose: 2.5 mg Documented by: Aspirin (Aspirin 81 Mg Tab.Chew) 81 mg PO DAILY [facility] Last Admin: 03/20/21 08:33 Dose: 81 mg Documented by: Atorvastatin Calcium (Atorvastatin 40 Mg Tab) 40 mg PO DAILY [facility] Last Admin: 03/20/21 08:33 Dose: 40 mg Documented by: Bisacodyl (Bisacodyl 5 Mg Tab) 5 mg PO BID PRN PRN Reason: Constipation Last Admin: 03/20/21 10:15 Dose: 5 mg Documented by: Furosemide (Furosemide 40 Mg/4 Ml Vial) 40 mg IVPUSH DAILY [facility] Last Admin: 03/20/21 08:33 Dose: 40 mg Documented by: Pantoprazole Sodium (Pantoprazole 40 Mg Tab.Cr) 40 mg PO ACBREAKFAST [facility] Last Admin: 03/20/21 06:30 Dose: Not Given Documented by: Juan Daniel Saline Nasa Gel (*Pt Own Med*) 0 each NASBOTH QID [facility] Last Admin: 03/20/21 20:40 Dose: Not Given Documented by: Isosorbide [id number] Mg Mg Tab *Pt Own Med* 0 each PO BID [facility] Last Admin: 03/20/21 20:29 Dose: 1 each Documented by: Melatonin 10 Mg Tab (*Pt Own Med*) 0 each PO BEDTIME [facility] Last Admin: 03/20/21 20:28 Dose: 1 each Documented by: Ranolazine Er 1000 Mg Tab *Patient's Own Medication* 0 each PO BID [facility] Last Admin: 03/20/21 20:27 Dose: 1 each Documented by: Polyethylene Glycol (Polyethylene Glycol 3350 Powder 17 Gm Packet) 17 gm PO DAILY PRN PRN Reason: Constipation Sodium Bicarbonate (Sodium Bicarbonate 650 Mg Tab) 650 mg PO TID [facility] Last Admin: 03/20/21 20:27 Dose: 650 mg Documented by: Sodium Chloride (Sodium Chloride 0.9% 10 Ml Syringe) 10 ml FLUSH Q8HR PRN PRN Reason: keep vein open Tramadol HCl (Tramadol 50 Mg Tab) 50 mg PO Q6H PRN PRN Reason: Pain Discontinued Medications Furosemide (Furosemide 40 Mg/4 Ml Vial) 20 mg IVPUSH NOW ONE Stop: 03/19/21 14:01 Last Admin: 03/19/21 14:10 Dose: 20 mg Documented by: Metolazone (Metolazone 2.5 Mg Tab) 2.5 mg PO ONETIME ONE Stop: 03/20/21 14:27 Last Admin: 03/20/21 14:46 Dose: 2.5 mg Documented by: Non-Formulary Medication (Sennosides [Senokot]) 8.6 mg PO BEDTIME PRN PRN Reason: Constipation - Patient Data Lab Results Last 24 hrs: Laboratory Results - last 24 hr 03/20/21 Range/Units 10:35 Sodium 138 (136-145) mmol/L Potassium 4.4 (3.5-5.1) mmol/L Chloride 102 (98-107) mmol/L Carbon Dioxide 30.2 (21.0-32.0) mmol/L Anion Gap 10.2 (5-15) mmol/L BUN 44 H (7-18) mg/dL Creatinine 2.18 H (0.51-1.17) mg/dL Est Cr Clr Drug Dosing 25.28 mL/min Estimated GFR (MDRD) 29 mL/min Glucose 152 H (70-140) mg/dL Calcium 8.4 L (8.7-10.3) mg/dL Result Diagrams: 03/18/21 15:30 03/20/21 10:35 Sepsis Event Note - Evaluation Sepsis Screening Result: No Definite Risk - Focused Exam Vital Signs: Vital Signs Temp Pulse Resp BP BP Pulse Ox 03/20/21 22:56 36.1 C 64 24 H 139/68 96 03/20/21 15:00 36.4 C 64 20 135/75 100 - My Orders Last 24 Hours: My Active Orders 03/21/21 05:11 BMP [BASIC METABOLIC PANEL,BMP] [CHEM] AM CBC WITH AUTO DIFF [HEME] AM
[2021-03-21] MEDS: Pantoprazole 40 MG Tab.CR PO SCH ×2 (06:11→06:44)
[2021-03-21 08:22] LABS: ANION GAP 13.2 mmol/L (5-15)
[2021-03-21] MEDS: Aspirin 81 MG Tab.Chew PO SCH (08:39)
[2021-03-21] MEDS: Apixaban 5 MG Tab PO SCH ×2 (08:39→20:06)
[2021-03-21] MEDS: atorvaSTATin 40 MG Tab PO SCH (08:39)
[2021-03-21] MEDS: Allopurinol 100 MG Tab PO SCH (08:39)
[2021-03-21] MEDS: ISOSORBIDE MONONITRATE 20 MG PO SCH ×2 (08:40→20:34)
[2021-03-21] MEDS: Furosemide 40 MG/4 ML VIAL IVPUSH SCH (08:40)
[2021-03-21] MEDS: RANOLAZINE 1000 MG PO SCH ×2 (08:41→20:35)
[2021-03-21] MEDS: Sodium Bicarbonate 650 MG Tab PO SCH ×3 (08:54→20:06)
[2021-03-21] MEDS: AYR SALINE NASA NASBOTH SCH ×4 (08:54→20:08)
--- NOTE | 2021-03-21 12:01 | PCM.PN ---
- General Info Date of Service: 03/21/21 - Patient Data Vitals - Most Recent: Last Vital Signs Temp 36.6 C 03/21/21 07:00 Pulse 64 03/21/21 07:00 Resp 24 H 03/21/21 07:00 BP 138/75 03/21/21 07:00 Pulse Ox 95 03/21/21 07:00 Weight - Most Recent: 120.684 kg I&O - Last 24 Hours: Intake & Output 03/20/21 03/21/21 03/21/21 22:59 06:59 14:59 Intake Total 560 100 Output Total 300 100 Balance 260 0 Lab Results Last 24 Hours: Laboratory Results - last 24 hr 03/21/21 03/21/21 Range/Units 07:38 07:38 WBC 5.42 (5.00-10.00) 10^3/uL RBC 3.12 L (4.50-6.00) 10^6/uL Hgb 10.1 L (13.0-17.0) g/dL Hct 32.7 L (40.0-52.0) % MCV 104.8 H (82.0-92.0) fL MCH 32.4 H (27.0-31.0) pg MCHC 30.9 L (32.0-36.0) g/dL RDW 15.7 H (11.5-14.5) % Plt Count 155 (150-400) 10^3/uL MPV 10.5 H (7.4-10.4) fL Immature Gran % (Auto) 0.2 (0.0-5.0) % Neut % (Auto) 71.9 H (50.0-70.0) % Lymph % (Auto) 13.3 L (20.0-40.0) % Larue % (Auto) 12.2 H (2.0-8.0) % Eos % (Auto) 2.0 (1.0-3.0) % Baso % (Auto) 0.4 (0.0-1.0) % Neut # (Auto) 3.90 (2.50-7.00) 10^3/uL Lymph # (Auto) 0.72 L (1.00-4.00) 10^3/uL Larue # (Auto) 0.66 (0.10-0.80) 10^3/uL Eos # (Auto) 0.11 (0.10-0.30) 10^3/uL Baso # (Auto) 0.02 (0.00-0.10) 10^3/uL Immature Gran # (Auto) 0.01 (0.00-0.50) 10^3/uL Sodium 139 (136-145) mmol/L Potassium 4.3 (3.5-5.1) mmol/L Chloride 101 (98-107) mmol/L Carbon Dioxide 29.1 (21.0-32.0) mmol/L Anion Gap 13.2 (5-15) mmol/L BUN 45 H (7-18) mg/dL Creatinine 2.22 H (0.51-1.17) mg/dL Est Cr Clr Drug Dosing 24.82 mL/min Estimated GFR (MDRD) 29 mL/min Glucose 130 (70-140) mg/dL Calcium 8.5 L (8.7-10.3) mg/dL Med Orders - Current: Current Medications Acetaminophen (Acetaminophen 500 Mg Tab) 1,000 mg PO DAILY PRN PRN Reason: Pain (moderate 4-6) Albuterol (Albuterol 8 Gm Inhaler) 0 gm INH Q4H PRN PRN Reason: Shortness of Breath Allopurinol (Allopurinol 100 Mg Tab) 100 mg PO DAILY [facility] Last Admin: 03/21/21 08:39 Dose: 100 mg Documented by: Apixaban (Apixaban 5 Mg Tab) 2.5 mg PO BID [facility] Last Admin: 03/21/21 08:39 Dose: 2.5 mg Documented by: Aspirin (Aspirin 81 Mg Tab.Chew) 81 mg PO DAILY [facility] Last Admin: 03/21/21 08:39 Dose: 81 mg Documented by: Atorvastatin Calcium (Atorvastatin 40 Mg Tab) 40 mg PO DAILY [facility] Last Admin: 03/21/21 08:39 Dose: 40 mg Documented by: Bisacodyl (Bisacodyl 5 Mg Tab) 5 mg PO BID PRN PRN Reason: Constipation Last Admin: 03/20/21 10:15 Dose: 5 mg Documented by: Pantoprazole Sodium (Pantoprazole 40 Mg Tab.Cr) 40 mg PO ACBREAKFAST [facility] Last Admin: 03/21/21 06:44 Dose: Not Given Documented by: [place] Saline Nasa Gel (*Pt Own Med*) 0 each NASBOTH QID [facility] Last Admin: 03/21/21 08:54 Dose: 1 each Documented by: Isosorbide [id number] Mg Mg Tab *Pt Own Med* 0 each PO BID [facility] Last Admin: 03/21/21 08:40 Dose: 1 each Documented by: Melatonin 10 Mg Tab (*Pt Own Med*) 0 each PO BEDTIME [facility] Last Admin: 03/20/21 20:28 Dose: 1 each Documented by: Ranolazine Er 1000 Mg Tab *Patient's Own Medication* 0 each PO BID [facility] Last Admin: 03/21/21 08:41 Dose: 1 each Documented by: Polyethylene Glycol (Polyethylene Glycol 3350 Powder 17 Gm Packet) 17 gm PO DAILY PRN PRN Reason: Constipation Sodium Bicarbonate (Sodium Bicarbonate 650 Mg Tab) 650 mg PO TID [facility] Last Admin: 03/21/21 08:54 Dose: 650 mg Documented by: Sodium Chloride (Sodium Chloride 0.9% 10 Ml Syringe) 10 ml FLUSH Q8HR PRN PRN Reason: keep vein open Tramadol HCl (Tramadol 50 Mg Tab) 50 mg PO Q6H PRN PRN Reason: Pain Discontinued Medications Furosemide (Furosemide 40 Mg/4 Ml Vial) 40 mg IVPUSH DAILY [facility] Last Admin: 03/21/21 08:40 Dose: 40 mg Documented by: Furosemide (Furosemide 40 Mg/4 Ml Vial) 20 mg IVPUSH NOW ONE Stop: 03/19/21 14:01 Last Admin: 03/19/21 14:10 Dose: 20 mg Documented by: Metolazone (Metolazone 2.5 Mg Tab) 2.5 mg PO ONETIME ONE Stop: 03/20/21 14:27 Last Admin: 03/20/21 14:46 Dose: 2.5 mg Documented by: Non-Formulary Medication (Sennosides [Senokot]) 8.6 mg PO BEDTIME PRN PRN Reason: Constipation - Patient Data Lab Results Last 24 hrs: Laboratory Results - last 24 hr 03/21/21 03/21/21 Range/Units 07:38 07:38 WBC 5.42 (5.00-10.00) 10^3/uL RBC 3.12 L (4.50-6.00) 10^6/uL Hgb 10.1 L (13.0-17.0) g/dL Hct 32.7 L (40.0-52.0) % MCV 104.8 H (82.0-92.0) fL MCH 32.4 H (27.0-31.0) pg MCHC 30.9 L (32.0-36.0) g/dL RDW 15.7 H (11.5-14.5) % Plt Count 155 (150-400) 10^3/uL MPV 10.5 H (7.4-10.4) fL Immature Gran % (Auto) 0.2 (0.0-5.0) % Neut % (Auto) 71.9 H (50.0-70.0) % Lymph % (Auto) 13.3 L (20.0-40.0) % Larue % (Auto) 12.2 H (2.0-8.0) % Eos % (Auto) 2.0 (1.0-3.0) % Baso % (Auto) 0.4 (0.0-1.0) % Neut # (Auto) 3.90 (2.50-7.00) 10^3/uL Lymph # (Auto) 0.72 L (1.00-4.00) 10^3/uL Larue # (Auto) 0.66 (0.10-0.80) 10^3/uL Eos # (Auto) 0.11 (0.10-0.30) 10^3/uL Baso # (Auto) 0.02 (0.00-0.10) 10^3/uL Immature Gran # (Auto) 0.01 (0.00-0.50) 10^3/uL Sodium 139 (136-145) mmol/L Potassium 4.3 (3.5-5.1) mmol/L Chloride 101 (98-107) mmol/L Carbon Dioxide 29.1 (21.0-32.0) mmol/L Anion Gap 13.2 (5-15) mmol/L BUN 45 H (7-18) mg/dL Creatinine 2.22 H (0.51-1.17) mg/dL Est Cr Clr Drug Dosing 24.82 mL/min Estimated GFR (MDRD) 29 mL/min Glucose 130 (70-140) mg/dL Calcium 8.5 L (8.7-10.3) mg/dL Result Diagrams: 03/21/21 07:38 03/21/21 07:38 Sepsis Event Note - Evaluation Sepsis Screening Result: No Definite Risk - Focused Exam Vital Signs: Vital Signs Temp Pulse Resp BP Pulse Ox Pulse Ox 03/21/21 07:00 36.6 C 64 24 H 138/75 95 03/21/21 05:00 96 - My Orders Last 24 Hours: My Active Orders 03/21/21 14:00 Bumetanide [Bumex] 2 mg IVPUSH ONETIME ONE
[2021-03-21] MEDS ORDERED: Bumetanide 1 MG/4 ML MDV IVPUSH ONE (14:00)
[2021-03-21] MEDS: MELATONIN 10 MG PO SCH (20:34)
[2021-03-22] MEDS: Pantoprazole 40 MG Tab.CR PO SCH ×2 (05:33→06:32)
[2021-03-22 06:22] VITALS: BP 127/67; PULSE 67
[2021-03-22 08:03] LABS: ANION GAP 11.8 mmol/L (5-15)
[2021-03-22] MEDS: ISOSORBIDE MONONITRATE 20 MG PO SCH (08:17)
[2021-03-22] MEDS: RANOLAZINE 1000 MG PO SCH (08:18)
[2021-03-22] MEDS: AYR SALINE NASA NASBOTH SCH (08:18)
[2021-03-22] MEDS: Sodium Bicarbonate 650 MG Tab PO SCH (08:19)
[2021-03-22] MEDS: Apixaban 5 MG Tab PO SCH (08:20)
[2021-03-22] MEDS: atorvaSTATin 40 MG Tab PO SCH (08:20)
[2021-03-22] MEDS: Allopurinol 100 MG Tab PO SCH (08:20)
[2021-03-22] MEDS: Aspirin 81 MG Tab.Chew PO SCH (08:20)
[2021-03-22] MEDS ORDERED: Bumetanide 1 MG Tab PO SCH (10:15)
[2021-03-22] MEDS ORDERED: Bumetanide 1 MG Tab PO ONE (12:02)
--- NOTE | 2021-03-22 12:11 | PCM.DCSUM1 ---
Discharge Summary - Hospital Course Free Text/Narrative:: Date of admission: 03/18/21 Date of discharge: 03/22/21 Admission diagnoses: # Acute on chronic combined systolic and diastolic heart failure # Chronic hypoxemic respiratory failure # Chronic kidney disease, stage IIIb-IV # Myelodysplastic syndrome # Weakness Discharge diagnoses: # Acute on chronic combined systolic and diastolic heart failure # Chronic hypoxemic respiratory failure # Chronic kidney disease, stage IIIb-IV # Myelodysplastic syndrome # Weakness # Palliative care status Consultations: Social work/case management Procedures: None Hospital course: 80yoM with a history most notable for combined systolic/diastolic heart failure, chronic hypoxic respiratory failure, chronic kidney disease stage IIIb-IV, myelodysplastic syndrome, and history of CVA who had noted worsening fluid status and was seen by PCP LUIS MIGUEL Childs on day of admission at which time discussion of options for further workup and management resulted in admission for acute exacerbation of combined heart failure. Attempted increasing doses of IV furosemide without significant diuresis, so sw itched to regimen of bumetanide and metolazone for which he responded well with symptomatic improvement, decreased fluid overload, and overall stable renal function. Other home medications were continued. Electrolytes remained stable and no new concerns arose during his stay. Discussions were had during his stay about goals of care. Patient and have shown significant interest in hospice cares, for which they plan to talk to his daughter this week when she is planning to visit. He is already receiving home health through [facility] and will have a discussion with their home health nurse about their thoughts as well. Discharge and follow-up recommendations: - Discharge to home with home health (previously has been receiving) - Medication changes at discharge: - Discontinue furosemide - Start bumetanide 2mg qAM and 1mg qafternoon on /// - Start metolazone 2.5mg qafternoon on // - Follow-up with PCP LUIS MIGUEL Childs, on 03/25/21, along with BMP (ordered) - Discharge Data Discharge Date: 03/22/21 Discharge Disposition: Home, W Home Health Agency 06 Condition: Fair - Referral to Home Health Date of Face to Face Encounter: 03/22/21 Reason for Homebound Status: Inability to leave home without significant assistance related to heart failure which results in significant shortness of breath with minimal activites as well as unsteady gait related to prior CVA as well as fluid overload. Primary Care Physician: Crista Ruiz NP Skilled Need: Home management of multiple disease processes to address shortness of brerath with inimal activities due to heart failure andr restrictive lung disease. Also need due to unsteady gait due to CVA and fluid overload. - Patient Summary/Data Consults: Consultations 03/18/21 19:04 Consult to Case Management/[place] Sewer [CONS] Routine - Discharge Plan *PRESCRIPTION DRUG MONITORING PROGRAM REVIEWED*: Not Applicable *COPY OF PRESCRIPTION DRUG MONITORING REPORT IN PATIENT MARISSA: Not Applicable Prescriptions/Med Rec: Bumetanide [Bumex] 2 mg PO DAILY #45 tablet metOLazone [Metolazone] 2.5 mg PO DAILY #12 tablet Home Medications: Home Meds Calcium Carbonate/Vitamin D3 [Calcium 600 + Vit D Tablet] 1 each PO DAILY 01/08/15 [History] Cyanocobalamin (Vitamin B-12) [Vitamin B-12] 1,000 mcg PO DAILY 01/08/15 [History] Folic Acid 800 mcg PO DAILY 12/19/17 [History] Melatonin 5 - 10 mg PO BEDTIME 09/18/18 [History] Sennosides [Senokot] 8.6 mg PO BEDTIME PRN 09/18/18 [History] Triamcinolone Acetonide [Triamcinolone Acetonide 0.1% Crm] 1 applic TOP BID PRN 09/18/18 [History] Apixaban [Eliquis] 2.5 mg PO BID 02/06/19 [History] Aspirin 81 mg PO DAILY 02/06/19 [History] Ranolazine [Ranexa] 1,000 mg PO BID 02/07/19 [History] Omeprazole 20 mg PO DAILY #90 tab.rap 02/08/19 [Rx] atorvaSTATin Calcium [Lipitor] 40 mg PO DAILY 04/10/19 [History] Fluocinonide [Lidex 0.05% Oint] 1 applic TOP DAILY PRN 04/09/20 [History] Fluticasone Propionate [Flonase] 1 spray NASBOTH DAILY 04/09/20 [History] Sodium Bicarbonate 650 mg PO TID 04/09/20 [History] Cholecalciferol (Vitamin D3) [Vitamin D3] 2,000 unit PO DAILY 05/01/20 [History] Aloe Vera/Sodium Chloride [[place] Saline Nasal Gel] 1 applic NASBOTH QID 05/22/20 [History] Isosorbide Mononitrate 10 mg PO BID 05/22/20 [History] Diclofenac Sodium [Voltaren 1% Gel] 2 gram TOP QID 02/02/21 [History] bisacodyL [Dulcolax] 5 mg PO BID PRN 02/02/21 [History] polyethylene glycoL 3350 [MiraLAX] 17 gm PO DAILY PRN 02/02/21 [History] tiZANidine [Zanaflex] 4 mg PO BID PRN 02/02/21 [History] allopurinoL [Zyloprim] 100 mg PO DAILY #30 tab 02/16/21 [Rx] Acetaminophen [Tylenol Extra Strength] 1,000 mg PO DAILY PRN 03/18/21 [History] Albuterol Sulfate [Albuterol Sulfate HFA] 1 - 2 puff INH Q4H PRN 03/18/21 [History] Epoetin Ge-EPBX [Retacrit] 40,000 unit IJ ASDIRECTED 03/18/21 [History] traMADol [Ultram] 50 mg PO Q6H PRN 03/18/21 [History] Bumetanide [Bumex] 2 mg PO DAILY #45 tablet 03/22/21 [Rx] metOLazone [Metolazone] 2.5 mg PO DAILY #12 tablet 03/22/21 [Rx] Oxygen Flow Rate (L/min): 2 Referrals: Crista Ruiz [employer]CTOR [Primary Care Provider] - (Call the clinic tomorrow morning to schedule an appointment with Crista for 03/25/21. Labs prior to appointment. ) - Discharge Summary/Plan Comment DC Time >30 min.: Yes Total # of Minutes for Discharge Time: 60 - General Info Subjective Update: Mr. Hampton reports further improvement in fluid status since yesterday. Less short of breath with ambulating to bathroom. No new concerns. Denies any pain. Strongly desires discharge to home. - Patient Data Vitals - Most Recent: Last Vital Signs Temp 36.1 C 03/22/21 06:21 Pulse 67 03/22/21 06:21 Resp 22 H 03/22/21 06:21 BP 127/67 03/22/21 06:21 Pulse Ox 95 03/22/21 06:21 Weight - Most Recent: 119.862 kg I&O - Last 24 hours: Intake & Output 03/21/21 03/22/21 03/22/21 22:59 06:59 14:59 Intake Total 100 150 Output Total 850 400 Balance -750 -250 Lab Results - Last 24 hrs: Laboratory Results - last 24 hr 03/22/21 Range/Units 07:38 Sodium 139 (136-145) mmol/L Potassium 4.5 (3.5-5.1) mmol/L Chloride 101 (98-107) mmol/L Carbon Dioxide 30.7 (21.0-32.0) mmol/L Anion Gap 11.8 (5-15) mmol/L BUN 45 H (7-18) mg/dL Creatinine 2.26 H (0.51-1.17) mg/dL Est Cr Clr Drug Dosing 24.38 mL/min Estimated GFR (MDRD) 28 mL/min Glucose 135 (70-140) mg/dL Calcium 8.5 L (8.7-10.3) mg/dL Med Orders - Current: Current Medications Acetaminophen (Acetaminophen 500 Mg Tab) 1,000 mg PO DAILY PRN PRN Reason: Pain (moderate 4-6) Albuterol (Albuterol 8 Gm Inhaler) 0 gm INH Q4H PRN PRN Reason: Shortness of Breath Allopurinol (Allopurinol 100 Mg Tab) 100 mg PO DAILY [facility] Last Admin: 03/22/21 08:20 Dose: 100 mg Documented by: Apixaban (Apixaban 5 Mg Tab) 2.5 mg PO BID [facility] Last Admin: 03/22/21 08:20 Dose: 2.5 mg Documented by: Aspirin (Aspirin 81 Mg Tab.Chew) 81 mg PO DAILY [facility] Last Admin: 03/22/21 08:20 Dose: 81 mg Documented by: Atorvastatin Calcium (Atorvastatin 40 Mg Tab) 40 mg PO DAILY [facility] Last Admin: 03/22/21 08:20 Dose: 40 mg Documented by: Bisacodyl (Bisacodyl 5 Mg Tab) 5 mg PO BID PRN PRN Reason: Constipation Last Admin: 03/20/21 10:15 Dose: 5 mg Documented by: Bumetanide (Bumetanide 1 Mg Tab) 1 mg PO DAILY [facility] Last Admin: 03/22/21 10:37 Dose: 1 mg Documented by: Bumetanide (Bumetanide 1 Mg Tab) 1 mg PO ONETIME ONE Stop: 03/22/21 12:03 Pantoprazole Sodium (Pantoprazole 40 Mg Tab.Cr) 40 mg PO ACBREAKFAST [facility] Last Admin: 03/22/21 06:32 Dose: Not Given Documented by: Juan Daniel Saline Nasa Gel (*Pt Own Med*) 0 each NASBOTH QID [facility] Last Admin: 03/22/21 08:18 Dose: 1 each Documented by: Isosorbide [id number] Mg Mg Tab *Pt Own Med* 0 each PO BID [facility] Last Admin: 03/22/21 08:17 Dose: 0.5 each Documented by: Melatonin 10 Mg Tab (*Pt Own Med*) 0 each PO BEDTIME [facility] Last Admin: 03/21/21 20:34 Dose: 1 each Documented by: Ranolazine Er 1000 Mg Tab *Patient's Own Medication* 0 each PO BID [facility] Last Admin: 03/22/21 08:18 Dose: 1 each Documented by: Polyethylene Glycol (Polyethylene Glycol 3350 Powder 17 Gm Packet) 17 gm PO DAILY PRN PRN Reason: Constipation Sodium Bicarbonate (Sodium Bicarbonate 650 Mg Tab) 650 mg PO TID [facility] Last Admin: 03/22/21 08:19 Dose: 650 mg Documented by: Sodium Chloride (Sodium Chloride 0.9% 10 Ml Syringe) 10 ml FLUSH Q8HR PRN PRN Reason: keep vein open Tramadol HCl (Tramadol 50 Mg Tab) 50 mg PO Q6H PRN PRN Reason: Pain Discontinued Medications Bumetanide (Bumetanide 1 Mg/4 Ml Mdv) 2 mg IVPUSH ONETIME ONE Stop: 03/21/21 14:01 Last Admin: 03/21/21 14:03 Dose: 2 mg Documented by: Furosemide (Furosemide 40 Mg/4 Ml Vial) 40 mg IVPUSH DAILY [facility] Last Admin: 03/21/21 08:40 Dose: 40 mg Documented by: Furosemide (Furosemide 40 Mg/4 Ml Vial) 20 mg IVPUSH NOW ONE Stop: 03/19/21 14:01 Last Admin: 03/19/21 14:10 Dose: 20 mg Documented by: Metolazone (Metolazone 2.5 Mg Tab) 2.5 mg PO ONETIME ONE Stop: 03/20/21 14:27 Last Admin: 03/20/21 14:46 Dose: 2.5 mg Documented by: Non-Formulary Medication (Sennosides [Senokot]) 8.6 mg PO BEDTIME PRN PRN Reason: Constipation - Exam Physical Findings Comments:: GENERAL: Chronically ill elderly male sitting in bedside chair in no acute distress. at bedside. HEENT: Normocephalic, atraumatic. Conjunctiva clear. Nasal cannula in place. Mucous membranes moist. NECK: Supple, no masses. CV: Irregularly irregular. 2+ radial pulses. PULMONARY: Normal effort, faint crackles in bilateral bases with interval improvement. ABDOMEN: Positive bowel sounds, soft, nontender, nondistended. EXTREMITIES: 2+ pitting edema to knees bilaterally. 1+ pitting edema to bilateral flanks. MUSCULOSKELETAL: Slow ambulation with walker. NEUROLOGICAL: No obvious deficits. DERMATOLOGIC: No rashes or suspicious lesions in exposed areas. PSYCHIATRIC: Alert, interactive, appropriate affect.
== END 2021-03-22 12:48 | disposition home health service (06) | DRG 292 ==
LOC: KA.MS 14:50
PROVIDERS: ADMIT Nurse Practitioner Family; ATTEND Family Medicine
DX: I50.43 Acute on chronic combined systolic (congestive) and diastolic (congestive) heart failure (principal); J96.11 Chronic respiratory failure with hypoxia; Z20.822 Contact with and (suspected) exposure to COVID-19; D63.1 Anemia in chronic kidney disease; D46.Z Other myelodysplastic syndromes; Z66 Do not resuscitate; R53.1 Weakness; Z51.5 Encounter for palliative care; Z86.73 Personal history of transient ischemic attack (TIA), and cerebral infarction without residual deficits
CPT/HCPCS: 36415; 71045; 80048; 80053; 81001; 83880; 84484; 85025; A9270-GY; J1940; J3490; U0002